=== PATIENT | female | born 1935 | race Caucasian/White ===

== ENCOUNTER 2017-08-12 16:35 | Inpatient (IN) | payer MEDICARE, SELFPAY ==
[2017-08-12] VITALS (9 sets, daily range): BP systolic 108–132; BP diastolic 68–92; PULSE 71–93; RESP 16–25; TEMP 36.4–36.9; O2SAT 97–100; BMI 33.5; BMI 33.8
--- NOTE | 2017-08-12 16:52 | RAD_ITS ---
STUDY: X-RAY CHEST REASON FOR EXAM: Female, 81 years old. Dyspnea TECHNIQUE: Single AP portable view of the chest. COMPARISON: January 20, 2017 FINDINGS: There are monitoring devices The lungs are clear and expanded. There is pleural fibrotic scarring of the left costophrenic angle. Sternal cerclage wires are present from a prior sternotomy. Moderate cardiac enlargement. Normal mediastinum and laisha. Normal visualized pulmonary arteries. Normal visualized aortic arch and descending thoracic aorta. Normal visualized thoracic spine. Normal visualized ribs, clavicles, and shoulders. There is no demonstrated abnormality of the visualized soft tissue structures of the upper abdomen. RAD/Chest 1 View (Portable) IMPRESSION: Cardiac enlargement. Left pleural thickening or effusion. Electronically Signed: Marco Quintana MD at 18:13 EDT , Service support ,
--- NOTE | 2017-08-12 16:53 | EKG12_ITS ---
Test Reason : SOB Blood Pressure : / mmHG Vent. Rate : 073 BPM Atrial Rate : 098 BPM P-R Int : 000 ms QRS Dur : 124 ms QT Int : 432 ms P-R-T Axes : 000 027 063 degrees QTc Int : 475 ms Atrial fibrillation with premature ventricular or aberrantly conducted complexes Nonspecific ST abnormality Abnormal ECG Confirmed by BLANCA SCHMIDT, ERIS ([id number]), loan expeditor SHREE FARLEY ([id number]) on 08/18/2017 9:00:13 AM Referred By: LEXY Confirmed By:ERIS RIOS MD
--- NOTE | 2017-08-12 16:53 | CT_ITS ---
STUDY: CT ABDOMEN AND PELVIS WITHOUT CONTRAST REASON FOR EXAM: Female, 81 years old. Pelvic pain and bloating. RADIATION DOSAGE (If Supplied By Facility): CTDIvol = ( 18.84 ) mGy, DLP = ( 998.02 ) mGycm TECHNIQUE: Transaxial images were obtained from the dome of the diaphragm to the symphysis pubis without oral contrast, and without intravenous contrast. Sagittal and coronal images were reconstructed. Individualized dose optimization techniques were used for this CT. COMPARISON: January 01, 2017. FINDINGS: Lower lung consolidation. Small pleural effusions. Cardiac enlargement. Sternotomy wires. There is hepatomegaly with diffuse hepatic enlargement. Normal gallbladder and extrahepatic biliary system. There are multiple benign calcified granulomata of the spleen. Normal pancreas. Normal bilateral adrenal glands. Normal right kidney. Normal left kidney. No stones or hydronephrosis. Normal visualized stomach. Normal small intestine. Normal colon. There is non-visualization of the appendix. There is diffuse atherosclerotic calcification of the abdominal aorta, without a demonstrated aneurysm. There is an IVC filter in place. 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 Normal retroperitoneum. Gentile catheter in the urinary bladder. There is absence of the uterus consistent with a prior hysterectomy. There is moderate free fluid in the abdomen There is significant edema of the abdominal wall. There are diffuse degenerative changes of the visualized lumbar spine. CT/Abdomen/Pelvis without Cont IMPRESSION: Hepatomegaly. Moderate ascites. Bilateral pleural effusions. No obstruction. No hydronephrosis. Electronically Signed: Marco Quintana MD at 18:53 EDT , Service support ,
--- NOTE | 2017-08-12 17:01 | NURSING ---
NO LW OR POA
[2017-08-12 17:50] LABS: Bacteria 0 SEEN /hpf (None Seen); Mucous, Urine 0 SEEN /hpf (<or=2+); Red Blood Cells-Urine 0 SEEN /hpf (0-5); White Blood Cells 0 SEEN /hpf (0-5)
[2017-08-12 18:06] LABS: Color, Urine Yellow (Yellow); Glucose, Dipstick Normal (Normal); Ketone-Dipstick Negative (Negative); Leukocyte Esterase-Dipstick Negative /ul (Negative); Nitrite-Dipstick Negative (Negative); Occult Blood-Urine Negative /ul (Negative); Protein-Dipstick Negative (Negative); Urine Bilirubin Dipstick Negative (Negative); Urine Clarity Clear (Clear); Urine Urobilinogen Normal (Normal)
[2017-08-12 18:08] LABS: Absolute Lymphocyte Count 0.63 X10^3/ul (0.83-4.51); Absolute Neutrophil Count 1.9 X10^3/uL (2.0-7.7); Basophil# 0.01 X10^3/uL; Basophil% 0.3 % (0-1); Eosinophil# 0.14 X10^3/uL; Eosinophils% 4.4 % (0-5); Hematocrit 29.4 % (37-47); Hemoglobin 9.4 g/dl (12.0-15.0); Lymphocyte # 0.63 X10^3/ul (4.0); Lymphocyte % 19.8 % (19-41); Mean Corpuscular Hgb 30.2 pg (27.0-32.0); Mean Corpuscular Volume 94.5 fL (81-99); Mean Platelet Vol. 9.6 fl (6.2-12.0); Monocyte# 0.47 X10^3/uL; Monocyte% 14.8 % (0-10); Neutrophil # 1.93 X10^3/uL (2.7-7.7); Neutrophil % 60.7 % (47-70); Platelet Count 96 K/mm3 (150-450); RBC Distribution Width CV 15.7 % (11.6-14.6); RBC Distribution Width SD 53.7 fl (35.1-43.9); Red Blood Count 3.11 M/mm3 (4.2-5.4); White Blood Count 3.2 K/mm3 (4.4-11.0)
[2017-08-12 18:10] LABS: POSITIVE COUNT NO; POSITIVE DIFFERENTIAL NO; POSITIVE MORPHOLOGY NO
[2017-08-12 18:27] LABS: Squamous Epithelial Cells - UA 0-5 SEEN /hpf (5-10)
[2017-08-12 18:29] LABS: Anion Gap 8 (5-15); BUN 55 mg/dL (7-18); BUN/Creat Ratio 45.5 RATIO (10-20); Calcium,Total 8.5 mg/dL (8.5-10.1); Chloride 91 mmol/L (98-107); Creatinine, Serum 1.21 mg/dL (0.55-1.02); EST Glomerular Filtration Rate 45 mL/min (>60); Est Glom Filt Rate - Afr Amer 55 mL/min (>60); Estimated Creatinine Clearance 29.65 ml/min; Glucose 110 mg/dL (74-106); Lipase 307 U/L (73-393); Potassium 3.9 mmol/L (3.5-5.1); Sodium Level 129 mmol/L (136-145)
[2017-08-12 19:30] LABS: AST(SGOT) 16 U/L (15-37); Alanine Aminotransfer ALT/SGPT 12 U/L (13-56); Albumin, Serum 3.9 g/dL (3.2-5.0); Alkaline Phosphatase 82 U/L (45-117); Bilirubin, Direct 0.45 mg/dL (0.00-0.30); Protein, Total 7.9 g/dL (6.4-8.2)
[2017-08-12 19:34] LABS: BNP,B-Type NATRIURETIC PEPTIDE 651.6 pg/mL (0-100)
--- NOTE | 2017-08-12 20:48 | ED.VISSUMM ---
- ER Visit Summary Date of Service: 08/12/17 Chief Complaint: [Short of breath and abdominal distention] History of Present Illness: The patient is a 81 F [presents the emergency department with multiple complaints. Patient states that she developed abdominal distention today. Patient feels like she is having a hard time getting urine out or she is not making enough urine. Patient has been gaining weight and she does have a history of CHF. Patient complains of dyspnea related to her abdominal distention. She denies any chest pain. She denies any fever. Patient does have a history of a chronic cough. Patient's last bowel movement was yesterday but very small she states. Her last good bowel movement was 3 or 4 days ago. Patient took a stool softener today and had no results.] Physical Examination: [HEENT-PERRLA, EOMI. Cranial nerves II through XII grossly intact. TMs clear. Mucous membranes moist. No adenopathy. Cardiovascular-irregularly irregular with a 2 out of 6 systolic ejection murmur Lungs-rales in bases, mild tachypnea, no accessory muscle use or retractions. Abdomen-normoactive bowel sounds, soft. Patient has mild diffuse tenderness to palpation. Slightly distended abdomen. Extremities-intact ?4, normal range of motion, normal pulses, atraumatic]. +2 edema both lower extremities. Test Results: [EKG obtained arrival showed A. fib with ventricular rate of 73 bpm. CBC with differential obtained showed a white blood cell count 3.2, hemoglobin 9.4, hematocrit 29, platelets 96, chemistries unremarkable, LFTs were normal. Troponin less than 0.02. BNP was 651. Lipase was 307. Chest x-ray showed bilateral pleural effusions and cardiomegaly. CT scan of the flank showed hepatomegaly with ascites and bilateral effusions.] Emergency Department Course and Treatment: Patient received a soapsuds enema and simethicone without much relief.] Treatment Plan: [Case was discussed with hospitalist will evaluate patient for admission] Disposition: [Admit] Impression: [Dyspnea/CHF Abdominal pain Ascites Bilateral pleural effusions] This note was generated with [employer] dictation software. It may contain incorrect words, spelling, and punctuation that were not noted in review of the chart prior to signing ED Disposition - Plan for ED Patient: Chief Complaint: Shortness of Breath Referrals: Sea Obando MD [Primary Care Provider] -
--- NOTE | 2017-08-12 20:50 | ED.RN ---
PATIENT HAD SMALL AMOUNTS OF STOOL AFTER THE SOAP SUDS ENEMA. NO STOOL WAS NOTED ON DIGITAL EXAM OF RECTUM. PATIENT STILL C/O FULLNESS IN HER ABDOMEN CAN BE SEEN WHEN LOOKING AT HER. DOCTOR AWARE OF ALL OF THIS.
--- NOTE | 2017-08-12 20:51 | ED.DCSUM_ITS ---
- ER Visit Summary Date of Service: 08/12/17 Chief Complaint: [Short of breath and abdominal distention] History of Present Illness: The patient is a 81 F [presents the emergency department with multiple complaints. Patient states that she developed abdominal distention today. Patient feels like she is having a hard time getting urine out or she is not making enough urine. Patient has been gaining weight and she does have a history of CHF. Patient complains of dyspnea related to her abdominal distention. She denies any chest pain. She denies any fever. Patient does have a history of a chronic cough. Patient's last bowel movement was yesterday but very small she states. Her last good bowel movement was 3 or 4 days ago. Patient took a stool softener today and had no results.] Physical Examination: [HEENT-PERRLA, EOMI. Cranial nerves II through XII grossly intact. TMs clear. Mucous membranes moist. No adenopathy. Cardiovascular-irregularly irregular with a 2 out of 6 systolic ejection murmur Lungs-rales in bases, mild tachypnea, no accessory muscle use or retractions. Abdomen-normoactive bowel sounds, soft. Patient has mild diffuse tenderness to palpation. Slightly distended abdomen. Extremities-intact ?4, normal range of motion, normal pulses, atraumatic]. +2 edema both lower extremities. Test Results: [EKG obtained arrival showed A. fib with ventricular rate of 73 bpm. CBC with differential obtained showed a white blood cell count 3.2, hemoglobin 9.4, hematocrit 29, platelets 96, chemistries unremarkable, LFTs were normal. Troponin less than 0.02. BNP was 651. Lipase was 307. Chest x- ray showed bilateral pleural effusions and cardiomegaly. CT scan of the flank showed hepatomegaly with ascites and bilateral effusions.] Emergency Department Course and Treatment: Patient received a soapsuds enema and simethicone without much relief.] Treatment Plan: [Case was discussed with hospitalist will evaluate patient for admission] Disposition: [Admit] Impression: [Dyspnea/CHF Abdominal pain Ascites Bilateral pleural effusions] This note was generated with [employer] dictation software. It may contain incorrect words, spelling, and punctuation that were not noted in review of the chart prior to signing ED Disposition - Plan for ED Patient: Chief Complaint: Shortness of Breath Referrals: Sea Obando MD [Primary Care Provider] -
--- NOTE | 2017-08-12 21:35 | PCM.HP.STD ---
Problem List (1) Chronic systolic CHF (congestive heart failure) Status: Chronic (2) Paroxysmal a-fib Status: Chronic (3) Pulmonary HTN Status: Chronic (4) Hyponatremia Status: Chronic (5) Gastroesophageal reflux disease Status: Chronic (6) Iron (Fe) deficiency anemia Status: Chronic (7) CAD (coronary artery disease) Status: Chronic Comment: Status post bypass in 2006, following with Dr. Dumont (8) Hypothyroidism Status: Chronic History of Present Illness Date of Admission: 08/12/17 Chief Complaint: Abdominal distention, tightness, increasing leg edema. The patient is a 81 year old F with past medical history as mentioned above presented to the emergency room because of multiple complaints. The patient is poor informant and she kept jumping from one complaint to another. She mentioned that her main presenting complaint is abdominal distention and tightness that led to difficulty taking a deep breath. She was not able to tell me for how long she has been having those symptoms. Her daughter was at the bedside and she was not of any benefit in terms of giving clear consistent history. Apparently, patient has been complaining of progressively increasing abdominal distention and tightness as well as increasing bilateral leg edema and she has been gaining weight. She gained about 9 pounds over the last 10 days. The patient herself denies any abdominal pain and she said the main problem is the tightness because of the distention which is causing difficult to take a deep breath. She has been belching frequently and she mentioned that she has been constipated for a few days. Also, she reported that her urine output is decreasing nowadays. She has history of chronic systolic CHF with low ejection fraction and she has been on high doses of Lasix and Aldactone and recently, Dr. Dumont recommended to decrease her fluid intake. She had a history of CAD status post CABG, has been on beta-blockers, KAREN inhibitors and diuretics And she is following up with Dr. Dumont as outpatient. She has history of paroxysmal A. fib and she was on Coumadin that she was taken off last year because of GI bleed. At this time, she is not on any anticoagulants. 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 In the emergency room, her vital signs were stable. He was very distressed with grunting because of the significant abdominal distention. Her routine blood work is remarkable for chronic pancytopenia, chronic hyponatremia with sodium of 129, BUN of 55 and creatinine 1.21. His LFT was unremarkable. Troponin was negative. BNP was elevated at 651 but it is chronically elevated. Urinalysis revealed clear urine without evidence of acute cystitis. Chest x-ray revealed cardiomegaly and obliteration of the left costophrenic angle, no acute findings. CT scan abdomen and pelvis without contrast revealed hepatomegaly, moderate ascites, bilateral small pleural effusion, no bowel obstruction, normal kidneys and revealed dilatation of the inferior vena cava. She had CT scan abdomen and pelvis in December, that revealed almost same findings including dilatation of the inferior vena cava. She is being admitted for abdominal distention/ascites which could be due to probable acute on chronic systolic CHF but that clear etiology is unclear at this point. Past Medical History Past Medical History (Chronic Problems): Chronic Problems Chronic systolic CHF (congestive heart failure) (Chronic) Paroxysmal a-fib (Chronic) Pulmonary HTN (Chronic) Hyponatremia (Chronic) Gastroesophageal reflux disease (Chronic) Iron (Fe) deficiency anemia (Chronic) Chronic congestive heart failure (Chronic) systolic. 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 Dumont Hypothyroidism (Chronic) Allergies azithromycin [From Zithromax] Allergy (Intermediate, Verified 08/12/17 16:38) Mucosal lesions Penicillins Allergy (Intermediate, Verified 08/12/17 16:38) Mucosal lesions Sulfa (Sulfonamide Antibiotics) Allergy (Intermediate, Verified 08/12/17 16:38) Mucosal lesions nausea cephalexin [From Keflex] Allergy (Verified 08/12/17 16:38) GI UPSET tobramycin Allergy (Verified 08/12/17 16:38) RED EYES metronidazole Adverse Reaction (Intermediate, Verified 08/12/17 16:38) Nausea diltiazem Adverse Reaction (Mild, Verified 08/12/17 16:38) Nausea/Vom/Diarrhea metolazone [From Zaroxolyn] Adverse Reaction (Mild, Verified 08/12/17 16:38) Nausea potassium chloride Adverse Reaction (Mild, Verified 08/12/17 16:38) Upset Stomach nystatin Adverse Reaction (Verified 08/12/17 16:38) Nausea spironolactone Adverse Reaction (Verified 08/12/17 16:38) Nausea Home Medications: Ambulatory Orders Medication Instructions Recorded Carvedilol [Coreg] 12.5 mg PO BID 08/17/16 Levothyroxine [Synthroid] 100 mcg PO DAILY 08/17/16 Lisinopril [Zestril] 5 mg PO DAILY 08/17/16 Omeprazole [Prilosec] 20 mg PO DAILY 08/17/16 Docusate Sodium [Colace] 100 mg PO BID 11/10/16 Spironolactone 25 mg PO BID 01/01/17 Furosemide 80 mg PO BID 08/12/17 Surgical History: cholecystectomy, coronary bypass surgery, hysterectomy, - Psychiatric History: No pertinent psych hx 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 Denies: Anorexia, Chills, Fever, Fatigue Eyes: Denies: Blurred vision, Double vision, Drainage, Redness HEENT: Denies: Difficulty Hearing, Ear Pain, Eye Pain, Nasal Congestion, Sore Throat Cardiovascular: Reports: Edema. Denies: Chest Pain, Chest Pressure, Chest Tightness, Heaviness, Light Headedness, Palpitations, Syncope Respiratory: Reports: Cough, Shortness of Breath. Denies: Pleuritic Pain, Sputum production, Wheezing Gastrointestinal: Reports: Abdominal Pain, Constipation, Nausea. Denies: Diarrhea, Vomiting Genitourinary: Reports: - - Decreased urine output.. Denies: Dysuria, Frequency Musculoskeletal: Denies: Arm Pain, Back Pain, Foot Pain Skin: Reports: Dryness. Denies: Rash Neurological: Denies: Balance problems, Double vision, Change in Speech, Slurred speech, Confusion, Headaches, Incoordination Psychiatric: Denies: Anxiety, Depression Endocrine: Denies: Change in Body Habitus, Polydipsia VTE Information - Inpt Only VTE Present on Admission: No VTE Mechan Device Prophylaxis: SCD's VTE Pharm Prophylaxis ordered?: No - Physical Exam General: Alert, Oriented x3, Cooperative, - - She is distress because of abdominal distention. HEENT: Atraumatic, PERRLA, EOMI Oral: No Gingival or Mucosal Lesions/ Ulcerations, Dry Mucosa Neck: Supple, No JVD, Negative Carotid Bruits, Trachea Midline, Thyroid Normal Size and Texture Lungs: No wheeze, No rales, Diminished, Rhonchi, Short of Breath, - - Decreased breath sounds at the basis, scattered rhonchi. Cardiovascular: Normal S1, Normal S2, No murmurs, PMI Normal, Irregular Rate Abdomen: Soft, Hypoactive Bowel Sounds, Distended, Tender Extremities: No clubbing, No cyanosis, Edema - ++ Edema. Skin: No rashes, No breakdown Lymphatic: No Cervical, Supraclavicular, or Inguinal Adenopathy Neurological: Cranial nerves II-XII grossly intact, Motor Exam 5/5 strength throughout Psych/Mental Status: Flat Affect, Alert and oriented to time, place, person, mood and affect Vital Signs Temp Pulse Resp BP Pulse Ox 97.5 F L 74 21 H 125/69 H 99 08/12/17 20:43 08/12/17 20:43 08/12/17 20:43 08/12/17 20:43 08/12/17 20:43 Laboratory Tests 08/12/17 08/12/17 08/12/17 Range/Units 17:10 17:10 17:10 WBC (4.4-11.0) K/mm3 RBC (4.2-5.4) M/mm3 Hgb (12.0-15.0) g/dl Hct (37-47) % MCV (81-99) fL MCH (27.0-32.0) pg MCHC (32-36) g/gl RDW (11.6-14.6) % RDW Differential (35.1-43.9) fl Plt Count (150-450) K/mm3 MPV (6.2-12.0) fl Immature Gran % (Auto) (0.0-0.9) % Neut % (Auto) (47-70) % Lymph % (Auto) (19-41) % [place] % (Auto) (0-10) % Eos % (Auto) (0-5) % Baso % (Auto) (0-1) % Absolute Neuts (auto) (2.0-7.7) X10^3/uL Absolute Lymphs (auto) (0.83-4.51) X10^3/ul Total Counted Sodium (136-145) mmol/L Potassium (3.5-5.1) mmol/L Chloride (98-107) mmol/L Carbon Dioxide (21.0-32.0) mmol/L Anion Gap (5-15) BUN (7-18) mg/dL Creatinine (0.55-1.02) mg/dL Estim Creat Clear Calc ml/min Est GFR (MDRD) Af Amer (>60) mL/min Est GFR (MDRD) Non-Af (>60) mL/min BUN/Creatinine Ratio (10-20) RATIO Glucose (74-106) mg/dL Calcium (8.5-10.1) mg/dL Total Bilirubin 1.10 H (0.20-1.00) mg/dL Direct Bilirubin 0.45 H (0.00-0.30) mg/dL AST 16 (15-37) U/L ALT 12 L (13-56) U/L Alkaline Phosphatase 82 (45-117) U/L Troponin I (<0.06) ng/mL B-Natriuretic Peptide 651.6 H (0-100) pg/mL Total Protein 7.9 (6.4-8.2) g/dL Albumin 3.9 (3.2-5.0) g/dL Globulin 4.0 (2.2-4.2) g/dL Lipase (73-393) U/L Urine Color Yellow (Yellow) Urine Clarity Clear (Clear) Urine pH 6.0 (5.0 - 8.0) Ur Specific [place] 1.010 (1.002-1.030) Urine Protein Negative (Negative) mg/dl Urine Glucose (UA) Normal (Normal) mg/dl Urine Ketones Negative (Negative) mg/dl Urine Occult Blood Negative (Negative) /ul Urine Nitrite Negative (Negative) Urine Bilirubin Negative (Negative) mg/dL Urine Urobilinogen Normal (Normal) mg/dl Ur Leukocyte Esterase Negative (Negative) /ul Urine RBC 0 SEEN (0-5) /hpf Urine WBC 0 SEEN (0-5) /hpf Ur Squamous Epith Cells 0-5 SEEN (5-10) /hpf Urine Bacteria 0 SEEN (None Seen) /hpf Urine Mucus 0 SEEN (<or=2+) /hpf 08/12/17 08/12/17 Range/Units 17:10 17:10 WBC 3.2 L (4.4-11.0) K/mm3 RBC 3.11 L (4.2-5.4) M/mm3 Hgb 9.4 L (12.0-15.0) g/dl Hct 29.4 L (37-47) % MCV 94.5 (81-99) fL MCH 30.2 (27.0-32.0) pg MCHC 32.0 (32-36) g/gl RDW 15.7 H (11.6-14.6) % RDW Differential 53.7 H (35.1-43.9) fl Plt Count 96 L (150-450) K/mm3 MPV 9.6 (6.2-12.0) fl Immature Gran % (Auto) 0.000 (0.0-0.9) % Neut % (Auto) 60.7 (47-70) % Lymph % (Auto) 19.8 (19-41) % [place] % (Auto) 14.8 H (0-10) % Eos % (Auto) 4.4 (0-5) % Baso % (Auto) 0.3 (0-1) % Absolute Neuts (auto) 1.9 L (2.0-7.7) X10^3/uL Absolute Lymphs (auto) 0.63 L (0.83-4.51) X10^3/ul Total Counted Not Reportable Sodium 129 L (136-145) mmol/L Potassium 3.9 (3.5-5.1) mmol/L Chloride 91 L (98-107) mmol/L Carbon Dioxide 30.0 (21.0-32.0) mmol/L Anion Gap 8 (5-15) BUN 55 H (7-18) mg/dL Creatinine 1.21 H (0.55-1.02) mg/dL Estim Creat Clear Calc 29.65 ml/min Est GFR (MDRD) Af Amer 55 L (>60) mL/min Est GFR (MDRD) Non-Af 45 L (>60) mL/min BUN/Creatinine Ratio 45.5 H (10-20) RATIO Glucose 110 H (74-106) mg/dL Calcium 8.5 (8.5-10.1) mg/dL Total Bilirubin (0.20-1.00) mg/dL Direct Bilirubin (0.00-0.30) mg/dL AST (15-37) U/L ALT (13-56) U/L Alkaline Phosphatase (45-117) U/L Troponin I < 0.02 (<0.06) ng/mL B-Natriuretic Peptide (0-100) pg/mL Total Protein (6.4-8.2) g/dL Albumin (3.2-5.0) g/dL Globulin (2.2-4.2) g/dL Lipase 307 (73-393) U/L Urine Color (Yellow) Urine Clarity (Clear) Urine pH (5.0 - 8.0) Ur Specific [place] (1.002-1.030) Urine Protein (Negative) mg/dl Urine Glucose (UA) (Normal) mg/dl Urine Ketones (Negative) mg/dl Urine Occult Blood (Negative) /ul Urine Nitrite (Negative) Urine Bilirubin (Negative) mg/dL Urine Urobilinogen (Normal) mg/dl Ur Leukocyte Esterase (Negative) /ul Urine RBC (0-5) /hpf Urine WBC (0-5) /hpf Ur Squamous Epith Cells (5-10) /hpf Urine Bacteria (None Seen) /hpf Urine Mucus (<or=2+) /hpf Clinical Impression(s) from Imaging Studies Chest X-Ray 08/12/17 16:52 IMPRESSION: Cardiac enlargement. Left pleural thickening or effusion. Electronically Signed: Marco Quintana MD at 18:13 EDT , Service support , Abdomen/Pelvis CT 08/12/17 16:53 IMPRESSION: Hepatomegaly. Moderate ascites. Bilateral pleural effusions. No obstruction. No hydronephrosis. Electronically Signed: Marco Quintana MD at 18:53 EDT , Service support , Assessment/Plan This is an 81 years old female patient presented to the emergency room because of abdominal distention, abdominal tightness, weight gain and increasing bilateral leg edema as well as shortness of breath and she was found to have moderate ascites on CT scan abdomen and pelvis without contrast and there was no obvious etiology for this ascites and abdominal distention but it could be due to acute on chronic systolic CHF. #1 abdominal distention/ascites/weight gain/increasing bilateral leg edema: Unclear etiology, could be due to acute on chronic systolic CHF. Other differential diagnoses include chronic liver disease, liver cirrhosis, acute or chronic portal vein thrombosis. She had a similar presentation back in December, and was treated as a case of acute on chronic CHF and his symptoms improved. Today, CT scan abdomen and pelvis without contrast revealed moderate arthritis, hepatomegaly, dilatation of the inferior vena cava with normal spleen. Those findings are similar to the CAT scan that was done back in December,. Patient had a history of lower extremity DVT status post IVC. She was on Coumadin for paroxysmal A. fib which was discontinued one year ago because of history of GI bleed. Plan: Admit to PCU, cardiac monitoring, serial cardiac enzymes, IV Lasix for diuresis, IV morphine as needed, IV antiemetics, ultrasound abdomen. We need to consider doing CT scan with contrast or MRI with contrast to rule out acute of chronic portal vein thrombosis. At this time, her BUN and creatinine are slightly above her baseline. We may need to consider liver biopsy if the above workup is unremarkable. #2 probable acute on chronic systolic CHF: This is based on symptoms of increasing bilateral leg edema, weight gain and pulse ox on CT scan abdomen and pelvis. Her BNP is currently elevated. Chest x-ray showed cardiomegaly without strong evidence of acute pulmonary vascular congestion. EKG revealed A. fib, no acute ischemic changes. Troponin is negative. Plan: IV Lasix for diuresis, start oral Zaroxolyn, input output chart, fluid restriction to less than 15 cc daily, continue Coreg and lisinopril, 2D echocardiogram. #3 chronic pancytopenia: Unclear etiology. It is not clear if the patient had a history of chronic liver disease. Her total white blood cell count, hemoglobin, platelet count are always low and they are at his baseline today. Her absolute neutrophil count is 1900 which is normal. No indication for transfusion. No evidence of active bleeding. Plan: PT, PTT and INR, GGT, infectious hepatitis B and C serology, avoid antiplatelet therapy for DVT prophylaxis, repeat CBC tomorrow morning. #4 chronic kidney disease stage III: Although her creatinine was in the normal range in the past, her GFR is has been around high 50s-60s. Today's creatinine is 1.21 and BUN of 45. She looks dehydrated. Plan: Hold Aldactone, close monitoring of kidney function because she will be on IV Lasix for diuresis, repeat BMP tomorrow morning. #4 CAD status post CABG: EKG reviewed, no acute ischemic changes. Troponin is negative. Plan as above, continue Coreg and lisinopril, 2D echocardiogram. #5 paroxysmal A. fib: Rate is stable, blood pressure stable. Continue Coreg for rate control. She is not on anticoagulation because of history of GI bleed, Coumadin was discontinued 1 year ago. #6 history of GI bleed: Hemoglobin and hematocrit are stable at her baseline. Denied evidence of active GI bleed. #7 chronic hyponatremia: Likely because of diuretics. She is on high dose of Lasix and spironolactone. Serum sodium is at his baseline which is 129 today. #8 hypothyroidism: Continue levothyroxine. #9 DVT prophylaxis: SCDs, no chemical prophylaxis because of thrombocytopenia. This note was generated with [employer] dictation software. It may contain incorrect words, spelling, and punctuation that were not noted in checking the note before signing. Code Visit Inpatient E&M: 11079 Init Hosp L3
--- NOTE | 2017-08-12 22:12 | ECHOD_ITS ---
Reason For Study: CHF Procedure This was a 2D Doppler, Color Flow transthoracic echocardiogram. Exam performed portable in patient room. Left Ventricle Severely dilated left ventricle. D shaped septum in diastole. The estimated ejection fraction is 35 %. Moderately severe segmental systolic dysfunction (see wall motion). Infero-Basal: Akinetic. Basal inferoseptal: Akinetic. Lateral-Basal: Normal. Posterior-Basal: Normal. Mid-Lateral : Normal. Basal anteroseptal: Normal. Mid-Anterior : Normal. Rest of the yanes hypokinetic. Right Ventricle Moderately dilated right ventricle. Mild to moderate global right ventricular systolic dysfunction. Atria The left atrium is moderately enlarged. The right atrium is severely enlarged. Mitral Valve Bileaflet diffuse mitral valve thickening. Mild (1+) eccentric mitral valve insufficiency. Tricuspid Valve Normal tricuspid valve. Pulmonary artery systolic pressure is 50 mmHg. Moderate pulmonary hypertension. Aortic Valve Trisinus/trileaflet aortic valve. Pulmonic Valve Normal pulmonic valve. Great Vessels Normal aortic root. The pulmonary artery is normal size. The inferior vena cava is dilated. Pericardium/Pleural No pericardial effusion. MMode/2D Measurements & Calculations LVIDd: 6.1 cm IVSd: 0.99 cm Ao root diam: 2.6 cm LVIDs: 4.8 cm LVPWd: 0.98 cm LA dimension: 4.4 cm RVDd: 4.2 cm FS: 20.9 % LAV(MOD-bp): 101.2 ml LA A4 area: 28.2 cm2 RA A4 area: 33.4 cm2 LAV(MOD-bp) Indexed: 53.5 ml/m2 LAV(MOD-sp2): 92.5 ml LAV(MOD-sp4): 90.6 ml Doppler Measurements & Calculations MV E max nima: 132.7 cm/sec Lat Peak E' Nima: 7.7 cm/sec Med Peak E' Nima: 8.2 cm/sec MV A max nima: 38.8 cm/sec E/E' lat: 17.1 E/E' med: 16.2 MV E/A: 3.4 Ao V2 max: 132.1 cm/sec LV V1 max: 79.0 cm/sec PA V2 max: 78.5 cm/sec Ao max P.0 mmHg LV V1 max P.5 mmHg TR max nima: 331.3 cm/sec TR max P.0 mmHg Interpretation Summary Severely dilated left ventricle. The estimated ejection fraction is 35 %. Moderately severe segmental systolic dysfunction (see wall motion). The right atrium is severely enlarged. D shaped septum in diastole. Moderate pulmonary hypertension. Compared to prior study, there is no significant change. Ordering Physician: Huseyin Thompson Referring Physician: Sea Obando Performed By: Thelma Gallardo RDCS, RVT
--- NOTE | 2017-08-12 22:12 | US_ITS ---
STUDY: ABDOMINAL ULTRASOUND REASON FOR EXAM: Female, 81 years old. Ascites. Evaluation of IVC and PV TECHNIQUE: Transabdominal ultrasound was performed with real-time and static vance scale imaging. TECHNICAL QUALITY: Adequate. COMPARISON: CT abdomen pelvis 08/12/2017 FINDINGS: Liver: The liver measures 16.6 cm. There is normal echogenicity of the liver. The bile ducts are within normal limits. There is hepatic color flow. The direction of portal flow is hepatopetal. Portal vein measurement: 13 mm. Hepatic granulomata. Gallbladder: The patient is status post cholecystectomy. Common Bile Duct (C.B.D.): The common bile duct measures 4 mm. Pancreas: Normal size of the head, body and obscured tail of the pancreas. There is limited parenchymal detail. Spleen: There is splenomegaly. The spleen measures 13.5 cm. There is parenchymal calcification. Right Kidney: There is atrophy of the right kidney. The right kidney measures 9 x 4.5 x 5.5 cm. There is thinning of the renal cortex. The right cortex measures 1.5 cm. There is no demonstrated renal mass or cyst. There is no right hydronephrosis. Left Kidney: There is atrophy of the left kidney. The left kidney measures 9.7 x 4.5 x 5.5 cm. There is thinning of the renal cortex. The left cortex measures 1.3 cm. There is no demonstrated renal mass or cyst. There is no left hydronephrosis. Aorta: Normal proximal and mid abdominal aortic diameter, obscured distal abdominal aorta. There is calcification. I.V.C.: The IVC is patent and dilated up to 3.8 cm. Linear echogenic intraluminal foci likely partly visualized inferior vena cava filter. There is moderate ascites. US/Abdomen Complete IMPRESSION: Moderate ascites without loculation. Hepatomegaly as seen on CT not appreciated. Markedly dilated inferior vena cava as seen on CT. Hepatopedal portal venous flow. No thrombosis or cavernous transformation. Bilateral renal involution, remote granulomatous exposure, cholecystectomy. Obscured distal abdominal aorta and pancreas tail. Electronically Signed: Daylin Landis MD at 3:11 EDT , Service support ,
[2017-08-12 22:48] LABS: International Normalized Ratio 1.4; Prothrombin Time (Protime)PT. 17.2 SECONDS (11.7-14.9)
[2017-08-12 22:49] LABS: Partial Thromboplast Time 33.6 Seconds (24.1-36.2)
[2017-08-12 23:00] LABS: Lactic Acid 0.8 mmol/L (0.4-2.0)
[2017-08-12] MEDS: Morphine 2 MG/ML Syringe IV (23:01)
[2017-08-12] MEDS: Senna/Docusate Sodium 1 Tablet 2 TABLET PO (23:03)
[2017-08-12] MEDS: Furosemide 40 MG/4 ML Vial IV (23:03)
[2017-08-12 23:06] LABS: GGTP 81 U/L (5-55); Thyroid Stim Hormone (TSH) 5.15 uIU/mL (0.358-3.74)
[2017-08-13] VITALS (13 sets, daily range): BP systolic 95–132; BP diastolic 46–75; PULSE 69–90; RESP 16–18; TEMP 36.8–37.2; O2SAT 92–98
--- NOTE | 2017-08-13 | FLU_PTH ---
PATIENT: RAND WIN V LOC: PCU U#:[id number] AGE/SX: 81/F ROOM: [facility] RE08/12/[address]: Dr. Sachi Gillis MD : 1935 BED: 1 DIS: 08/14/2017 SPEC #: [id number] RECD: 08/14/17 13:28 STATUS: JUAN REMarya #: [id number] SILVIA: 08/13/17 00:[address]: Sachi Gillis DEPT: CYTOLOGY RECD BY: Caesar Bolton ENTERED: 08/14/17 13:28 SP TYPE: Fluid OTHR DR: MD Dr. Sea Dee MD Tissues: PARACENTESIS FLUID Procedures: Pap Stain (control) Special Stain Group II Surgery Specimen Level IV Cell Block Cytospin Fluid HEADER OPERATION: Ultrasound-guided paracentesis PRE-OP DIAGNOSIS: Ascites TISSUE SUBMITTED: Paracentesis fluid for cytology DIAGNOSIS CYTOLOGY Paracentesis fluid for cytology (cytospin): Negative for malignant cells. SJ:rg 08/17/17 COMMENT Clinical correlation and appropriate follow up are necessary. CYTOLOGY STUDY Slides are reviewed. The specimen consists of macrophages, mesothelial cells and inflammatory cells. CYTOLOGY GROSS Received is 60 ml of red-orange cloudy fluid labeled with the patient's name and and designated per the requisition as paracentesis. Submitted for cytology preparation including cell block. / 08/14/17 TC:5 CPT: 26075, 58169
[2017-08-13 02:46] LABS: Absolute Lymphocyte Count 0.46 X10^3/ul (0.83-4.51); Absolute Neutrophil Count 1.9 X10^3/uL (2.0-7.7); Eosinophil# 0.08 X10^3/uL; Eosinophils% 2.7 % (0-5); Hematocrit 27.9 % (37-47); Hemoglobin 8.9 g/dl (12.0-15.0); Lymphocyte # 0.46 X10^3/ul (4.0); Lymphocyte % 15.8 % (19-41); Mean Corp Hgb Conc 31.9 g/gl (32-36); Mean Corpuscular Volume 93.9 fL (81-99); Monocyte# 0.47 X10^3/uL; Monocyte% 16.2 % (0-10); Neutrophil % 65.3 % (47-70); Platelet Count 79 K/mm3 (150-450); RBC Distribution Width CV 15.5 % (11.6-14.6); RBC Distribution Width SD 52.9 fl (35.1-43.9); Red Blood Count 2.97 M/mm3 (4.2-5.4); White Blood Count 2.9 K/mm3 (4.4-11.0)
[2017-08-13 02:47] LABS: Differential Indicated SCAN CRITERIA MET; POSITIVE COUNT NO; POSITIVE DIFFERENTIAL YES; POSITIVE MORPHOLOGY NO
[2017-08-13 03:01] LABS: Anion Gap 9 (5-15); BUN 49 mg/dL (7-18); BUN/Creat Ratio 47.1 RATIO (10-20); Calcium,Total 8.4 mg/dL (8.5-10.1); Chloride 92 mmol/L (98-107); Creatinine, Serum 1.04 mg/dL (0.55-1.02); EST Glomerular Filtration Rate 54 mL/min (>60); Est Glom Filt Rate - Afr Amer 65 mL/min (>60); Glucose 90 mg/dL (74-106); Potassium 3.8 mmol/L (3.5-5.1); Sodium Level 131 mmol/L (136-145)
[2017-08-13] MEDS: Furosemide 40 MG/4 ML Vial IV ×3 (06:58→21:15)
[2017-08-13] MEDS: 0.9% NaCl Peripheral Flush Adult/Peds IV ×3 (06:58→21:15)
[2017-08-13] MEDS: Senna/Docusate Sodium 1 Tablet 2 TABLET PO ×2 (09:16→21:15)
[2017-08-13] MEDS: metOLazone 5 MG Tablet PO (09:16)
--- NOTE | 2017-08-13 11:14 | VDLE_ITS ---
Reason For Study: swelling RIGHT LEFT CFV is compressible, spontaneous, phasic, GSV is normal. competent and demonstrates normal CFV is compressible, spontaneous, phasic, augmentation. competent, and demonstrates normal FV is compressible, spontaneous, phasic, augmentation. competent and demonstrates normal FV is compressible, spontaneous, phasic, augmentation. competent and demonstrates normal POP V is compressible, spontaneous, phasic, augmentation. competent and demonstrates normal POP V is compressible, spontaneous, phasic, augmentation. competent and demonstrates normal T/P Trunk is compressible. augmentation. PTV is compressible. T/P Trunk is compressible. RT PerV is compressible. PTV is compressible. GSV is partially harvested. LT PerV is compressible. Procedure Exam performed in department. The exam was diagnostic. A preliminary report was called and/or faxed to [facility]. Interpretation Summary No evidence for acute deep venous thrombosis bilateral lower extremities with partially removed right great saphenous vein and patent and compressible left great saphenous vein. Ordering Physician: Josh Nickerson Performed By: Keenan Chand RVT
[2017-08-13 11:16] LABS: T4 Free Direct 1.24 ng/dL (0.76-1.46)
--- NOTE | 2017-08-13 11:24 | US_ITS ---
PROCEDURE: Ultrasound guided paracentesis. DATE OF EXAMINATION: August 13, 2017. INDICATION: Female, 81 years old. Ascites. PHYSICIAN: Ted Shetty M.D. TECHNIQUE: The risks, benefits, and alternatives to the procedure were explained to the patient. The specific risks of bleeding, infection, and damage to bowel were detailed and accepted. Witnessed informed consent was obtained. The abdomen was ultrasonographically surveyed. An appropriate pocket of fluid was identified at the right lower quadrant. The skin were cleaned and prepped in the usual sterile fashion. Using ultrasound guidance, the peritoneal cavity was accessed with a 5-Japanese paracentesis needle/catheter system. The trocar was removed. A total of 1970 ml of blood-tinged fluid were removed from the peritoneal cavity. The catheter was removed and a sterile dressing was applied. The procedure was well tolerated. US/Paracentesis with US IMPRESSION: Ultrasound guided paracentesis. Electronically Signed: Ted Shetty MD at 15:05 EDT Tel [phone], Service support ,
--- NOTE | 2017-08-13 11:45 | CASEMGMT ---
Addendum entered by Leigh Ann Croft 08/13/17 14:01: This RN CM to room to complete assessment and pt is out of the dept at testing at this time. Will attempt again later. Tamara GUIDRY CM Original Note: This RN CM to bedside to complete CM assessment at this time and pt in the bathroom at this time. Will attempt again later. Tamara GUIDRY CM
[2017-08-13 14:59] LABS: Cytology, Body Fluid / CSF SEE PATHOLOGY REPORT
[2017-08-13 15:03] LABS: Albumin, Serum 3.6 g/dL (3.2-5.0)
--- NOTE | 2017-08-13 15:37 | PN_ITS ---
<Josh Nickerson - Last Filed: 08/13/17 15:37> Subjective: Pt has had some improvement of her abdominal distention, however it remains severe. She has been on high dose lasix and aldactone per dr. Ware as an outpatient. She denies any history of liver disease or drinking. Her SOB has improved. She denies cough. No fever or chills. - Physical Exam General: Alert, Oriented x3, Cooperative HEENT: Atraumatic, PERRLA, EOMI, Normocephalic Neck: Supple, No JVD, Negative Carotid Bruits Lungs: Normal air movement, Rales Cardiovascular: No murmurs, Irregular Rate Abdomen: Bowel Sounds Present, Soft, Non Tender, Distended, - - + fluid wave shift. Extremities: Capillary Refill Less than 3 Seconds, Edema - 2-3+ pitting edema BLE, - - severe varicosities. Skin: No rashes, No breakdown Musculoskeletal: No Tenderness to Palpation of Joints or Extremities Neurological: Cranial nerves II-XII grossly intact Psych/Mental Status: Normal Affect, Appropriate, Alert and oriented to time, place, person, mood and affect Vital Signs Temp Pulse Resp BP Pulse Ox 98.3 F 78 17 108/54 L 95 08/13/17 14:26 08/13/17 14:26 08/13/17 14:26 08/13/17 14:26 08/13/17 14:26 Oxygen Delivery Method Room Air Weight: 86.2 kg Body Mass Index (BMI) 33.8 Intake and Output for Last 24 Hours 08/11/17 08/12/17 08/13/17 23:59 23:59 23:59 Intake Total 810 / 810 Output Total 3075 / 3075 Balance -2265 / -2265 Laboratory Tests Past 24 Hrs 08/12/17 08/12/17 08/12/17 22:18 22:18 22:24 WBC RBC Hgb Hct MCV MCH MCHC RDW RDW Differential Plt Count MPV Immature Gran % (Auto) Neut % (Auto) Lymph % (Auto) [place] % (Auto) Eos % (Auto) Baso % (Auto) Absolute Neuts (auto) Absolute Lymphs (auto) Total Counted PT INR APTT Sodium Potassium Chloride Carbon Dioxide Anion Gap BUN Creatinine Estim Creat Clear Calc Est GFR (MDRD) Af Amer Est GFR (MDRD) Non-Af BUN/Creatinine Ratio Glucose Lactic Acid 0.8 Calcium GGT 81 H Troponin I Albumin TSH 5.15 H Free T4 Fluid Source Fluid Color Fluid Appearance Fluid pH Fluid WBC Fluid RBC Fluid Tot Cell Count Fl Pathologist Comment Fluid Glucose Fluid Total Protein Fluid LDH Fluid Amylase Fluid Comment 2 Hepatitis A IgM Ab Pending Hep Bs Antigen Pending Hep B Core Total Ab Pending Hep B Core IgM Ab Pending Hepatitis C Ab (EIA) Pending Hepatitis C Comment Pending Miscellaneous Cytology 08/12/17 08/12/17 08/13/17 22:24 22:24 02:05 WBC 2.9 L RBC 2.97 L Hgb 8.9 L Hct 27.9 L MCV 93.9 MCH 30.0 MCHC 31.9 L RDW 15.5 H RDW Differential 52.9 H Plt Count 79 L MPV 9.0 Immature Gran % (Auto) 0.000 Neut % (Auto) 65.3 Lymph % (Auto) 15.8 L [place] % (Auto) 16.2 H Eos % (Auto) 2.7 Baso % (Auto) 0.0 Absolute Neuts (auto) 1.9 L Absolute Lymphs (auto) 0.46 L Total Counted Not Reportable PT 17.2 H INR 1.4 APTT 33.6 Sodium Potassium Chloride Carbon Dioxide Anion Gap BUN Creatinine Estim Creat Clear Calc Est GFR (MDRD) Af Amer Est GFR (MDRD) Non-Af BUN/Creatinine Ratio Glucose Lactic Acid Calcium GGT Troponin I < 0.02 Albumin TSH Free T4 Fluid Source Fluid Color Fluid Appearance Fluid pH Fluid WBC Fluid RBC Fluid Tot Cell Count Fl Pathologist Comment Fluid Glucose Fluid Total Protein Fluid LDH Fluid Amylase Fluid Comment 2 Hepatitis A IgM Ab Hep Bs Antigen Hep B Core Total Ab Hep B Core IgM Ab Hepatitis C Ab (EIA) Hepatitis C Comment Miscellaneous Cytology 08/13/17 08/13/17 08/13/17 02:05 07:55 07:55 WBC RBC Hgb Hct MCV MCH MCHC RDW RDW Differential Plt Count MPV Immature Gran % (Auto) Neut % (Auto) Lymph % (Auto) [place] % (Auto) Eos % (Auto) Baso % (Auto) Absolute Neuts (auto) Absolute Lymphs (auto) Total Counted PT INR APTT Sodium 131 L Potassium 3.8 Chloride 92 L Carbon Dioxide 30.0 Anion Gap 9 BUN 49 H Creatinine 1.04 H Estim Creat Clear Calc 34.50 Est GFR (MDRD) Af Amer 65 Est GFR (MDRD) Non-Af 54 L BUN/Creatinine Ratio 47.1 H Glucose 90 Lactic Acid Calcium 8.4 L GGT Troponin I < 0.02 < 0.02 Albumin TSH Free T4 1.24 Fluid Source Fluid Color Fluid Appearance Fluid pH Fluid WBC Fluid RBC Fluid Tot Cell Count Fl Pathologist Comment Fluid Glucose Fluid Total Protein Fluid LDH Fluid Amylase Fluid Comment 2 Hepatitis A IgM Ab Hep Bs Antigen Hep B Core Total Ab Hep B Core IgM Ab Hepatitis C Ab (EIA) Hepatitis C Comment Miscellaneous Cytology 08/13/17 08/13/17 08/13/17 07:55 14:15 14:15 WBC RBC Hgb Hct MCV MCH MCHC RDW RDW Differential Plt Count MPV Immature Gran % (Auto) Neut % (Auto) Lymph % (Auto) [place] % (Auto) Eos % (Auto) Baso % (Auto) Absolute Neuts (auto) Absolute Lymphs (auto) Total Counted PT INR APTT Sodium Potassium Chloride Carbon Dioxide Anion Gap BUN Creatinine Estim Creat Clear Calc Est GFR (MDRD) Af Amer Est GFR (MDRD) Non-Af BUN/Creatinine Ratio Glucose Lactic Acid Calcium GGT Troponin I Albumin 3.6 TSH Free T4 Fluid Source Fluid Color Fluid Appearance Fluid pH Pending Fluid WBC Fluid RBC Fluid Tot Cell Count Fl Pathologist Comment Fluid Glucose Pending Fluid Total Protein Pending Fluid LDH Pending Fluid Amylase Pending Fluid Comment 2 Hepatitis A IgM Ab Hep Bs Antigen Hep B Core Total Ab Hep B Core IgM Ab Hepatitis C Ab (EIA) Hepatitis C Comment Miscellaneous Cytology 08/13/17 08/13/17 14:15 14:15 WBC RBC Hgb Hct MCV MCH MCHC RDW RDW Differential Plt Count MPV Immature Gran % (Auto) Neut % (Auto) Lymph % (Auto) [place] % (Auto) Eos % (Auto) Baso % (Auto) Absolute Neuts (auto) Absolute Lymphs (auto) Total Counted PT INR APTT Sodium Potassium Chloride Carbon Dioxide Anion Gap BUN Creatinine Estim Creat Clear Calc Est GFR (MDRD) Af Amer Est GFR (MDRD) Non-Af BUN/Creatinine Ratio Glucose Lactic Acid Calcium GGT Troponin I Albumin TSH Free T4 Fluid Source Pending Fluid Color Pending Fluid Appearance Pending Fluid pH Fluid WBC Pending Fluid RBC Pending Fluid Tot Cell Count Pending Fl Pathologist Comment Pending Fluid Glucose Fluid Total Protein Fluid LDH Fluid Amylase Fluid Comment 2 Pending Hepatitis A IgM Ab Hep Bs Antigen Hep B Core Total Ab Hep B Core IgM Ab Hepatitis C Ab (EIA) Hepatitis C Comment Miscellaneous Cytology Pending Medical Necessity - Tobacco Use Smoking Status: Never smoker Assessment/Plan 1. Ascites, acute systolic CHF exacerbation, possible underlying liver disease ( unclear etiology) - repeat echo today shows EF 35% with significant systolic changes and moderate pulmonary HTN with PASP 50mmHg. CT abdomen shows hepatomegaly, ascites, BL pleural effusions. Abdominal US shows mod ascites, markedly dilated IVC, hepatopetal flow, splenomegaly. S/p paracentesis today 1970 cc removed. Liver and spleen with granulomata. Fluid sent for studies. She will need outpatient follow up with GI. Hepatitis panel pending. T bili and direct Bili elevated, GGT elevated, ALT elevated. BNP elevated. Trop neg. Continue Lasix/Xaroxalyn, lisinopril, coreg. Aldactone held at admission. LE US for DVTs is negative. Pt is s/p cholecystectomy. Pt does not drink. 2. Pancytopenia - suspect 2/2 liver disease. Avoid heparin products. 3. Hypothyroidism - continue Synthroid as is. TSH elevated but T4 normal. 4. Hyponatremia - possibly 2/2 diuretics or alternatively hypervolemic state. Mildly improved. Fluid restrict. 5. PAF - not on OAC 2/2 hx GI bleed.. Rate stable. Continue rate control agents from home. Used to be on coumadin. 6. CAD s/p prior CABG - continue home meds. Echo is unchanged from prior. Trop neg. EKG without acute changes. 7. CKDIII - improved with diuresis. 8. Hx DVTs with hx IVC placement - US negative. DVT ppx: SCDs, chemoppx contraindicated with bleeding hx and thrombocytopenia DC planning: PTOT. This patient was seen by Josh Nickerson PA-C under the supervision of Doctor Gillis. <Sachi Gillis - Last Filed: 08/13/17 17:26> - Physical Exam Vital Signs Temp Pulse Resp BP Pulse Ox 98.3 F 78 17 108/54 L 95 08/13/17 14:26 08/13/17 15:43 08/13/17 14:26 08/13/17 14:26 08/13/17 14:26 Oxygen Delivery Method Room Air Weight: 86.2 kg Body Mass Index (BMI) 33.8 Intake and Output for Last 24 Hours 08/11/17 08/12/17 08/13/17 23:59 23:59 23:59 Intake Total 810 / 810 Output Total 3075 / 3075 Balance -2265 / -2265 Laboratory Tests Past 24 Hrs 08/12/17 08/12/17 08/12/17 22:18 22:18 22:24 WBC RBC Hgb Hct MCV MCH MCHC RDW RDW Differential Plt Count MPV Immature Gran % (Auto) Neut % (Auto) Lymph % (Auto) [place] % (Auto) Eos % (Auto) Baso % (Auto) Absolute Neuts (auto) Absolute Lymphs (auto) Total Counted PT INR APTT Sodium Potassium Chloride Carbon Dioxide Anion Gap BUN Creatinine Estim Creat Clear Calc Est GFR (MDRD) Af Amer Est GFR (MDRD) Non-Af BUN/Creatinine Ratio Glucose Lactic Acid 0.8 Calcium GGT 81 H Troponin I Albumin TSH 5.15 H Free T4 Fluid Source Fluid Color Fluid Appearance Fluid pH Fluid WBC Fluid RBC Fluid Tot Cell Count Fld Polynuclear WBCs # Fld Polynuclear WBCs % Fluid Mononuclear WBCs Fld Mononuclear WBCs % Fluid Neutrophils Fluid Lymphocytes Fluid Monocytes Fluid Macrophages Fld Mesothelial Cells Fluid Other Cells Fl Pathologist Comment Fluid Glucose Fluid Total Protein Fluid LDH Fluid Amylase Fluid Comment 2 Hepatitis A IgM Ab Pending Hep Bs Antigen Pending Hep B Core Total Ab Pending Hep B Core IgM Ab Pending Hepatitis C Ab (EIA) Pending Hepatitis C Comment Pending Miscellaneous Cytology 08/12/17 08/12/17 08/13/17 22:24 22:24 02:05 WBC 2.9 L RBC 2.97 L Hgb 8.9 L Hct 27.9 L MCV 93.9 MCH 30.0 MCHC 31.9 L RDW 15.5 H RDW Differential 52.9 H Plt Count 79 L MPV 9.0 Immature Gran % (Auto) 0.000 Neut % (Auto) 65.3 Lymph % (Auto) 15.8 L [place] % (Auto) 16.2 H Eos % (Auto) 2.7 Baso % (Auto) 0.0 Absolute Neuts (auto) 1.9 L Absolute Lymphs (auto) 0.46 L Total Counted Not Reportable PT 17.2 H INR 1.4 APTT 33.6 Sodium Potassium Chloride Carbon Dioxide Anion Gap BUN Creatinine Estim Creat Clear Calc Est GFR (MDRD) Af Amer Est GFR (MDRD) Non-Af BUN/Creatinine Ratio Glucose Lactic Acid Calcium GGT Troponin I < 0.02 Albumin TSH Free T4 Fluid Source Fluid Color Fluid Appearance Fluid pH Fluid WBC Fluid RBC Fluid Tot Cell Count Fld Polynuclear WBCs # Fld Polynuclear WBCs % Fluid Mononuclear WBCs Fld Mononuclear WBCs % Fluid Neutrophils Fluid Lymphocytes Fluid Monocytes Fluid Macrophages Fld Mesothelial Cells Fluid Other Cells Fl Pathologist Comment Fluid Glucose Fluid Total Protein Fluid LDH Fluid Amylase Fluid Comment 2 Hepatitis A IgM Ab Hep Bs Antigen Hep B Core Total Ab Hep B Core IgM Ab Hepatitis C Ab (EIA) Hepatitis C Comment Miscellaneous Cytology 08/13/17 08/13/17 08/13/17 02:05 07:55 07:55 WBC RBC Hgb Hct MCV MCH MCHC RDW RDW Differential Plt Count MPV Immature Gran % (Auto) Neut % (Auto) Lymph % (Auto) [place] % (Auto) Eos % (Auto) Baso % (Auto) Absolute Neuts (auto) Absolute Lymphs (auto) Total Counted PT INR APTT Sodium 131 L Potassium 3.8 Chloride 92 L Carbon Dioxide 30.0 Anion Gap 9 BUN 49 H Creatinine 1.04 H Estim Creat Clear Calc 34.50 Est GFR (MDRD) Af Amer 65 Est GFR (MDRD) Non-Af 54 L BUN/Creatinine Ratio 47.1 H Glucose 90 Lactic Acid Calcium 8.4 L GGT Troponin I < 0.02 < 0.02 Albumin TSH Free T4 1.24 Fluid Source Fluid Color Fluid Appearance Fluid pH Fluid WBC Fluid RBC Fluid Tot Cell Count Fld Polynuclear WBCs # Fld Polynuclear WBCs % Fluid Mononuclear WBCs Fld Mononuclear WBCs % Fluid Neutrophils Fluid Lymphocytes Fluid Monocytes Fluid Macrophages Fld Mesothelial Cells Fluid Other Cells Fl Pathologist Comment Fluid Glucose Fluid Total Protein Fluid LDH Fluid Amylase Fluid Comment 2 Hepatitis A IgM Ab Hep Bs Antigen Hep B Core Total Ab Hep B Core IgM Ab Hepatitis C Ab (EIA) Hepatitis C Comment Miscellaneous Cytology 08/13/17 08/13/17 08/13/17 07:55 14:15 14:15 WBC RBC Hgb Hct MCV MCH MCHC RDW RDW Differential Plt Count MPV Immature Gran % (Auto) Neut % (Auto) Lymph % (Auto) [place] % (Auto) Eos % (Auto) Baso % (Auto) Absolute Neuts (auto) Absolute Lymphs (auto) Total Counted PT INR APTT Sodium Potassium Chloride Carbon Dioxide Anion Gap BUN Creatinine Estim Creat Clear Calc Est GFR (MDRD) Af Amer Est GFR (MDRD) Non-Af BUN/Creatinine Ratio Glucose Lactic Acid Calcium GGT Troponin I Albumin 3.6 TSH Free T4 Fluid Source Fluid Color Fluid Appearance Fluid pH Pending Fluid WBC Fluid RBC Fluid Tot Cell Count Fld Polynuclear WBCs # Fld Polynuclear WBCs % Fluid Mononuclear WBCs Fld Mononuclear WBCs % Fluid Neutrophils Fluid Lymphocytes Fluid Monocytes Fluid Macrophages Fld Mesothelial Cells Fluid Other Cells Fl Pathologist Comment Fluid Glucose 115 H Fluid Total Protein 4.3 Fluid LDH 96 Fluid Amylase Pending Fluid Comment 2 Hepatitis A IgM Ab Hep Bs Antigen Hep B Core Total Ab Hep B Core IgM Ab Hepatitis C Ab (EIA) Hepatitis C Comment Miscellaneous Cytology 08/13/17 08/13/17 14:15 14:15 WBC RBC Hgb Hct MCV MCH MCHC RDW RDW Differential Plt Count MPV Immature Gran % (Auto) Neut % (Auto) Lymph % (Auto) [place] % (Auto) Eos % (Auto) Baso % (Auto) Absolute Neuts (auto) Absolute Lymphs (auto) Total Counted PT INR APTT Sodium Potassium Chloride Carbon Dioxide Anion Gap BUN Creatinine Estim Creat Clear Calc Est GFR (MDRD) Af Amer Est GFR (MDRD) Non-Af BUN/Creatinine Ratio Glucose Lactic Acid Calcium GGT Troponin I Albumin TSH Free T4 Fluid Source OTHER Fluid Color RED Fluid Appearance CLOUDY Fluid pH Fluid WBC 0.343 Fluid RBC 0.84415 Fluid Tot Cell Count 0.437 H Fld Polynuclear WBCs # 0.024 Fld Polynuclear WBCs % 7.0 Fluid Mononuclear WBCs 0.319 Fld Mononuclear WBCs % 93.0 Fluid Neutrophils 3 Fluid Lymphocytes 27 Fluid Monocytes 8 Fluid Macrophages 9 Fld Mesothelial Cells 51 Fluid Other Cells 2 Fl Pathologist Comment May follow Fluid Glucose Fluid Total Protein Fluid LDH Fluid Amylase Fluid Comment 2 TNP Hepatitis A IgM Ab Hep Bs Antigen Hep B Core Total Ab Hep B Core IgM Ab Hepatitis C Ab (EIA) Hepatitis C Comment Miscellaneous Cytology Pending Assessment/Plan Patient was seen and examined. History of chronic systolic CHF, paroxysmal atrial fibrillation, pulmonary hypertension, iron deficiency anemia, off anticoagulation on account of history of GI bleed. Patient states she feels improved, still has abdominal distention, physical exam is consistent with ascites with bilateral lower extremity edema and severe varicose veins. Portal vein thrombosis ruled out ultrasound of the abdomen shows hepatomegaly, most likely etiology for this ascites is likely to be acute on chronic systolic CHF with hepatic congestion and right-sided heart failure. Hepatitis profile pending. Doppler ultrasound negative for DVT, history of DVT status post IVC filter, echocardiogram showed EF of 35% with severely dilated left ventricle, we need to get records from Dr. Dumont's office. We will consider cardiology consult if work is consistent with acute on chronic CHF. Will go diagnostic and therapeutic paracentesis, continue Lasix for diuresis, labs in a.m. Code Visit Inpatient E&M: [id number] Subs Hosp L2
[2017-08-13 15:44] LABS: Body Fluid Mononuclear WBC # 0.319 10^3/uL; Body Fluid Polynuclear WBC # 0.024 10^3/uL; Body Fluid Total Cells Counted 0.437 10^3/ul (0.000-0.000); White Blood Count/Body Fluid 0.343 10^3/uL
[2017-08-13 16:02] LABS: Auto B Fluid Analyzer BKGD Ct COUNTS W/IN LIMITS (W/IN LIMITS); Color/Body Fluid RED; Source- Body Fluid OTHER
[2017-08-13 16:03] LABS: Appearance/Body Fluid CLOUDY
[2017-08-13 16:57] LABS: Glucose, Body Fluid 115 mg/dL (40-70); LDH,Body Fluid 96 Units/l (Not Establ.); Protein, Body Fluid 4.3 g/dL (Not Establ.)
[2017-08-13 17:04] LABS: Lymphocytes 27 %; Macrophages 9 %; Mesothelial Cells 51 %; Monocytes 8 %; Neutrophil (Segs) 3 %
[2017-08-13 17:07] LABS: Body Fluid QC Type(s) BF2Q; Other Cell Type/BF 2 %
[2017-08-14 04:00] VITALS: BP 110/53; PULSE 83; RESP 16; TEMP 37.2; O2SAT 92
[2017-08-14 04:15] LABS: HEPATITIS B SURFACE AG Negative (Negative); Hepatitis A IgM Antibody Negative (Negative); Hepatitis B Core Ab Total Negative (Negative)
[2017-08-14] MEDS: Furosemide 40 MG/4 ML Vial IV ×2 (05:59→13:16)
[2017-08-14] MEDS: 0.9% NaCl Peripheral Flush Adult/Peds IV ×3 (05:59→13:18)
[2017-08-14 06:49] LABS: Absolute Lymphocyte Count 0.55 X10^3/ul (0.83-4.51); Absolute Neutrophil Count 1.6 X10^3/uL (2.0-7.7); Basophil# 0.01 X10^3/uL; Basophil% 0.3 % (0-1); Eosinophil# 0.11 X10^3/uL; Eosinophils% 3.8 % (0-5); Hematocrit 28.7 % (37-47); Hemoglobin 9.2 g/dl (12.0-15.0); Lymphocyte # 0.55 X10^3/ul (4.0); Lymphocyte % 19.1 % (19-41); Mean Corp Hgb Conc 32.1 g/gl (32-36); Mean Corpuscular Hgb 30.8 pg (27.0-32.0); Mean Platelet Vol. 8.7 fl (6.2-12.0); Monocyte# 0.64 X10^3/uL; Monocyte% 22.2 % (0-10); Neutrophil # 1.57 X10^3/uL (2.7-7.7); Neutrophil % 54.6 % (47-70); Platelet Count 88 K/mm3 (150-450); RBC Distribution Width CV 15.3 % (11.6-14.6); RBC Distribution Width SD 51.8 fl (35.1-43.9); Red Blood Count 2.99 M/mm3 (4.2-5.4); White Blood Count 2.9 K/mm3 (4.4-11.0)
[2017-08-14 06:51] LABS: Differential Indicated SCAN CRITERIA MET; POSITIVE COUNT NO; POSITIVE DIFFERENTIAL YES; POSITIVE MORPHOLOGY NO
[2017-08-14 06:57] LABS: International Normalized Ratio 1.3; Prothrombin Time (Protime)PT. 16.6 SECONDS (11.7-14.9)
[2017-08-14 07:00] VITALS: PULSE 79
[2017-08-14 07:03] LABS: Differential Comment SCANNED
[2017-08-14 07:04] LABS: AST(SGOT) 19 U/L (15-37); Alanine Aminotransfer ALT/SGPT 11 U/L (13-56); Albumin, Serum 3.4 g/dL (3.2-5.0); Alkaline Phosphatase 63 U/L (45-117); Anion Gap 8 (5-15); BUN 38 mg/dL (7-18); BUN/Creat Ratio 40.3 RATIO (10-20); Calcium,Total 8.5 mg/dL (8.5-10.1); Chloride 92 mmol/L (98-107); Creatinine, Serum 0.94 mg/dL (0.55-1.02); EST Glomerular Filtration Rate 60 mL/min (>60); Est Glom Filt Rate - Afr Amer 73 mL/min (>60); Estimated Creatinine Clearance 38.17 ml/min; Globulin 3.4 g/dL (2.2-4.2); Glucose 82 mg/dL (74-106); Potassium 3.5 mmol/L (3.5-5.1); Protein, Total 6.8 g/dL (6.4-8.2); Sodium Level 133 mmol/L (136-145)
[2017-08-14 09:10] LABS: Hep C Antibodies 0.1 s/co ratio (0.0-0.9); Hepatitis B Core AB IgM Negative (Negative)
[2017-08-14] MEDS: Senna/Docusate Sodium 1 Tablet 2 TABLET PO (09:13)
[2017-08-14] MEDS: metOLazone 5 MG Tablet PO (09:14)
[2017-08-14 09:15] VITALS: BP 108/53; PULSE 83; RESP 12; TEMP 36.6; O2SAT 96
[2017-08-14 11:00] VITALS: PULSE 90
--- NOTE | 2017-08-14 12:04 | PCM.DC ---
- Discharge Diagnoses Current Active Problems: Current Active and Chronic Problems Chronic systolic CHF (congestive heart failure) (Chronic) You will use the following diet at home:: Cardiac - 2 grams sodium per day Your food should be the consistency of: Regular Your liquids should be the consistency of: Regular/Thin Discharge Activity: Return to Normal Activity Allergies/Adverse Reactions: Allergies azithromycin [From Zithromax] Allergy (Intermediate, Verified 08/12/17 16:38) Mucosal lesions Penicillins Allergy (Intermediate, Verified 08/12/17 16:38) Mucosal lesions Sulfa (Sulfonamide Antibiotics) Allergy (Intermediate, Verified 08/12/17 16:38) Mucosal lesions nausea cephalexin [From Keflex] Allergy (Verified 08/12/17 16:38) GI UPSET tobramycin Allergy (Verified 08/12/17 16:38) RED EYES metronidazole Adverse Reaction (Intermediate, Verified 08/12/17 16:38) Nausea diltiazem Adverse Reaction (Mild, Verified 08/12/17 16:38) Nausea/Vom/Diarrhea metolazone [From Zaroxolyn] Adverse Reaction (Mild, Verified 08/12/17 16:38) Nausea potassium chloride Adverse Reaction (Mild, Verified 08/12/17 16:38) Upset Stomach nystatin Adverse Reaction (Verified 08/12/17 16:38) Nausea spironolactone Adverse Reaction (Verified 08/12/17 16:38) Nausea Medications to take at Discharge Carvedilol [Coreg] 12.5 mg PO BID 08/17/16 Levothyroxine [Synthroid] 100 mcg PO DAILY 08/17/16 Lisinopril [Zestril] 5 mg PO DAILY 08/17/16 Omeprazole [Prilosec] 20 mg PO DAILY 08/17/16 Docusate Sodium [Colace] 100 mg PO BID 11/10/16 Spironolactone 25 mg PO BID 01/01/17 Furosemide 80 mg PO BID 08/12/17 Metolazone [Zaroxolyn] 2.5 mg PO DAILY #30 tab 08/14/17 The following prescriptions were given: Metolazone [Zaroxolyn] 2.5 mg PO DAILY #30 tab Primary Care Physician: Sea Obando MD [Primary Care Provider] - Please follow up with your Primary Care Physician in: 1-2 weeks Please Follow Up With: Duane Ware MD When: 1-2 weeks Proposed Discharge Date: 08/14/17
--- NOTE | 2017-08-14 13:20 | CASEMGMT ---
See RN CM Assessment Link. Pt's daughter is picking her up to return home after work today. Pt did state she has difficulty making meals. discussed meal assistance, pt would like to speak with SW re: this. JHON Sarabia updated and will see pt. Twan PEÑAN RN ACM
--- NOTE | 2017-08-14 13:39 | CASEMGMT ---
Social Work Referral received from BREA Alvarado CM that pt is interested in [facility]. Met with pt in room and introduced self and SW role. Explained Meals on Wheels program to pt and provided written information. Pt does not want SW to set up services at this time but is thankful for the information. States she will speak with her daughter about possible starting MOW. SW provided number to call if she would like to start services once she returns home. Pt denies any further d/c needs. MANGO Ordonez
--- NOTE | 2017-08-14 14:22 | PCM.DC.SUM ---
<Josh Nickerson - Last Filed: 08/14/17 14:22> Discharge Date and Diagnosis Date of Admission: 08/12/17 Date of Discharge: 08/14/17 - Primary Discharge Diagnosis Acute on chronic systolic CHF exacerbation Pancytopenia Hypothyroidism Hyponatremia Paroxysmal atrial fibrillation CAD status post prior CABG CKD stage III History of DVT status post IVC filter placement - Secondary Discharge Diagnosis Chronic Problems Chronic systolic CHF (congestive heart failure) (Chronic) Paroxysmal a-fib (Chronic) Pulmonary HTN (Chronic) Hyponatremia (Chronic) Gastroesophageal reflux disease (Chronic) Iron (Fe) deficiency anemia (Chronic) Chronic congestive heart failure (Chronic) systolic. Ejection fraction 42%, 6/ With moderate to severe MR Severe TR CAD (coronary artery disease) (Chronic) Status post bypass in 2006, following with Dr. Dumont Hypothyroidism (Chronic) Hospital Course and Treatment Imaging Results: RAD/Chest 1 View (Portable) IMPRESSION: Cardiac enlargement. Left pleural thickening or effusion. CT/Abdomen/Pelvis without Cont IMPRESSION: Hepatomegaly. Moderate ascites. Bilateral pleural effusions. No obstruction. No hydronephrosis. US/Abdomen Complete IMPRESSION: Moderate ascites without loculation. Hepatomegaly as seen on CT not appreciated. Markedly dilated inferior vena cava as seen on CT. Hepatopedal portal venous flow. No thrombosis or cavernous transformation. Bilateral renal involution, remote granulomatous exposure, cholecystectomy. Obscured distal abdominal aorta and pancreas tail. US/Paracentesis with US IMPRESSION: Ultrasound guided paracentesis. Echo: Interpretation Summary Severely dilated left ventricle. The estimated ejection fraction is 35 %. Moderately severe segmental systolic dysfunction (see wall motion). The right atrium is severely enlarged. D shaped septum in diastole. Moderate pulmonary hypertension. Compared to prior study, there is no significant change. Venous Doppler: Interpretation Summary No evidence for acute deep venous thrombosis bilateral lower extremities with partially removed right great saphenous vein and patent and compressible left great saphenous vein. Operations: None Procedures: 2-D Echocardiogram, Paracentesis Summary of Care Provided: Physical exam on day of discharge: General: Resting comfortably NAD Psych: A/Ox3 normal affect HEENT: PEARRLA AT NC Neck: Supple NT Resp: CTA Abd: [id number] Soft NT no guarding or rigidity, distention significantly reduced since day prior. Positive fluid wave shift Ext: DP2+= nonpitting edema bilateral lower extremities, significant varicosities noted throughout bilateral lower extremities. Skin: W/D normal turgor Lymph/Heme: No active bleeding or adenopathy Neuro: CN2-12 intact Hospital course: The patient is a 81 year old F with a history of chronic systolic CHF, paroxysmal atrial fibrillation, pulmonary hypertension, CAD with prior CABG, iron deficiency anemia, hypothyroidism who presented to the hospital with increased abdominal distention, tightness, and bilateral lower extremity pitting leg edema. She was hypoxic but the increased abdominal pressure was causing her to feel some difficulty taking deep breaths. She had a significantly elevated BNP and was admitted to the PCU and placed on IV Lasix. She was on high-dose Lasix 80 twice daily along with spironolactone at home as per instruction by Dr. Dumont has been following her for congestive heart failure. She is felt to be in acute systolic CHF exacerbation. She responded well to IV diuresis. She was started on rounds of Zaroxolyn while she was here. Repeat echo demonstrated an EF of 35% with significant systolic changes of moderate pulmonary hypertension with PAS P of 50 mmHg, CT of the abdomen showed hepatomegaly and ascites, bilateral pleural effusions. Abdominal ultrasound showed moderate ascites markedly dilated IVC, hepatopetal flow, and splenomegaly. She underwent paracentesis later that day and approximately 2 L of fluid was removed and sent for analysis. Initially she had some elevated liver enzymes however these became normal next day. She was transitioned back to high-dose Lasix, spironolactone, and with the addition of Zaroxolyn. She is instructed to have strict sodium restriction. She had significant relief of her distention with her IV diuresis and paracentesis. She was discharged home in stable condition will need to have close follow-up with Dr. Dumont and will need a BMP in 5 days.. This patient was seen by Josh Nickerson PA-C under the supervision of Doctor Gillis. [] Discharge Diet: Low fat/ Low Cholesterol, 2000 mg Sodium Diet Discharge Activity: Return to Normal Activity Home Medications: Medications to take at Discharge Carvedilol [Coreg] 12.5 mg PO BID 08/17/16 Levothyroxine [Synthroid] 100 mcg PO DAILY 08/17/16 Lisinopril [Zestril] 5 mg PO DAILY 08/17/16 Omeprazole [Prilosec] 20 mg PO DAILY 08/17/16 Docusate Sodium [Colace] 100 mg PO BID 11/10/16 Spironolactone 25 mg PO BID 01/01/17 Furosemide 80 mg PO BID 08/12/17 Metolazone [Zaroxolyn] 2.5 mg PO DAILY #30 tab 08/14/17 Following Prescrptions Were Given to Patient: Metolazone [Zaroxolyn] 2.5 mg PO DAILY #30 tab Primary Care Physician: Sea Obando MD [Primary Care Provider] - Please follow up with your Primary Care Physician in: 1-2 weeks Please Follow Up With: Duane Ware MD When: 1-2 weeks Please Follow Up With: Sea Obando MD When: 1-2 weeks Additional Instructions: daily weights Disposition: Home Minutes spent on discharge:: 40 Medical Necessity - Tobacco Use Smoking Status: Never smoker Meaningful Use Info Meaningful Use Diagnoses (Choose all that apply): CHF - CHF KAREN/ARB ordered at discharge?: Yes Documented LVEF (%): 35 <Sachi Gillis - Last Filed: 08/14/17 16:32> Discharge Date and Diagnosis - Secondary Discharge Diagnosis Chronic Problems Chronic systolic CHF (congestive heart failure) (Chronic) Paroxysmal a-fib (Chronic) Pulmonary HTN (Chronic) Hyponatremia (Chronic) Gastroesophageal reflux disease (Chronic) Iron (Fe) deficiency anemia (Chronic) Chronic congestive heart failure (Chronic) systolic. 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 Dumont Hypothyroidism (Chronic) Hospital Course and Treatment Summary of Care Provided: The patient is a 81 year old F [] Code Visit Inpatient E&M: 63848 Disch Hosp
[2017-08-14 14:30] VITALS: BP 104/49; PULSE 85; RESP 14; TEMP 36.7; O2SAT 95
[2017-08-17 14:28] LABS: Pathologist Comment/Body Fluid Reviewed
--- NOTE | 2017-08-17 15:25 | CASEMGMT ---
Addendum entered by Emily Ni 08/18/17 13:12: BREA BECKHAM called Dr. Ware's office with the [facility], although he is practicing with [facility]. BREA BECKHAM spoke with JUSTINO Plascencia, and she reports she will give the patient a call to discuss medications questions. BREA BECKHAM called patient back to let her know Dr. Ware's office would be calling her back. ANISH Alfaro, RNAishwaryaBC, CCM Original Note: BREA BECKHAM Discharge Follow-Up Phone Call. LACE: 10 Strata: 3 Call Date: 08/17/17 Discharge Date: 08/14/17 Time: 1520 Duration: 7.5 minutes Adm Dx: CHF BREA BECKHAM spoke with Ms. Mijares re: how she is feeling since she left the hospital. Ms. Mijares reports she has been feeling better, and has not had any problems breathing or her weight since leaving the hospital. She reports she picked up her Zaroxolyn from the pharmacy and has been taking as prescribed, but did have a question of how to take in relation to her Lasix. She is trying to get in contact with Dr. Ware for more clarification and to schedule her follow-up appnt. Ms. Mijares reports she has been weighing herself daily, and watching her diet. Ms. Gonzalez denies questions re: discharge instructions or medications. Reports no needs at this time, but BREA BECKHAM contact information was provided to patient in case questions arise or she is unable to contact Dr. Ware. ANISH Alfaro, RN-BC, CCM
[2017-08-18 15:55] LABS: Amylase Body Fluid 54 U/L (.); pH, Body Fluid 11254 7.5 (Not Estab.)
== END 2017-08-14 16:44 | disposition home or self-care (01) | DRG 292 ==
LOC: ED 19:42 → PCU 21:03
PROVIDERS: Physician Assistant; Admitting Provider Hospitalist; Emergency Provider Emergency Medicine; Family Provider Family Medicine; PCP Family Medicine; Visit Provider Internal Medicine
DX: I50.23 Acute on chronic systolic (congestive) heart failure (principal); R18.8 Other ascites; D61.818 Other pancytopenia; I27.20 Pulmonary hypertension, unspecified; E87.1 Hypo-osmolality and hyponatremia; I48.0 Paroxysmal atrial fibrillation; N18.3 Chronic kidney disease, stage 3 (moderate); R16.2 Hepatomegaly with splenomegaly, not elsewhere classified; I25.10 Atherosclerotic heart disease of native coronary artery without angina pectoris; Z86.718 Personal history of other venous thrombosis and embolism; K21.9 Gastro-esophageal reflux disease without esophagitis; D50.9 Iron deficiency anemia, unspecified; E03.9 Hypothyroidism, unspecified; Z95.1 Presence of aortocoronary bypass graft; Z79.899 Other long term (current) drug therapy; Z87.19 Personal history of other diseases of the digestive system
CPT/HCPCS: 36415; 49083; 51702; 71045; 74176; 76700; 80048; 80053; 80076; 81001; 81002; 82040; 82140; 82150; 82945; 82977; 83605; 83615; 83690; 83880; 83986; 84157; 84439; 84443; 84484; 85025; 85610; 85730; 86704; 86705; 86709; 86803; 87070; 87075; 87205; 87340; 88108; 88305; 88313; 89050; 93005; 93306; 93970; 97110; 97162; 97166; 97802; 99285; A4216; J1940

== ENCOUNTER 2017-10-15 10:51 | Inpatient (IN) | payer MEDICARE, SELFPAY ==
--- NOTE | 2017-10-15 13:20 | CT_ITS ---
STUDY: CT CERVICAL SPINE WITHOUT CONTRAST REASON FOR EXAM: Female, 82 years old. Neck pain after fall. RADIATION DOSAGE (If Supplied By Facility): CTDIvol = ( 18.23 ) mGy, DLP = ( 367.59 ) mGycm TECHNIQUE: High resolution transaxial imaging was performed without contrast material. Sagittal and coronal images were reconstructed. Individualized dose optimization techniques were used for this CT. COMPARISON: CT of the cervical spine dated January 20, 2017. FINDINGS: Normal craniovertebral junction. Normal anterior atlantoaxial articulation. Normal odontoid process. There is straightening of the normal cervical lordosis. The vertebral bodies have generally normal height and alignment. There is mild loss of height of T1. There may be mild wedge-shaped compression fracture T1. This is similar to previous study. C2-3: Normal endplates. Normal disc height and morphology. Normal central canal and intervertebral neuroforamina. C3-4: Normal endplates. Normal disc height and morphology. Normal central canal and intervertebral neuroforamina. C4-5: Normal endplates. Normal disc height and morphology. Normal central canal and intervertebral neuroforamina. C5-6: There is narrowing of the disc space with small endplate osteophytes. The neural foramina are patent. There is no significant central acquired canal stenosis. C6-7: There is mild narrowing of the disc space. There is mild neural foraminal narrowing. There is mild uncovertebral and facet joint arthropathy. There is no significant central acquired canal stenosis. C7-T1: Normal endplates. Normal disc height and morphology. Normal central canal and intervertebral neuroforamina. Appears to be old left-sided fracture of the first rib. There are atherosclerotic calcifications of the carotid bulbs. CT/Spine Cervical without Contras IMPRESSION: 1. Mild probably old compression fracture of T1. 2. Osteopenia. 3. No CT evidence of acute compression or displaced fracture. 4. Mild multilevel degenerative disc disease and degenerative arthropathy of the cervical spine. Electronically Signed: Sadia Norton MD at 8:50 EDT , Service support ,
--- NOTE | 2017-10-15 13:20 | CT_ITS ---
STUDY: CT ABDOMEN AND PELVIS WITHOUT CONTRAST REASON FOR EXAM: Female, 82 years old. Abdominal pain after fall. RADIATION DOSAGE (If Supplied By Facility): CTDIvol = ( 19.85 ) mGy, DLP = ( 1275.05 ) mGycm TECHNIQUE: Transaxial images were obtained from the dome of the diaphragm to the symphysis pubis without oral contrast, and without intravenous contrast. Sagittal and coronal images were reconstructed. Individualized dose optimization techniques were used for this CT. COMPARISON: CT of the abdomen and pelvis dated August 12, 2017. FINDINGS: Appear to be small pleural effusions versus pleural thickening. The visualized heart is enlarged. Appears to be perihepatic fluid. This is similar to the previous CT There is non-visualization of the gallbladder, which may be secondary to either contraction or a prior cholecystectomy. There are multiple benign calcified granulomata of the spleen. Normal pancreas. Normal bilateral adrenal glands. Right kidney is rotated horizontally. There is no evidence for hydronephrosis, hydroureter or radiopaque ureteral calculus. There may be small vascular calcification the right renal hilar area. Normal left kidney. Normal visualized stomach. There is no evidence for dilated bowel, ascites or pneumoperitoneum. Small bowel has a grossly normal appearance. Stool is visible throughout the colon with scattered colonic diverticula. There is non-visualization of the appendix. There is diffuse atherosclerotic calcification of the abdominal aorta, without a demonstrated aneurysm. There is venous distention of the inferior vena cava (IVC). There is an IVC filter in place. There is borderline retroperitoneal lymphadenopathy with enlarged nodes no greater than 10mm in the short axis diameter. Normal urinary bladder. There is absence of the uterus consistent with a prior hysterectomy. There is abnormal groundglass attenuation within the subcutaneous tissues of the abdominal wall suggesting mild anasarca. There are diffuse degenerative changes of the visualized lumbar spine. The bones are osteopenic. There is mildly exaggerated lumbar lordosis. There is mild central acquired canal stenosis at L4-5. There appears to be right-sided inguinal lymphadenopathy. CT/Abdomen/Pelvis without Cont IMPRESSION: 1. Very distended inferior vena cava with inferior vena caval filter. 2. Cardiomegaly and small pleural effusions. 3. Perihepatic fluid. 4. Colonic diverticulosis. Electronically Signed: Sadia Norton MD at 9:38 EDT , Service support ,
--- NOTE | 2017-10-15 13:35 | RAD_ITS ---
STUDY: X-RAY CHEST REASON FOR EXAM: Female, 82 years old. Abdominal pain and bloating. Shortness of breath. TECHNIQUE: PA and lateral views of the chest. COMPARISON: August 12, 2017. FINDINGS: Telemetry wires overlie the chest. The lungs are well-expanded. There is minimal atelectatic changes at the right lung base. There is minimal blunting of the right posterior costophrenic angle. The heart remains mild to moderately enlarged with evidence of prior CABG procedure. Normal mediastinum and laisha. Normal visualized pulmonary arteries. Normal visualized aortic arch and descending thoracic aorta. There are diffuse degenerative changes of the visualized thoracic spine. There is degenerative osteoarthritis of the bilateral shoulders. There is no demonstrated abnormality of the visualized soft tissue structures of the upper abdomen. RAD/Chest PA and Lateral IMPRESSION: 1. Stable cardiomegaly with evidence of CABG procedure. 2. Blunting of the right costophrenic angle suggesting pleural thickening or small pleural effusion. Electronically Signed: Juan Carlos Becerril DO at 14:35 EDT Tel [phone], Service support ,
--- NOTE | 2017-10-16 | FLU_PTH ---
PATIENT: RAND WIN V LOC: MS3 U#:[id number] AGE/SX: 82/F ROOM: WA310 RE10/16/[address]: Dr. Lino Perkins MD : 1935 BED: 1 DIS: 10/17/2017 SPEC #: [id number] RECD: 10/16/17 15:17 STATUS: JUAN REMarya #: [id number] SILVIA: 10/16/17 00:[address]: Lino Perkins DEPT: CYTOLOGY RECD BY: Caesar Bolton ENTERED: 10/19/17 07:42 SP TYPE: Fluid OTHR DR: Dr. Sea Obando MD Tissues: PARACENTESIS FLUID Procedures: Pap Stain (control) Special Stain Group II Surgery Specimen Level IV Cell Block Cytospin Fluid HEADER OPERATION: Ultrasound-guided left paracentesis PRE-OP DIAGNOSIS: Ascites TISSUE SUBMITTED: Paracentesis fluid for cytology DIAGNOSIS CYTOLOGY Paracentesis fluid for cytology (cytospin and cell block): Negative for malignant cells. AM:edilma 10/20/17 CYTOLOGY STUDY Slides are reviewed. CYTOLOGY GROSS Received is 120 ml of red cloudy fluid labeled with the patient's name and and designated per the requisition as paracentesis. Submitted for cytology preparation including cell block. / 10/19/17 TC:5 CPT: 17304, 65595
--- NOTE | 2017-10-16 07:25 | DT_ITS ---
This patient was seen during an EMR downtime October 12, 2017 - October 19, 2017. This patient may have a combination of paper and electronic documentation or all paper documentation. All documentation is viewable within the e-chart portion of [facility] for each patient visit.
--- NOTE | 2017-10-16 14:45 | US_ITS ---
PROCEDURE: ULTRASOUND GUIDED PARACENTESIS CLINICAL HISTORY: Female, 82 years old. ASCITES CONSENT: The risks, benefits and alternatives to the procedure were explained to the patient, and the patient agreed to the procedure and signed the consent. SEDATION: Local Anesthesia STERILE BARRIER TECHNIQUE: The following sterile barrier precautions were used during the procedure: hand hygiene; use of 2% chlorhexidine aseptic; use of a cap, mask, sterile gown, sterile gloves, sterile full body drape, and a large sterile sheet. PROCEDURE/TECHNIQUE: The risks, benefits, and alternatives to the procedure were explained to patient, and the patient agreed to the procedure and signed a consent form for the procedure. TECHNIQUE: Under the ultrasound guidance using sterile technique and after infiltration of the skin and subcutaneous soft tissues with 10 mL of lidocaine 1% a 5 Polish drainage catheter is introduced in the lower part of the abdomen. 890 mL of fluid were removed sample sent to lab for evaluation. The patient tolerated the procedure there was no immediate complication. FINDINGS: FLUID PRE-PROCEDURE There is posterior enhancement. The findings appear anechoic. There is no loculation. Volume measurement: 890 ml. FLUID POST-PROCEDURE Amount of fluid drained: 890 ml. US/Paracentesis with US IMPRESSION: Successful ultrasound-guided paracentesis. Electronically Signed: Jose G Du MD at 14:09 EDT Tel , Service support ,
[2017-10-17 12:08] LABS: AST(SGOT) 19 U/L (15-37); Alanine Aminotransfer ALT/SGPT 18 U/L (13-56); Albumin, Serum 3.5 g/dL (3.2-5.0); Alkaline Phosphatase 72 U/L (45-117); Bilirubin, Direct 0.29 mg/dL (0.00-0.30); Globulin 3.7 g/dL (2.2-4.2); Protein, Total 7.2 g/dL (6.4-8.2)
[2017-10-17 13:30] LABS: Bacteria 0 SEEN /hpf (None Seen); Color, Urine Straw (Yellow); Glucose, Dipstick NEGATIVE (Normal); Ketone-Dipstick Negative (Negative); Mucous, Urine 0 SEEN /hpf (<or=2+); Red Blood Cells-Urine 0 SEEN /hpf (0-5); Squamous Epithelial Cells - UA 0 SEEN /hpf (5-10); Urine Bilirubin Dipstick Negative (Negative); Urine Clarity Clear (Clear); White Blood Cells 0 SEEN /hpf (0-5)
[2017-10-17 13:31] LABS: Leukocyte Esterase-Dipstick Negative /ul (Negative); Nitrite-Dipstick Negative (Negative); Occult Blood-Urine Negative /ul (Negative); Protein-Dipstick Negative (Negative); Urine Urobilinogen Normal (Normal)
[2017-10-17 14:17] LABS: ALB/GLOB Ratio 0.9 RATIO (0.9-2.4); AST(SGOT) 16 U/L (15-37); Alanine Aminotransfer ALT/SGPT 16 U/L (13-56); Albumin, Serum 3.7 g/dL (3.2-5.0); Alkaline Phosphatase 81 U/L (45-117); Anion Gap 13 (5-15); BUN 112 mg/dL (7-18); BUN/Creat Ratio 65.5 RATIO (10-20); Calcium,Total 8.5 mg/dL (8.5-10.1); Chloride 85 mmol/L (98-107); Creatinine, Serum 1.71 mg/dL (0.55-1.02); EST Glomerular Filtration Rate 30 mL/min (>60); Est Glom Filt Rate - Afr Amer 36 mL/min (>60); Globulin 4.2 g/dL (2.2-4.2); Glucose 109 mg/dL (74-106); Lipase 665 U/L (73-393); Potassium 4.4 mmol/L (3.5-5.1); Protein, Total 7.9 g/dL (6.4-8.2); Sodium Level 124 mmol/L (136-145)
[2017-10-18 14:01] LABS: Hematocrit 22.3 % (37-47); Hemoglobin 7.1 g/dl (12.0-15.0); Mean Corp Hgb Conc 31.8 g/gl (32-36); Mean Corpuscular Hgb 29.5 pg (27.0-32.0); Mean Corpuscular Volume 92.5 fL (81-99); Mean Platelet Vol. 9.6 fl (6.2-12.0); Platelet Count 89 K/mm3 (150-450); RBC Distribution Width CV 15.1 % (11.6-14.6); RBC Distribution Width SD 49.2 fl (35.1-43.9); Red Blood Count 2.41 M/mm3 (4.2-5.4)
[2017-10-18 14:02] LABS: Absolute Neutrophil Count 1.8 X10^3/uL (2.0-7.7); Basophil# 0.01 X10^3/uL; Basophil% 0.3 % (0-1); Differential Comment SCANNED; Differential Indicated SCAN CRITERIA MET; Eosinophil# 0.32 X10^3/uL; Eosinophils% 10.6 % (0-5); Lymphocyte # 0.48 X10^3/ul (4.0); Lymphocyte % 15.9 % (19-41); Monocyte# 0.41 X10^3/uL; Monocyte% 13.6 % (0-10); Neutrophil % 59.6 % (47-70); POSITIVE COUNT NO; POSITIVE DIFFERENTIAL YES; POSITIVE MORPHOLOGY NO
[2017-10-18 14:03] LABS: International Normalized Ratio 1.2; Prothrombin Time (Protime)PT. 15.5 SECONDS (11.7-14.9)
[2017-10-19 09:30] LABS: Vitamin B12 520 pg/mL (211-911)
[2017-10-19 11:12] LABS: Hematocrit 29.2 % (37-47); Hemoglobin 9.6 g/dl (12.0-15.0); Mean Corp Hgb Conc 32.9 g/gl (32-36); Mean Corpuscular Hgb 29.5 pg (27.0-32.0); Mean Corpuscular Volume 89.8 fL (81-99); Mean Platelet Vol. 9.3 fl (6.2-12.0); Platelet Count 83 K/mm3 (150-450); RBC Distribution Width CV 16.8 % (11.6-14.6); RBC Distribution Width SD 54.1 fl (35.1-43.9); Red Blood Count 3.25 M/mm3 (4.2-5.4); Scan Indicated on CBC? Y/N NO
[2017-10-19 18:11] LABS: Hematocrit 23.1 % (37-47); Hemoglobin 7.4 g/dl (12.0-15.0)
[2017-10-19 18:17] LABS: International Normalized Ratio 1.4; Partial Thromboplast Time 32.5 Seconds (24.1-36.2)
[2017-10-19 21:34] LABS: Glucose, Body Fluid 112 mg/dL (40-70)
[2017-10-19 21:35] LABS: LDH 90 U/L (84-246); Protein, Total 4.4 g/dL (6.4-8.2)
[2017-10-19 21:56] LABS: ALB/GLOB Ratio 0.9 RATIO (0.9-2.4); AST(SGOT) 22 U/L (15-37); Albumin, Serum 3.2 g/dL (3.2-5.0); BUN 93 mg/dL (7-18); BUN/Creat Ratio 61.2 RATIO (10-20); Calcium,Total 7.8 mg/dL (8.5-10.1); Creatinine, Serum 1.52 mg/dL (0.55-1.02); EST Glomerular Filtration Rate 35 mL/min (>60); Est Glom Filt Rate - Afr Amer 42 mL/min (>60); Globulin 3.6 g/dL (2.2-4.2); Glucose 90 mg/dL (74-106); Protein, Total 6.8 g/dL (6.4-8.2)
[2017-10-19 21:57] LABS: Alanine Aminotransfer ALT/SGPT 17 U/L (13-56); Alkaline Phosphatase 68 U/L (45-117); Anion Gap 13 (5-15); Bilirubin, Direct 0.54 mg/dL (0.00-0.30); Chloride 92 mmol/L (98-107); Cholesterol 92 mg/dL (200); High Density Lipoprotein 40 mg/dL; LDH 174 U/L (84-246); Potassium 4.2 mmol/L (3.5-5.1); Sodium Level 130 mmol/L (136-145); Thyroid Stim Hormone (TSH) 4.75 uIU/mL (0.358-3.74); Triglycerides 84 mg/dL; Very Low Density Lipoprotein 17 mg/dL (5-40)
[2017-10-20 03:55] LABS: Iron 300 ug/dL (50-170); Iron Binding Capacity,Total 391 ug/dL (250-450)
[2017-10-20 09:48] LABS: BUN 80 mg/dL (7-18); BUN/Creat Ratio 56.3 RATIO (10-20); Calcium,Total 8.4 mg/dL (8.5-10.1); Chloride 96 mmol/L (98-107); Creatinine, Serum 1.42 mg/dL (0.55-1.02); EST Glomerular Filtration Rate 38 mL/min (>60); Est Glom Filt Rate - Afr Amer 46 mL/min (>60); Glucose 101 mg/dL (74-106); Potassium 3.5 mmol/L (3.5-5.1); Sodium Level 132 mmol/L (136-145)
[2017-10-20 09:49] LABS: Anion Gap 11 (5-15)
[2017-10-20 15:46] LABS: Auto B Fluid Analyzer BKGD Ct COUNTS W/IN LIMITS (W/IN LIMITS); Source- Body Fluid OTHER
[2017-10-20 15:47] LABS: Body Fluid Total Cells Counted 0.409 10^3/ul (0.000-0.000)
[2017-10-20 15:48] LABS: Body Fluid Mononuclear WBC # 0.346 10^3/uL; Body Fluid Mononuclear WBC % 93.5 %; Body Fluid Polynuclear WBC # 0.024 10^3/uL; Body Fluid Polynuclear WBC % 6.5 %; Lymphocytes 2 %; Monocytes 91 %; Neutrophil (Segs) 6 %
[2017-10-20 15:49] LABS: Other Cell Type/BF 1 %
[2017-10-20 15:51] LABS: Body Fluid QC Type(s) BF1Q
[2017-10-20 15:53] LABS: Appearance/Body Fluid SL CLDY; Color/Body Fluid SLIGHTLY PINK
[2017-10-20 17:32] LABS: Hematocrit 28.5 % (37-47); Hemoglobin 9.3 g/dl (12.0-15.0); Mean Corp Hgb Conc 32.6 g/gl (32-36); Mean Corpuscular Hgb 28.6 pg (27.0-32.0); Mean Corpuscular Volume 87.7 fL (81-99); Mean Platelet Vol. 9.2 fl (6.2-12.0); Platelet Count 84 K/mm3 (150-450); RBC Distribution Width CV 17.1 % (11.6-14.6); Red Blood Count 3.25 M/mm3 (4.2-5.4); Scan Indicated on CBC? Y/N NO; White Blood Count 4.6 K/mm3 (4.4-11.0)
[2017-10-21 13:50] LABS: Pathologist Comment/Body Fluid Reviewed
== END 2017-10-17 13:05 | disposition home or self-care (01) | DRG 292 ==
LOC: ED 16:31 → MS3 10-16 07:26
PROVIDERS: Internal Medicine; Admitting Provider Internal Medicine; Emergency Provider Emergency Medicine; Family Provider Family Medicine; PCP Family Medicine; Visit Provider Internal Medicine
DX: I13.0 Hypertensive heart and chronic kidney disease with heart failure and stage 1 through stage 4 chronic kidney disease, or unspecified chronic kidney disease (principal); N18.4 Chronic kidney disease, stage 4 (severe); I50.22 Chronic systolic (congestive) heart failure; N17.9 Acute kidney failure, unspecified; E87.1 Hypo-osmolality and hyponatremia; I48.2 Chronic atrial fibrillation; I25.5 Ischemic cardiomyopathy; I27.20 Pulmonary hypertension, unspecified; D64.9 Anemia, unspecified; E03.9 Hypothyroidism, unspecified; I25.10 Atherosclerotic heart disease of native coronary artery without angina pectoris; Z95.1 Presence of aortocoronary bypass graft; Z86.718 Personal history of other venous thrombosis and embolism; K21.9 Gastro-esophageal reflux disease without esophagitis
CPT/HCPCS: 36415; 49083; 51702; 71046; 72125; 74176; 80048; 80053; 80061; 80076; 81001; 82248; 82607; 82945; 83540; 83550; 83615; 83690; 83735; 84156; 84443; 84484; 85014; 85018; 85025; 85027; 85610; 85730; 86644; 86850; 86900; 86920; 86922; 87070; 87075; 87205; 88108; 88305; 88313; 89050; 96361; 96374; 96375; 97116; 97162; 97166; 97530; 99285; J7030; J7040; P9016; P9040; P9612; A4216; G8978; G8979; G8987; G8988; J2405

== ENCOUNTER 2017-11-25 09:42 | Inpatient (IN) | payer MEDICARE, SELFPAY ==
[2017-11-25] VITALS (9 sets, daily range): BP systolic 84–104; BP diastolic 47–62; PULSE 66–79; RESP 15–19; TEMP 36.5–36.9; O2SAT 94–100; BMI 32.4; BMI 32.1
--- NOTE | 2017-11-25 10:17 | CT_ITS ---
STUDY: CT BRAIN WITHOUT CONTRAST REASON FOR EXAM: Female, 82 years old. Fall on treadmill. RADIATION DOSAGE (If Supplied By Facility): CTDIvol = ( 44.99 ) mGy, DLP = ( 782.05 ) mGycm TECHNIQUE: Transaxial CT imaging of the brain was performed without administration of intravenous contrast material. Individualized dose optimization techniques were used for this CT. COMPARISON: Noncontrast CT brain February 02, 2017. FINDINGS: Normal soft tissue structures. The left periorbital/frontal scalp hematoma seen on prior study has resolved. Normal calvarium. There are stable atherosclerotic calcifications of the distal internal carotid and vertebral arteries. There is stable mild cerebral atrophy with widening of the extra-axial spaces and ventricular dilatation. There are stable subtle areas of decreased attenuation within the white matter tracts of the supratentorial brain, consistent with microvascular disease changes. Normal basal ganglia and thalami. Normal brainstem. Normal cerebellum. There is no intracranial hemorrhage. There are no findings of an acute ischemic infarction. Normal visualized paranasal sinuses. CT/Brain/Head without Contrast IMPRESSION: Chronic involutional changes of the brain. No acute intracranial injury. Electronically Signed: Benjamin Hutchins MD at 13:08 EDT , Service support ,
--- NOTE | 2017-11-25 10:17 | EKG12_ITS ---
Test Reason : LOWER EXTREMITY Blood Pressure : / mmHG Vent. Rate : 067 BPM Atrial Rate : 055 BPM P-R Int : 000 ms QRS Dur : 104 ms QT Int : 442 ms P-R-T Axes : 000 059 104 degrees QTc Int : 467 ms Atrial fibrillation Septal infarct , age undetermined Abnormal ECG Confirmed by BLANCA SCHMIDT, ERIS ([id number]), online content editor SHREE FARLEY ([id number]) on 11/27/2017 1:39:30 PM Referred By: JOAQUIN Confirmed By:ERIS RIOS MD
--- NOTE | 2017-11-25 10:18 | RAD_ITS ---
STUDY: X-RAY - LEFT TIBIA AND FIBULA REASON FOR EXAM: Female, 82 years old. Leg pain after fall from treadmill. TECHNIQUE: Frontal and lateral view(s) of the tibia and fibula were obtained on 4 films. COMPARISON: None. FINDINGS: Small rounded calcific density projecting along the margin of the lateral tibial plateau on the frontal view is seen to be in the anterolateral subcutaneous soft tissues on the lateral view. Normal visualized fibula. There is no demonstrated acute fracture. There is non-specific soft tissue swelling from the distal thigh through the ankle. Atherosclerotic vascular calcifications are incidentally noted. RAD/Tibia & Fibula 2 Views IMPRESSION: Generalized soft tissue swelling of the visualized left lower extremity. No acute fracture of the left tibia and fibula. Electronically Signed: Benjamin Hutchins MD at 12:58 EDT , Service support ,
--- NOTE | 2017-11-25 10:18 | VDLE_ITS ---
Reason For Study: LEG SWELLING Procedure LEFT Exam performed portable in ED. GSV is normal. A preliminary report was called and/or faxed CFV is compressible, spontaneous, phasic, to Dr. Escobedo. competent, and demonstrates normal augmentation. FV is compressible, spontaneous, phasic, competent and demonstrates normal augmentation. POP V is compressible, spontaneous, phasic, competent and demonstrates normal augmentation. T/P Trunk is compressible. PTV is compressible. LT PerV is compressible. Interpretation Summary Deep veins of the left lower extremity are patent and compressible segmentally. There is no evidence of left lower extremity deep vein thrombosis. Valvular competence appears intact within the proximal deep venous system on the left . The left greater saphenous vein appears patent and compressible segmentally. Ordering Physician: Herson Escobedo Referring Physician: Sea Obando Performed By: Cristiane Jaramillo RVT
--- NOTE | 2017-11-25 10:18 | RAD_ITS ---
STUDY: X-RAY - LEFT FEMUR REASON FOR STUDY: Female, 82 years old. Pain after fall from treadmill last night. TECHNIQUE: Radiological exam, femur, minimum 2 views COMPARISON: None. FINDINGS: Normal visualized femur. There is diffuse soft tissue swelling of the thigh. Apparent nodularity in the anterolateral mid to distal thigh likely reflects venous varices. There is no demonstrated fracture or destructive process. There are atherosclerotic vascular calcifications. RAD/Femur Min 2 Views IMPRESSION: Generalized subcutaneous soft tissue swelling. No acute fracture of the left femur. Electronically Signed: Benjamin Hutchins MD at 13:12 EDT , Service support ,
--- NOTE | 2017-11-25 10:24 | ED.DCSUM_ITS ---
- ER Visit Summary Date of Service: 11/25/17 Chief Complaint: Left leg injury History of Present Illness: The patient is a 82 F who states that 5 days ago she was walking on a treadmill when she thought the treadmill was stopped but was not and she ended up falling landing on her left leg. She denies any loss of consciousness. She states that since that time the leg is been painful and she has decreasing range of motion. She has been able to ambulate but today is much worse. She seen by primary care and was sent to the emergency department. She has multiple medical problems including coronary artery disease/CHF having had a CABG, pulmonary hypertension, paroxysmal A. fib, myelodysplastic syndrome, prior DVT with IVC filter placement, and GERD. Patient states she did hit her head several days ago also an unrelated incident getting into her car. Patient denies being on any blood thinners at the current time. She sees Dr. Obando for primary care and Dr. Dumont for cardiology at the [facility]. She states that she feels bloated. Primary care notes her blood pressures normally in the 90s over 50s. She notes a 10 pound weight gain over the past several days. Physical Examination: 84/47 temperature 97.1 operations are 15 with a pulse ox of 100% Gen: Well-nourished well-developed Head: Normocephalic atraumatic Eyes: Perrl EOMI ENT: TMs clear no rhinorrhea moist mucous membranes Neck: Supple no lymphadenopathy no JVD nontender CVS: Regular rate rhythm 2 out of 6 systolic murmur Respiratory: No distress clear to auscultation bilaterally chest nontender Abdomen: Soft nontender midline hernia (large) with non-tense ascites Back: Nontender Extremity: Small area of ecchymosis lateral to the left hip. There is large purple ecchymosis from the knee inferior. There is left greater than right swelling. Patient has significant varicose veins on both sides but do not appear thrombosed. Skin: Normal color no rash Neuro: alert orientated ?3 CN II-XII intact normal strength sensation Psych: Normal affect normal mood Test Results: Patient has pancytopenia. White blood cell count was 3.1. Hemoglobin 7.8. Platelets of 86. BUN of 33 creatinine 1.27. X-rays of the tib -fib and femur do not show an obvious fracture. Duplex ultrasound was negative. Brain CT was negative for hemorrhage. Emergency Department Course and Treatment: Patient has limited mobility because of the swelling in the leg. She is certainly a much higher fall risk because of this. The compartments are soft and I do not believe this is Department syndrome. I do not believe the hematoma in the leg needs to be drained. I think a large amount of the hematoma in the lower leg is actually more ecchymosis. I believe the patient would benefit from inpatient care particularly from a mobility standpoint and she may need transfusion and paracentesis. Impression: 1. Left leg hematoma 2. Pancytopenia secondary to myelodysplasia 3. Ascites secondary to CHF 4. Acute on chronic anemia This note was generated with Studio dictation software. It may contain incorrect words, spelling, and punctuation that were not noted in review of the chart prior to signing ED Disposition - Plan for ED Patient: Chief Complaint: Lower Extremity Injury Referrals: Sea Obando MD [Primary Care Provider] -
[2017-11-25 10:53] LABS: Absolute Neutrophil Count 1.9 X10^3/uL (2.0-7.7); Eosinophil# 0.19 X10^3/uL; Eosinophils% 6.1 % (0-5); Hematocrit 24.6 % (37-47); Hemoglobin 7.8 g/dl (12.0-15.0); Lymphocyte % 12.9 % (19-41); Mean Corp Hgb Conc 31.7 g/gl (32-36); Mean Corpuscular Hgb 29.7 pg (27.0-32.0); Mean Corpuscular Volume 93.5 fL (81-99); Mean Platelet Vol. 9.2 fl (6.2-12.0); Monocyte# 0.59 X10^3/uL; Monocyte% 19.1 % (0-10); Neutrophil % 61.6 % (47-70); Platelet Count 80 K/mm3 (150-450); RBC Distribution Width CV 19.9 % (11.6-14.6); RBC Distribution Width SD 67.1 fl (35.1-43.9); Red Blood Count 2.63 M/mm3 (4.2-5.4); White Blood Count 3.1 K/mm3 (4.4-11.0)
[2017-11-25 10:55] LABS: Differential Indicated SCAN CRITERIA MET; POSITIVE COUNT NO; POSITIVE DIFFERENTIAL YES; POSITIVE MORPHOLOGY YES
--- NOTE | 2017-11-25 10:56 | NURSING ---
CHEMISTRIES HEMOLIZED
[2017-11-25 11:06] LABS: International Normalized Ratio 1.3; Prothrombin Time (Protime)PT. 16.6 SECONDS (11.7-14.9)
[2017-11-25 11:12] LABS: Partial Thromboplast Time 32.4 Seconds (24.1-36.2)
[2017-11-25 11:15] LABS: BNP,B-Type NATRIURETIC PEPTIDE 522.7 pg/mL (0-100)
[2017-11-25 11:37] LABS: AST(SGOT) 18 U/L (15-37); Alanine Aminotransfer ALT/SGPT 12 U/L (13-56); Albumin, Serum 3.6 g/dL (3.2-5.0); Alkaline Phosphatase 83 U/L (45-117); Anion Gap 8 (5-15); BUN 30 mg/dL (7-18); BUN/Creat Ratio 24.6 RATIO (10-20); Bilirubin, Direct 0.61 mg/dL (0.00-0.30); Calcium,Total 7.7 mg/dL (8.5-10.1); Chloride 91 mmol/L (98-107); Creatinine, Serum 1.22 mg/dL (0.55-1.02); EST Glomerular Filtration Rate 45 mL/min (>60); Est Glom Filt Rate - Afr Amer 54 mL/min (>60); Globulin 3.9 g/dL (2.2-4.2); Glucose 90 mg/dL (74-106); Lipase 205 U/L (73-393); Potassium 4.3 mmol/L (3.5-5.1); Protein, Total 7.5 g/dL (6.4-8.2); Sodium Level 126 mmol/L (136-145)
[2017-11-25 11:37] LABS: Lactic Acid 0.8 mmol/L (0.4-2.0)
--- NOTE | 2017-11-25 11:40 | RAD_ITS ---
STUDY: X-RAY CHEST REASON FOR EXAM: Female, 82 years old. Fall off treadmill. TECHNIQUE: Single frontal upright view of the chest. COMPARISON: AP and lateral upright chest x-ray October 15, 2017. FINDINGS: Minor subsegmental atelectasis is again suggested in the medial right lung base. There is no demonstrated pleural abnormality. There is stable mild to moderate cardiac enlargement. Sternal cerclage wires and vascular clips are present from a prior sternotomy and coronary artery bypass graft procedure (CABG). There is stable right paratracheal soft tissue fullness, which appears to simply reflect ectatic brachiocephalic vessels on CT cervical spine January 20, 2017. Normal visualized pulmonary arteries. There is stable atherosclerotic calcification of the aortic arch. There are stable degenerative changes of the visualized thoracic spine. Normal visualized ribs, clavicles, and shoulders. There is no demonstrated abnormality of the visualized soft tissue structures of the upper abdomen. RAD/Chest 1 View IMPRESSION: 1. Prior median sternotomy and CABG. 2. Stable cardiac enlargement. No CHF. 3. Stable minor subsegmental atelectasis in the medial right lung base. Electronically Signed: Benjamin Hutchins MD at 13:11 EDT , Service support ,
--- NOTE | 2017-11-25 12:36 | CM.ED ---
Social Work Note Into complete initial assessment as pt is to be admitted. Introduced self and role at [facility]. The pt is accompanied by her daughter, Margie, and reports to have lost her spouse in September of this year. Margie lives next door. Lives alone in a one-story home with 4-5 steps to enter and railings on either side. DME consists of a walker, cane and bsc. Pt usually does not require DME, but fell on her treadmill on Monday 11/20 and how has significant swelling and bruising. Pt does not have a hx of SNF or HHC. Confirms that her PCP is Dr. Obando and her draw operator is Dr. Landis. Preferred pharmacy is [facility]. HCPOA is her son and daughter. Unsure of discharge needs at this time, and informed that PT/OT would evaluate her and make recommendations. Pt made aware that RN CM or SW would assist with discharge planning. Plan: RENEE Kline, OTOLOGIST, MEDICAL AND SCIENTIFIC ILLUSTRATOR
--- NOTE | 2017-11-25 12:36 | NURSING ---
Arsh notified patient may transfer to PCU.
--- NOTE | 2017-11-25 13:02 | PCM.HP.STD ---
Problem List (1) CAD (coronary artery disease) Status: Chronic Comment: Status post bypass in 2006, following with Dr. Dumont (2) Chronic congestive heart failure Status: Chronic Qualifiers: Comment: systolic. Ejection fraction 42%, 6/15 With moderate to severe MR Severe TR (3) Chronic systolic CHF (congestive heart failure) Status: Chronic (4) Gastroesophageal reflux disease Status: Chronic (5) Hyponatremia Status: Chronic (6) Hypothyroidism Status: Chronic (7) Iron (Fe) deficiency anemia Status: Chronic (8) Paroxysmal a-fib Status: Chronic (9) Pulmonary HTN Status: Chronic History of Present Illness Date of Admission: 11/25/17 Chief Complaint: Left lower extremity bruising and swelling The patient is a 82 year old F with multiple comorbidities including hypertension, congestive heart failure, previous DVT status post IVC filter placement who presents with left lower extremity swelling. Patient was apparently involved in a fall on her treadmill on 11/20/2017. She did notice some bruising however his bruising has gotten progressively extensive. She also noticed increasing swelling involving the other leg. She presented to the emergency department her workup was consistent with acute congestive heart failure. Started on Lasix admitted to a monitored bed for further management. Past Medical History Past Medical History (Chronic Problems): Chronic Problems Chronic systolic CHF (congestive heart failure) (Chronic) Paroxysmal a-fib (Chronic) Pulmonary HTN (Chronic) Hyponatremia (Chronic) Gastroesophageal reflux disease (Chronic) Iron (Fe) deficiency anemia (Chronic) Chronic congestive heart failure (Chronic) systolic. Ejection fraction 42%, 6/15 With moderate to severe MR Severe TR CAD (coronary artery disease) (Chronic) Status post bypass in 2006, following with Dr. Dumont Hypothyroidism (Chronic) Allergies azithromycin [From Zithromax] Allergy (Intermediate, Verified 11/25/17 09:46) Mucosal lesions Penicillins Allergy (Intermediate, Verified 11/25/17 09:46) Mucosal lesions Sulfa (Sulfonamide Antibiotics) Allergy (Intermediate, Verified 11/25/17 09:46) Mucosal lesions nausea cephalexin [From Keflex] Allergy (Verified 11/25/17 09:46) GI UPSET tobramycin Allergy (Verified 11/25/17 09:46) RED EYES metronidazole Adverse Reaction (Intermediate, Verified 11/25/17 09:46) Nausea diltiazem Adverse Reaction (Mild, Verified 11/25/17 09:46) Nausea/Vom/Diarrhea metolazone [From Zaroxolyn] Adverse Reaction (Mild, Verified 11/25/17 09:46) Nausea potassium chloride Adverse Reaction (Mild, Verified 11/25/17 09:46) Upset Stomach nystatin Adverse Reaction (Verified 11/25/17 09:46) Nausea spironolactone Adverse Reaction (Verified 11/25/17 09:46) Nausea Home Medications: Ambulatory Orders Medication Instructions Recorded Carvedilol [Coreg] 12.5 mg PO BID 08/17/16 Levothyroxine [Synthroid] 100 mcg PO DAILY 08/17/16 Lisinopril [Zestril] 5 mg PO DAILY 08/17/16 Omeprazole [Prilosec] 20 mg PO DAILY 08/17/16 Docusate Sodium [Colace] 100 mg PO BID 11/10/16 Spironolactone 25 mg PO BID 01/01/17 Furosemide 60 mg PO BREAKFAST 08/12/17 Metolazone [Zaroxolyn] 2.5 mg PO DAILY #30 tab 08/14/17 Furosemide [Lasix] 60 mg PO DINNER 11/25/17 Ondansetron HCl [Zofran] 4 mg PO PRN PRN 11/25/17 Surgical History: cholecystectomy, coronary bypass surgery, hysterectomy, - Psychiatric History: No pertinent psych hx BRAKE ASSEMBLER History: No pertinent BRAKE ASSEMBLER history Smoking Status: Never smoker - *Family History Sibling History Items: Dementia, Heart Disease Paternal History Items: No pertinent history Maternal History Items: No pertinent history Review of Systems Constitutional: Denies: Anorexia, Chills, Fever HEENT: Denies: Head Aches, Sinus Congestion, Sinus Drainage Cardiovascular: Reports: Edema Respiratory: Denies: Cough, Hemoptysis Gastrointestinal: Denies: Abdominal Pain, Hematemesis, Hematochezia Genitourinary: Denies: Dysuria, Frequency, Hematuria Musculoskeletal: Reports: Joint Pain Skin: Reports: Skin Changes Neurological: Denies: Focal weakness, Numbness, Tingling Psychiatric: Denies: Homicidal Ideations, Suicidal Ideations Hematologic/ Lymphatic: Denies: Easy Bruising, Easy Bleeding VTE Information - Inpt Only VTE Present on Admission: No VTE Mechan Device Prophylaxis: Knee High BEVERLY Hose VTE Pharm Prophylaxis ordered?: Yes Objective: GENERAL: cooperative HEENT: Atraumatic, NECK; supple, normal thyroid, CHEST: Diminished to auscultation bilaterally, . HEART: Regular S1-S2 ABDOMEN: soft, normoactive bowel sounds, RECTAL: deferred EXTREMITIES: Extensive ecchymosis and swelling involving the left lower extremity ORACLE BUSINESS INTELLIGENCE DEVELOPER: Awake, no lateralizing signs. SKIN: As described above - Physical Exam Vital Signs Temp Pulse Resp BP Pulse Ox 97.7 F L 78 19 H 104/62 96 11/25/17 09:42 11/25/17 12:37 11/25/17 12:37 11/25/17 12:37 11/25/17 12:37 Oxygen Delivery Method Room Air Assessment/Plan All Active Problems GI bleed (Resolved) History of DVT (deep vein thrombosis) (Resolved) History of venous thromboembolism (Resolved) Patient is an [id number] lady admitted fall at home which occurred 4 days prior to her admission. Patient presented with extensive bruising and swelling involving the left lower extremity 1. Accidental/mechanical fall on the treadmill resulting in left lower extremity swelling and significant ecchymosis. Patient has been admitted to monitored bed conservative managements consisting of elevation of lower extremities, monitoring of H&H and bed rest 2. Acute on chronic systolic heart failure with recent exacerbation echo obtained in August 2016 demonstrated EF of 37%. Patient is on diuretics did continue with her oral Aldactone and initiated IV Lasix 3. CAD status post CABG with subsequent stent placement 4. Ischemic cardiomyopathy 5. Hypertension-blood pressure controlled, home medications continued with dose adjustment as needed 6. Paroxysmal A. fib; rate controlled not on systemic anticoagulation due to significant risk for falls 7. GERD and is on PPI 8. Hypothyroidism-patient is on levothyroxine home dose continued 9. Chronic hyponatremia 10. Anemia secondary to anemia of chronic disorder well as acute blood loss anemia following her fall 11. Thrombocytopenia 12. History of previous DVT status post IVC filter placement 13. Pulmonary hypertension with RVSP of 51 mmHg 14. DVT prophylaxis; avoided chemoprophylaxis in view of patient extensive ecchymosis, bilateral SCDs could not be used due to significant bilateral edema Code Visit Inpatient E&M: 82095 [facility] Hosp L3
--- NOTE | 2017-11-25 13:08 | HP.PCM_ITS ---
Problem List (1) CAD (coronary artery disease) Status: Chronic Comment: Status post bypass in 2006, following with Dr. Dumont (2) Chronic congestive heart failure Status: Chronic Qualifiers: Comment: systolic. Ejection fraction 42%, 6/15 With moderate to severe MR Severe TR (3) Chronic systolic CHF (congestive heart failure) Status: Chronic (4) Gastroesophageal reflux disease Status: Chronic (5) Hyponatremia Status: Chronic (6) Hypothyroidism Status: Chronic (7) Iron (Fe) deficiency anemia Status: Chronic (8) Paroxysmal a-fib Status: Chronic (9) Pulmonary HTN Status: Chronic History of Present Illness Date of Admission: 11/25/17 Chief Complaint: Left lower extremity bruising and swelling The patient is a 82 year old F with multiple comorbidities including hypertension, congestive heart failure, previous DVT status post IVC filter placement who presents with left lower extremity swelling. Patient was apparently involved in a fall on her treadmill on 11/20/2017. She did notice some bruising however his bruising has gotten progressively extensive. She also noticed increasing swelling involving the other leg. She presented to the emergency department her workup was consistent with acute congestive heart failure. Started on Lasix admitted to a monitored bed for further management. Past Medical History Past Medical History (Chronic Problems): Chronic Problems Chronic systolic CHF (congestive heart failure) (Chronic) Paroxysmal a-fib (Chronic) Pulmonary HTN (Chronic) Hyponatremia (Chronic) Gastroesophageal reflux disease (Chronic) Iron (Fe) deficiency anemia (Chronic) Chronic congestive heart failure (Chronic) systolic. Ejection fraction 42%, 6/15 With moderate to severe MR Severe TR CAD (coronary artery disease) (Chronic) Status post bypass in 2006, following with Dr. Dumont Hypothyroidism (Chronic) Allergies azithromycin [From Zithromax] Allergy (Intermediate, Verified 11/25/17 09:46) Mucosal lesions Penicillins Allergy (Intermediate, Verified 11/25/17 09:46) Mucosal lesions Sulfa (Sulfonamide Antibiotics) Allergy (Intermediate, Verified 11/25/17 09:46) Mucosal lesions nausea cephalexin [From Keflex] Allergy (Verified 11/25/17 09:46) GI UPSET tobramycin Allergy (Verified 11/25/17 09:46) RED EYES metronidazole Adverse Reaction (Intermediate, Verified 11/25/17 09:46) Nausea diltiazem Adverse Reaction (Mild, Verified 11/25/17 09:46) Nausea/Vom/Diarrhea metolazone [From Zaroxolyn] Adverse Reaction (Mild, Verified 11/25/17 09:46) Nausea potassium chloride Adverse Reaction (Mild, Verified 11/25/17 09:46) Upset Stomach nystatin Adverse Reaction (Verified 11/25/17 09:46) Nausea spironolactone Adverse Reaction (Verified 11/25/17 09:46) Nausea Home Medications: Ambulatory Orders Medication Instructions Recorded Carvedilol [Coreg] 12.5 mg PO BID 08/17/16 Levothyroxine [Synthroid] 100 mcg PO DAILY 08/17/16 Lisinopril [Zestril] 5 mg PO DAILY 08/17/16 Omeprazole [Prilosec] 20 mg PO DAILY 08/17/16 Docusate Sodium [Colace] 100 mg PO BID 11/10/16 Spironolactone 25 mg PO BID 01/01/17 Furosemide 60 mg PO BREAKFAST 08/12/17 Metolazone [Zaroxolyn] 2.5 mg PO DAILY #30 tab 08/14/17 Furosemide [Lasix] 60 mg PO DINNER 11/25/17 Ondansetron HCl [Zofran] 4 mg PO PRN PRN 11/25/17 Surgical History: cholecystectomy, coronary bypass surgery, hysterectomy, - Psychiatric History: No pertinent psych hx CALIBRATION SPECIALIST History: No pertinent CALIBRATION SPECIALIST history Smoking Status: Never smoker - *Family History Sibling History Items: Dementia, Heart Disease Paternal History Items: No pertinent history Maternal History Items: No pertinent history Review of Systems Constitutional: Denies: Anorexia, Chills, Fever HEENT: Denies: Head Aches, Sinus Congestion, Sinus Drainage Cardiovascular: Reports: Edema Respiratory: Denies: Cough, Hemoptysis Gastrointestinal: Denies: Abdominal Pain, Hematemesis, Hematochezia Genitourinary: Denies: Dysuria, Frequency, Hematuria Musculoskeletal: Reports: Joint Pain Skin: Reports: Skin Changes Neurological: Denies: Focal weakness, Numbness, Tingling Psychiatric: Denies: Homicidal Ideations, Suicidal Ideations Hematologic/ Lymphatic: Denies: Easy Bruising, Easy Bleeding VTE Information - Inpt Only VTE Present on Admission: No VTE Mechan Device Prophylaxis: Knee High BEVERLY Hose VTE Pharm Prophylaxis ordered?: Yes Objective: GENERAL: cooperative HEENT: Atraumatic, NECK; supple, normal thyroid, CHEST: Diminished to auscultation bilaterally, . HEART: Regular S1-S2 ABDOMEN: soft, normoactive bowel sounds, RECTAL: deferred EXTREMITIES: Extensive ecchymosis and swelling involving the left lower extremity HOT TOP LINER: Awake, no lateralizing signs. SKIN: As described above - Physical Exam Vital Signs Temp Pulse Resp BP Pulse Ox 97.7 F L 78 19 H 104/62 96 11/25/17 09:42 11/25/17 12:37 11/25/17 12:37 11/25/17 12:37 11/25/17 12:37 Oxygen Delivery Method Room Air Assessment/Plan All Active Problems GI bleed (Resolved) History of DVT (deep vein thrombosis) (Resolved) History of venous thromboembolism (Resolved) Patient is an [id number] lady admitted fall at home which occurred 4 days prior to her admission. Patient presented with extensive bruising and swelling involving the left lower extremity 1. Accidental/mechanical fall on the treadmill resulting in left lower extremity swelling and significant ecchymosis. Patient has been admitted to monitored bed conservative managements consisting of elevation of lower extremities, monitoring of H&H and bed rest 2. Acute on chronic systolic heart failure with recent exacerbation echo obtained in August 2016 demonstrated EF of 37%. Patient is on diuretics did continue with her oral Aldactone and initiated IV Lasix 3. CAD status post CABG with subsequent stent placement 4. Ischemic cardiomyopathy 5. Hypertension-blood pressure controlled, home medications continued with dose adjustment as needed 6. Paroxysmal A. fib; rate controlled not on systemic anticoagulation due to significant risk for falls 7. GERD and is on PPI 8. Hypothyroidism-patient is on levothyroxine home dose continued 9. Chronic hyponatremia 10. Anemia secondary to anemia of chronic disorder well as acute blood loss anemia following her fall 11. Thrombocytopenia 12. History of previous DVT status post IVC filter placement 13. Pulmonary hypertension with RVSP of 51 mmHg 14. DVT prophylaxis; avoided chemoprophylaxis in view of patient extensive ecchymosis, bilateral SCDs could not be used due to significant bilateral edema Code Visit Inpatient E&M: [id number] [facility] Hosp L3
[2017-11-25 13:48] LABS: Magnesium 2.4 mg/dL (1.6-2.6)
[2017-11-25] MEDS: Acetaminophen 325 MG Tablet 650 MG PO ×2 (13:55→19:55)
[2017-11-25] MEDS: Magnesium Hydroxide 30 ML UDC PO (13:55)
[2017-11-25] MEDS: Furosemide 40 MG/4 ML Vial IV (13:55)
[2017-11-25] MEDS: 0.9% NaCl Peripheral Flush Adult/Peds IV (14:02)
[2017-11-25] MEDS: Spironolactone 25 MG Tablet PO (17:08)
[2017-11-25] MEDS: Docusate Sodium 100 MG Capsule PO (22:24)
[2017-11-26] VITALS (14 sets, daily range): BP systolic 81–99; BP diastolic 40–63; PULSE 66–89; RESP 16–18; TEMP 36.2–36.9; O2SAT 92–98
[2017-11-26 05:54] LABS: Anion Gap 8 (5-15); BUN 35 mg/dL (7-18); BUN/Creat Ratio 27.3 RATIO (10-20); Calcium,Total 7.9 mg/dL (8.5-10.1); Chloride 93 mmol/L (98-107); Creatinine, Serum 1.28 mg/dL (0.55-1.02); EST Glomerular Filtration Rate 42 mL/min (>60); Est Glom Filt Rate - Afr Amer 51 mL/min (>60); Estimated Creatinine Clearance 27.55 ml/min; Glucose 80 mg/dL (74-106); Potassium 4.5 mmol/L (3.5-5.1); Sodium Level 130 mmol/L (136-145)
[2017-11-26] MEDS: Acetaminophen 325 MG Tablet 650 MG PO ×3 (05:58→20:13)
[2017-11-26] MEDS: Levothyroxine 100 MCG Tablet PO (06:01)
[2017-11-26] MEDS: Furosemide 40 MG/4 ML Vial IV ×2 (06:01→15:45)
[2017-11-26] MEDS: 0.9% NaCl Peripheral Flush Adult/Peds IV ×3 (06:02→15:44)
[2017-11-26 06:18] LABS: Hemoglobin 7.3 g/dl (12.0-15.0); Mean Corp Hgb Conc 31.7 g/gl (32-36); Mean Corpuscular Hgb 30.5 pg (27.0-32.0); Mean Corpuscular Volume 96.2 fL (81-99); Mean Platelet Vol. 9.3 fl (6.2-12.0); Platelet Count 77 K/mm3 (150-450); RBC Distribution Width CV 19.7 % (11.6-14.6); RBC Distribution Width SD 65.6 fl (35.1-43.9); Red Blood Count 2.39 M/mm3 (4.2-5.4); White Blood Count 3.2 K/mm3 (4.4-11.0)
[2017-11-26 06:23] LABS: Scan Indicated on CBC? Y/N YES- FLAGS NOTED
[2017-11-26 07:24] LABS: Differential Comment SCAN
[2017-11-26] MEDS: Pantoprazole Sodium 20 MG Tablet PO (09:43)
[2017-11-26] MEDS: Docusate Sodium 100 MG Capsule PO ×2 (09:43→22:32)
--- NOTE | 2017-11-26 10:15 | PCM.PN.HOSP ---
Subjective: Since seen still has significant swelling involving her left lower extremity. Her antihypertensives as well as diuretics were held this morning on account of hypotension Objective: GENERAL: cooperative HEENT: Atraumatic, NECK; supple, normal thyroid, CHEST: Diminished to auscultation bilaterally, . HEART: Regular S1-S2 ABDOMEN: soft, normoactive bowel sounds, RECTAL: deferred EXTREMITIES: Extensive ecchymosis and swelling involving the left lower extremity SUPERVISOR METER REPAIR SHOP: Awake, no lateralizing signs. SKIN: As described above Vitals/I&O's: Vital Signs Temp Pulse Resp BP Pulse Ox 97.4 F L 70 16 81/47 L 97 11/26/17 09:25 11/26/17 09:25 11/26/17 09:25 11/26/17 09:25 11/26/17 09:25 Oxygen Delivery Method Room Air Weight: 82.6 kg Body Mass Index (BMI) 32.1 Intake and Output for Last 24 Hours 11/24/17 11/25/17 11/26/17 23:59 23:59 23:59 Intake Total 240 / 240 240 / 240 Output Total 550 / 550 500 / 500 Balance -310 / -310 -260 / -260 Laboratory Results 11/26/17 05:10: Sodium 130 L, Potassium 4.5, Chloride 93 L, Carbon Dioxide 29.0, Anion Gap 8, BUN 35 H, Creatinine 1.28 H, Estim Creat Clear Calc 27.55, Est GFR (MDRD) Af Amer 51 L, Est GFR (MDRD) Non-Af 42 L, BUN/Creatinine Ratio 27.3 H, Glucose 80, Calcium 7.9 L 11/26/17 05:10: WBC 3.2 L, RBC 2.39 L, Hgb 7.3 L, Hct 23.0 L, MCV 96.2, MCH 30.5, MCHC 31.7 L, RDW 19.7 H, RDW Differential 65.6 H, Plt Count 77 L, MPV 9.3, Differential Comment SCAN Current Medications Acetaminophen (Tylenol) 650 mg PO Q6H PRN PRN PRN Reason: Mild Pain (scale 0-3)/T>100.7 Last Admin: 11/26/17 05:58 Dose: 650 mg Al Hydroxide/Mg Hydroxide (Mylanta Ii) 30 ml PO Q6H PRN PRN PRN Reason: Gastric Burning Carvedilol (Coreg) 12.5 mg PO BID [facility] Last Admin: 11/26/17 09:27 Dose: Not Given Docusate Sodium (Colace) 100 mg PO BID [facility] Last Admin: 11/26/17 09:43 Dose: 100 mg Furosemide (Lasix) 40 mg IV Q8 [facility] Last Admin: 11/26/17 06:01 Dose: 40 mg Levothyroxine Sodium (Synthroid) 100 mcg PO DAILY@0600 [facility] Last Admin: 11/26/17 06:01 Dose: 100 mcg Lisinopril (Zestril) 5 mg PO DAILY [facility] Last Admin: 11/26/17 09:28 Dose: Not Given Magnesium Hydroxide (Milk Of Magnesia) 30 ml PO DAILY PRN PRN Reason: Constipation Last Admin: 11/25/17 13:55 Dose: 30 ml Metolazone (Zaroxolyn) 2.5 mg PO DAILY [facility] Last Admin: 11/26/17 09:50 Dose: Not Given Pantoprazole Sodium (Protonix) 20 mg PO DAILY [facility] Last Admin: 11/26/17 09:43 Dose: 20 mg Prochlorperazine Edisylate (Compazine Iv) 10 mg IV Q6H PRN PRN PRN Reason: Nausea/Vomiting Sodium Chloride () 5 - 30 ml IV UD PRN PRN Reason: SALINE FLUSH Last Admin: 11/26/17 06:08 Dose: 5 ml Spironolactone (Aldactone) 25 mg PO BIDLX [facility] Last Admin: 11/26/17 09:27 Dose: Not Given Medical Necessity - Tobacco Use Smoking Status: Never smoker Assessment/Plan All Active Problems GI bleed (Resolved) History of DVT (deep vein thrombosis) (Resolved) History of venous thromboembolism (Resolved) Patient is an [id number] lady admitted fall at home which occurred 4 days prior to her admission. Patient presented with extensive bruising and swelling involving the left lower extremity 1. Accidental/mechanical fall on the treadmill resulting in left lower extremity swelling and significant ecchymosis. Patient has been admitted to monitored bed conservative managements consisting of elevation of lower extremities, monitoring of H&H and bed rest. Requested for PT OT eval as well as social work assistant to assist with discharge plan 2. Acute on chronic systolic heart failure with recent exacerbation echo obtained in August 2016 demonstrated EF of 37%. Patient is on diuretics did continue with her oral Aldactone and initiated IV Lasix 3. CAD status post CABG with subsequent stent placement 4. Ischemic cardiomyopathy 5. Hypertension-blood pressure controlled, home medications continued with dose adjustment as needed 6. Paroxysmal A. fib; rate controlled not on systemic anticoagulation due to significant risk for falls 7. GERD and is on PPI 8. Hypothyroidism-patient is on levothyroxine home dose continued 9. Chronic hyponatremia: Patient's sodium level did improve with diuresis 10. Anemia secondary to anemia of chronic disorder well as acute blood loss anemia following her fall 11. Thrombocytopenia 12. History of previous DVT status post IVC filter placement 13. Pulmonary hypertension with RVSP of 51 mmHg 14. DVT prophylaxis; avoided chemoprophylaxis in view of patient extensive ecchymosis, bilateral SCDs could not be used due to significant bilateral edema Code Visit Inpatient E&M: [id number] [facility] Hosp L3
--- NOTE | 2017-11-26 10:24 | PN_ITS ---
Subjective: Since seen still has significant swelling involving her left lower extremity. Her antihypertensives as well as diuretics were held this morning on account of hypotension Objective: GENERAL: cooperative HEENT: Atraumatic, NECK; supple, normal thyroid, CHEST: Diminished to auscultation bilaterally, . HEART: Regular S1-S2 ABDOMEN: soft, normoactive bowel sounds, RECTAL: deferred EXTREMITIES: Extensive ecchymosis and swelling involving the left lower extremity DIRECTOR OF PATIENT CARE: Awake, no lateralizing signs. SKIN: As described above Vitals/I&O's: Vital Signs Temp Pulse Resp BP Pulse Ox 97.4 F L 70 16 81/47 L 97 11/26/17 09:25 11/26/17 09:25 11/26/17 09:25 11/26/17 09:25 11/26/17 09:25 Oxygen Delivery Method Room Air Weight: 82.6 kg Body Mass Index (BMI) 32.1 Intake and Output for Last 24 Hours 11/24/17 11/25/17 11/26/17 23:59 23:59 23:59 Intake Total 240 / 240 240 / 240 Output Total 550 / 550 500 / 500 Balance -310 / -310 -260 / -260 Laboratory Results 11/26/17 05:10: Sodium 130 L, Potassium 4.5, Chloride 93 L, Carbon Dioxide 29.0 , Anion Gap 8, BUN 35 H, Creatinine 1.28 H, Estim Creat Clear Calc 27.55, Est GFR (MDRD) Af Amer 51 L, Est GFR (MDRD) Non-Af 42 L, BUN/Creatinine Ratio 27.3 H , Glucose 80, Calcium 7.9 L 11/26/17 05:10: WBC 3.2 L, RBC 2.39 L, Hgb 7.3 L, Hct 23.0 L, MCV 96.2, MCH 30.5 , MCHC 31.7 L, RDW 19.7 H, RDW Differential 65.6 H, Plt Count 77 L, MPV 9.3, Differential Comment SCAN Current Medications Acetaminophen (Tylenol) 650 mg PO Q6H PRN PRN PRN Reason: Mild Pain (scale 0-3)/T>100.7 Last Admin: 11/26/17 05:58 Dose: 650 mg Al Hydroxide/Mg Hydroxide (Mylanta Ii) 30 ml PO Q6H PRN PRN PRN Reason: Gastric Burning Carvedilol (Coreg) 12.5 mg PO BID [facility] Last Admin: 11/26/17 09:27 Dose: Not Given Docusate Sodium (Colace) 100 mg PO BID [facility] Last Admin: 11/26/17 09:43 Dose: 100 mg Furosemide (Lasix) 40 mg IV Q8 [facility] Last Admin: 11/26/17 06:01 Dose: 40 mg Levothyroxine Sodium (Synthroid) 100 mcg PO DAILY@0600 [facility] Last Admin: 11/26/17 06:01 Dose: 100 mcg Lisinopril (Zestril) 5 mg PO DAILY [facility] Last Admin: 11/26/17 09:28 Dose: Not Given Magnesium Hydroxide (Milk Of Magnesia) 30 ml PO DAILY PRN PRN Reason: Constipation Last Admin: 11/25/17 13:55 Dose: 30 ml Metolazone (Zaroxolyn) 2.5 mg PO DAILY [facility] Last Admin: 11/26/17 09:50 Dose: Not Given Pantoprazole Sodium (Protonix) 20 mg PO DAILY [facility] Last Admin: 11/26/17 09:43 Dose: 20 mg Prochlorperazine Edisylate (Compazine Iv) 10 mg IV Q6H PRN PRN PRN Reason: Nausea/Vomiting Sodium Chloride () 5 - 30 ml IV UD PRN PRN Reason: SALINE FLUSH Last Admin: 11/26/17 06:08 Dose: 5 ml Spironolactone (Aldactone) 25 mg PO BIDLX [facility] Last Admin: 11/26/17 09:27 Dose: Not Given Medical Necessity - Tobacco Use Smoking Status: Never smoker Assessment/Plan All Active Problems GI bleed (Resolved) History of DVT (deep vein thrombosis) (Resolved) History of venous thromboembolism (Resolved) Patient is an [id number] lady admitted fall at home which occurred 4 days prior to her admission. Patient presented with extensive bruising and swelling involving the left lower extremity 1. Accidental/mechanical fall on the treadmill resulting in left lower extremity swelling and significant ecchymosis. Patient has been admitted to monitored bed conservative managements consisting of elevation of lower extremities, monitoring of H&H and bed rest. Requested for PT OT eval as well as neonatal social worker to assist with discharge plan 2. Acute on chronic systolic heart failure with recent exacerbation echo obtained in August 2016 demonstrated EF of 37%. Patient is on diuretics did continue with her oral Aldactone and initiated IV Lasix 3. CAD status post CABG with subsequent stent placement 4. Ischemic cardiomyopathy 5. Hypertension-blood pressure controlled, home medications continued with dose adjustment as needed 6. Paroxysmal A. fib; rate controlled not on systemic anticoagulation due to significant risk for falls 7. GERD and is on PPI 8. Hypothyroidism-patient is on levothyroxine home dose continued 9. Chronic hyponatremia: Patient's sodium level did improve with diuresis 10. Anemia secondary to anemia of chronic disorder well as acute blood loss anemia following her fall 11. Thrombocytopenia 12. History of previous DVT status post IVC filter placement 13. Pulmonary hypertension with RVSP of 51 mmHg 14. DVT prophylaxis; avoided chemoprophylaxis in view of patient extensive ecchymosis, bilateral SCDs could not be used due to significant bilateral edema Code Visit Inpatient E&M: 47820 [facility] Hosp L3
--- NOTE | 2017-11-26 13:35 | CASEMGMT ---
Addendum entered by Linnette Bobo 11/26/17 13:42: SW called Ghada with [facility] and made a referral for patient for home PT/OT. SW noted patient has had [facility] in the past. [facility] can take patient at d/c. Plan: [facility] PT/OT Linnette DELGADO Original Note: SW spoke with patient about d/c plan. She feels she did okay with therapy and that she could go home at d/c. SW asked her if she felt home health nursing and therapy would be helpful. She asked about cost and SW told her as long as she is homebound Medicare will cover it at 100%. She said she would like that and has no preference for agency. [facility] will work on setting up home health. Plan: At this time patient would like to go home with home health. Linnette DELGADO
[2017-11-27] VITALS (16 sets, daily range): BP systolic 90–107; BP diastolic 42–61; PULSE 65–90; RESP 14–20; TEMP 36.6–37.2; O2SAT 94–99
[2017-11-27] MEDS: Acetaminophen 325 MG Tablet 650 MG PO ×3 (02:16→21:12)
[2017-11-27] MEDS: 0.9% NaCl Peripheral Flush Adult/Peds IV ×2 (05:40→17:04)
[2017-11-27] MEDS: Furosemide 40 MG/4 ML Vial IV (05:40)
[2017-11-27] MEDS: Levothyroxine 100 MCG Tablet PO (05:40)
[2017-11-27 06:22] LABS: Hematocrit 24.2 % (37-47); Hemoglobin 7.7 g/dl (12.0-15.0); Mean Corp Hgb Conc 31.8 g/gl (32-36); Mean Corpuscular Hgb 30.2 pg (27.0-32.0); Mean Corpuscular Volume 94.9 fL (81-99); Mean Platelet Vol. 8.8 fl (6.2-12.0); Platelet Count 84 K/mm3 (150-450); RBC Distribution Width CV 20.4 % (11.6-14.6); RBC Distribution Width SD 69.7 fl (35.1-43.9); Red Blood Count 2.55 M/mm3 (4.2-5.4)
[2017-11-27 06:24] LABS: Scan Indicated on CBC? Y/N YES- FLAGS NOTED
[2017-11-27 06:35] LABS: Anion Gap 7 (5-15); BUN 36 mg/dL (7-18); BUN/Creat Ratio 29.5 RATIO (10-20); Calcium,Total 7.9 mg/dL (8.5-10.1); Chloride 92 mmol/L (98-107); Creatinine, Serum 1.22 mg/dL (0.55-1.02); EST Glomerular Filtration Rate 45 mL/min (>60); Est Glom Filt Rate - Afr Amer 54 mL/min (>60); Glucose 86 mg/dL (74-106); Potassium 3.7 mmol/L (3.5-5.1); Sodium Level 127 mmol/L (136-145)
[2017-11-27 07:32] LABS: Differential Comment SCAN
[2017-11-27] MEDS: Pantoprazole Sodium 20 MG Tablet PO (08:46)
[2017-11-27] MEDS: Carvedilol 12.5 MG Tablet PO ×2 (08:46→21:12)
[2017-11-27] MEDS: Docusate Sodium 100 MG Capsule PO ×2 (08:46→21:12)
--- NOTE | 2017-11-27 09:42 | CASEMGMT ---
[facility]ON spoke with Ghada from [facility] and let her know patient may be d/c tomorrow. Plan: d/c home with [facility] PT/OT Linnette NANCE MSW
--- NOTE | 2017-11-27 11:20 | PCM.PN.HOSP ---
Subjective: Patient seen did experience precipitous drop in her hemoglobin level and she is also relatively hypotensive. Decision was therefore made to transfuse patient with 1 unit PRBC Objective: GENERAL: cooperative HEENT: Atraumatic, NECK; supple, normal thyroid, CHEST: Diminished to auscultation bilaterally, . HEART: Regular S1-S2 ABDOMEN: soft, normoactive bowel sounds, RECTAL: deferred EXTREMITIES: Extensive ecchymosis and swelling involving the left lower extremity SHEET FED PRINTER: Awake, no lateralizing signs. SKIN: As described above Vitals/I&O's: Vital Signs Temp Pulse Resp BP Pulse Ox 98.1 F 84 18 95/45 L 99 11/27/17 08:23 11/27/17 08:23 11/27/17 08:23 11/27/17 08:23 11/27/17 08:23 Oxygen Delivery Method Room Air Weight: 81.8 kg Body Mass Index (BMI) 32.1 Intake and Output for Last 24 Hours 11/25/17 11/26/17 11/27/17 23:59 23:59 23:59 Intake Total 240 / 240 1200 / 1200 240 / 240 Output Total 550 / 550 1550 / 1550 600 / 600 Balance -310 / -310 -350 / -350 -360 / -360 Laboratory Results 11/27/17 05:30: WBC 4.0 L, RBC 2.55 L, Hgb 7.7 L, Hct 24.2 L, MCV 94.9, MCH 30.2, MCHC 31.8 L, RDW 20.4 H, RDW Differential 69.7 H, Plt Count 84 L, MPV 8.8, Differential Comment SCAN 11/27/17 05:30: Sodium 127 L, Potassium 3.7, Chloride 92 L, Carbon Dioxide 28.0, Anion Gap 7, BUN 36 H, Creatinine 1.22 H, Estim Creat Clear Calc 28.90, Est GFR (MDRD) Af Amer 54 L, Est GFR (MDRD) Non-Af 45 L, BUN/Creatinine Ratio 29.5 H, Glucose 86, Calcium 7.9 L 11/27/17 09:05: Blood Type B POSITIVE, Antibody Screen NEGATIVE, Crossmatch See Detail Current Medications Acetaminophen (Tylenol) 650 mg PO Q6H PRN PRN PRN Reason: Mild Pain (scale 0-3)/T>100.7 Last Admin: 11/27/17 08:46 Dose: 650 mg Al Hydroxide/Mg Hydroxide (Mylanta Ii) 30 ml PO Q6H PRN PRN PRN Reason: Gastric Burning Carvedilol (Coreg) 12.5 mg PO BID [facility] Last Admin: 11/27/17 08:46 Dose: 12.5 mg Docusate Sodium (Colace) 100 mg PO BID [facility] Last Admin: 11/27/17 08:46 Dose: 100 mg Furosemide (Lasix) 60 mg PO BREAKFAST [facility] Furosemide (Lasix) 60 mg PO DINNER [facility] Levothyroxine Sodium (Synthroid) 100 mcg PO DAILY@0600 [facility] Last Admin: 11/27/17 05:40 Dose: 100 mcg Lisinopril (Zestril) 5 mg PO DAILY [facility] Last Admin: 11/26/17 09:28 Dose: Not Given Magnesium Hydroxide (Milk Of Magnesia) 30 ml PO DAILY PRN PRN Reason: Constipation Last Admin: 11/25/17 13:55 Dose: 30 ml Metolazone (Zaroxolyn) 2.5 mg PO DAILY [facility] Last Admin: 11/26/17 09:50 Dose: Not Given Pantoprazole Sodium (Protonix) 20 mg PO DAILY [facility] Last Admin: 11/27/17 08:46 Dose: 20 mg Prochlorperazine Edisylate (Compazine Iv) 10 mg IV Q6H PRN PRN PRN Reason: Nausea/Vomiting Sodium Chloride () 5 - 30 ml IV UD PRN PRN Reason: SALINE FLUSH Last Admin: 11/27/17 05:40 Dose: 10 ml Spironolactone (Aldactone) 25 mg PO BIDLX [facility] Last Admin: 11/26/17 17:09 Dose: Not Given Medical Necessity - Tobacco Use Smoking Status: Never smoker Assessment/Plan All Active Problems GI bleed (Resolved) History of DVT (deep vein thrombosis) (Resolved) History of venous thromboembolism (Resolved) Patient is an [id number] lady admitted fall at home which occurred 4 days prior to her admission. Patient presented with extensive bruising and swelling involving the left lower extremity 1. Accidental/mechanical fall on the treadmill resulting in left lower extremity swelling and significant ecchymosis. Patient has been admitted to monitored bed conservative managements consisting of elevation of lower extremities, monitoring of H&H and bed rest. Requested for PT OT eval as well as sr. social media & mobile manager to assist with discharge plan 2. Acute on chronic systolic heart failure with recent exacerbation echo obtained in August 2016 demonstrated EF of 37%. Patient is on diuretics did continue with her oral Aldactone and initiated IV Lasix Lasix was switched from IV to p.o. on 11/27/2017 3. CAD status post CABG with subsequent stent placement 4. Ischemic cardiomyopathy 5. Hypertension-blood pressure controlled, home medications continued with dose adjustment as needed 6. Paroxysmal A. fib; rate controlled not on systemic anticoagulation due to significant risk for falls 7. GERD and is on PPI 8. Hypothyroidism-patient is on levothyroxine home dose continued 9. Chronic hyponatremia: Patient's sodium level did improve with diuresis 10. Anemia secondary to anemia of chronic disorder well as acute blood loss anemia following her fall with with subsequent bruising in the left lower extremity. With patient being symptomatic an order was given for patient to be transfused 1 unit PRBC on 11/27/2017 11. Thrombocytopenia 12. History of previous DVT status post IVC filter placement 13. Pulmonary hypertension with RVSP of 51 mmHg 14. DVT prophylaxis; avoided chemoprophylaxis in view of patient extensive ecchymosis, bilateral SCDs could not be used due to significant bilateral edema Code Visit Inpatient E&M: 15236 [facility]s Hosp L3
--- NOTE | 2017-11-27 11:23 | PN_ITS ---
Subjective: Patient seen did experience precipitous drop in her hemoglobin level and she is also relatively hypotensive. Decision was therefore made to transfuse patient with 1 unit PRBC Objective: GENERAL: cooperative HEENT: Atraumatic, NECK; supple, normal thyroid, CHEST: Diminished to auscultation bilaterally, . HEART: Regular S1-S2 ABDOMEN: soft, normoactive bowel sounds, RECTAL: deferred EXTREMITIES: Extensive ecchymosis and swelling involving the left lower extremity NONPROFIT FINANCIAL CONTROLLER: Awake, no lateralizing signs. SKIN: As described above Vitals/I&O's: Vital Signs Temp Pulse Resp BP Pulse Ox 98.1 F 84 18 95/45 L 99 11/27/17 08:23 11/27/17 08:23 11/27/17 08:23 11/27/17 08:23 11/27/17 08:23 Oxygen Delivery Method Room Air Weight: 81.8 kg Body Mass Index (BMI) 32.1 Intake and Output for Last 24 Hours 11/25/17 11/26/17 11/27/17 23:59 23:59 23:59 Intake Total 240 / 240 1200 / 1200 240 / 240 Output Total 550 / 550 1550 / 1550 600 / 600 Balance -310 / -310 -350 / -350 -360 / -360 Laboratory Results 11/27/17 05:30: WBC 4.0 L, RBC 2.55 L, Hgb 7.7 L, Hct 24.2 L, MCV 94.9, MCH 30.2 , MCHC 31.8 L, RDW 20.4 H, RDW Differential 69.7 H, Plt Count 84 L, MPV 8.8, Differential Comment SCAN 11/27/17 05:30: Sodium 127 L, Potassium 3.7, Chloride 92 L, Carbon Dioxide 28.0 , Anion Gap 7, BUN 36 H, Creatinine 1.22 H, Estim Creat Clear Calc 28.90, Est GFR (MDRD) Af Amer 54 L, Est GFR (MDRD) Non-Af 45 L, BUN/Creatinine Ratio 29.5 H , Glucose 86, Calcium 7.9 L 11/27/17 09:05: Blood Type B POSITIVE, Antibody Screen NEGATIVE, Crossmatch See Detail Current Medications Acetaminophen (Tylenol) 650 mg PO Q6H PRN PRN PRN Reason: Mild Pain (scale 0-3)/T>100.7 Last Admin: 11/27/17 08:46 Dose: 650 mg Al Hydroxide/Mg Hydroxide (Mylanta Ii) 30 ml PO Q6H PRN PRN PRN Reason: Gastric Burning Carvedilol (Coreg) 12.5 mg PO BID [facility] Last Admin: 11/27/17 08:46 Dose: 12.5 mg Docusate Sodium (Colace) 100 mg PO BID [facility] Last Admin: 11/27/17 08:46 Dose: 100 mg Furosemide (Lasix) 60 mg PO BREAKFAST [facility] Furosemide (Lasix) 60 mg PO DINNER [facility] Levothyroxine Sodium (Synthroid) 100 mcg PO DAILY@0600 [facility] Last Admin: 11/27/17 05:40 Dose: 100 mcg Lisinopril (Zestril) 5 mg PO DAILY [facility] Last Admin: 11/26/17 09:28 Dose: Not Given Magnesium Hydroxide (Milk Of Magnesia) 30 ml PO DAILY PRN PRN Reason: Constipation Last Admin: 11/25/17 13:55 Dose: 30 ml Metolazone (Zaroxolyn) 2.5 mg PO DAILY [facility] Last Admin: 11/26/17 09:50 Dose: Not Given Pantoprazole Sodium (Protonix) 20 mg PO DAILY [facility] Last Admin: 11/27/17 08:46 Dose: 20 mg Prochlorperazine Edisylate (Compazine Iv) 10 mg IV Q6H PRN PRN PRN Reason: Nausea/Vomiting Sodium Chloride () 5 - 30 ml IV UD PRN PRN Reason: SALINE FLUSH Last Admin: 11/27/17 05:40 Dose: 10 ml Spironolactone (Aldactone) 25 mg PO BIDLX [facility] Last Admin: 11/26/17 17:09 Dose: Not Given Medical Necessity - Tobacco Use Smoking Status: Never smoker Assessment/Plan All Active Problems GI bleed (Resolved) History of DVT (deep vein thrombosis) (Resolved) History of venous thromboembolism (Resolved) Patient is an [id number] lady admitted fall at home which occurred 4 days prior to her admission. Patient presented with extensive bruising and swelling involving the left lower extremity 1. Accidental/mechanical fall on the treadmill resulting in left lower extremity swelling and significant ecchymosis. Patient has been admitted to monitored bed conservative managements consisting of elevation of lower extremities, monitoring of H&H and bed rest. Requested for PT OT eval as well as social insurance adviser to assist with discharge plan 2. Acute on chronic systolic heart failure with recent exacerbation echo obtained in August 2016 demonstrated EF of 37%. Patient is on diuretics did continue with her oral Aldactone and initiated IV Lasix Lasix was switched from IV to p.o. on 11/27/2017 3. CAD status post CABG with subsequent stent placement 4. Ischemic cardiomyopathy 5. Hypertension-blood pressure controlled, home medications continued with dose adjustment as needed 6. Paroxysmal A. fib; rate controlled not on systemic anticoagulation due to significant risk for falls 7. GERD and is on PPI 8. Hypothyroidism-patient is on levothyroxine home dose continued 9. Chronic hyponatremia: Patient's sodium level did improve with diuresis 10. Anemia secondary to anemia of chronic disorder well as acute blood loss anemia following her fall with with subsequent bruising in the left lower extremity. With patient being symptomatic an order was given for patient to be transfused 1 unit PRBC on 11/27/2017 11. Thrombocytopenia 12. History of previous DVT status post IVC filter placement 13. Pulmonary hypertension with RVSP of 51 mmHg 14. DVT prophylaxis; avoided chemoprophylaxis in view of patient extensive ecchymosis, bilateral SCDs could not be used due to significant bilateral edema Code Visit Inpatient E&M: 67619 Subs Hosp L3
--- NOTE | 2017-11-27 14:48 | CASEMGMT ---
SW let patient know that [facility] will be contacting her at d/c. Plan: d/c home with [facility] care home, PT, and OT. Linnette NANCE MSW
[2017-11-27] MEDS: Furosemide 20 MG Tablet 60 MG PO (17:03)
[2017-11-28 03:10] VITALS: BP 94/50; PULSE 78; RESP 18; TEMP 37.1; O2SAT 96
[2017-11-28 03:13] VITALS: PULSE 76
[2017-11-28] MEDS: Levothyroxine 100 MCG Tablet PO (05:14)
[2017-11-28] MEDS: Acetaminophen 325 MG Tablet 650 MG PO (05:32)
[2017-11-28 07:14] LABS: Anion Gap 7 (5-15); BUN 36 mg/dL (7-18); BUN/Creat Ratio 31.3 RATIO (10-20); Chloride 91 mmol/L (98-107); Creatinine, Serum 1.15 mg/dL (0.55-1.02); EST Glomerular Filtration Rate 48 mL/min (>60); Est Glom Filt Rate - Afr Amer 58 mL/min (>60); Estimated Creatinine Clearance 30.66 ml/min; Glucose 83 mg/dL (74-106); Potassium 3.4 mmol/L (3.5-5.1); Sodium Level 130 mmol/L (136-145)
[2017-11-28 07:22] LABS: Hemoglobin 8.5 g/dl (12.0-15.0); Mean Corp Hgb Conc 31.5 g/gl (32-36); Mean Corpuscular Hgb 30.6 pg (27.0-32.0); Mean Corpuscular Volume 97.1 fL (81-99); Mean Platelet Vol. 9.5 fl (6.2-12.0); Platelet Count 89 K/mm3 (150-450); RBC Distribution Width CV 19.6 % (11.6-14.6); RBC Distribution Width SD 66.4 fl (35.1-43.9); Red Blood Count 2.78 M/mm3 (4.2-5.4); White Blood Count 3.9 K/mm3 (4.4-11.0)
[2017-11-28 07:23] LABS: Scan Indicated on CBC? Y/N YES- FLAGS NOTED
[2017-11-28 07:26] LABS: Differential Comment SCAN
[2017-11-28 07:32] VITALS: PULSE 82
--- NOTE | 2017-11-28 08:01 | DCINST_ITS ---
You will use the following diet at home:: Cardiac, Fluid restricted (specify 2000 mls, 1500 mls) - Less than 1500 cc daily Your food should be the consistency of: Regular Discharge Activity: Return to Normal Activity Weight Bearing Status: Weight bearing as tolerated Call your doctor if you observe: Fever of 101 or Higher, Shortness of breath, Dizziness, Fainting spells, Chest pain, Increased palpitations (irregular heartbeat), Uncontrolled pain Allergies/Adverse Reactions: Allergies azithromycin [From Zithromax] Allergy (Intermediate, Verified 11/25/17 09:46) Mucosal lesions Penicillins Allergy (Intermediate, Verified 11/25/17 09:46) Mucosal lesions Sulfa (Sulfonamide Antibiotics) Allergy (Intermediate, Verified 11/25/17 09:46) Mucosal lesions nausea cephalexin [From Keflex] Allergy (Verified 11/25/17 09:46) GI UPSET tobramycin Allergy (Verified 11/25/17 09:46) RED EYES metronidazole Adverse Reaction (Intermediate, Verified 11/25/17 09:46) Nausea diltiazem Adverse Reaction (Mild, Verified 11/25/17 09:46) Nausea/Vom/Diarrhea metolazone [From Zaroxolyn] Adverse Reaction (Mild, Verified 11/25/17 09:46) Nausea potassium chloride Adverse Reaction (Mild, Verified 11/25/17 09:46) Upset Stomach nystatin Adverse Reaction (Verified 11/25/17 09:46) Nausea spironolactone Adverse Reaction (Verified 11/25/17 09:46) Nausea Medications to take at Discharge Carvedilol [Coreg] 12.5 mg PO BID 08/17/16 Levothyroxine [Synthroid] 100 mcg PO DAILY 08/17/16 Lisinopril [Zestril] 5 mg PO DAILY 08/17/16 Omeprazole [Prilosec] 20 mg PO DAILY 08/17/16 Docusate Sodium [Colace] 100 mg PO BID 11/10/16 Spironolactone 25 mg PO BID 01/01/17 Furosemide 60 mg PO BREAKFAST 08/12/17 Metolazone [Zaroxolyn] 2.5 mg PO DAILY #30 tab 08/14/17 Furosemide [Lasix] 60 mg PO DINNER 11/25/17 Ondansetron HCl [Zofran] 4 mg PO PRN PRN 11/25/17 Primary Care Physician: Sea Obando MD [Primary Care Provider] - Please follow up with your Primary Care Physician in: 1 week. Test Results: Test results from this visit will be discussed in further detail at your follow- up appointment, if applicable.
[2017-11-28 08:13] VITALS: BP 97/50; PULSE 75; RESP 18; TEMP 36.3; O2SAT 95
[2017-11-28 10:21] VITALS: BP 109/54
[2017-11-28] MEDS: Furosemide 20 MG Tablet 60 MG PO (10:24)
[2017-11-28] MEDS: Docusate Sodium 100 MG Capsule PO (10:25)
[2017-11-28] MEDS: Spironolactone 25 MG Tablet PO (10:25)
[2017-11-28] MEDS: Pantoprazole Sodium 20 MG Tablet PO (10:26)
[2017-11-28] MEDS: Metolazone 2.5 MG Tablet PO (10:26)
[2017-11-28] MEDS: Carvedilol 12.5 MG Tablet PO (10:26)
[2017-11-28] MEDS: Lisinopril 5 MG Tablet PO (10:27)
--- NOTE | 2017-11-28 11:43 | PCM.DC.SUM ---
Discharge Date and Diagnosis Date of Admission: 11/25/17 Date of Discharge: 11/28/17 - Primary Discharge Diagnosis #1 mechanical fall/left upper extremity swelling/ecchymosis/bruises. #2 acute on chronic systolic CHF. #3 acute on chronic anemia required blood transfusion. - Secondary Discharge Diagnosis Chronic Problems Chronic systolic CHF (congestive heart failure) (Chronic) Paroxysmal a-fib (Chronic) Pulmonary HTN (Chronic) Hyponatremia (Chronic) Gastroesophageal reflux disease (Chronic) Iron (Fe) deficiency anemia (Chronic) Chronic congestive heart failure (Chronic) systolic. Ejection fraction 42%, 6 With moderate to severe MR Severe TR CAD (coronary artery disease) (Chronic) Status post bypass in 2006, following with Dr. Dumont Hypothyroidism (Chronic) Hospital Course and Treatment Imaging Results: Clinical Impression(s) from Imaging Studies Brain CT 11/25/17 10:17 IMPRESSION: Chronic involutional changes of the brain. No acute intracranial injury. Electronically Signed: Benjamin Hutchins MD at 13:08 EDT , Service support , Femur X-Ray 11/25/17 10:18 IMPRESSION: Generalized subcutaneous soft tissue swelling. No acute fracture of the left femur. Electronically Signed: Benjamin Hutchins MD at 13:12 EDT , Service support , Tibia/Fibula X-Ray 11/25/17 10:18 IMPRESSION: Generalized soft tissue swelling of the visualized left lower extremity. No acute fracture of the left tibia and fibula. Electronically Signed: Benjamin Hutchins MD at 12:58 EDT , Service support , Chest X-Ray 11/25/17 11:40 IMPRESSION: 1. Prior median sternotomy and CABG. 2. Stable cardiac enlargement. No CHF. 3. Stable minor subsegmental atelectasis in the medial right lung base. Electronically Signed: Benjamin Hutchins MD at 13:11 EDT , Service support , Operations: None Procedures: EKG Summary of Care Provided: Patient seen and examined on the day of discharge and appeared to be stable to be discharged home. She denies any significant complaints. She has been ambulating without any difficulties. She denies dizziness or lightheadedness upon ambulation or at rest. Her vital signs are stable. - Physical Exam General: Alert, Oriented x3, Cooperative, No apparent distress. HEENT: Atraumatic, PERRLA, EOMI. Neck: Supple, No JVD, Negative Carotid Bruits, Trachea Midline, Thyroid Normal. Lungs: Decreased breath sounds bilateral, otherwise clear, No rhonchi, No wheeze, No rales. Cardiovascular: Regular rate, Regular Rhythm, Normal S1, Normal S2, PMI Normal. Abdomen: Bowel Sounds Present, Soft, Non Tender, Non-Distended, No Hepato-splenomegaly. Extremities: No clubbing, No cyanosis, No edema Skin: No rashes, No breakdown. Left lower extremity swelling, ecchymosis and bruises Neurological: Cranial nerves are intact, neuro grossly intact Vital Signs are stable. Hospital course: The patient is a 82 year old F presented to the emergency room because of left leg injury after she had a fall while walking on the treadmill. She denies any loss of consciousness or any other significant trauma. On admission, CT scan brain done and showed no acute findings. Left femur x-ray also done because of extensive bruises and ecchymosis and showed generalized subcutaneous soft tissue swelling without evidence of acute fractures. X-ray of the left tibia and fibula also revealed soft tissue swelling without evidence of acute fractures of the left tibia or fibula. Because of the significant swelling of the left leg, venous Doppler performed and showed no evidence of acute DVT. There was no evidence of acute arterial occlusion of the left lower extremity. Patient was found to have acute on chronic systolic CHF based on her symptoms of mild increasing shortness of breath, leg edema and elevated BNP. She had an echocardiogram done on August, that revealed ejection fraction of 35% with moderately severe segmental systolic dysfunction and moderate pulmonary hypertension. She was treated with IV Lasix for diuresis and continued on Aldactone, Zaroxolyn and Coreg for congestive heart failure. Her symptoms improved and her vital signs stabilized. She was found to have acute on chronic anemia which is attributed to blood loss underneath her skin in the left lower extremity and her hemoglobin went down to 7.3 g/dL. Her baseline hemoglobin has been around 8-10 g/dL. She received 1 unit of packed RBCs and her hemoglobin on the day of discharge was 8.5 g/dL. There was no evidence of open active bleeding site but she has significant ecchymosis and bruises on the left upper extremity. Patient ambulated without difficulties, denied dizziness or lightheadedness upon ambulation. She was discharged home with home health in a stable medical condition, continued on her home medication without any changes including Lasix and Aldactone as well as lisinopril and Coreg, order given to repeat CBC in 1 week, recommended follow-up with PCP in 1 week. This note was generated with [employer] dictation software. It may contain incorrect words, spelling, and punctuation that were not noted in checking the note before signing. Discharge Activity: Return to Normal Activity Weight Bearing Status: Weight bearing as tolerated Call your doctor if you observe: Fever of 101 or Higher, Shortness of breath, Dizziness, Fainting spells, Chest pain, Increased palpitations (irregular heartbeat), Uncontrolled pain Home Medications: Medications to take at Discharge Carvedilol [Coreg] 12.5 mg PO BID 08/17/16 Levothyroxine [Synthroid] 100 mcg PO DAILY 08/17/16 Lisinopril [Zestril] 5 mg PO DAILY 08/17/16 Omeprazole [Prilosec] 20 mg PO DAILY 08/17/16 Docusate Sodium [Colace] 100 mg PO BID 11/10/16 Spironolactone 25 mg PO BID 01/01/17 Furosemide 60 mg PO BREAKFAST 08/12/17 Metolazone [Zaroxolyn] 2.5 mg PO DAILY #30 tab 08/14/17 Furosemide [Lasix] 60 mg PO DINNER 11/25/17 Ondansetron HCl [Zofran] 4 mg PO PRN PRN 11/25/17 Primary Care Physician: Sea Obando MD [Primary Care Provider] - Please follow up with your Primary Care Physician in: 1 week. Please Follow Up With: Sea Obando MD Disposition: Home with Home Health Minutes spent on discharge:: 33 Patient Condition:: Stable Medical Necessity - Tobacco Use Smoking Status: Never smoker Meaningful Use Info Meaningful Use Diagnoses (Choose all that apply): CHF - CHF KAREN/ARB ordered at discharge?: Yes Documented LVEF (%): 35 Code Visit Inpatient E&M: 21090 Disch Hosp
--- NOTE | 2017-11-28 11:53 | DS.PCM_ITS ---
Discharge Date and Diagnosis Date of Admission: 11/25/17 Date of Discharge: 11/28/17 - Primary Discharge Diagnosis #1 mechanical fall/left upper extremity swelling/ecchymosis/bruises. #2 acute on chronic systolic CHF. #3 acute on chronic anemia required blood transfusion. - Secondary Discharge Diagnosis Chronic Problems Chronic systolic CHF (congestive heart failure) (Chronic) Paroxysmal a-fib (Chronic) Pulmonary HTN (Chronic) Hyponatremia (Chronic) Gastroesophageal reflux disease (Chronic) Iron (Fe) deficiency anemia (Chronic) Chronic congestive heart failure (Chronic) systolic. Ejection fraction 42%, 6 With moderate to severe MR Severe TR CAD (coronary artery disease) (Chronic) Status post bypass in 2006, following with Dr. Dumont Hypothyroidism (Chronic) Hospital Course and Treatment Imaging Results: Clinical Impression(s) from Imaging Studies Brain CT 11/25/17 10:17 IMPRESSION: Chronic involutional changes of the brain. No acute intracranial injury. Electronically Signed: Benjamin Hutchins MD at 13:08 EDT , Service support , Femur X-Ray 11/25/17 10:18 IMPRESSION: Generalized subcutaneous soft tissue swelling. No acute fracture of the left femur. Electronically Signed: Benjamin Hutchins MD at 13:12 EDT , Service support , Tibia/Fibula X-Ray 11/25/17 10:18 IMPRESSION: Generalized soft tissue swelling of the visualized left lower extremity. No acute fracture of the left tibia and fibula. Electronically Signed: Benjamin Hutchins MD at 12:58 EDT , Service support , Chest X-Ray 11/25/17 11:40 IMPRESSION: 1. Prior median sternotomy and CABG. 2. Stable cardiac enlargement. No CHF. 3. Stable minor subsegmental atelectasis in the medial right lung base. Electronically Signed: Benjamin Hutchins MD at 13:11 EDT , Service support , Operations: None Procedures: EKG Summary of Care Provided: Patient seen and examined on the day of discharge and appeared to be stable to be discharged home. She denies any significant complaints. She has been ambulating without any difficulties. She denies dizziness or lightheadedness upon ambulation or at rest. Her vital signs are stable. - Physical Exam General: Alert, Oriented x3, Cooperative, No apparent distress. HEENT: Atraumatic, PERRLA, EOMI. Neck: Supple, No JVD, Negative Carotid Bruits, Trachea Midline, Thyroid Normal. Lungs: Decreased breath sounds bilateral, otherwise clear, No rhonchi, No wheeze , No rales. Cardiovascular: Regular rate, Regular Rhythm, Normal S1, Normal S2, PMI Normal. Abdomen: Bowel Sounds Present, Soft, Non Tender, Non-Distended, No Hepato- splenomegaly. Extremities: No clubbing, No cyanosis, No edema Skin: No rashes, No breakdown. Left lower extremity swelling, ecchymosis and bruises Neurological: Cranial nerves are intact, neuro grossly intact Vital Signs are stable. Hospital course: The patient is a 82 year old F presented to the emergency room because of left leg injury after she had a fall while walking on the treadmill. She denies any loss of consciousness or any other significant trauma. On admission, CT scan brain done and showed no acute findings. Left femur x-ray also done because of extensive bruises and ecchymosis and showed generalized subcutaneous soft tissue swelling without evidence of acute fractures. X-ray of the left tibia and fibula also revealed soft tissue swelling without evidence of acute fractures of the left tibia or fibula. Because of the significant swelling of the left leg, venous Doppler performed and showed no evidence of acute DVT. There was no evidence of acute arterial occlusion of the left lower extremity. Patient was found to have acute on chronic systolic CHF based on her symptoms of mild increasing shortness of breath, leg edema and elevated BNP. She had an echocardiogram done on August, that revealed ejection fraction of 35% with moderately severe segmental systolic dysfunction and moderate pulmonary hypertension. She was treated with IV Lasix for diuresis and continued on Aldactone, Zaroxolyn and Coreg for congestive heart failure. Her symptoms improved and her vital signs stabilized. She was found to have acute on chronic anemia which is attributed to blood loss underneath her skin in the left lower extremity and her hemoglobin went down to 7.3 g/dL. Her baseline hemoglobin has been around 8-10 g/dL. She received 1 unit of packed RBCs and her hemoglobin on the day of discharge was 8.5 g/dL. There was no evidence of open active bleeding site but she has significant ecchymosis and bruises on the left upper extremity. Patient ambulated without difficulties, denied dizziness or lightheadedness upon ambulation. She was discharged home with home health in a stable medical condition, continued on her home medication without any changes including Lasix and Aldactone as well as lisinopril and Coreg, order given to repeat CBC in 1 week, recommended follow-up with PCP in 1 week. This note was generated with [employer] dictation software. It may contain incorrect words, spelling, and punctuation that were not noted in checking the note before signing. Discharge Activity: Return to Normal Activity Weight Bearing Status: Weight bearing as tolerated Call your doctor if you observe: Fever of 101 or Higher, Shortness of breath, Dizziness, Fainting spells, Chest pain, Increased palpitations (irregular heartbeat), Uncontrolled pain Home Medications: Medications to take at Discharge Carvedilol [Coreg] 12.5 mg PO BID 08/17/16 Levothyroxine [Synthroid] 100 mcg PO DAILY 08/17/16 Lisinopril [Zestril] 5 mg PO DAILY 08/17/16 Omeprazole [Prilosec] 20 mg PO DAILY 08/17/16 Docusate Sodium [Colace] 100 mg PO BID 11/10/16 Spironolactone 25 mg PO BID 01/01/17 Furosemide 60 mg PO BREAKFAST 08/12/17 Metolazone [Zaroxolyn] 2.5 mg PO DAILY #30 tab 08/14/17 Furosemide [Lasix] 60 mg PO DINNER 11/25/17 Ondansetron HCl [Zofran] 4 mg PO PRN PRN 11/25/17 Primary Care Physician: Sea Obando MD [Primary Care Provider] - Please follow up with your Primary Care Physician in: 1 week. Please Follow Up With: Sea Obando MD Disposition: Home with Home Health Minutes spent on discharge:: 33 Patient Condition:: Stable Medical Necessity - Tobacco Use Smoking Status: Never smoker Meaningful Use Info Meaningful Use Diagnoses (Choose all that apply): CHF - CHF KAREN/ARB ordered at discharge?: Yes Documented LVEF (%): 35 Code Visit Inpatient E&M: 91315 Disch Hosp
--- NOTE | 2017-11-30 16:22 | CASEMGMT ---
BREA BECKHAM Discharge F/U Phone Call LACE: 13 Strata: 4 Discharge date: 11/28/17 Call date: 11/30/17 Call time: 1621 Duration: 2 minutes Admission dx: CHF Pt state has been 'doing ok' since discharge. Pt states that [facility] was out today to start care and states no concerns. Pt states no questions regarding discharge instructions or medications at this time. Pt states she picked up all her prescriptions already. Pt states has f/u appointments made and plans to keep them. Pt states no suggestions for [facility] at this time. Pt states no further questions/concerns/needs at this time. SStaten BREA BECKHAM
--- NOTE | 2017-12-03 13:30 | CCN.REFER ---
PT declines CCN services at this time; states ind with medications with help of daughter who lives next door; states daughter stops to check on pt 4x/day. Pt states has strong support system and is active in the community. RT JUSTINO
== END 2017-11-28 10:55 | disposition home health service (06) | DRG 604 ==
LOC: ED 10:27 → PCU 12:31
PROVIDERS: Admitting Provider Internal Medicine; Emergency Provider Emergency Medicine; Family Provider Family Medicine; PCP Family Medicine; Visit Provider Hospitalist
DX: S80.12XA Contusion of left lower leg, initial encounter (principal); I50.23 Acute on chronic systolic (congestive) heart failure; D62 Acute posthemorrhagic anemia; D61.818 Other pancytopenia; E87.1 Hypo-osmolality and hyponatremia; W17.89XA Other fall from one level to another, initial encounter; Y93.A1 Activity, exercise machines primarily for cardiorespiratory conditioning; Y92.89 Other specified places as the place of occurrence of the external cause; Y99.8 Other external cause status; I11.0 Hypertensive heart disease with heart failure; D50.9 Iron deficiency anemia, unspecified; D63.8 Anemia in other chronic diseases classified elsewhere; D46.9 Myelodysplastic syndrome, unspecified; I25.10 Atherosclerotic heart disease of native coronary artery without angina pectoris; Z95.1 Presence of aortocoronary bypass graft; K21.9 Gastro-esophageal reflux disease without esophagitis; I27.20 Pulmonary hypertension, unspecified; I48.0 Paroxysmal atrial fibrillation; I25.5 Ischemic cardiomyopathy; E03.9 Hypothyroidism, unspecified; Z86.718 Personal history of other venous thrombosis and embolism; E66.9 Obesity, unspecified; Z68.32 Body mass index [BMI] 32.0-32.9, adult; Z79.899 Other long term (current) drug therapy
CPT/HCPCS: 36415; 70450; 71045; 73552; 73590; 80048; 80076; 83605; 83690; 83735; 83880; 84484; 85025; 85027; 85610; 85730; 86850; 86900; 86920; 86922; 93005; 93971; 97110; 97162; 97166; 97530; 99285; J7040; P9016; A4216; J1940

== ENCOUNTER 2017-12-04 16:00 | Inpatient (IN) | payer MEDICARE, SELFPAY ==
[2017-12-04] VITALS (7 sets, daily range): BP systolic 107–118; BP diastolic 47–57; PULSE 67–79; RESP 16–25; TEMP 35.8–36.7; O2SAT 93–100; BMI 33.3; BMI 33.0
--- NOTE | 2017-12-04 17:18 | EKG12_ITS ---
Test Reason : ABNL PAIN Blood Pressure : / mmHG Vent. Rate : 074 BPM Atrial Rate : 054 BPM P-R Int : 000 ms QRS Dur : 116 ms QT Int : 428 ms P-R-T Axes : 000 001 063 degrees QTc Int : 475 ms Atrial fibrillation with premature ventricular or aberrantly conducted complexes Low voltage QRS (limb leads) Nonspecific ST abnormality Abnormal ECG Confirmed by TIP SCHMIDT, ANDREW ([id number]), assignment editor SHREE FARLEY ([id number]) on 12/08/2017 2:28:15 PM Referred By: SHEREE Confirmed By:ANDREW WHELAN MD
--- NOTE | 2017-12-04 17:25 | ED.DCSUM_ITS ---
- ER Visit Summary Date of Service: 12/04/17 Chief Complaint: Abdominal pain, ascites, leg wound History of Present Illness: The patient is a 82 F sent over from PCPs office. Patient has had recurrent ascites secondary to right-sided heart failure. She was recently admitted for the same. PCP thinks that she may need to have the fluid drained. This was last performed in October. She is also complaining of a left lower extremity wound for the past 2 weeks after a fall. Family states the redness is improving. Physical Examination: Vital signs unremarkable. Patient is cachectic appearing. Head neck examination grossly unremarkable. Heart is regular rate and rhythm. Lung sounds are clear. Abdomen is soft but distended. Active bowel sounds are noted. Lower extremity examination reveals 3+ left lower extremity edema with erythema. Leg is only slightly warmer than the right. She has 2+ edema in the right leg. There are no open wounds. There is no weeping. Test Results: EKG is A. fib at [address]. CBC was a white count of 3.1, hemoglobin 9.1, platelet count of 120,000. These are all consistent or slightly improved when compared to her prior recent admission. Chemistry studies reveal a sodium of 127, BUN 58, creatinine 1.25. LFTs are significant only for total bili 1.2 and direct bili 0.67. Troponin is negative. BNP is 816 which is actually elevated higher than her recent admission. Chest x-ray shows moderate enlargement of the cardiac silhouette with vascular congestion and small pleural effusions. Venous ultrasound of the left leg is negative for DVT. Emergency Department Course and Treatment: I did review the discharge summary from her recent stay. I do not see comment about consideration to drain her abdomen. It sounds like patient had improved with IV anti-diuretics. She is given 40 mg of IV Lasix currently and I will discuss with hospitalist for admission. Treatment Plan: [] Disposition: Admit Impression: CHF Addendum: Patient was discussed with hospitalist, however due to not having radiology available for ultrasound-guided paracentesis he requested a transfer the patient. Before transfer I did order a CT of the abdomen and pelvis to ensure that she did have significant ascites. Report returned with evidence of ascites and small bilateral pleural effusions. I spoke with Dr. Hinton, on- call for surgery. He personally reviewed the CT images. There are a few small pockets of fluid, but nothing that requires emergent paracentesis at this time. I spoke with hospitalist again and she will be admitted here for further treatment. This note was generated with [employer] dictation software. It may contain incorrect words, spelling, and punctuation that were not noted in review of the chart prior to signing ED Disposition - Plan for ED Patient: Disposition: Acute Care Hospital [facility] Chief Complaint: Abd Pain
--- NOTE | 2017-12-04 17:30 | RAD_ITS ---
STUDY: X-RAY CHEST REASON FOR EXAM: Female, 82 years old. Shortness of breath TECHNIQUE: A single frontal view of the chest was obtained. COMPARISON: November 25, 2017 FINDINGS: The lungs are underaerated. There are minimal increased markings in both lung bases. There is minimal blunting of both costophrenic angles. There is moderate enlargement of the cardiac silhouette. Sternotomy wires are present. There are surgical clips in the mediastinum. Normal visualized pulmonary arteries. Normal visualized aortic arch and descending thoracic aorta. There are diffuse degenerative changes of the visualized spine. The visualized ribs, clavicles, and shoulders are unremarkable. There is no demonstrated abnormality of the visualized upper abdomen. RAD/Chest 1 View (Portable) IMPRESSION: There is moderate enlargement of the cardiac silhouette with vascular congestion and small pleural effusions. There is minimal bibasilar atelectasis. Electronically Signed: Pema Linares MD at 18:08 EDT Tel Direct: [phone], Service support ,
[2017-12-04 17:59] LABS: Absolute Lymphocyte Count 0.36 X10^3/ul (0.83-4.51); Basophil# 0.01 X10^3/uL; Basophil% 0.3 % (0-1); Eosinophil# 0.19 X10^3/uL; Eosinophils% 6.2 % (0-5); Hematocrit 28.7 % (37-47); Hemoglobin 9.1 g/dl (12.0-15.0); Lymphocyte # 0.36 X10^3/ul (4.0); Lymphocyte % 11.8 % (19-41); Mean Corp Hgb Conc 31.7 g/gl (32-36); Mean Corpuscular Hgb 30.4 pg (27.0-32.0); Mean Platelet Vol. 8.7 fl (6.2-12.0); Monocyte# 0.51 X10^3/uL; Monocyte% 16.7 % (0-10); Neutrophil # 1.97 X10^3/uL (2.7-7.7); Neutrophil % 64.7 % (47-70); Platelet Count 120 K/mm3 (150-450); RBC Distribution Width CV 18.8 % (11.6-14.6); RBC Distribution Width SD 63.2 fl (35.1-43.9); Red Blood Count 2.99 M/mm3 (4.2-5.4); White Blood Count 3.1 K/mm3 (4.4-11.0)
--- NOTE | 2017-12-04 17:59 | US_ITS ---
STUDY: VENOUS DOPPLER ULTRASOUND - LEFT LOWER EXTREMITY REASON FOR EXAM: Female, 82 years old. Left leg pain and swelling. TECHNIQUE: Ultrasound evaluation of the deep vein system to include moody-scale imaging and compression was performed. Moody-scale imaging and Doppler sonographic evaluation, including duplex spectral analysis and qualitative color flow sonography, was performed. COMPARISON: None. FINDINGS: Common Femoral Vein: Normal compression, spontaneity and augmentation. Normal color Doppler. Common Femoral Vein/Greater Saphenous Junction: Normal compression, spontaneity and augmentation. Normal color Doppler. Deep Femoral Vein: Normal compression. Femoral Proximal: Normal compression. Femoral Middle: Normal compression, spontaneity and augmentation. Normal color Doppler. Femoral Distal: Normal compression. Popliteal Vein: Normal compression, spontaneity and augmentation. Normal color Doppler. Posterior Tibial Vein: Normal compression. Peroneal Vein: Normal compression. Reflux is noted in the proximal greater saphenous vein. US/Venous Duplex Imag/Limited/Uni IMPRESSION: Left lower extremity venous Doppler exam negative for deep venous thrombosis. Reflux is noted in the proximal left greater saphenous vein. Electronically Signed: Alla Sepulveda MD at 19:21 EDT , Service support ,
[2017-12-04 18:04] LABS: Differential Indicated SCAN CRITERIA MET; POSITIVE COUNT NO; POSITIVE DIFFERENTIAL YES; POSITIVE MORPHOLOGY NO
[2017-12-04 18:05] LABS: AST(SGOT) 21 U/L (15-37); Alanine Aminotransfer ALT/SGPT 17 U/L (13-56); Albumin, Serum 3.3 g/dL (3.2-5.0); Alkaline Phosphatase 105 U/L (45-117); Anion Gap 9 (5-15); BUN 58 mg/dL (7-18); BUN/Creat Ratio 46.4 RATIO (10-20); Bilirubin, Direct 0.67 mg/dL (0.00-0.30); Calcium,Total 8.4 mg/dL (8.5-10.1); Chloride 87 mmol/L (98-107); Creatinine, Serum 1.25 mg/dL (0.55-1.02); EST Glomerular Filtration Rate 44 mL/min (>60); Est Glom Filt Rate - Afr Amer 53 mL/min (>60); Estimated Creatinine Clearance 28.21 ml/min; Globulin 3.9 g/dL (2.2-4.2); Glucose 87 mg/dL (74-106); Protein, Total 7.2 g/dL (6.4-8.2); Sodium Level 127 mmol/L (136-145)
[2017-12-04 18:13] LABS: International Normalized Ratio 1.3; Partial Thromboplast Time 35.7 Seconds (24.1-36.2); Prothrombin Time (Protime)PT. 15.9 SECONDS (11.7-14.9)
[2017-12-04 18:47] LABS: Platelet Estimate SLT DEC (ADEQ)
[2017-12-04 18:48] LABS: Anisocytosis 2+; Differential Comment SCANNED; Macrocytosis 1+
[2017-12-04] MEDS: Furosemide 40 MG/4 ML Vial IV (19:35)
--- NOTE | 2017-12-04 20:17 | PCM.HP.STD ---
History of Present Illness The patient is a 82 year old F [] Past Medical History Past Medical History (Chronic Problems): Chronic Problems Chronic systolic CHF (congestive heart failure) (Chronic) Paroxysmal a-fib (Chronic) Pulmonary HTN (Chronic) Hyponatremia (Chronic) Gastroesophageal reflux disease (Chronic) Iron (Fe) deficiency anemia (Chronic) Chronic congestive heart failure (Chronic) systolic. 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 Dumont Hypothyroidism (Chronic) Allergies azithromycin [From Zithromax] Allergy (Intermediate, Verified 12/04/17 16:10) Mucosal lesions Penicillins Allergy (Intermediate, Verified 12/04/17 16:10) Mucosal lesions Sulfa (Sulfonamide Antibiotics) Allergy (Intermediate, Verified 12/04/17 16:10) Mucosal lesions nausea cephalexin [From Keflex] Allergy (Verified 12/04/17 16:10) GI UPSET tobramycin Allergy (Verified 12/04/17 16:10) RED EYES metronidazole Adverse Reaction (Intermediate, Verified 12/04/17 16:10) Nausea diltiazem Adverse Reaction (Mild, Verified 12/04/17 16:10) Nausea/Vom/Diarrhea metolazone [From Zaroxolyn] Adverse Reaction (Mild, Verified 12/04/17 16:10) Nausea potassium chloride Adverse Reaction (Mild, Verified 12/04/17 16:10) Upset Stomach nystatin Adverse Reaction (Verified 12/04/17 16:10) Nausea spironolactone Adverse Reaction (Verified 12/04/17 16:10) Nausea Home Medications: Ambulatory Orders Medication Instructions Recorded Carvedilol [Coreg] 12.5 mg PO BID 08/17/16 Levothyroxine [Synthroid] 112 mcg PO DAILY 08/17/16 Lisinopril [Zestril] 5 mg PO DAILY 08/17/16 Omeprazole [Prilosec] 20 mg PO DAILY 08/17/16 Docusate Sodium [Colace] 100 mg PO BID 11/10/16 Spironolactone 25 mg PO BID 01/01/17 Furosemide 60 mg PO BREAKFAST 08/12/17 Metolazone [Zaroxolyn] 2.5 mg PO DAILY #30 tab 08/14/17 Furosemide [Lasix] 60 mg PO DINNER 11/25/17 Ondansetron HCl [Zofran] 4 mg PO PRN PRN 11/25/17 Acetaminophen [Tylenol Extra 1,000 mg PO Q4H PRN PRN 12/04/17 Strength] Nitroglycerin [Nitrostat] 0.4 mg SL PRN PRN 12/04/17 Surgical History: cholecystectomy, coronary bypass surgery, hysterectomy, - Psychiatric History: 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 Smoking Status: Never smoker - *Family History Sibling History Items: Dementia, Heart Disease Paternal History Items: No pertinent history Maternal History Items: No pertinent history - Physical Exam Vital Signs Temp Pulse Resp BP Pulse Ox 96.5 F L 73 21 H 111/57 L 95 12/04/17 16:06 12/04/17 19:32 12/04/17 19:32 12/04/17 19:32 12/04/17 19:32 Oxygen Delivery Method Room Air Weight: 85.5 kg Body Mass Index (BMI) 33.3 Laboratory Tests Past 24 Hrs 12/04/17 12/04/17 12/04/17 17:30 17:30 17:30 WBC 3.1 L RBC 2.99 L Hgb 9.1 L Hct 28.7 L MCV 96.0 MCH 30.4 MCHC 31.7 L RDW 18.8 H RDW Differential 63.2 H Plt Count 120 L MPV 8.7 Immature Gran % (Auto) 0.300 Neut % (Auto) 64.7 Lymph % (Auto) 11.8 L Caroline % (Auto) 16.7 H Eos % (Auto) 6.2 H Baso % (Auto) 0.3 Absolute Neuts (auto) 2.0 Absolute Lymphs (auto) 0.36 L Total Counted Not Reportable Differential Comment SCANNED Platelet Estimate SLT DEC Anisocytosis 2+ Macrocytosis 1+ PT 15.9 H INR 1.3 APTT 35.7 Sodium 127 L Potassium 5.0 Chloride 87 L Carbon Dioxide 31.0 Anion Gap 9 BUN 58 H Creatinine 1.25 H Estim Creat Clear Calc 28.21 Est GFR (MDRD) Af Amer 53 L Est GFR (MDRD) Non-Af 44 L BUN/Creatinine Ratio 46.4 H Glucose 87 Calcium 8.4 L Total Bilirubin 1.20 H Direct Bilirubin 0.67 H AST 21 ALT 17 Alkaline Phosphatase 105 Troponin I < 0.015 B-Natriuretic Peptide Total Protein 7.2 Albumin 3.3 Globulin 3.9 12/04/17 17:30 WBC RBC Hgb Hct MCV MCH MCHC RDW RDW Differential Plt Count MPV Immature Gran % (Auto) Neut % (Auto) Lymph % (Auto) Caroline % (Auto) Eos % (Auto) Baso % (Auto) Absolute Neuts (auto) Absolute Lymphs (auto) Total Counted Differential Comment Platelet Estimate Anisocytosis Macrocytosis PT INR APTT Sodium Potassium Chloride Carbon Dioxide Anion Gap BUN Creatinine Estim Creat Clear Calc Est GFR (MDRD) Af Amer Est GFR (MDRD) Non-Af BUN/Creatinine Ratio Glucose Calcium Total Bilirubin Direct Bilirubin AST ALT Alkaline Phosphatase Troponin I B-Natriuretic Peptide 816.0 H Total Protein Albumin Globulin Assessment/Plan All Active Problems GI bleed (Resolved) History of DVT (deep vein thrombosis) (Resolved) History of venous thromboembolism (Resolved)
--- NOTE | 2017-12-04 20:37 | CT_ITS ---
STUDY: CT ABDOMEN AND PELVIS WITHOUT CONTRAST REASON FOR EXAM: Female, 82 years old. Unspecified abdominal pain. RADIATION DOSAGE (If Supplied By Facility): CTDIvol = ( 17.38 ) mGy, DLP = ( 846.48 ) mGycm TECHNIQUE: Transaxial images were obtained from the dome of the diaphragm to the symphysis pubis without oral contrast, and without intravenous contrast. Sagittal and coronal images were reconstructed. Individualized dose optimization techniques were used for this CT. COMPARISON: Prior abdomen and pelvic CT exam of October 15, 2017 FINDINGS: Moderate dependent pleural effusion at the right lung base increased from prior exam. Small dependent left pleural effusion not substantially changed from the prior exam. Cardiomegaly. Generalized ascites substantially increased from the prior exam. Anasarca generally increased from the prior exam. Hepatomegaly. The gallbladder is not identified. Borderline splenomegaly and multiple calcified granulomata of the spleen. Normal pancreas. Normal bilateral adrenal glands. Normal size of the right kidney. Nonobstructing calcification in the lower pole of the kidney which is probably vascular. Negative for hydronephrosis or ureteral stones. Normal left kidney without hydronephrosis or stones. Nondistended stomach. Nondistended small bowel. Nondistended colon. There is non-visualization of the appendix. There is diffuse atherosclerotic calcification of the abdominal aorta, without a demonstrated aneurysm. Markedly distended inferior vena cava. Inferior vena cava umbrella present below the level of the renal veins. Large varicosities associated with the bilateral greater saphenous veins. Distended pelvic veins. Shotty retroperitoneal lymph nodes versus venous structures. Incidental retroaortic left renal vein. Distended urinary bladder. There is absence of the uterus consistent with a prior hysterectomy. Negative for pelvic mass. Negative for hernia. There are diffuse degenerative changes of the visualized lumbar spine. CT/Abdomen/Pelvis without Cont IMPRESSION: Increased bilateral dependent pleural effusions, right greater than left. Cardiomegaly. Markedly distended inferior vena cava, iliac veins and the large varicosities associated with the bilateral greater saphenous veins. Dilated pelvic veins. Shotty appearing retroperitoneal lymph nodes may actually be mostly venous structures. Inferior vena cava umbrella present in the inferior vena cava below the level of the renal vein. Incidental retroaortic left renal vein. Substantial increase in generalized ascites and congestion of the mesenteric fat. Increased generalized anasarca. Negative for evidence of bowel obstruction or perforation. Distended urinary bladder without hydronephrosis. Single nonobstructing right renal calcification is probably arterial. Hepatomegaly. Borderline splenomegaly with calcified granuloma. Status post hysterectomy without pelvic mass. Electronically Signed: Alla Sepulveda MD at 21:47 EDT , Service support ,
[2017-12-04] MEDS: Ondansetron 4 MG/2 ML Vial IV (22:09)
--- NOTE | 2017-12-04 23:19 | HP.PCM_ITS ---
Problem List (1) Acute exacerbation of CHF (congestive heart failure) Status: Acute (2) Ascites Status: Acute (3) JULISSA (acute kidney injury) Status: Acute History of Present Illness Date of Admission: 12/04/17 Chief Complaint: Abdominal pain ?1 day. The patient is a 82 year old F with a significant history of pancytopenia; CAD status post CABG and stent; DVT status post IVC filter; Systolic heart failure ( EF in August 2017 was 35%; moderate pulmonary hypertension), paroxysmal A. 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 Her family reported that the night before the day of admission she was supposed maintaining in bed because of abdominal pain. She reports that her abdomen felt tight. Associated with the symptoms is dyspnea and frequent belching. The patient went to her PCP today and she was directed to the emergency department for further evaluation and possible paracentesis. Patient follow up with Dr. Dumont, legislative correspondent Past Medical History Past Medical History (Chronic Problems): Chronic Problems Chronic systolic CHF (congestive heart failure) (Chronic) Paroxysmal a-fib (Chronic) Pulmonary HTN (Chronic) Hyponatremia (Chronic) Gastroesophageal reflux disease (Chronic) Iron (Fe) deficiency anemia (Chronic) Chronic congestive heart failure (Chronic) systolic. Ejection fraction 42%, 615 With moderate to severe MR Severe TR CAD (coronary artery disease) (Chronic) Status post bypass in 2006, following with Dr. Dumont Hypothyroidism (Chronic) Allergies azithromycin [From Zithromax] Allergy (Intermediate, Verified 12/04/17 16:10) Mucosal lesions Penicillins Allergy (Intermediate, Verified 12/04/17 16:10) Mucosal lesions Sulfa (Sulfonamide Antibiotics) Allergy (Intermediate, Verified 12/04/17 16:10) Mucosal lesions nausea cephalexin [From Keflex] Allergy (Verified 12/04/17 16:10) GI UPSET tobramycin Allergy (Verified 12/04/17 16:10) RED EYES metronidazole Adverse Reaction (Intermediate, Verified 12/04/17 16:10) Nausea diltiazem Adverse Reaction (Mild, Verified 12/04/17 16:10) Nausea/Vom/Diarrhea metolazone [From Zaroxolyn] Adverse Reaction (Mild, Verified 12/04/17 16:10) Nausea potassium chloride Adverse Reaction (Mild, Verified 12/04/17 16:10) Upset Stomach nystatin Adverse Reaction (Verified 12/04/17 16:10) Nausea spironolactone Adverse Reaction (Verified 12/04/17 16:10) Nausea Home Medications: Ambulatory Orders Medication Instructions Recorded Carvedilol [Coreg] 12.5 mg PO BID 08/17/16 Levothyroxine [Synthroid] 112 mcg PO DAILY 08/17/16 Lisinopril [Zestril] 5 mg PO DAILY 08/17/16 Omeprazole [Prilosec] 20 mg PO DAILY 08/17/16 Docusate Sodium [Colace] 100 mg PO BID 11/10/16 Spironolactone 25 mg PO BID 01/01/17 Furosemide 60 mg PO BREAKFAST 08/12/17 Furosemide [Lasix] 60 mg PO DINNER 11/25/17 Ondansetron HCl [Zofran] 4 mg PO PRN PRN 11/25/17 Acetaminophen [Tylenol Extra 1,000 mg PO Q4H PRN PRN 12/04/17 Strength] Metolazone [Zaroxolyn] 2.5 mg PO DAILY PRN 12/04/17 Nitroglycerin [Nitrostat] 0.4 mg SL PRN PRN 12/04/17 Surgical History: cholecystectomy, coronary bypass surgery, hysterectomy, - Psychiatric History: No pertinent psych hx 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 Lives: Alone Smoking Status: Never smoker Alcohol: None Drugs: None - *Family History Sibling History Items: Dementia, Heart Disease Paternal History Items: No pertinent history Maternal History Items: No pertinent history Review of Systems Constitutional: Denies: Anorexia, Fever Eyes: Denies: Blurred vision, Pain HEENT: Denies: Head Aches, Sinus Congestion, Sinus Drainage Cardiovascular: Denies: Chest Pain, Light Headedness Respiratory: Reports: Shortness of breath at rest Gastrointestinal: Reports: Abdominal Pain Genitourinary: Denies: Dysuria Musculoskeletal: Reports: Leg Pain - Left leg Skin: Reports: - - Erythema of left leg Neurological: Denies: Numbness, Tingling, Focal weakness Psychiatric: Denies: Anxiety, Depression, Homicidal Ideations, Suicidal Ideations Hematologic/ Lymphatic: Denies: Easy Bruising, Easy Bleeding VTE Information - Inpt Only VTE Present on Admission: No VTE Mechan Device Prophylaxis: None VTE Pharm Prophylaxis ordered?: Yes Patient Problems: Active and Suspected Problems Acute exacerbation of CHF (congestive heart failure) (Acute) Ascites (Acute) JULISSA (acute kidney injury) (Acute) - Physical Exam General: Alert, Oriented x3, Cooperative HEENT: Atraumatic, PERRLA, EOMI, Normocephalic Neck: Supple, No JVD, Negative Carotid Bruits Lungs: Clear to auscultation, Normal air movement Cardiovascular: - Abdomen: Non Tender, Distended - Positive fluid wave. Extremities: No edema, Capillary Refill Less than 3 Seconds, Tenderness - Left leg Skin: - - Erythema of the left leg Musculoskeletal: No Muscle Wasting Lymphatic: No Cervical, Supraclavicular, or Inguinal Adenopathy Neurological: Cranial nerves II-XII grossly intact Vital Signs Temp Pulse Resp BP Pulse Ox 96.5 F L 67 22 H 118/51 L 93 12/04/17 16:06 12/04/17 22:36 12/04/17 22:36 12/04/17 22:36 12/04/17 22:36 Oxygen Delivery Method Room Air Weight: 85.5 kg Body Mass Index (BMI) 33.3 Intake and Output for Last 24 Hours 12/02/17 12/03/17 12/04/17 23:59 23:59 23:59 Output Total 800 / 800 Balance -800 / -800 Laboratory Tests Past 24 Hrs 12/04/17 12/04/17 12/04/17 17:30 17:30 17:30 WBC 3.1 L RBC 2.99 L Hgb 9.1 L Hct 28.7 L MCV 96.0 MCH 30.4 MCHC 31.7 L RDW 18.8 H RDW Differential 63.2 H Plt Count 120 L MPV 8.7 Immature Gran % (Auto) 0.300 Neut % (Auto) 64.7 Lymph % (Auto) 11.8 L Evans % (Auto) 16.7 H Eos % (Auto) 6.2 H Baso % (Auto) 0.3 Absolute Neuts (auto) 2.0 Absolute Lymphs (auto) 0.36 L Total Counted Not Reportable Differential Comment SCANNED Platelet Estimate SLT DEC Anisocytosis 2+ Macrocytosis 1+ PT 15.9 H INR 1.3 APTT 35.7 Sodium 127 L Potassium 5.0 Chloride 87 L Carbon Dioxide 31.0 Anion Gap 9 BUN 58 H Creatinine 1.25 H Estim Creat Clear Calc 28.21 Est GFR (MDRD) Af Amer 53 L Est GFR (MDRD) Non-Af 44 L BUN/Creatinine Ratio 46.4 H Glucose 87 Calcium 8.4 L Total Bilirubin 1.20 H Direct Bilirubin 0.67 H AST 21 ALT 17 Alkaline Phosphatase 105 Troponin I < 0.015 B-Natriuretic Peptide Total Protein 7.2 Albumin 3.3 Globulin 3.9 12/04/17 17:30 WBC RBC Hgb Hct MCV MCH MCHC RDW RDW Differential Plt Count MPV Immature Gran % (Auto) Neut % (Auto) Lymph % (Auto) Evans % (Auto) Eos % (Auto) Baso % (Auto) Absolute Neuts (auto) Absolute Lymphs (auto) Total Counted Differential Comment Platelet Estimate Anisocytosis Macrocytosis PT INR APTT Sodium Potassium Chloride Carbon Dioxide Anion Gap BUN Creatinine Estim Creat Clear Calc Est GFR (MDRD) Af Amer Est GFR (MDRD) Non-Af BUN/Creatinine Ratio Glucose Calcium Total Bilirubin Direct Bilirubin AST ALT Alkaline Phosphatase Troponin I B-Natriuretic Peptide 816.0 H Total Protein Albumin Globulin Assessment/Plan All Active Problems Acute exacerbation of CHF (congestive heart failure) (Acute) Ascites (Acute) JULISSA (acute kidney injury) (Acute) GI bleed (Resolved) History of DVT (deep vein thrombosis) (Resolved) History of venous thromboembolism (Resolved) he patient is a 82 year old F with a significant history of pancytopenia; CAD status post CABG and stent; DVT status post IVC filter; Systolic heart failure ( EF in August 2017 was 35%; moderate pulmonary hypertension), paroxysmal A. 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 Acute exacerbation of systolic heart failure CT abdomen showed bilateral pleural effusion and generalized anasarca Received Lasix 40 mg IV at emergency department Patient is on home Lasix. We will escalate her home Lasix to Lasix 40 mg IV every 8 hours. Aldactone and metolazone continued Lisinopril and Coreg continued Fluid restriction Daily weights Strict I&O. Ascites Likely secondary to heart failure Discussed extensively with emergency room doctor and surgeon Dr. Senthil Ly. Patient to be diuresed as above. If patient continues to have abdominal pain consider diagnostic or therapeutic paracentesis. Morphine and oxycodone as needed for pain Left leg bruise Improving per family Doppler negative K pad ordered Morphine as above . History of A. fib Currently in controlled A. fib Telemetry monitoring. Hypothyroidism Continue Synthroid Pancytopenia Trend CBC DVT prophylaxis Subcutaneous heparin. Code Visit Inpatient E&M: [id number] Init Hosp L2
--- NOTE | 2017-12-04 23:37 | NURSING ---
Called [facility] charge nurse ED, ok to send patient to the floor.
[2017-12-05] VITALS (18 sets, daily range): BP systolic 93–127; BP diastolic 39–52; PULSE 58–105; RESP 16–20; TEMP 36.3–37; O2SAT 90–99; BMI 33.1
[2017-12-05] MEDS: Acetaminophen 500 MG Tablet 1000 MG PO (01:38)
[2017-12-05] MEDS: proMETHazine 25 MG/ML Syringe 12.5 MG IV ×2 (01:38→09:27)
[2017-12-05] MEDS: 0.9% NaCl Peripheral Flush Adult/Peds IV ×2 (01:38→09:27)
[2017-12-05] MEDS: oxyCODONE 5 MG Tablet PO ×2 (03:16→20:49)
[2017-12-05] MEDS: DiphenhydrAMINE 25 MG Capsule PO (04:04)
[2017-12-05 06:07] LABS: Absolute Lymphocyte Count 0.34 X10^3/ul (0.83-4.51); Absolute Neutrophil Count 1.9 X10^3/uL (2.0-7.7); Basophil# 0.02 X10^3/uL; Basophil% 0.7 % (0-1); Eosinophil# 0.17 X10^3/uL; Eosinophils% 5.7 % (0-5); Hematocrit 26.6 % (37-47); Hemoglobin 8.5 g/dl (12.0-15.0); Lymphocyte # 0.34 X10^3/ul (4.0); Lymphocyte % 11.4 % (19-41); Mean Corpuscular Hgb 30.7 pg (27.0-32.0); Mean Platelet Vol. 8.8 fl (6.2-12.0); Monocyte# 0.56 X10^3/uL; Monocyte% 18.9 % (0-10); Neutrophil # 1.87 X10^3/uL (2.7-7.7); Platelet Count 126 K/mm3 (150-450); RBC Distribution Width CV 18.8 % (11.6-14.6); RBC Distribution Width SD 63.1 fl (35.1-43.9); Red Blood Count 2.77 M/mm3 (4.2-5.4)
[2017-12-05 06:10] LABS: Anion Gap 10 (5-15); BUN 57 mg/dL (7-18); BUN/Creat Ratio 45.6 RATIO (10-20); Calcium,Total 8.1 mg/dL (8.5-10.1); Chloride 90 mmol/L (98-107); Creatinine, Serum 1.25 mg/dL (0.55-1.02); EST Glomerular Filtration Rate 44 mL/min (>60); Est Glom Filt Rate - Afr Amer 53 mL/min (>60); Estimated Creatinine Clearance 26.97 ml/min; Glucose 80 mg/dL (74-106); Potassium 4.3 mmol/L (3.5-5.1); Sodium Level 129 mmol/L (136-145)
[2017-12-05] MEDS: Levothyroxine 112 MCG Tablet PO (06:19)
[2017-12-05 06:22] LABS: Differential Indicated SCAN CRITERIA MET; POSITIVE COUNT NO; POSITIVE DIFFERENTIAL YES; POSITIVE MORPHOLOGY NO
--- NOTE | 2017-12-05 07:52 | PCM.CONS.GEN ---
Problem List (1) Ascites Status: Acute Qualifiers: Ascites type: other type Qualified Code(s): R18.8 - Other ascites Reason for Consult Date of Consultation: 12/05/17 Reason for Consultation: Ascites, possible paracentesis History of Present Illness: The patient is a 82 year old F who was recently admitted and had paracentesis at the beginning of October. The patient was sent here by her PCP for concern that she needed a paracentesis. Apparently the patient was having abdominal pain yesterday. When I see her this morning she says she is not having any abdominal pain or nausea or vomiting. She says she had a bowel movement yesterday. She is not having any shortness of breath or difficulty breathing. Past Medical History Past Medical History (Chronic Problems): Chronic Problems Chronic systolic CHF (congestive heart failure) (Chronic) Paroxysmal a-fib (Chronic) Pulmonary HTN (Chronic) Hyponatremia (Chronic) Gastroesophageal reflux disease (Chronic) Iron (Fe) deficiency anemia (Chronic) Chronic congestive heart failure (Chronic) systolic. 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 Dumont Hypothyroidism (Chronic) Allergies azithromycin [From Zithromax] Allergy (Intermediate, Verified 12/04/17 16:10) Mucosal lesions Penicillins Allergy (Intermediate, Verified 12/04/17 16:10) Mucosal lesions Sulfa (Sulfonamide Antibiotics) Allergy (Intermediate, Verified 12/04/17 16:10) Mucosal lesions nausea cephalexin [From Keflex] Allergy (Verified 12/04/17 16:10) GI UPSET tobramycin Allergy (Verified 12/04/17 16:10) RED EYES metronidazole Adverse Reaction (Intermediate, Verified 12/04/17 16:10) Nausea diltiazem Adverse Reaction (Mild, Verified 12/04/17 16:10) Nausea/Vom/Diarrhea metolazone [From Zaroxolyn] Adverse Reaction (Mild, Verified 12/04/17 16:10) Nausea potassium chloride Adverse Reaction (Mild, Verified 12/04/17 16:10) Upset Stomach nystatin Adverse Reaction (Verified 12/04/17 16:10) Nausea spironolactone Adverse Reaction (Verified 12/04/17 16:10) Nausea Home Medications: Ambulatory Orders Medication Instructions Recorded Carvedilol [Coreg] 12.5 mg PO BID 08/17/16 Levothyroxine [Synthroid] 112 mcg PO DAILY 08/17/16 Lisinopril [Zestril] 5 mg PO DAILY 08/17/16 Omeprazole [Prilosec] 20 mg PO DAILY 08/17/16 Docusate Sodium [Colace] 100 mg PO BID 11/10/16 Spironolactone 25 mg PO BID 01/01/17 Furosemide 60 mg PO BREAKFAST 08/12/17 Furosemide [Lasix] 60 mg PO DINNER 11/25/17 Ondansetron HCl [Zofran] 4 mg PO PRN PRN 11/25/17 Acetaminophen [Tylenol Extra 1,000 mg PO Q4H PRN PRN 12/04/17 Strength] Metolazone [Zaroxolyn] 2.5 mg PO DAILY PRN 12/04/17 Nitroglycerin [Nitrostat] 0.4 mg SL PRN PRN 12/04/17 Surgical History: cholecystectomy, coronary bypass surgery, hysterectomy, - Psychiatric History: No pertinent psych hx 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 Lives: Alone Smoking Status: Never smoker Alcohol: None Drugs: None - *Family History Sibling History Items: Dementia, Heart Disease Paternal History Items: No pertinent history Maternal History Items: No pertinent history Review of Systems Constitutional: Denies: Chills, Fever HEENT: Denies: Difficulty Swallowing Cardiovascular: Denies: Chest Pain Respiratory: Denies: Shortness of Breath Gastrointestinal: Denies: Abdominal Pain, Nausea, Vomiting Patient Problems: Active and Suspected Problems Acute exacerbation of CHF (congestive heart failure) (Acute) Ascites (Acute) - Physical Exam General: Alert, Cooperative HEENT: Atraumatic Neck: No JVD Lungs: Normal air movement Cardiovascular: Regular rate, Regular Rhythm Abdomen: Soft, Non Tender, Distended - Mildly distended Lymphatic: No Cervical, Supraclavicular, or Inguinal Adenopathy Neurological: Cranial nerves II-XII grossly intact Psych/Mental Status: Normal Affect Vital Signs Temp Pulse Resp BP Pulse Ox 98.0 F 75 16 94/48 L 94 12/05/17 06:15 12/05/17 06:15 12/05/17 06:15 12/05/17 06:15 12/05/17 06:15 Oxygen Delivery Method Room Air Weight: 180 lb 12.465 oz Body Mass Index (BMI) 33.0 Intake and Output for Last 24 Hours 12/03/17 12/04/17 12/05/17 23:59 23:59 23:59 Intake Total 240 / 240 Balance 240 / 240 Laboratory Tests Past 24 Hrs 12/05/17 12/05/17 05:09 05:09 WBC 3.0 L RBC 2.77 L Hgb 8.5 L Hct 26.6 L MCV 96.0 MCH 30.7 MCHC 32.0 RDW 18.8 H RDW Differential 63.1 H Plt Count 126 L MPV 8.8 Immature Gran % (Auto) 0.300 Neut % (Auto) 63.0 Lymph % (Auto) 11.4 L [place] % (Auto) 18.9 H Eos % (Auto) 5.7 H Baso % (Auto) 0.7 Absolute Neuts (auto) 1.9 L Absolute Lymphs (auto) 0.34 L Total Counted Not Reportable Sodium 129 L Potassium 4.3 Chloride 90 L Carbon Dioxide 29.0 Anion Gap 10 BUN 57 H Creatinine 1.25 H Estim Creat Clear Calc 26.97 Est GFR (MDRD) Af Amer 53 L Est GFR (MDRD) Non-Af 44 L BUN/Creatinine Ratio 45.6 H Glucose 80 Calcium 8.1 L Clinical Impression(s) from Imaging Studies Chest X-Ray 12/04/17 17:30 IMPRESSION: There is moderate enlargement of the cardiac silhouette with vascular congestion and small pleural effusions. There is minimal bibasilar atelectasis. Electronically Signed: Pema Linares MD at 18:08 EDT Tel Direct: [phone], Service support , Venous Duplex 12/04/17 17:59 IMPRESSION: Left lower extremity venous Doppler exam negative for deep venous thrombosis. Reflux is noted in the proximal left greater saphenous vein. Electronically Signed: Alla Sepulveda MD at 19:21 EDT , Service support , Abdomen/Pelvis CT 12/04/17 20:37 IMPRESSION: Increased bilateral dependent pleural effusions, right greater than left. Cardiomegaly. Markedly distended inferior vena cava, iliac veins and the large varicosities associated with the bilateral greater saphenous veins. Dilated pelvic veins. Shotty appearing retroperitoneal lymph nodes may actually be mostly venous structures. Inferior vena cava umbrella present in the inferior vena cava below the level of the renal vein. Incidental retroaortic left renal vein. Substantial increase in generalized ascites and congestion of the mesenteric fat. Increased generalized anasarca. Negative for evidence of bowel obstruction or perforation. Distended urinary bladder without hydronephrosis. Single nonobstructing right renal calcification is probably arterial. Hepatomegaly. Borderline splenomegaly with calcified granuloma. Status post hysterectomy without pelvic mass. Electronically Signed: Alla Sepulveda MD at 21:47 EDT , Service support , Assessment/Plan All Active Problems Acute exacerbation of CHF (congestive heart failure) (Acute) Ascites (Acute) JULISSA (acute kidney injury) (Acute) GI bleed (Resolved) History of DVT (deep vein thrombosis) (Resolved) History of venous thromboembolism (Resolved) 82-year-old female with ascites 1. The patient does have ascites on her CAT scan and the right pleural effusion. The right pleural effusion appears small and her abdomen is very soft and completely nontender. She is not having any difficulty breathing or tense abdomen. I think any paracentesis can be scheduled for Thursday with interventional radiologist is back. Indications for an emergent paracentesis would be a tense abdomen or difficulty breathing. The other indication would be a tap for culture if the primary team thinks she has spontaneous bacterial peritonitis. At this time she has no pains I think that is unlikely. 2. The patient is also slightly hypotensive the low white count. This may indicate sepsis. I would recommend checking UA. Her T bili was slightly elevated. I will recheck bilirubin in the morning. 3. If her abdomen becomes tense or if she has shortness of breath due to the ascites I will perform a paracentesis over the weekend. Otherwise I would recommend having interventional radiology do this as needed. Senthil Ly MD Pager: [facility] [address] [place] [address], [address] [place] [address] Office:
--- NOTE | 2017-12-05 07:56 | CON.PCM_ITS ---
Problem List (1) Ascites Status: Acute Qualifiers: Ascites type: other type Qualified Code(s): R18.8 - Other ascites Reason for Consult Date of Consultation: 12/05/17 Reason for Consultation: Ascites, possible paracentesis History of Present Illness: The patient is a 82 year old F who was recently admitted and had paracentesis at the beginning of October. The patient was sent here by her PCP for concern that she needed a paracentesis. Apparently the patient was having abdominal pain yesterday. When I see her this morning she says she is not having any abdominal pain or nausea or vomiting. She says she had a bowel movement yesterday. She is not having any shortness of breath or difficulty breathing. Past Medical History Past Medical History (Chronic Problems): Chronic Problems Chronic systolic CHF (congestive heart failure) (Chronic) Paroxysmal a-fib (Chronic) Pulmonary HTN (Chronic) Hyponatremia (Chronic) Gastroesophageal reflux disease (Chronic) Iron (Fe) deficiency anemia (Chronic) Chronic congestive heart failure (Chronic) systolic. 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 Dumont Hypothyroidism (Chronic) Allergies azithromycin [From Zithromax] Allergy (Intermediate, Verified 12/04/17 16:10) Mucosal lesions Penicillins Allergy (Intermediate, Verified 12/04/17 16:10) Mucosal lesions Sulfa (Sulfonamide Antibiotics) Allergy (Intermediate, Verified 12/04/17 16:10) Mucosal lesions nausea cephalexin [From Keflex] Allergy (Verified 12/04/17 16:10) GI UPSET tobramycin Allergy (Verified 12/04/17 16:10) RED EYES metronidazole Adverse Reaction (Intermediate, Verified 12/04/17 16:10) Nausea diltiazem Adverse Reaction (Mild, Verified 12/04/17 16:10) Nausea/Vom/Diarrhea metolazone [From Zaroxolyn] Adverse Reaction (Mild, Verified 12/04/17 16:10) Nausea potassium chloride Adverse Reaction (Mild, Verified 12/04/17 16:10) Upset Stomach nystatin Adverse Reaction (Verified 12/04/17 16:10) Nausea spironolactone Adverse Reaction (Verified 12/04/17 16:10) Nausea Home Medications: Ambulatory Orders Medication Instructions Recorded Carvedilol [Coreg] 12.5 mg PO BID 08/17/16 Levothyroxine [Synthroid] 112 mcg PO DAILY 08/17/16 Lisinopril [Zestril] 5 mg PO DAILY 08/17/16 Omeprazole [Prilosec] 20 mg PO DAILY 08/17/16 Docusate Sodium [Colace] 100 mg PO BID 11/10/16 Spironolactone 25 mg PO BID 01/01/17 Furosemide 60 mg PO BREAKFAST 08/12/17 Furosemide [Lasix] 60 mg PO DINNER 11/25/17 Ondansetron HCl [Zofran] 4 mg PO PRN PRN 11/25/17 Acetaminophen [Tylenol Extra 1,000 mg PO Q4H PRN PRN 12/04/17 Strength] Metolazone [Zaroxolyn] 2.5 mg PO DAILY PRN 12/04/17 Nitroglycerin [Nitrostat] 0.4 mg SL PRN PRN 12/04/17 Surgical History: cholecystectomy, coronary bypass surgery, hysterectomy, - Psychiatric History: No pertinent psych hx 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 Lives: Alone Smoking Status: Never smoker Alcohol: None Drugs: None - *Family History Sibling History Items: Dementia, Heart Disease Paternal History Items: No pertinent history Maternal History Items: No pertinent history Review of Systems Constitutional: Denies: Chills, Fever HEENT: Denies: Difficulty Swallowing Cardiovascular: Denies: Chest Pain Respiratory: Denies: Shortness of Breath Gastrointestinal: Denies: Abdominal Pain, Nausea, Vomiting Patient Problems: Active and Suspected Problems Acute exacerbation of CHF (congestive heart failure) (Acute) Ascites (Acute) - Physical Exam General: Alert, Cooperative HEENT: Atraumatic Neck: No JVD Lungs: Normal air movement Cardiovascular: Regular rate, Regular Rhythm Abdomen: Soft, Non Tender, Distended - Mildly distended Lymphatic: No Cervical, Supraclavicular, or Inguinal Adenopathy Neurological: Cranial nerves II-XII grossly intact Psych/Mental Status: Normal Affect Vital Signs Temp Pulse Resp BP Pulse Ox 98.0 F 75 16 94/48 L 94 12/05/17 06:15 12/05/17 06:15 12/05/17 06:15 12/05/17 06:15 12/05/17 06:15 Oxygen Delivery Method Room Air Weight: 180 lb 12.465 oz Body Mass Index (BMI) 33.0 Intake and Output for Last 24 Hours 12/03/17 12/04/17 12/05/17 23:59 23:59 23:59 Intake Total 240 / 240 Balance 240 / 240 Laboratory Tests Past 24 Hrs 12/05/17 12/05/17 05:09 05:09 WBC 3.0 L RBC 2.77 L Hgb 8.5 L Hct 26.6 L MCV 96.0 MCH 30.7 MCHC 32.0 RDW 18.8 H RDW Differential 63.1 H Plt Count 126 L MPV 8.8 Immature Gran % (Auto) 0.300 Neut % (Auto) 63.0 Lymph % (Auto) 11.4 L [place] % (Auto) 18.9 H Eos % (Auto) 5.7 H Baso % (Auto) 0.7 Absolute Neuts (auto) 1.9 L Absolute Lymphs (auto) 0.34 L Total Counted Not Reportable Sodium 129 L Potassium 4.3 Chloride 90 L Carbon Dioxide 29.0 Anion Gap 10 BUN 57 H Creatinine 1.25 H Estim Creat Clear Calc 26.97 Est GFR (MDRD) Af Amer 53 L Est GFR (MDRD) Non-Af 44 L BUN/Creatinine Ratio 45.6 H Glucose 80 Calcium 8.1 L Clinical Impression(s) from Imaging Studies Chest X-Ray 12/04/17 17:30 IMPRESSION: There is moderate enlargement of the cardiac silhouette with vascular congestion and small pleural effusions. There is minimal bibasilar atelectasis. Electronically Signed: Pema Linares MD at 18:08 EDT Tel Direct: [phone], Service support , Venous Duplex 12/04/17 17:59 IMPRESSION: Left lower extremity venous Doppler exam negative for deep venous thrombosis. Reflux is noted in the proximal left greater saphenous vein. Electronically Signed: Alla Sepulveda MD at 19:21 EDT , Service support , Abdomen/Pelvis CT 12/04/17 20:37 IMPRESSION: Increased bilateral dependent pleural effusions, right greater than left. Cardiomegaly. Markedly distended inferior vena cava, iliac veins and the large varicosities associated with the bilateral greater saphenous veins. Dilated pelvic veins. Shotty appearing retroperitoneal lymph nodes may actually be mostly venous structures. Inferior vena cava umbrella present in the inferior vena cava below the level of the renal vein. Incidental retroaortic left renal vein. Substantial increase in generalized ascites and congestion of the mesenteric fat. Increased generalized anasarca. Negative for evidence of bowel obstruction or perforation. Distended urinary bladder without hydronephrosis. Single nonobstructing right renal calcification is probably arterial. Hepatomegaly. Borderline splenomegaly with calcified granuloma. Status post hysterectomy without pelvic mass. Electronically Signed: Alla Sepulveda MD at 21:47 EDT , Service support , Assessment/Plan All Active Problems Acute exacerbation of CHF (congestive heart failure) (Acute) Ascites (Acute) JULISSA (acute kidney injury) (Acute) GI bleed (Resolved) History of DVT (deep vein thrombosis) (Resolved) History of venous thromboembolism (Resolved) 82-year-old female with ascites 1. The patient does have ascites on her CAT scan and the right pleural effusion. The right pleural effusion appears small and her abdomen is very soft and completely nontender. She is not having any difficulty breathing or tense abdomen. I think any paracentesis can be scheduled for Thursday with interventional radiologist is back. Indications for an emergent paracentesis would be a tense abdomen or difficulty breathing. The other indication would be a tap for culture if the primary team thinks she has spontaneous bacterial peritonitis. At this time she has no pains I think that is unlikely. 2. The patient is also slightly hypotensive the low white count. This may indicate sepsis. I would recommend checking UA. Her T bili was slightly elevated. I will recheck bilirubin in the morning. 3. If her abdomen becomes tense or if she has shortness of breath due to the ascites I will perform a paracentesis over the weekend. Otherwise I would recommend having interventional radiology do this as needed. Senthil Ly MD Pager: [facility] [address] [place] [address], [address] [place] [address] Office:
[2017-12-05] MEDS: Docusate Sodium 100 MG Capsule PO ×2 (10:03→21:01)
[2017-12-05] MEDS: Pantoprazole Sodium 20 MG Tablet PO (10:03)
[2017-12-05] MEDS: Lisinopril 5 MG Tablet PO (11:40)
[2017-12-05] MEDS: Carvedilol 6.25 MG Tablet PO ×2 (11:42→21:02)
[2017-12-05] MEDS: Lactulose 20 GM/30 ML UDC PO (14:28)
[2017-12-05] MEDS: Bisacodyl 10 MG Suppository RECTAL (14:28)
--- NOTE | 2017-12-05 15:00 | CASEMGMT ---
Social Work Note PCU Collaborated RN CM about possible home going needs. Patient was just discharged from the hospital a week ago with skilled HHC services. Questioning whether patient may need alternative level of care at time of discharge. Chart reviewed. Met with patient and two daughters Daniela and Margie. Patient slept for most of social work visit, though awoke a few times and gave input. After conversation with patient and family, the family desires for patient to return home with family support as prior to admission. Margie has been checking on patient multiples times a day and lives next door to patient. Margie is also prepared to spend the night at patient's home at discharge, to ensure transition goes smoothly. The daughters share that patient has been since September of 2017 and that patient's while in a rehab or SNF stay somewhere. Daughters report to be leary of hospitals and having patient go to any facility. Patient and daughters open to continued skilled HHC services. Family reports patient has a walker, raised toilet seat, and BSC at home. Home is one floor, a trailer. Margie has been helping patient with meals daily and transportation when needed. This sports book writer informed family that social work through HHC may be available as well, and that in light of patient's loss this year and several hospitalizations now for patient, addition of social work may be helpful. This sports book writer also broached medical alert system. The daughters report patient always has a cell phone. Updated RN CM that family not interested in any other disposition at this time other than home with skilled HHC. Suggested addition of SW to the HHC order. RN CM to follow up with resumption of care order. No other services requested or indicated. -ADRIÁN Fernandes, AUTOMOTIVE PAINTER HELPER
--- NOTE | 2017-12-05 16:03 | PN_ITS ---
Patient Problems: Active and Suspected Problems Acute exacerbation of CHF (congestive heart failure) (Acute) Ascites (Acute) Subjective: Patient was seen and examined today, she does not appear in any respiratory distress, blood pressure systolic is in the 90s. I talked with general surgery about her care, it is their opinion that the patient does not require paracentesis at this time, on examination today, patient's lungs were clear bilaterally, examination of her abdomen reveals it to be tympanic with bowel sounds present. Abdomen appears nontender. Hemoglobin is 8.5 this morning. Patient's daughter was in the room today with the patient I talked with her extensively. - Physical Exam General: Alert, Oriented x3, Cooperative, No apparent distress, Well developed, Well nourished HEENT: Atraumatic, PERRLA, EOMI, Normocephalic Oral: Moist Mucosa Neck: Supple, No JVD, No Nuchal Rigidity, Trachea Midline, Thyroid Normal Size and Texture Lungs: Clear to auscultation, Normal air movement, No rhonchi, No wheeze, No rales Cardiovascular: PMI Normal, Irregular Rate, No rub noted Abdomen: Bowel Sounds Present, Soft, Non Tender, Distended Extremities: No clubbing, No cyanosis, Capillary Refill Less than 3 Seconds, Edema - Generalized edema is noted over the left lower leg, there is ecchymosis and swelling over the leg also. Neurological: Cranial nerves II-XII grossly intact, Neuro grossly intact, Sensory exam intact to light touch and pain, Coordination normal Psych/Mental Status: Normal Affect, Appropriate, Alert and oriented to time, place, person, mood and affect Vital Signs Temp Pulse Resp BP Pulse Ox 97.9 F 73 16 96/40 L 96 12/05/17 14:25 12/05/17 14:59 12/05/17 14:25 12/05/17 14:25 12/05/17 14:25 Oxygen Delivery Method Room Air Weight: 82 kg Body Mass Index (BMI) 33.0 Intake and Output for Last 24 Hours 12/03/17 12/04/17 12/05/17 23:59 23:59 23:59 Intake Total 420 / 420 Balance 420 / 420 Laboratory Tests Past 24 Hrs 12/05/17 12/05/17 05:09 05:09 WBC 3.0 L RBC 2.77 L Hgb 8.5 L Hct 26.6 L MCV 96.0 MCH 30.7 MCHC 32.0 RDW 18.8 H RDW Differential 63.1 H Plt Count 126 L MPV 8.8 Immature Gran % (Auto) 0.300 Neut % (Auto) 63.0 Lymph % (Auto) 11.4 L [place] % (Auto) 18.9 H Eos % (Auto) 5.7 H Baso % (Auto) 0.7 Absolute Neuts (auto) 1.9 L Absolute Lymphs (auto) 0.34 L Total Counted Not Reportable Sodium 129 L Potassium 4.3 Chloride 90 L Carbon Dioxide 29.0 Anion Gap 10 BUN 57 H Creatinine 1.25 H Estim Creat Clear Calc 26.97 Est GFR (MDRD) Af Amer 53 L Est GFR (MDRD) Non-Af 44 L BUN/Creatinine Ratio 45.6 H Glucose 80 Calcium 8.1 L Medical Necessity - Tobacco Use Smoking Status: Never smoker Assessment/Plan All Active Problems Acute exacerbation of CHF (congestive heart failure) (Acute) Ascites (Acute) JULISSA (acute kidney injury) (Acute) GI bleed (Resolved) History of DVT (deep vein thrombosis) (Resolved) History of venous thromboembolism (Resolved) #1 acute on chronic systolic congestive heart failure, patient's last echocardiogram showed an EF of 35%-I will hold the patient's Lasix for the time being, her lungs are clear and her pulse ox on room air is well above 90%. Patient is also hypotensive at this time. Patient's Zestril will be held at the present time and she will receive her Coreg #2 abdominal distention-questionable ileus, patient will be given a Dulcolax suppository and a dose of lactulose. Abdomen is nontender, I do not believe patient needs a paracentesis at this time #3 pulmonary hypertension #4 chronic anemia-patient CBC will be checked tomorrow again, patient's daughter states she sees Dr. Cid and receives IV iron at times #5 chronic atrial fibrillation #6 chronic kidney disease stage III #7 chronic ascites Code Visit Inpatient E&M: 26030 Subs Hosp L2
--- NOTE | 2017-12-05 16:37 | CASEMGMT ---
Green sheet left on chart for resumption of HHC. SStdelia GUIDRY CM
[2017-12-05] MEDS: Heparin Injection (Vial) 5,000 UNIT/ML VIAL 5000 UNIT SC (21:01)
[2017-12-06] VITALS (7 sets, daily range): BP systolic 93–98; BP diastolic 40–46; PULSE 68–79; RESP 16–20; TEMP 36.6–37.1; O2SAT 90–96
[2017-12-06 06:16] LABS: Absolute Lymphocyte Count 0.48 X10^3/ul (0.83-4.51); Absolute Neutrophil Count 1.6 X10^3/uL (2.0-7.7); Basophil# 0.01 X10^3/uL; Basophil% 0.4 % (0-1); Eosinophil# 0.16 X10^3/uL; Eosinophils% 5.7 % (0-5); Hematocrit 26.9 % (37-47); Hemoglobin 8.7 g/dl (12.0-15.0); Lymphocyte # 0.48 X10^3/ul (4.0); Lymphocyte % 17.1 % (19-41); Mean Corp Hgb Conc 32.3 g/gl (32-36); Mean Corpuscular Hgb 31.3 pg (27.0-32.0); Mean Corpuscular Volume 96.8 fL (81-99); Mean Platelet Vol. 8.9 fl (6.2-12.0); Monocyte# 0.53 X10^3/uL; Monocyte% 18.9 % (0-10); Neutrophil # 1.62 X10^3/uL (2.7-7.7); Neutrophil % 57.9 % (47-70); Platelet Count 139 K/mm3 (150-450); RBC Distribution Width CV 18.9 % (11.6-14.6); RBC Distribution Width SD 65.2 fl (35.1-43.9); Red Blood Count 2.78 M/mm3 (4.2-5.4); White Blood Count 2.8 K/mm3 (4.4-11.0)
[2017-12-06 06:17] LABS: Differential Indicated SCAN CRITERIA MET; POSITIVE COUNT NO; POSITIVE DIFFERENTIAL YES; POSITIVE MORPHOLOGY YES
[2017-12-06 06:35] LABS: AST(SGOT) 20 U/L (15-37); Alanine Aminotransfer ALT/SGPT 14 U/L (13-56); Alkaline Phosphatase 86 U/L (45-117); Bilirubin, Direct 0.59 mg/dL (0.00-0.30); Globulin 3.6 g/dL (2.2-4.2); Protein, Total 6.6 g/dL (6.4-8.2)
[2017-12-06 06:52] LABS: Anisocytosis 1+; Differential Comment SCAN; Hypochromasia 1+; Microcytosis 1+; Polychromasia 1+
[2017-12-06] MEDS: Levothyroxine 112 MCG Tablet PO (06:54)
--- NOTE | 2017-12-06 07:21 | PN.SURG_ITS ---
Patient Problems: Active and Suspected Problems Acute exacerbation of CHF (congestive heart failure) (Acute) Ascites (Acute) Subjective: Patient notes she is passing gas with no nausea or vomiting. She is tolerating a diet. She did have a bowel movement yesterday. She has no abdominal pain today. - Physical Exam General: Alert, Oriented x3, Cooperative Lungs: Normal air movement Cardiovascular: Regular rate, Regular Rhythm Abdomen: Soft, Non Tender, Distended Vital Signs Temp Pulse Resp BP Pulse Ox 98.4 F 74 16 98/40 L 92 12/06/17 06:50 12/06/17 06:50 12/06/17 06:50 12/06/17 06:50 12/06/17 06:50 Oxygen Delivery Method Room Air Weight: 180 lb 12.465 oz Body Mass Index (BMI) 33.0 Intake and Output for Last 24 Hours 12/04/17 12/05/17 12/06/17 23:59 23:59 23:59 Intake Total 420 / 420 360 / 360 Output Total 300 / 300 375 / 375 Balance 120 / 120 -15 / -15 Laboratory Tests Past 24 Hrs 12/06/17 12/06/17 05:54 05:54 WBC 2.8 L RBC 2.78 L Hgb 8.7 L Hct 26.9 L MCV 96.8 MCH 31.3 MCHC 32.3 RDW 18.9 H RDW Differential 65.2 H Plt Count 139 L MPV 8.9 Immature Gran % (Auto) 0.000 Neut % (Auto) 57.9 Lymph % (Auto) 17.1 L [place] % (Auto) 18.9 H Eos % (Auto) 5.7 H Baso % (Auto) 0.4 Absolute Neuts (auto) 1.6 L Absolute Lymphs (auto) 0.48 L Total Counted Not Reportable Differential Comment SCAN Polychromasia 1+ Hypochromasia 1+ Anisocytosis 1+ Microcytosis 1+ Total Bilirubin 1.00 Direct Bilirubin 0.59 H AST 20 ALT 14 Alkaline Phosphatase 86 Total Protein 6.6 Albumin 3.0 L Globulin 3.6 Medical Necessity - Tobacco Use Smoking Status: Never smoker Assessment/Plan All Active Problems Acute exacerbation of CHF (congestive heart failure) (Acute) Ascites (Acute) JULISSA (acute kidney injury) (Acute) GI bleed (Resolved) History of DVT (deep vein thrombosis) (Resolved) History of venous thromboembolism (Resolved) 82-year-old female with ascites 1. Patient appears to be doing well today. Her abdomen is distended but is very soft nontender. She is passing gas and had a bowel movement with no nausea or vomiting and she is tolerating a diet. 2. Paracentesis in interventional radiology tomorrow per primary team if needed. No need for emergent paracentesis today. Senthil Ly MD Pager: [facility] [address] [place] [address] [address] [place] [address] Office:
[2017-12-06] MEDS: oxyCODONE 5 MG Tablet PO (08:34)
--- NOTE | 2017-12-06 08:45 | RAD_ITS ---
STUDY: X-RAY CHEST REASON FOR EXAM: Female, 82 years old. CHF TECHNIQUE: PA and lateral views of the chest. COMPARISON: December 04, 2017 chest x-ray FINDINGS: There is persistent strandy-appearing left lower lobe opacity. There are increased linear markings in the right lung base trace blunting of the right costophrenic angle. Sternal cerclage wires and vascular clips are present from a prior sternotomy and coronary artery bypass graft procedure (CABG). There is moderate cardiomegaly. Normal mediastinum and laisha. Normal visualized pulmonary arteries. Normal visualized aortic arch and descending thoracic aorta. There are diffuse degenerative changes of the visualized thoracic spine. Normal visualized ribs, clavicles, and shoulders. There is no demonstrated abnormality of the visualized soft tissue structures of the upper abdomen. RAD/Chest PA and Lateral IMPRESSION: Small bilateral effusions lower lobe atelectasis. Status post CABG cardiomegaly. Electronically Signed: Destiny Damon MD at 9:59 EDT Tel , Service support ,
[2017-12-06] MEDS: Heparin Injection (Vial) 5,000 UNIT/ML VIAL 5000 UNIT SC (10:26)
[2017-12-06] MEDS: Carvedilol 6.25 MG Tablet PO (10:26)
[2017-12-06] MEDS: Docusate Sodium 100 MG Capsule PO (10:26)
[2017-12-06] MEDS: Pantoprazole Sodium 20 MG Tablet PO (10:27)
[2017-12-06] MEDS: Lisinopril 5 MG Tablet PO (10:28)
--- NOTE | 2017-12-06 13:04 | DCINST_ITS ---
- Discharge Diagnoses Current Active Problems: Current Active and Chronic Problems Acute exacerbation of CHF (congestive heart failure) (Acute) Ascites (Acute) You will use the following diet at home:: No restrictions, Other - 1500 ml fluid restriction Your food should be the consistency of: Regular Your liquids should be the consistency of: Regular/Thin Discharge Activity: Return to Normal Activity Additional Instructions: Take Miralax 17 grams daily Allergies/Adverse Reactions: Allergies azithromycin [From Zithromax] Allergy (Intermediate, Verified 12/04/17 16:10) Mucosal lesions Penicillins Allergy (Intermediate, Verified 12/04/17 16:10) Mucosal lesions Sulfa (Sulfonamide Antibiotics) Allergy (Intermediate, Verified 12/04/17 16:10) Mucosal lesions nausea cephalexin [From Keflex] Allergy (Verified 12/04/17 16:10) GI UPSET tobramycin Allergy (Verified 12/04/17 16:10) RED EYES metronidazole Adverse Reaction (Intermediate, Verified 12/04/17 16:10) Nausea diltiazem Adverse Reaction (Mild, Verified 12/04/17 16:10) Nausea/Vom/Diarrhea metolazone [From Zaroxolyn] Adverse Reaction (Mild, Verified 12/04/17 16:10) Nausea potassium chloride Adverse Reaction (Mild, Verified 12/04/17 16:10) Upset Stomach nystatin Adverse Reaction (Verified 12/04/17 16:10) Nausea spironolactone Adverse Reaction (Verified 12/04/17 16:10) Nausea Medications to take at Discharge Levothyroxine [Synthroid] 112 mcg PO DAILY 08/17/16 Lisinopril [Zestril] 5 mg PO DAILY 08/17/16 Omeprazole [Prilosec] 20 mg PO DAILY 08/17/16 Docusate Sodium [Colace] 100 mg PO BID 11/10/16 Ondansetron HCl [Zofran] 4 mg PO PRN PRN 11/25/17 Acetaminophen [Tylenol] 1,000 mg PO Q4H PRN PRN 12/04/17 Nitroglycerin [Nitrostat] 0.4 mg SL PRN PRN 12/04/17 Carvedilol [Coreg (Beta Cherelle)] 6.25 mg PO BID tablet 12/06/17 Carvedilol [Coreg] 6.25 mg PO BID #1 tablet 12/06/17 Furosemide 40 mg PO BREAKFAST #1 tablet 12/06/17 Spironolactone 25 mg PO DAILY #1 tablet 12/06/17 The following prescriptions were given: Furosemide 40 mg PO BREAKFAST #1 tablet Spironolactone 25 mg PO DAILY #1 tablet Carvedilol [Coreg] 6.25 mg PO BID #1 tablet Primary Care Physician: Sea Obando MD [Primary Care Provider] - Please follow up with your Primary Care Physician in: in 7-10 days Test Results: Test results from this visit will be discussed in further detail at your follow- up appointment, if applicable. Please Follow Up With: Duane Ware MD When: in Dec at regular appointmeent time
[2017-12-06] MEDS: Acetaminophen 500 MG Tablet 1000 MG PO (14:25)
--- NOTE | 2017-12-07 08:00 | PCM.DC.SUM ---
Discharge Date and Diagnosis Date of Admission: 12/04/17 - Primary Discharge Diagnosis #1 acute on chronic systolic congestive heart failure #2 abdominal distention-questionable ileus #3 pulmonary hypertension #4 chronic anemia-patient CBC will be checked tomorrow again, patient's daughter states she sees Dr. Cid and receives IV iron at times #5 chronic atrial fibrillation #6 chronic kidney disease stage III #7 chronic ascites secondary to chronic systolic congestive heart failure #8 ischemic cardiomyopathy #9 left lower leg ecchymosis and hematoma secondary to recent fall - Secondary Discharge Diagnosis Chronic Problems Chronic systolic CHF (congestive heart failure) (Chronic) Paroxysmal a-fib (Chronic) Pulmonary HTN (Chronic) Hyponatremia (Chronic) Gastroesophageal reflux disease (Chronic) Iron (Fe) deficiency anemia (Chronic) Chronic congestive heart failure (Chronic) systolic. 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 Dumont Hypothyroidism (Chronic) Hospital Course and Treatment Operations: None Procedures: None Summary of Care Provided: The patient is a 82 year old F who was seen in the emergency room at [facility] after being sent in from her PCPs office with suspected recurrent ascites. She had undergone paracentesis in the past for the same problem. It was felt that the problem was secondary to systolic congestive heart failure. Examination in the ER revealed her to be in atrial fib which was a chronic rhythm at 74, white blood cell count was 3.1, hemoglobin was 9.1, platelet count was 120,000. Chemistry studies revealed a sodium 127, BUN of 58, creatinine 1.25. Total bilirubin was slightly elevated at 1.2 troponin was negative. Nature peptide was elevated at 816 chest x-ray shows moderate enlargement of the heart with vascular congestion and small pleural effusions. CT of the abdomen was performed which showed evidence of ascites but this was not severe, general surgery was contacted and the case was discussed with general surgery. General surgery did not feel the patient warranted a paracentesis. Patient was admitted to PCU for acute on chronic systolic congestive heart failure, initially she was given IV Lasix but then her blood pressure declined and the Lasix was held. Follow-up chest x-ray done the next day showed resolution of the congestive heart failure. Patient's abdomen was distended but it was tympanic signifying that the patient was retaining air in her small intestine, this was felt to be a mild ileus by this examiner and she was given laxatives with some decrease in abdominal distention. During my examination, patient did not have any abdominal pain. On 12/06/17, patient was seen and examined she was felt stable to be discharged home, I discussed her care iPhone with her burn center nurse who recommended continuation of her diuretics for 48 hours and resume the diuretics at a lower dose. I relayed this to the patient and her daughter. Discharge Activity: Return to Normal Activity Home Medications: Medications to take at Discharge Levothyroxine [Synthroid] 112 mcg PO DAILY 08/17/16 Lisinopril [Zestril] 5 mg PO DAILY 08/17/16 Omeprazole [Prilosec] 20 mg PO DAILY 08/17/16 Docusate Sodium [Colace] 100 mg PO BID 11/10/16 Ondansetron HCl [Zofran] 4 mg PO PRN PRN 11/25/17 Acetaminophen [Tylenol] 1,000 mg PO Q4H PRN PRN 12/04/17 Nitroglycerin [Nitrostat] 0.4 mg SL PRN PRN 12/04/17 Carvedilol [Coreg (Beta Cherelle)] 6.25 mg PO BID tablet 12/06/17 Carvedilol [Coreg] 6.25 mg PO BID #1 tablet 12/06/17 Furosemide 40 mg PO BREAKFAST #1 tablet 12/06/17 Spironolactone 25 mg PO DAILY #1 tablet 12/06/17 Following Prescrptions Were Given to Patient: Furosemide 40 mg PO BREAKFAST #1 tablet Spironolactone 25 mg PO DAILY #1 tablet Carvedilol [Coreg] 6.25 mg PO BID #1 tablet Primary Care Physician: Sea Obando MD [Primary Care Provider] - Please follow up with your Primary Care Physician in: in 7-10 days Please Follow Up With: Duane Ware MD When: in Dec at regular appointmeent time Disposition: Home Minutes spent on discharge:: 34 Patient Condition:: Stable Medical Necessity - Tobacco Use Smoking Status: Never smoker Meaningful Use Info Meaningful Use Diagnoses (Choose all that apply): CHF - CHF KAREN/ARB ordered at discharge?: Yes Documented LVEF (%): 35 Code Visit Inpatient E&M: 62684 Disch Hosp
--- NOTE | 2017-12-07 08:07 | DS.PCM_ITS ---
Discharge Date and Diagnosis Date of Admission: 12/04/17 - Primary Discharge Diagnosis #1 acute on chronic systolic congestive heart failure #2 abdominal distention-questionable ileus #3 pulmonary hypertension #4 chronic anemia-patient CBC will be checked tomorrow again, patient's daughter states she sees Dr. Cid and receives IV iron at times #5 chronic atrial fibrillation #6 chronic kidney disease stage III #7 chronic ascites secondary to chronic systolic congestive heart failure #8 ischemic cardiomyopathy #9 left lower leg ecchymosis and hematoma secondary to recent fall - Secondary Discharge Diagnosis Chronic Problems Chronic systolic CHF (congestive heart failure) (Chronic) Paroxysmal a-fib (Chronic) Pulmonary HTN (Chronic) Hyponatremia (Chronic) Gastroesophageal reflux disease (Chronic) Iron (Fe) deficiency anemia (Chronic) Chronic congestive heart failure (Chronic) systolic. 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 Dumont Hypothyroidism (Chronic) Hospital Course and Treatment Operations: None Procedures: None Summary of Care Provided: The patient is a 82 year old F who was seen in the emergency room at [facility] after being sent in from her PCPs office with suspected recurrent ascites. She had undergone paracentesis in the past for the same problem. It was felt that the problem was secondary to systolic congestive heart failure. Examination in the ER revealed her to be in atrial fib which was a chronic rhythm at 74, white blood cell count was 3.1, hemoglobin was 9.1, platelet count was 120,000. Chemistry studies revealed a sodium 127, BUN of 58 , creatinine 1.25. Total bilirubin was slightly elevated at 1.2 troponin was negative. Nature peptide was elevated at 816 chest x-ray shows moderate enlargement of the heart with vascular congestion and small pleural effusions. CT of the abdomen was performed which showed evidence of ascites but this was not severe, general surgery was contacted and the case was discussed with general surgery. General surgery did not feel the patient warranted a paracentesis. Patient was admitted to PCU for acute on chronic systolic congestive heart failure, initially she was given IV Lasix but then her blood pressure declined and the Lasix was held. Follow-up chest x-ray done the next day showed resolution of the congestive heart failure. Patient's abdomen was distended but it was tympanic signifying that the patient was retaining air in her small intestine, this was felt to be a mild ileus by this examiner and she was given laxatives with some decrease in abdominal distention. During my examination, patient did not have any abdominal pain. On 12/06/17, patient was seen and examined she was felt stable to be discharged home, I discussed her care iPhone with her organ tuner who recommended continuation of her diuretics for 48 hours and resume the diuretics at a lower dose. I relayed this to the patient and her daughter. Discharge Activity: Return to Normal Activity Home Medications: Medications to take at Discharge Levothyroxine [Synthroid] 112 mcg PO DAILY 08/17/16 Lisinopril [Zestril] 5 mg PO DAILY 08/17/16 Omeprazole [Prilosec] 20 mg PO DAILY 08/17/16 Docusate Sodium [Colace] 100 mg PO BID 11/10/16 Ondansetron HCl [Zofran] 4 mg PO PRN PRN 11/25/17 Acetaminophen [Tylenol] 1,000 mg PO Q4H PRN PRN 12/04/17 Nitroglycerin [Nitrostat] 0.4 mg SL PRN PRN 12/04/17 Carvedilol [Coreg (Beta Cherelle)] 6.25 mg PO BID tablet 12/06/17 Carvedilol [Coreg] 6.25 mg PO BID #1 tablet 12/06/17 Furosemide 40 mg PO BREAKFAST #1 tablet 12/06/17 Spironolactone 25 mg PO DAILY #1 tablet 12/06/17 Following Prescrptions Were Given to Patient: Furosemide 40 mg PO BREAKFAST #1 tablet Spironolactone 25 mg PO DAILY #1 tablet Carvedilol [Coreg] 6.25 mg PO BID #1 tablet Primary Care Physician: Sea Obando MD [Primary Care Provider] - Please follow up with your Primary Care Physician in: in 7-10 days Please Follow Up With: Duane Ware MD When: in Dec at regular appointmeent time Disposition: Home Minutes spent on discharge:: 34 Patient Condition:: Stable Medical Necessity - Tobacco Use Smoking Status: Never smoker Meaningful Use Info Meaningful Use Diagnoses (Choose all that apply): CHF - CHF KAREN/ARB ordered at discharge?: Yes Documented LVEF (%): 35 Code Visit Inpatient E&M: [id number] Disch Hosp
--- NOTE | 2017-12-07 09:10 | CASEMGMT ---
/Ghada from [facility] notified of pt discharge on 12/06/17 and that resumption of care order was placed and SW added, voices understanding. Tamara GUIDRY CM
--- NOTE | 2017-12-07 16:53 | CASEMGMT ---
BREA BECKHAM Discharge F/U Phone Call LACE: 13 Strata: 4 Discharge date: 12/06/17 Call date: 12/07/17 Call time: [id number] Duration: 2 minutes Admission dx: Acute exacerbation of Heart failure Pt states has been doing 'ok' since discharge. Pt states that [facility] was out to see her today and she states no questions regarding medications or discharge instructions at this time. Pt states no suggestions for [facility] at this time. Pt states has f/u appt's scheduled and plans to keep them. Pt states no further questions/concerns/needs at this time. SStaten BREA BECKHAM
== END 2017-12-06 14:33 | disposition home or self-care (01) | DRG 292 ==
LOC: ED 17:08 → PCU 23:41
PROVIDERS: Surgery; Admitting Provider Hospitalist; Emergency Provider Emergency Medicine; Family Provider Family Medicine; PCP Family Medicine; Visit Provider Internal Medicine
DX: I50.813 Acute on chronic right heart failure (principal); D61.818 Other pancytopenia; I50.23 Acute on chronic systolic (congestive) heart failure; R14.0 Abdominal distension (gaseous); I27.20 Pulmonary hypertension, unspecified; D64.9 Anemia, unspecified; N18.3 Chronic kidney disease, stage 3 (moderate); I25.5 Ischemic cardiomyopathy; S80.12XD Contusion of left lower leg, subsequent encounter; W18.30XD Fall on same level, unspecified, subsequent encounter; I95.2 Hypotension due to drugs; T50.1X5A Adverse effect of loop [high-ceiling] diuretics, initial encounter; Y92.230 Patient room in hospital as the place of occurrence of the external cause; I48.2 Chronic atrial fibrillation; E03.9 Hypothyroidism, unspecified; I25.10 Atherosclerotic heart disease of native coronary artery without angina pectoris; K21.9 Gastro-esophageal reflux disease without esophagitis; Z86.718 Personal history of other venous thrombosis and embolism; Z95.5 Presence of coronary angioplasty implant and graft; Z95.1 Presence of aortocoronary bypass graft; Z79.899 Other long term (current) drug therapy
CPT/HCPCS: 36415; 71045; 71046; 74176; 80048; 80076; 83880; 84484; 85025; 85610; 85730; 93005; 93971; 97110; 97116; 97161; 97166; 97530; 97802; 99285; A4216; J1940; J2405

== ENCOUNTER 2017-12-09 15:56 | Emergency (ER) | payer MEDICARE, SELFPAY ==
[2017-12-09] VITALS (8 sets, daily range): BP systolic 92–114; BP diastolic 50–69; PULSE 67–96; RESP 15–22; TEMP 36.1; O2SAT 98–100; BMI 33.5
--- NOTE | 2017-12-09 16:42 | EKG12_ITS ---
Test Reason : ABNL PAIN Blood Pressure : / mmHG Vent. Rate : 088 BPM Atrial Rate : 107 BPM P-R Int : 000 ms QRS Dur : 118 ms QT Int : 394 ms P-R-T Axes : 000 024 056 degrees QTc Int : 476 ms Atrial fibrillation Low voltage QRS (limb leads) Incomplete left bundle branch block Abnormal ECG Confirmed by TIP SCHMIDT, ANDREW ([id number]), makeup editor SHREE FARLEY ([id number]) on 12/14/2017 1:51:45 PM Referred By: ADAN Confirmed By:ANDREW WHELAN MD
--- NOTE | 2017-12-09 16:47 | ED.DCSUM_ITS ---
History of Present Illness Chief Complaint: Abd Pain Informant: Patient, Family Limited by: - - discomfort/illness Onset: - - worse x several days Context: Gradual Onset Timing: Continuous Quality: pain, can't pass gas or have BM Location: abd, worse in upper Current Severity: Severe Maximum Severity: Severe Worsened by: nothing Relieved by: nothing despite taking laxatives/miralax Associated Symptoms: nausea. last BM 3d ago per home health RN. Narrative: Recently admitted for congestive heart failure. She was discharged a few days ago. Family states she has been having this abdominal pain for a long time and they have a hard time telling me any ballpark timeframe, they state that she had a fall and received a wound to her left lower extremity as a result about 3 weeks ago, and they do remember that she was having this abdominal discomfort then. She has had 2 paracenteses for ascites in the past 5 months, they do not know why she has ascites. When asked if they can confirm that she was in the hospital for congestive heart failure, they respond they told us she does not have that anymore. There is very little history available from the 2 family members or the patient. The patient states she is having a little more trouble breathing today now that her pain is severe, she denies having any chest discomfort. Her legs are chronically edematous and that sounds unchanged , they state that the redness of her left lower extremity is better than it has been for the last couple weeks, and now it looks good compared to how it looked after the wound. - Past Medical History (1) Ascites Status: Chronic (2) CAD (coronary artery disease) Status: Chronic Comment: Status post bypass in 2006, following with Dr. Dumont (3) Chronic systolic CHF (congestive heart failure) Status: Chronic (4) Gastroesophageal reflux disease Status: Chronic (5) Hyponatremia Status: Chronic (6) Hypothyroidism Status: Chronic (7) Iron (Fe) deficiency anemia Status: Chronic (8) Paroxysmal a-fib Status: Chronic (9) Pulmonary HTN Status: Chronic Past Medical History - Allergies and Home Meds Allergies/Adverse Reactions: Allergies azithromycin [From Zithromax] Allergy (Intermediate, Verified 12/09/17 15:57) Mucosal lesions Penicillins Allergy (Intermediate, Verified 12/09/17 15:57) Mucosal lesions Sulfa (Sulfonamide Antibiotics) Allergy (Intermediate, Verified 12/09/17 15:57) Mucosal lesions nausea cephalexin [From Keflex] Allergy (Verified 12/09/17 15:57) GI UPSET tobramycin Allergy (Verified 12/09/17 15:57) RED EYES metronidazole Adverse Reaction (Intermediate, Verified 12/09/17 15:57) Nausea diltiazem Adverse Reaction (Mild, Verified 12/09/17 15:57) Nausea/Vom/Diarrhea metolazone [From Zaroxolyn] Adverse Reaction (Mild, Verified 12/09/17 15:57) Nausea potassium chloride Adverse Reaction (Mild, Verified 12/09/17 15:57) Upset Stomach nystatin Adverse Reaction (Verified 12/09/17 15:57) Nausea spironolactone Adverse Reaction (Verified 12/09/17 15:57) Nausea Primary Care Physician: Sea Obando MD [Primary Care Provider] - Surgical History: cholecystectomy, coronary bypass surgery, hysterectomy Smoking Status: Never smoker - Family History Sibling Family History: Reports: Dementia, Heart Disease Paternal Family History: Reports: No pertinent history Maternal Family History: Reports: No pertinent history Review of Systems ROS: Unable to Obtain - able, but limited All systems negative except as indicated General: Reports: Malaise Cardiovascular: Denies: Chest pain Respiratory: Reports: Dyspnea, Orthopnea. Denies: Cough Gastrointestinal: Reports: Abdominal pain - and distension, Nausea, Constipation. Denies: Hematochezia Genitourinary: Denies: Dysuria, Hematuria Musculoskeletal: Reports: Extremity Pain - LLE. Denies: Neck pain, Back pain Skin: Reports: Wounds - improving LLE Neurological: Denies: Headache, Weakness, Parasthesia Physical Exam Vital Signs/Narrative: Vital Signs Temp Pulse Resp BP Pulse Ox 12/09/17 16:16 87 19 H 92/56 L 98 12/09/17 15:58 96.9 F L 67 18 105/62 98 Inital Vital Signs reviewed: Yes General: Well nourished, Well developed, - - moaning in pain Head: Normocephalic, Atraumatic Eyes: Perrl, EOMI ENT: Moist mucous membranes, No rhinorrhea Neck: Supple, Nontender Cardiovascular: Irregular, Murmur - soft CASSIA. Negative for: Tachycardia Respiratory: No distress, CTA bilaterally, Chest nontender Abdomen: Soft, Tender - diffuse, worst across upper abd, Hernia reducible - supraumbilical. nontender. no overlying erythema., - - distended. Negative for : Guarding, Rebound tenderness Back: Nontender, Normal Inspection. Negative for: CVA tenderness Extremities: Nontender, Edema - 2+ BLE symmetric Skin: No rash, Trauma - healing wound distal anterior left leg w/ granulation tissue present. erythema nontender throughout lower left leg to knee. Neurological: Alert, Cranial nerves II-XII grossly intact, Normal Strength, Normal Sensation Psychological: - - anxious Diagnostic/Tx/Re-eval Chest X-Ray - ED: 1 View, Read by Radiologist, CHF Impressions Chest X-Ray 12/09/17 16:50 Abdomen/Pelvis CT 12/09/17 17:15 IMPRESSION: The heart is enlarged. There are coronary arterial calcifications. Moderate right pleural effusion. Small left pleural effusion. These are stable. There is venous distention of the inferior vena cava (IVC). IVC thrombosis should be considered. There is diffuse subcutaneous edema. This can suggest anasarca when combined with pleural effusions and ascites. Other findings as above. Electronically Signed: Franc Topete MD at 18:07 EDT , Service support , ADDENDUM: 12/09/17 1836 12/09/17 16:50 Chest 1 View (Portable) [RAD] Stat 12/09/17 17:15 Abdomen/Pelvis without Cont [CT] Stat Laboratory Results 12/09/17 12/09/17 12/09/17 Range/Units 17:00 17:00 17:35 WBC 2.8 L (4.4-11.0) K/mm3 RBC 2.96 L (4.2-5.4) M/mm3 Hgb 8.9 L (12.0-15.0) g/dl Hct 27.9 L (37-47) % MCV 94.3 (81-99) fL MCH 30.1 (27.0-32.0) pg MCHC 31.9 L (32-36) g/gl RDW 19.1 H (11.6-14.6) % RDW Differential 65.8 H (35.1-43.9) fl Plt Count 154 (150-450) K/mm3 MPV 8.5 (6.2-12.0) fl Immature Gran % (Auto) 0.000 (0.0-0.9) % Neut % (Auto) 65.1 (47-70) % Lymph % (Auto) 14.0 L (19-41) % [place] % (Auto) 14.4 H (0-10) % Eos % (Auto) 6.1 H (0-5) % Baso % (Auto) 0.4 (0-1) % Absolute Neuts (auto) 1.8 L (2.0-7.7) X10^3/uL Absolute Lymphs (auto) 0.39 L (0.83-4.51) X10^3/ul Total Counted Not Reportable Differential Comment SCANNED Diff Path Review May foll RBC Morphology 1+ Anisocytosis 1+ Ovalocytes RARE Schistocytes RARE Sodium 123 L (136-145) mmol/L Potassium 5.2 H (3.5-5.1) mmol/L Chloride 88 L (98-107) mmol/L Carbon Dioxide 30.0 (21.0-32.0) mmol/L Anion Gap 5 (5-15) BUN 53 H (7-18) mg/dL Creatinine 1.31 H (0.55-1.02) mg/dL Estim Creat Clear Calc 26.92 ml/min Est GFR (MDRD) Af Amer 50 L (>60) mL/min Est GFR (MDRD) Non-Af 41 L (>60) mL/min BUN/Creatinine Ratio 40.5 H (10-20) RATIO Glucose 90 (74-106) mg/dL Calcium 8.2 L (8.5-10.1) mg/dL Total Bilirubin 1.10 H (0.20-1.00) mg/dL AST 21 (15-37) U/L ALT 13 (13-56) U/L Alkaline Phosphatase 101 (45-117) U/L Troponin I < 0.015 (<0.045) ng/mL Total Protein 7.6 (6.4-8.2) g/dL Albumin 3.4 (3.2-5.0) g/dL Globulin 4.2 (2.2-4.2) g/dL Albumin/Globulin Ratio 0.8 L (0.9-2.4) RATIO Lipase 199 (73-393) U/L Urine Color Yellow (Yellow) Urine Clarity Clear (Clear) Urine pH 5.0 (5.0 - 8.0) Ur Specific Honor 1.010 (1.002-1.030) Urine Protein Negative (Negative) mg/dl Urine Glucose (UA) Normal (Normal) mg/dl Urine Ketones Negative (Negative) mg/dl Urine Occult Blood Negative (Negative) /ul Urine Nitrite Negative (Negative) Urine Bilirubin Negative (Negative) mg/dL Urine Urobilinogen Normal (Normal) mg/dl Ur Leukocyte Esterase Negative (Negative) /ul Urine RBC 0 SEEN (0-5) /hpf Urine WBC 0 SEEN (0-5) /hpf Ur Squamous Epith Cells 0-5 SEEN (5-10) /hpf Urine Bacteria 1+ (None Seen) /hpf Urine Mucus 0 SEEN (<or=2+) /hpf - Rhythm Strip Rhythm Strip: A-fib Rate: 70 Ectopy: None - EKG Initial EKG Interpretation: No Acute Injury Pattern, Atrial Fibrillation, LBBB - incomplete Prior: Unchanged - Medical Decision Making Patient was discharged from the hospital 2 days ago, she was in for an exacerbation of congestive heart failure. She had abdominal distention in the hospital, CAT scan showed ascites, general surgery was consulted but felt like there was not enough ascites to perform a meaningful paracentesis, the hospitalist felt that she had an ileus as well and treat her with laxatives, and documented on her abdominal distention improved. Family states it is worse now. She states she is unable to have a bowel movement. CT shows ascites and SQ edema / anasarca, but no acute small bowel obstruction. The other issue, however, is that according to the radiologist, she has a very dilated IVC, along with an IVC filter present, with the appearance that it is thrombosed. I called the radiologist and discussed with him, he compared to other CTs and it seems to be that the IVC was dilated maybe for about the past year. Compared with a scan 4 days ago, the ascites and pleural effusions are similar and no worse today. We will treat her with an enema and reevaluate. She is still uncomfortable after Zofran and morphine, and belching. Family would like her to have an enema /laxative to see if it helps her have a bowel movement. They state that she is DNR but the paperwork is at home. From their description, it sounds like she is a DNR-CCA. Her dyspnea is probably more likely due to her abdominal distention, rather than her congestive heart failure, her x-ray does show some venous congestion but no overt pulmonary edema. She does have a chronic right pleural effusion as well, probably contributing to her decreased respiratory reserve. She has been diuresed aggressively recently, and this may be why she also is more hyponatremic than she recently was with a sodium of 123. Her renal insufficiency is slightly worse than usual at 1.31 and she has mild hyperkalemia at 5.2, although she has no EKG changes of this. Given her acute kidney injury and the chronic nature of possible IVC thrombosis , scanning her emergently to image the IVC with contrast is not necessary. Plan is to admit her, optimize her renal function, watch her potassium which does not need to be treated emergently at this time, hopefully it will improve with gentle hydration, as well her sodium, and perform further testing to confirm or disconfirm possible IVC thrombosis. I did discuss that if this were to be treated surgically or via catheter, there would be risks, such as IVC perforation/rupture, in addition to pulmonary emboli and bleeding from blood thinner. This is not totally inclusive nor exclusive of that list of possible complications. The family is not sure if they would want her to have treatment for this or not, but they are interested in learning more about what is going on. Her total bilirubin is slightly elevated and her other liver enzymes are normal, and certainly that could be consistent with this diagnosis. Discussed with hospitalist, Dr. Beckwith. She evaluated the patient and talked with family as well, and there are more family members there at that time. Conclusion of that discussion and mind is that they want more testing and evaluation for this problem. This is not something that we have the specialists to treat here, that may involve interventional radiology, vascular surgery, or both. Family prefers [facility] but they do not have any beds. They then prefer [facility], accepted there by Dr. Perry. Of note, patient had her CABG in 2006 at [facility] in [place], and she has never been to a different hospital in the area other than this one here in [place]. ED Disposition - Plan for ED Patient: Disposition: [facility] Chief Complaint: Abd Pain Diagnosis: JULISSA (acute kidney injury), Hyponatremia, Hyperkalemia, Chronic congestive heart failure, Anasarca, Chronic thrombosis of inferior vena cava Referrals: Sea Obando MD [Primary Care Provider] -
--- NOTE | 2017-12-09 16:50 | RAD_ITS ---
STUDY: X-RAY CHEST REASON FOR EXAM: Female, 82 years old. Abdominal PAIN TECHNIQUE: Single frontal view of the chest. COMPARISON: 7.29.18 FINDINGS: There are multiple median sternotomy wires. Slight prominence of the pulmonary vasculature. Fluffy bilateral infiltrates. There is no pneumothorax. There are bilateral pleural effusions. The osseous structures are intact. The heart appears enlarged. Normal mediastinum and laisha. There is prominence of the pulmonary hilar arteries and peripheral pulmonary arteries, consistent with congestive heart failure (CHF). There is atherosclerotic calcification of the aortic arch with tortuosity. There are diffuse degenerative changes of the visualized thoracic spine. There is degenerative osteoarthritis of the bilateral shoulders. There is no demonstrated abnormality of the visualized soft tissue structures of the upper abdomen. IMPRESSION: Central pulmonary vascular congestion vs pulmonary edema. Overlying pneumonia cannot be excluded. Electronically Signed: Franc Topete MD at 17:13 EDT , Service support , RAD/Chest 1 View (Portable)
--- NOTE | 2017-12-09 16:58 | CM.ED ---
Social Work Note Call from Eligio with [facility] stating that she was going out for a visit today when the pt was encouraged by shoe caser at [facility] to come to the ED. States that pt was heading in, and she will f/u with the pt once [facility] is reestablished. RN CM on assigned unit to follow for discharge planning. Cheryl Kline, METAL MIXER, SECURITY ASSURANCE SPECIALIST
[2017-12-09] MEDS: Ondansetron 4 MG/2 ML Vial IV (17:07)
[2017-12-09] MEDS: Morphine 4 MG/ML Syringe IV (17:08)
--- NOTE | 2017-12-09 17:15 | CT_ITS ---
STUDY: CT ABDOMEN AND PELVIS WITHOUT CONTRAST REASON FOR EXAM: Female, 82 years old. Abdominal pain DISTENTION, PAIN BLOATING, NAUSEA, INCREASED ASCITES RADIATION DOSAGE (If Supplied By Facility): CTDIvol = ( 17.64 ) mGy, DLP = ( 1157.56 ) mGycm TECHNIQUE: Transaxial images were obtained from the dome of the diaphragm to the symphysis pubis without oral contrast, and without intravenous contrast. Sagittal and coronal images were reconstructed. COMPARISON: CT December 04, 2017. FINDINGS: There are atherosclerotic calcifications of visualized coronary arteries. The heart is enlarged. Moderate right pleural effusion. Small left pleural effusion. These are stable. Normal liver. There is non-visualization of the gallbladder, which may be secondary to either contraction or a prior cholecystectomy. Perihepatic free fluid. Normal spleen. Normal pancreas. Multiple median sternotomy wires are noted consistent for cardiac surgery. Normal bilateral adrenal glands. Normal right kidney. Normal left kidney. Normal visualized stomach. Normal small intestine. Normal colon. There is non-visualization of the appendix. There are calcifications of the abdominal aorta and vascular structures. This is consistent for atherosclerotic disease. There is no abdominal aortic aneurysm. There is venous distention of the inferior vena cava (IVC). An IVC filter is in place. Subcentimeter mesenteric lymph nodes. Normal urinary bladder. There is absence of the uterus consistent with a prior hysterectomy. Trace free fluid in the pelvis. There is subcutaneous edema. There are multiple superficial venous collaterals noted in the inguinal region. Normal abdominal wall. There are degenerative changes of the osseous structures. Degenerative findings of the hips. CT/Abdomen/Pelvis without Cont IMPRESSION: The heart is enlarged. There are coronary arterial calcifications. Moderate right pleural effusion. Small left pleural effusion. These are stable. There is venous distention of the inferior vena cava (IVC). IVC thrombosis should be considered. There is diffuse subcutaneous edema. This can suggest anasarca when combined with pleural effusions and ascites. Other findings as above. Electronically Signed: Franc Topete MD at 18:07 EDT , Service support ,
[2017-12-09 17:26] LABS: Absolute Lymphocyte Count 0.39 X10^3/ul (0.83-4.51); Absolute Neutrophil Count 1.8 X10^3/uL (2.0-7.7); Basophil# 0.01 X10^3/uL; Basophil% 0.4 % (0-1); Differential Indicated SCAN CRITERIA MET; Eosinophil# 0.17 X10^3/uL; Eosinophils% 6.1 % (0-5); Hematocrit 27.9 % (37-47); Hemoglobin 8.9 g/dl (12.0-15.0); Lymphocyte # 0.39 X10^3/ul (4.0); Mean Corp Hgb Conc 31.9 g/gl (32-36); Mean Corpuscular Hgb 30.1 pg (27.0-32.0); Mean Corpuscular Volume 94.3 fL (81-99); Mean Platelet Vol. 8.5 fl (6.2-12.0); Monocyte% 14.4 % (0-10); Neutrophil # 1.81 X10^3/uL (2.7-7.7); Neutrophil % 65.1 % (47-70); POSITIVE COUNT NO; POSITIVE DIFFERENTIAL YES; POSITIVE MORPHOLOGY YES; Platelet Count 154 K/mm3 (150-450); RBC Distribution Width CV 19.1 % (11.6-14.6); RBC Distribution Width SD 65.8 fl (35.1-43.9); Red Blood Count 2.96 M/mm3 (4.2-5.4); White Blood Count 2.8 K/mm3 (4.4-11.0)
[2017-12-09 17:29] LABS: ALB/GLOB Ratio 0.8 RATIO (0.9-2.4); AST(SGOT) 21 U/L (15-37); Alanine Aminotransfer ALT/SGPT 13 U/L (13-56); Albumin, Serum 3.4 g/dL (3.2-5.0); Alkaline Phosphatase 101 U/L (45-117); Anion Gap 5 (5-15); BUN 53 mg/dL (7-18); BUN/Creat Ratio 40.5 RATIO (10-20); Calcium,Total 8.2 mg/dL (8.5-10.1); Chloride 88 mmol/L (98-107); Creatinine, Serum 1.31 mg/dL (0.55-1.02); EST Glomerular Filtration Rate 41 mL/min (>60); Est Glom Filt Rate - Afr Amer 50 mL/min (>60); Estimated Creatinine Clearance 26.92 ml/min; Globulin 4.2 g/dL (2.2-4.2); Glucose 90 mg/dL (74-106); Lipase 199 U/L (73-393); Potassium 5.2 mmol/L (3.5-5.1); Protein, Total 7.6 g/dL (6.4-8.2); Sodium Level 123 mmol/L (136-145)
[2017-12-09 17:41] LABS: Mucous, Urine 0 SEEN /hpf (<or=2+); Red Blood Cells-Urine 0 SEEN /hpf (0-5); White Blood Cells 0 SEEN /hpf (0-5)
[2017-12-09 17:45] LABS: Anisocytosis 1+; Crenated RBC 1+; Differential Comment SCANNED; Ovalocyte RARE; Schistocytes RARE
[2017-12-09 17:52] LABS: Color, Urine Yellow (Yellow); Glucose, Dipstick Normal (Normal); Ketone-Dipstick Negative (Negative); Leukocyte Esterase-Dipstick Negative /ul (Negative); Nitrite-Dipstick Negative (Negative); Occult Blood-Urine Negative /ul (Negative); Protein-Dipstick Negative (Negative); Urine Bilirubin Dipstick Negative (Negative); Urine Clarity Clear (Clear); Urine Urobilinogen Normal (Normal)
[2017-12-09 18:19] LABS: Bacteria 1+ /hpf (None Seen); Squamous Epithelial Cells - UA 0-5 SEEN /hpf (5-10)
[2017-12-09] MEDS: 0.9% Normal Saline 1,000 ML 100 ML IV (19:15)
[2017-12-09] MEDS: Fleet Enema 1 ML RECTAL (19:15)
[2017-12-10 13:55] LABS: Pathologist Review Reviewed
== END 2017-12-09 22:32 | disposition short-term general hospital (02) ==
PROVIDERS: Emergency Provider Emergency Medicine; Family Provider Family Medicine; PCP Family Medicine
DX: N17.9 Acute kidney failure, unspecified (principal); R60.1 Generalized edema; E87.1 Hypo-osmolality and hyponatremia; E87.5 Hyperkalemia; I50.22 Chronic systolic (congestive) heart failure; I82.221 Chronic embolism and thrombosis of inferior vena cava; I25.10 Atherosclerotic heart disease of native coronary artery without angina pectoris; K21.9 Gastro-esophageal reflux disease without esophagitis; E03.9 Hypothyroidism, unspecified; I27.20 Pulmonary hypertension, unspecified; Z95.1 Presence of aortocoronary bypass graft; Z66 Do not resuscitate; Z79.899 Other long term (current) drug therapy
CPT/HCPCS: 51702; 71045; 74176; 80053; 81001; 83690; 84484; 85025; 93005; 96361; 96374; 96375; 99285; J7030; A4216; J2405

== ENCOUNTER 2018-02-01 15:46 | Outpatient (RCR) | payer MEDICARE, SELFPAY ==
[2018-02-01 16:33] LABS: Hematocrit 29.5 % (37-47); Mean Corp Hgb Conc 30.5 g/gl (32-36); Mean Corpuscular Hgb 31.5 pg (27.0-32.0); Mean Corpuscular Volume 103.1 fL (81-99); Mean Platelet Vol. 8.7 fl (6.2-12.0); Platelet Count 168 K/mm3 (150-450); RBC Distribution Width CV 18.8 % (11.6-14.6); Red Blood Count 2.86 M/mm3 (4.2-5.4); Scan Indicated on CBC? Y/N YES- FLAGS NOTED
[2018-02-01 16:36] LABS: BUN 27 mg/dL (7-18); EST Glomerular Filtration Rate 56 mL/min (>60); Est Glom Filt Rate - Afr Amer 68 mL/min (>60); Glucose 78 mg/dL (74-106)
[2018-02-01 16:37] LABS: Anion Gap 6 (5-15); Chloride 92 mmol/L (98-107); Potassium 3.8 mmol/L (3.5-5.1); Sodium Level 130 mmol/L (136-145)
== END 2018-02-07 23:59 ==
LOC: HHLAB 15:46
PROVIDERS: Family Provider Family Medicine; PCP Family Medicine; Visit Provider Internal Medicine Cardiovascular Disease
DX: D50.0 Iron deficiency anemia secondary to blood loss (chronic) (principal); R60.1 Generalized edema
CPT/HCPCS: 80048; 85027

== ENCOUNTER → 2018-02-04 12:59 | Outpatient (CLI) | payer MEDICARE, SELFPAY ==
--- NOTE | 2018-02-04 13:13 | US_ITS ---
PROCEDURE: Ultrasound guided paracentesis. DATE OF EXAMINATION: February 04, 2018. INDICATION: Female, 82 years old. Ascites. PHYSICIAN: Ted Shetty M.D. TECHNIQUE: The risks, benefits, and alternatives to the procedure were explained to the patient. The specific risks of bleeding, infection, and damage to bowel were detailed and accepted. Witnessed informed consent was obtained. The abdomen was ultrasonographically surveyed. An appropriate pocket of fluid was identified at the right lower quadrant. The skin were cleaned and prepped in the usual sterile fashion. Using ultrasound guidance, the peritoneal cavity was accessed with a 5-Peruvian paracentesis needle/catheter system. The trocar was removed. A total of 3620 ml of dark gris-colored fluid were removed from the peritoneal cavity. The catheter was removed and a sterile dressing was applied. A 120 mL sample was sent to the laboratory for analysis. The procedure was well tolerated. US/Paracentesis with US IMPRESSION: Ultrasound guided paracentesis. Electronically Signed: Ted Shetty MD at 15:25 EDT Tel [phone], Service support ,
[2018-02-04 13:42] LABS: International Normalized Ratio 1.3; Prothrombin Time (Protime)PT. 16.6 SECONDS (11.7-14.9)
[2018-02-04 13:43] LABS: Partial Thromboplast Time 34.3 Seconds (24.1-36.2)
[2018-02-04 14:35] VITALS: BP 100/62; PULSE 82; RESP 30; O2SAT 94; BMI 29.9
[2018-02-04 15:07] VITALS: BP 100/58; PULSE 76; RESP 30; O2SAT 98
== END ==
PROVIDERS: Family Provider Family Medicine; PCP Family Medicine; Referring Provider Family Medicine; Visit Provider Family Medicine
DX: I50.42 Chronic combined systolic (congestive) and diastolic (congestive) heart failure (principal); R18.8 Other ascites
CPT/HCPCS: 36415; 49083; 85610; 85730

== ENCOUNTER 2018-02-15 12:00 | Outpatient (RCR) | payer MEDICARE, SELFPAY ==
[2018-02-08 18:17] LABS: Hematocrit 29.6 % (37-47); Hemoglobin 8.9 g/dl (12.0-15.0); Mean Corp Hgb Conc 30.1 g/gl (32-36); Mean Corpuscular Volume 99.7 fL (81-99); Mean Platelet Vol. 9.2 fl (6.2-12.0); Platelet Count 59 K/mm3 (150-450); RBC Distribution Width CV 18.7 % (11.6-14.6); RBC Distribution Width SD 68.1 fl (35.1-43.9); Red Blood Count 2.97 M/mm3 (4.2-5.4); Scan Indicated on CBC? Y/N YES- FLAGS NOTED
[2018-02-15 14:46] LABS: Hematocrit 30.5 % (37-47); Hemoglobin 9.2 g/dl (12.0-15.0); Mean Corp Hgb Conc 30.2 g/gl (32-36); Mean Corpuscular Hgb 29.4 pg (27.0-32.0); Mean Corpuscular Volume 97.4 fL (81-99); Mean Platelet Vol. 9.2 fl (6.2-12.0); Platelet Count 138 K/mm3 (150-450); RBC Distribution Width CV 18.4 % (11.6-14.6); RBC Distribution Width SD 65.5 fl (35.1-43.9); Red Blood Count 3.13 M/mm3 (4.2-5.4)
[2018-02-15 14:48] LABS: Scan Indicated on CBC? Y/N YES- FLAGS NOTED
[2018-02-15 15:05] LABS: Differential Comment SCANNED
== END 2018-03-10 23:59 ==
LOC: HHLAB 12:00
PROVIDERS: Family Provider Family Medicine; PCP Family Medicine; Referring Provider Internal Medicine Cardiovascular Disease; Visit Provider Internal Medicine Cardiovascular Disease
DX: I13.0 Hypertensive heart and chronic kidney disease with heart failure and stage 1 through stage 4 chronic kidney disease, or unspecified chronic kidney disease (principal); N18.3 Chronic kidney disease, stage 3 (moderate); I50.22 Chronic systolic (congestive) heart failure; D50.0 Iron deficiency anemia secondary to blood loss (chronic); I25.10 Atherosclerotic heart disease of native coronary artery without angina pectoris; I48.0 Paroxysmal atrial fibrillation; I86.8 Varicose veins of other specified sites; Z86.718 Personal history of other venous thrombosis and embolism; Z95.1 Presence of aortocoronary bypass graft; Z87.440 Personal history of urinary (tract) infections
CPT/HCPCS: 85027

== ENCOUNTER → 2018-02-16 13:11 | Outpatient (CLI) | payer MEDICARE, SELFPAY ==
--- NOTE | 2018-02-16 13:25 | US_ITS ---
PROCEDURE: ULTRASOUND GUIDED PARACENTESIS CLINICAL HISTORY: Female, 82 years old. Ascites. CONSENT: Informed written witnessed consent obtained. Time-Out Called: Yes. Consent form signed: Yes. PT-PTT Levels Checked: Yes. SEDATION: Local with 2% lidocaine, 5 cc. TECHNIQUE: The risks, benefits, and alternatives to the procedure were explained to the patient. The specific risks of bleeding, infection, nerve damage and damage to bowel were detailed and accepted. Witnessed written informed consent was obtained. The abdomen was ultrasonographically surveyed. An appropriate pocket of fluid was identified at the left lower quadrant. The skin was cleaned and prepped in the usual sterile fashion. Using ultrasound guidance, the peritoneal cavity was accessed with a 5-Occitan paracentesis needle/catheter system. The trocar was removed. A total of 2800 ml of gris-colored fluid were removed from the peritoneal cavity. The catheter was removed and a sterile dressing was applied. The procedure was well tolerated without any immediate complication identified. US/Paracentesis with US IMPRESSION: Successful ultrasound guided left paracentesis. Electronically Signed: Papito Cody, at 15:09 EDT Tel , Service support ,
[2018-02-16 13:45] VITALS: BP 111/61; PULSE 91; RESP 18; O2SAT 95; BMI 25.7
[2018-02-16 14:10] VITALS: BP 106/64; PULSE 78; RESP 18; O2SAT 95
== END ==
PROVIDERS: Family Provider Family Medicine; PCP Family Medicine; Referring Provider Family Medicine; Visit Provider Family Medicine
DX: R18.8 Other ascites (principal); I50.42 Chronic combined systolic (congestive) and diastolic (congestive) heart failure
CPT/HCPCS: 49083

== ENCOUNTER → 2018-02-22 18:47 | Outpatient (CLI) | payer MEDICARE, SELFPAY ==
[2018-02-22 19:21] LABS: Hematocrit 31.1 % (37-47); Hemoglobin 9.3 g/dl (12.0-15.0); Mean Corp Hgb Conc 29.9 g/gl (32-36); Mean Corpuscular Hgb 29.9 pg (27.0-32.0); Mean Platelet Vol. 9.5 fl (6.2-12.0); Platelet Count 136 K/mm3 (150-450); RBC Distribution Width CV 18.6 % (11.6-14.6); RBC Distribution Width SD 64.7 fl (35.1-43.9); Red Blood Count 3.11 M/mm3 (4.2-5.4); White Blood Count 3.1 K/mm3 (4.4-11.0)
[2018-02-22 19:22] LABS: Scan Indicated on CBC? Y/N NO
== END ==
PROVIDERS: Family Provider Family Medicine; PCP Family Medicine; Referring Provider Internal Medicine Cardiovascular Disease; Visit Provider Internal Medicine Cardiovascular Disease
DX: D69.6 Thrombocytopenia, unspecified (principal)
CPT/HCPCS: 85027

== ENCOUNTER → 2018-02-23 12:07 | Outpatient (CLI) | payer MEDICARE, SELFPAY ==
--- NOTE | 2018-02-23 12:11 | US_ITS ---
PROCEDURE: Ultrasound guided paracentesis. DATE OF EXAMINATION: February 23, 2018.. INDICATION: Female, 82 years old. Ascites. PHYSICIAN: Ted Shetty M.D. TECHNIQUE: The risks, benefits, and alternatives to the procedure were explained to the patient. The specific risks of bleeding, infection, and damage to bowel were detailed and accepted. Witnessed informed consent was obtained. The abdomen was ultrasonographically surveyed. An appropriate pocket of fluid was identified at the right lower quadrant. The skin were cleaned and prepped in the usual sterile fashion. Using ultrasound guidance, the peritoneal cavity was accessed with a 5-British paracentesis needle/catheter system. The trocar was removed. A total of 2400 ml of gris color fluid were removed from the peritoneal cavity. The catheter was removed and a sterile dressing was applied. The procedure was well tolerated. US/Paracentesis with US IMPRESSION: Ultrasound guided paracentesis. Electronically Signed: Ted Shetty MD at 14:44 EDT Tel [phone], Service support ,
== END ==
PROVIDERS: Family Provider Family Medicine; PCP Family Medicine; Referring Provider Family Medicine; Visit Provider Family Medicine
DX: R18.8 Other ascites (principal); I50.42 Chronic combined systolic (congestive) and diastolic (congestive) heart failure
CPT/HCPCS: 49083

== ENCOUNTER → 2018-03-02 11:43 | Outpatient (CLI) | payer MEDICARE, SELFPAY ==
--- NOTE | 2018-03-02 11:47 | US_ITS ---
PROCEDURE: Ultrasound guided paracentesis. DATE OF EXAMINATION: March 02, 2018. INDICATION: Female, 82 years old. Ascites. PHYSICIAN: Ted Shetty M.D. TECHNIQUE: The risks, benefits, and alternatives to the procedure were explained to the patient. The specific risks of bleeding, infection, and damage to bowel were detailed and accepted. Witnessed informed consent was obtained. The abdomen was ultrasonographically surveyed. An appropriate pocket of fluid was identified at the left lower quadrant. The skin were cleaned and prepped in the usual sterile fashion. Using ultrasound guidance, the peritoneal cavity was accessed with a 5-Cook Islander paracentesis needle/catheter system. The trocar was removed. A total of 1950 ml of gris-colored fluid were removed from the peritoneal cavity. The catheter was removed and a sterile dressing was applied. The procedure was well tolerated. US/Paracentesis with US IMPRESSION: Ultrasound guided paracentesis. Electronically Signed: Ted Shetty MD at 13:22 EDT Tel [phone], Service support ,
== END ==
PROVIDERS: Family Provider Family Medicine; PCP Family Medicine; Referring Provider Family Medicine; Visit Provider Family Medicine
DX: R18.8 Other ascites (principal); I50.42 Chronic combined systolic (congestive) and diastolic (congestive) heart failure
CPT/HCPCS: 49083

== ENCOUNTER → 2018-03-09 13:18 | Outpatient (CLI) | payer MEDICARE, SELFPAY ==
--- NOTE | 2018-03-09 13:37 | US_ITS ---
PROCEDURE: Ultrasound guided paracentesis. DATE OF EXAMINATION: March 09, 2018. INDICATION: Female, 82 years old. Ascites. PHYSICIAN: Ted Shetty M.D. TECHNIQUE: The risks, benefits, and alternatives to the procedure were explained to the patient. The specific risks of bleeding, infection, and damage to bowel were detailed and accepted. Witnessed informed consent was obtained. The abdomen was ultrasonographically surveyed. An appropriate pocket of fluid was identified at the left lower quadrant. The skin were cleaned and prepped in the usual sterile fashion. Using ultrasound guidance, the peritoneal cavity was accessed with a 5-Vincentian paracentesis needle/catheter system. The trocar was removed. A total of 2250 ml of gris-colored fluid were removed from the peritoneal cavity. The catheter was removed and a sterile dressing was applied. The procedure was well tolerated. US/Paracentesis with US IMPRESSION: Ultrasound guided paracentesis. Electronically Signed: Ted Shetty MD at 8:03 EDT Tel [phone], Service support ,
[2018-03-09 13:50] LABS: International Normalized Ratio 1.3; Prothrombin Time (Protime)PT. 16.2 SECONDS (11.7-14.9)
[2018-03-09 13:51] LABS: Partial Thromboplast Time 31.8 Seconds (24.1-36.2)
== END ==
PROVIDERS: Family Provider Family Medicine; PCP Family Medicine; Referring Provider Family Medicine; Visit Provider Family Medicine
DX: R18.8 Other ascites (principal); I50.42 Chronic combined systolic (congestive) and diastolic (congestive) heart failure; K76.6 Portal hypertension
CPT/HCPCS: 36415; 49083; 85610; 85730

== ENCOUNTER → 2018-03-16 13:49 | Outpatient (CLI) | payer MEDICARE, SELFPAY ==
--- NOTE | 2018-03-16 14:15 | US_ITS ---
PROCEDURE: Ultrasound guided paracentesis. DATE OF EXAMINATION: March 16, 2018.. INDICATION: Female, 82 years old. Ascites. PHYSICIAN: Ted Shetty M.D. TECHNIQUE: The risks, benefits, and alternatives to the procedure were explained to the patient. The specific risks of bleeding, infection, and damage to bowel were detailed and accepted. Witnessed informed consent was obtained. The abdomen was ultrasonographically surveyed. An appropriate pocket of fluid was identified at the left lower quadrant. The skin were cleaned and prepped in the usual sterile fashion. Using ultrasound guidance, the peritoneal cavity was accessed with a 5-Turkish paracentesis needle/catheter system. The trocar was removed. A total of 1650 ml of gris-colored fluid were removed from the peritoneal cavity. The catheter was removed and a sterile dressing was applied. The procedure was well tolerated. US/Paracentesis with US IMPRESSION: Ultrasound guided paracentesis. Electronically Signed: Ted Shetty MD at 15:42 EST Tel [phone], Service support ,
[2018-03-16 14:48] LABS: Anion Gap 7 (5-15); BUN 23 mg/dL (7-18); Calcium,Total 7.8 mg/dL (8.5-10.1); Chloride 97 mmol/L (98-107); Creatinine, Serum 0.96 mg/dL (0.55-1.02); EST Glomerular Filtration Rate 59 mL/min (>60); Est Glom Filt Rate - Afr Amer 71 mL/min (>60); Glucose 116 mg/dL (74-106); Potassium 3.6 mmol/L (3.5-5.1); Sodium Level 133 mmol/L (136-145)
== END ==
PROVIDERS: Family Provider Family Medicine; PCP Family Medicine; Referring Provider Family Medicine; Visit Provider Family Medicine
DX: R18.8 Other ascites (principal); I50.42 Chronic combined systolic (congestive) and diastolic (congestive) heart failure; K76.6 Portal hypertension
CPT/HCPCS: 36415; 49083; 80048

== ENCOUNTER → 2018-03-23 14:07 | Outpatient (CLI) | payer MEDICARE, SELFPAY ==
--- NOTE | 2018-03-23 14:10 | US_ITS ---
PROCEDURE: Ultrasound guided paracentesis. DATE OF EXAMINATION: March 23, 2018.. INDICATION: Female, 82 years old. Ascites. PHYSICIAN: Ted Shetty M.D. TECHNIQUE: The risks, benefits, and alternatives to the procedure were explained to the patient. The specific risks of bleeding, infection, and damage to bowel were detailed and accepted. Witnessed informed consent was obtained. The abdomen was ultrasonographically surveyed. An appropriate pocket of fluid was identified at the left lower quadrant. The skin were cleaned and prepped in the usual sterile fashion. Using ultrasound guidance, the peritoneal cavity was accessed with a 5-Yemeni paracentesis needle/catheter system. The trocar was removed. A total of 1050 ml of gris-colored fluid were removed from the peritoneal cavity. The catheter was removed and a sterile dressing was applied. The procedure was well tolerated. US/Paracentesis with US IMPRESSION: Ultrasound guided paracentesis. Electronically Signed: Ted Shetty MD at 15:49 EST Tel [phone], Service support ,
== END ==
PROVIDERS: Family Provider Family Medicine; PCP Family Medicine; Referring Provider Family Medicine; Visit Provider Family Medicine
DX: R18.8 Other ascites (principal); K76.6 Portal hypertension; I50.42 Chronic combined systolic (congestive) and diastolic (congestive) heart failure
CPT/HCPCS: 49083

== ENCOUNTER → 2018-03-30 14:06 | Outpatient (CLI) | payer MEDICARE, SELFPAY ==
--- NOTE | 2018-03-30 14:10 | US_ITS ---
PROCEDURE: Ultrasound guided paracentesis. DATE OF EXAMINATION: March 30, 2018.. INDICATION: Female, 82 years old. Ascites. PHYSICIAN: Ted Shetty M.D. TECHNIQUE: The risks, benefits, and alternatives to the procedure were explained to the patient. The specific risks of bleeding, infection, and damage to bowel were detailed and accepted. Witnessed informed consent was obtained. The abdomen was ultrasonographically surveyed. An appropriate pocket of fluid was identified at the right lower quadrant. The skin were cleaned and prepped in the usual sterile fashion. Using ultrasound guidance, the peritoneal cavity was accessed with a 5-South Sudanese paracentesis needle/catheter system. The trocar was removed. A total of 2000 ml of gris-colored fluid were removed from the peritoneal cavity. The catheter was removed and a sterile dressing was applied. The procedure was well tolerated. US/Paracentesis with US IMPRESSION: Ultrasound guided paracentesis. Electronically Signed: Ted Shetty MD at 15:30 EST Tel [phone], Service support ,
[2018-03-30 14:45] VITALS: BP 101/54; BP 101/65; PULSE 70; PULSE 94; RESP 22; RESP 27; O2SAT 95; O2SAT 96
== END ==
PROVIDERS: Family Provider Family Medicine; PCP Family Medicine; Referring Provider Family Medicine; Visit Provider Family Medicine
DX: R18.8 Other ascites (principal); K76.6 Portal hypertension; I50.42 Chronic combined systolic (congestive) and diastolic (congestive) heart failure
CPT/HCPCS: 49083

== ENCOUNTER → 2018-04-06 14:06 | Outpatient (CLI) | payer MEDICARE, SELFPAY ==
--- NOTE | 2018-04-06 14:10 | US_ITS ---
PROCEDURE: Ultrasound guided paracentesis. DATE OF EXAMINATION: April 06, 2018. INDICATION: Female, 82 years old. Ascites. PHYSICIAN: Ted Shetty M.D. TECHNIQUE: The risks, benefits, and alternatives to the procedure were explained to the patient. The specific risks of bleeding, infection, and damage to bowel were detailed and accepted. Witnessed informed consent was obtained. The abdomen was ultrasonographically surveyed. An appropriate pocket of fluid was identified at the left lower quadrant. The skin were cleaned and prepped in the usual sterile fashion. Using ultrasound guidance, the peritoneal cavity was accessed with a 5-Monegasque paracentesis needle/catheter system. The trocar was removed. A total of 450 ml of gris-colored fluid were removed from the peritoneal cavity. The catheter was removed and a sterile dressing was applied. The procedure was well tolerated. US/Paracentesis with US IMPRESSION: Ultrasound guided paracentesis. Electronically Signed: Ted Shetty MD at 15:35 EST Tel [phone], Service support ,
[2018-04-06 14:40] VITALS: BP 105/63; BP 107/60; BP 111/68; PULSE 79; PULSE 80; PULSE 82; RESP 14; RESP 16; O2SAT 96; O2SAT 97
== END ==
PROVIDERS: Family Provider Family Medicine; PCP Family Medicine; Referring Provider Family Medicine; Visit Provider Family Medicine
DX: R18.8 Other ascites (principal); I50.42 Chronic combined systolic (congestive) and diastolic (congestive) heart failure; K76.6 Portal hypertension
CPT/HCPCS: 49083

== ENCOUNTER → 2018-04-20 13:15 | Outpatient (CLI) | payer MEDICARE, SELFPAY ==
[2018-04-20 14:04] LABS: International Normalized Ratio 1.3; Prothrombin Time (Protime)PT. 16.2 SECONDS (11.7-14.9)
[2018-04-20 14:05] LABS: Partial Thromboplast Time 31.5 Seconds (24.1-36.2)
--- NOTE | 2018-04-20 14:10 | US_ITS ---
PROCEDURE: Ultrasound guided paracentesis. DATE OF EXAMINATION: April 20, 2018.. INDICATION: Female, 82 years old. Ascites. PHYSICIAN: Ted Shetty M.D. TECHNIQUE: The risks, benefits, and alternatives to the procedure were explained to the patient. The specific risks of bleeding, infection, and damage to bowel were detailed and accepted. Witnessed informed consent was obtained. The abdomen was ultrasonographically surveyed. An appropriate pocket of fluid was identified at the right lower quadrant. The skin were cleaned and prepped in the usual sterile fashion. Using ultrasound guidance, the peritoneal cavity was accessed with a 5-Tunisian paracentesis needle/catheter system. The trocar was removed. A total of 2200 ml of gris-colored fluid were removed from the peritoneal cavity. The catheter was removed and a sterile dressing was applied. The procedure was well tolerated. US/Paracentesis with US IMPRESSION: Ultrasound guided paracentesis. Electronically Signed: Ted Shetty MD at 15:26 EST Tel [phone], Service support ,
[2018-04-20 14:35] VITALS: BP 103/51; BP 106/51; BP 94/55; BP 95/60; PULSE 73; PULSE 75; PULSE 79; RESP 16; O2SAT 95; O2SAT 96
== END ==
PROVIDERS: Family Provider Family Medicine; PCP Family Medicine; Referring Provider Family Medicine; Visit Provider Family Medicine
DX: R18.8 Other ascites (principal); I50.42 Chronic combined systolic (congestive) and diastolic (congestive) heart failure; K76.6 Portal hypertension
CPT/HCPCS: 36415; 49083; 85610; 85730

== ENCOUNTER → 2018-05-05 14:15 | Outpatient (CLI) | payer MEDICARE, SELFPAY ==
--- NOTE | 2018-05-05 14:17 | US_ITS ---
PROCEDURE: ULTRASOUND GUIDED PARACENTESIS CLINICAL HISTORY: Female, 82 years old. CONSENT: Time-Out Called: Yes. Consent form signed: Yes. PT-PTT Levels Checked: Yes. SEDATION: TECHNIQUE: FINDINGS: FLUID PRE-PROCEDURE Under ultrasound guidance and following proper aseptic preparation and local anesthesia, 5 Tristanian catheter was introduced the right side of the abdomen. Approximately 2000 ml of clear yellow fluid aspirated. The procedure was tolerated well by the patient. Electronically Signed: Jalyn Vallecillo, at 16:50 EST Tel , Service support , US/Paracentesis with US
[2018-05-05 14:50] VITALS: BP 103/51; BP 95/55; BP 99/45; PULSE 68; PULSE 72; PULSE 83; RESP 16; O2SAT 95; O2SAT 96
== END ==
PROVIDERS: Family Provider Family Medicine; PCP Family Medicine; Referring Provider Family Medicine; Visit Provider Family Medicine
DX: R18.8 Other ascites (principal); K76.6 Portal hypertension; I50.42 Chronic combined systolic (congestive) and diastolic (congestive) heart failure
CPT/HCPCS: 49083

== ENCOUNTER → 2018-05-21 11:57 | Outpatient (CLI) | payer MEDICARE, SELFPAY ==
--- NOTE | 2018-05-21 12:33 | US_ITS ---
PROCEDURE: Ultrasound guided paracentesis. DATE OF EXAMINATION: May 21, 2018. INDICATION: Female, 82 years old. Ascites. PHYSICIAN: Ted Shetty M.D. TECHNIQUE: The risks, benefits, and alternatives to the procedure were explained to the patient. The specific risks of bleeding, infection, and damage to bowel were detailed and accepted. Witnessed informed consent was obtained. The abdomen was ultrasonographically surveyed. An appropriate pocket of fluid was identified at the right lower quadrant. The skin were cleaned and prepped in the usual sterile fashion. Using ultrasound guidance, the peritoneal cavity was accessed with a 5-Pakistani paracentesis needle/catheter system. The trocar was removed. A total of 2750 ml of gris color fluid were removed from the peritoneal cavity. The catheter was removed and a sterile dressing was applied. The procedure was well tolerated. US/Paracentesis with US IMPRESSION: Ultrasound guided paracentesis. Electronically Signed: Ted Shetty MD at 14:45 EST Tel [phone], Service support ,
[2018-05-21 12:55] LABS: International Normalized Ratio 1.4; Prothrombin Time (Protime)PT. 16.7 SECONDS (11.7-14.9)
== END ==
PROVIDERS: Family Provider Family Medicine; PCP Family Medicine; Referring Provider Family Medicine; Visit Provider Family Medicine
DX: R18.8 Other ascites (principal); K76.6 Portal hypertension; I50.42 Chronic combined systolic (congestive) and diastolic (congestive) heart failure
CPT/HCPCS: 36415; 49083; 85610

== ENCOUNTER → 2018-06-01 13:57 | Outpatient (CLI) | payer MEDICARE, SELFPAY ==
--- NOTE | 2018-06-01 13:59 | US_ITS ---
PROCEDURE: Ultrasound guided paracentesis. DATE OF EXAMINATION: June 01, 2018. INDICATION: Female, 82 years old. Ascites. PHYSICIAN: Ted Shetty M.D. TECHNIQUE: The risks, benefits, and alternatives to the procedure were explained to the patient. The specific risks of bleeding, infection, and damage to bowel were detailed and accepted. Witnessed informed consent was obtained. The abdomen was ultrasonographically surveyed. An appropriate pocket of fluid was identified at the left lower quadrant. The skin were cleaned and prepped in the usual sterile fashion. Using ultrasound guidance, the peritoneal cavity was accessed with a 5-Turkmen paracentesis needle/catheter system. The trocar was removed. A total of 3200 ml of gris-colored fluid were removed from the peritoneal cavity. The catheter was removed and a sterile dressing was applied. The procedure was well tolerated. US/Paracentesis with US IMPRESSION: Ultrasound guided paracentesis. Electronically Signed: Ted Shetty MD at 15:14 EST Tel [phone], Service support ,
[2018-06-01 15:00] VITALS: BP 115/66; BP 115/69; PULSE 76; RESP 16; RESP 18; O2SAT 96; O2SAT 97
== END ==
PROVIDERS: Family Provider Family Medicine; PCP Family Medicine; Referring Provider Family Medicine; Visit Provider Family Medicine
DX: R18.8 Other ascites (principal); K76.6 Portal hypertension; I50.42 Chronic combined systolic (congestive) and diastolic (congestive) heart failure
CPT/HCPCS: 49083

== ENCOUNTER → 2018-06-08 13:53 | Outpatient (CLI) | payer MEDICARE, SELFPAY ==
--- NOTE | 2018-06-08 13:56 | US_ITS ---
STUDY: ABDOMINAL ULTRASOUND -ascites assessment. REASON FOR VISIT: Female, 82 years old. Possible paracentesis. TECHNIQUE: Ultrasound evaluation of the 4 quadrants was performed with real-time and static vance-scale imaging. TECHNICAL QUALITY: Adequate. COMPARISON: None. FINDINGS: A small amount of fluid is seen in the right upper and right lower quadrants. This is too small for a safe paracentesis. US/Abdomen Limited IMPRESSION: Not enough fluid for paracentesis. Electronically Signed: Ted Shetty MD at 12:51 EST , Service support ,
== END ==
PROVIDERS: Family Provider Family Medicine; PCP Family Medicine; Referring Provider Family Medicine; Visit Provider Family Medicine
DX: R18.8 Other ascites (principal); I50.42 Chronic combined systolic (congestive) and diastolic (congestive) heart failure; K76.6 Portal hypertension
CPT/HCPCS: 76705

== ENCOUNTER → 2018-06-15 14:06 | Outpatient (CLI) | payer MEDICARE, SELFPAY ==
--- NOTE | 2018-06-15 14:10 | US_ITS ---
PROCEDURE: Ultrasound guided paracentesis. DATE OF EXAMINATION: June 15, 2018.. INDICATION: Female, 82 years old. Ascites. PHYSICIAN: Ted Shetty M.D. TECHNIQUE: The risks, benefits, and alternatives to the procedure were explained to the patient. The specific risks of bleeding, infection, and damage to bowel were detailed and accepted. Witnessed informed consent was obtained. The abdomen was ultrasonographically surveyed. An appropriate pocket of fluid was identified at the right lower quadrant. The skin were cleaned and prepped in the usual sterile fashion. Using ultrasound guidance, the peritoneal cavity was accessed with a 5-Burkinan paracentesis needle/catheter system. The trocar was removed. A total of 2800 ml of gris-colored fluid were removed from the peritoneal cavity. The catheter was removed and a sterile dressing was applied. The procedure was well tolerated. Incidental note is made of a slightly hyperechoic nodule in the inferior right lobe of liver. US/Paracentesis with US IMPRESSION: Ultrasound guided paracentesis. Electronically Signed: Ted Shetty MD at 15:34 EST , Service support ,
[2018-06-15 14:45] VITALS: BP 102/59; BP 106/58; BP 97/57; PULSE 68; PULSE 69; PULSE 77; RESP 16; RESP 18; O2SAT 97; O2SAT 98
== END ==
PROVIDERS: Family Provider Family Medicine; PCP Family Medicine; Referring Provider Family Medicine; Visit Provider Family Medicine
DX: R18.8 Other ascites (principal); K76.0 Fatty (change of) liver, not elsewhere classified; I50.42 Chronic combined systolic (congestive) and diastolic (congestive) heart failure
CPT/HCPCS: 49083

== ENCOUNTER → 2018-06-25 11:39 | Outpatient (CLI) | payer MEDICARE, SELFPAY ==
--- NOTE | 2018-06-25 11:49 | US_ITS ---
PROCEDURE: Ultrasound guided paracentesis. DATE OF EXAMINATION: June 25, 2018. INDICATION: Female, 82 years old. Ascites. PHYSICIAN: Ted Shetty M.D. TECHNIQUE: The risks, benefits, and alternatives to the procedure were explained to the patient. The specific risks of bleeding, infection, and damage to bowel were detailed and accepted. Witnessed informed consent was obtained. The abdomen was ultrasonographically surveyed. An appropriate pocket of fluid was identified at the right lower quadrant. The skin were cleaned and prepped in the usual sterile fashion. Using ultrasound guidance, the peritoneal cavity was accessed with a 5-Peruvian paracentesis needle/catheter system. The trocar was removed. A total of 2100 ml of gris-colored fluid were removed from the peritoneal cavity. The catheter was removed and a sterile dressing was applied. The procedure was well tolerated. US/Paracentesis with US IMPRESSION: Ultrasound guided paracentesis. Electronically Signed: Ted Shetty MD at 14:48 EST , Service support ,
[2018-06-25 12:04] LABS: International Normalized Ratio 1.3; Partial Thromboplast Time 30.9 Seconds (24.1-36.2); Prothrombin Time (Protime)PT. 15.8 SECONDS (11.7-14.9)
== END ==
PROVIDERS: Family Provider Family Medicine; PCP Family Medicine; Referring Provider Family Medicine; Visit Provider Family Medicine
DX: R18.8 Other ascites (principal); I50.42 Chronic combined systolic (congestive) and diastolic (congestive) heart failure; K76.6 Portal hypertension
CPT/HCPCS: 36415; 49083; 85610; 85730

== ENCOUNTER → 2018-07-05 12:11 | Outpatient (CLI) | payer MEDICARE, SELFPAY ==
--- NOTE | 2018-07-05 12:14 | US_ITS ---
PROCEDURE: Ultrasound guided paracentesis. DATE OF EXAMINATION: July 05, 2018. INDICATION: Female, 82 years old. Ascites. PHYSICIAN: Ted Shetty M.D. TECHNIQUE: The risks, benefits, and alternatives to the procedure were explained to the patient. The specific risks of bleeding, infection, and damage to bowel were detailed and accepted. Witnessed informed consent was obtained. The abdomen was ultrasonographically surveyed. An appropriate pocket of fluid was identified at the right lower quadrant. The skin were cleaned and prepped in the usual sterile fashion. Using ultrasound guidance, the peritoneal cavity was accessed with a 5-Cook Islander paracentesis needle/catheter system. The trocar was removed. A total of 1900 ml of gris-colored fluid were removed from the peritoneal cavity. The catheter was removed and a sterile dressing was applied. The procedure was well tolerated. US/Paracentesis with US IMPRESSION: Ultrasound guided paracentesis. Electronically Signed: Ted Shetty MD at 13:20 EST , Service support ,
[2018-07-05 12:50] VITALS: BP 102/52; BP 109/67; PULSE 71; PULSE 77; RESP 16; O2SAT 94
== END ==
PROVIDERS: Family Provider Family Medicine; PCP Family Medicine; Referring Provider Family Medicine; Visit Provider Family Medicine
DX: R18.8 Other ascites (principal); K76.6 Portal hypertension; I50.42 Chronic combined systolic (congestive) and diastolic (congestive) heart failure
CPT/HCPCS: 49083

== ENCOUNTER → 2018-07-16 14:14 | Outpatient (CLI) | payer MEDICARE, SELFPAY ==
--- NOTE | 2018-07-16 14:18 | US_ITS ---
PROCEDURE: Ultrasound guided paracentesis. DATE OF EXAMINATION: July 16, 2018. INDICATION: Female, 82 years old. Ascites. PHYSICIAN: Ted Shetty M.D. TECHNIQUE: The risks, benefits, and alternatives to the procedure were explained to the patient. The specific risks of bleeding, infection, and damage to bowel were detailed and accepted. Witnessed informed consent was obtained. The abdomen was ultrasonographically surveyed. An appropriate pocket of fluid was identified at the left lower quadrant. The skin were cleaned and prepped in the usual sterile fashion. Using ultrasound guidance, the peritoneal cavity was accessed with a 5-Peruvian paracentesis needle/catheter system. The trocar was removed. A total of 850 ml of gris-colored fluid were removed from the peritoneal cavity. The catheter was removed and a sterile dressing was applied. The procedure was well tolerated. US/Paracentesis with US IMPRESSION: Ultrasound guided paracentesis. Electronically Signed: Ted Shetty, at 15:49 EST , Service support ,
[2018-07-16 15:19] VITALS: BP 111/63; BP 98/28; PULSE 67; PULSE 93; RESP 18; O2SAT 95; O2SAT 96
== END ==
PROVIDERS: Family Provider Family Medicine; PCP Family Medicine; Referring Provider Family Medicine; Visit Provider Family Medicine
DX: R18.8 Other ascites (principal); K76.6 Portal hypertension; I50.42 Chronic combined systolic (congestive) and diastolic (congestive) heart failure
CPT/HCPCS: 49083

== ENCOUNTER → 2018-07-26 13:19 | Outpatient (CLI) | payer MEDICARE, SELFPAY ==
--- NOTE | 2018-07-26 13:36 | US_ITS ---
PROCEDURE: ULTRASOUND GUIDED PARACENTESIS CLINICAL HISTORY: Female, 82 years old. ASCITES CONSENT: The risks, benefits and alternatives to the procedure were explained to the patient, and the patient agreed to the procedure and signed the consent. SEDATION: Local Anesthesia STERILE BARRIER TECHNIQUE: The following sterile barrier precautions were used during the procedure: hand hygiene; use of 2% chlorhexidine aseptic; use of a cap, mask, sterile gown, sterile gloves, sterile full body drape, and a large sterile sheet. PROCEDURE/TECHNIQUE: The risks, benefits, and alternatives to the procedure were explained to patient, and the patient agreed to the procedure and signed a consent form for the procedure. TECHNIQUE: Under the ultrasound guidance using sterile technique and after infiltration of the skin and subcutaneous soft tissues with 10 mL of lidocaine 1% a 5 Indonesian drainage catheter is introduced in the lower part of the abdomen. 2550 mL of fluid were removed sample sent to lab for evaluation. The patient tolerated the procedure there was no immediate complication. FINDINGS: FLUID PRE-PROCEDURE There is posterior enhancement. The findings appear anechoic. There is no loculation. FLUID POST-PROCEDURE Amount of fluid drained: 2550 ml. US/Paracentesis with US IMPRESSION: Successful ultrasound-guided paracentesis. Electronically Signed: Jose G Du, at 16:20 EDT Tel , Service support ,
[2018-07-26 13:47] LABS: International Normalized Ratio 1.4; Prothrombin Time (Protime)PT. 16.6 SECONDS (11.7-14.9)
[2018-07-26 13:48] LABS: Partial Thromboplast Time 31.5 Seconds (24.1-36.2)
== END ==
PROVIDERS: Family Provider Family Medicine; PCP Family Medicine; Referring Provider Family Medicine; Visit Provider Family Medicine
DX: R18.8 Other ascites (principal); I50.42 Chronic combined systolic (congestive) and diastolic (congestive) heart failure; K76.6 Portal hypertension
CPT/HCPCS: 36415; 49083; 85610; 85730

== ENCOUNTER → 2018-08-05 13:55 | Outpatient (CLI) | payer MEDICARE, SELFPAY ==
--- NOTE | 2018-08-05 13:58 | US_ITS ---
PROCEDURE: Ultrasound guided paracentesis. DATE OF EXAMINATION: August 05, 2018.. INDICATION: Female, 82 years old. Ascites. PHYSICIAN: Ted Shetty M.D. TECHNIQUE: The risks, benefits, and alternatives to the procedure were explained to the patient. The specific risks of bleeding, infection, and damage to bowel were detailed and accepted. Witnessed informed consent was obtained. The abdomen was ultrasonographically surveyed. An appropriate pocket of fluid was identified at the right lower quadrant. The skin were cleaned and prepped in the usual sterile fashion. Using ultrasound guidance, the peritoneal cavity was accessed with a 5-Uzbek paracentesis needle/catheter system. The trocar was removed. A total of 2260 ml of gris-colored fluid were removed from the peritoneal cavity. The catheter was removed and a sterile dressing was applied. The procedure was well tolerated. US/Paracentesis with US IMPRESSION: Ultrasound guided paracentesis. Electronically Signed: Ted Shetty, at 15:56 EDT , Service support ,
== END ==
PROVIDERS: Family Provider Family Medicine; PCP Family Medicine; Referring Provider Family Medicine; Visit Provider Family Medicine
DX: R18.8 Other ascites (principal); K76.6 Portal hypertension; I50.42 Chronic combined systolic (congestive) and diastolic (congestive) heart failure
CPT/HCPCS: 49083

== ENCOUNTER → 2018-08-16 | Outpatient (CLI) | payer MEDICARE, SELFPAY ==
--- NOTE | 2018-08-16 14:07 | US_ITS ---
PROCEDURE: Ultrasound guided paracentesis. DATE OF EXAMINATION: August 16, 2018. INDICATION: Female, 82 years old. Ascites. PHYSICIAN: Ted Shetty M.D. TECHNIQUE: The risks, benefits, and alternatives to the procedure were explained to the patient. The specific risks of bleeding, infection, and damage to bowel were detailed and accepted. Witnessed informed consent was obtained. The abdomen was ultrasonographically surveyed. An appropriate pocket of fluid was identified at the right lower quadrant. The skin were cleaned and prepped in the usual sterile fashion. Using ultrasound guidance, the peritoneal cavity was accessed with a 5-Gambian paracentesis needle/catheter system. The trocar was removed. A total of 2950 ml of gris-colored fluid were removed from the peritoneal cavity. The catheter was removed and a sterile dressing was applied. The procedure was well tolerated. US/Paracentesis with US IMPRESSION: Ultrasound guided paracentesis. Electronically Signed: Ted Shetty, at 16:04 EDT , Service support ,
== END | disposition home or self-care (01) ==
LOC: US 14:06
PROVIDERS: Family Provider Family Medicine; PCP Family Medicine; Referring Provider Family Medicine; Visit Provider Family Medicine
DX: R18.8 Other ascites (principal); I50.42 Chronic combined systolic (congestive) and diastolic (congestive) heart failure; K76.6 Portal hypertension
CPT/HCPCS: 49083

== ENCOUNTER → 2018-08-26 | Outpatient (CLI) | payer MEDICARE, SELFPAY ==
--- NOTE | 2018-08-26 13:55 | US_ITS ---
PROCEDURE: Ultrasound guided paracentesis. DATE OF EXAMINATION: August 26, 2018.. INDICATION: Female, 82 years old. Ascites. PHYSICIAN: Ted Shetty M.D. TECHNIQUE: The risks, benefits, and alternatives to the procedure were explained to the patient. The specific risks of bleeding, infection, and damage to bowel were detailed and accepted. Witnessed informed consent was obtained. The abdomen was ultrasonographically surveyed. An appropriate pocket of fluid was identified at the right lower quadrant. The skin were cleaned and prepped in the usual sterile fashion. Using ultrasound guidance, the peritoneal cavity was accessed with a 5-Bengali paracentesis needle/catheter system. The trocar was removed. A total of 3850 ml of gris-colored fluid were removed from the peritoneal cavity. The catheter was removed and a sterile dressing was applied. The procedure was well tolerated. US/Paracentesis with US IMPRESSION: Ultrasound guided paracentesis. Electronically Signed: Ted Shetty, at 15:07 EDT , Service support ,
[2018-08-26 14:05] LABS: International Normalized Ratio 1.3; Prothrombin Time (Protime)PT. 15.6 SECONDS (11.7-14.9)
[2018-08-26 14:06] LABS: Partial Thromboplast Time 32.9 Seconds (24.1-36.2)
[2018-08-26 14:30] VITALS: BP 101/60; BP 97/61; PULSE 73; PULSE 80; RESP 16; O2SAT 96
== END | disposition home or self-care (01) ==
PROVIDERS: Family Provider Family Medicine; PCP Family Medicine; Referring Provider Family Medicine; Visit Provider Family Medicine
DX: R18.8 Other ascites (principal); K76.6 Portal hypertension; I50.42 Chronic combined systolic (congestive) and diastolic (congestive) heart failure
CPT/HCPCS: 36415; 49083; 85610; 85730

== ENCOUNTER → 2018-09-06 | Outpatient (CLI) | payer MEDICARE, SELFPAY ==
--- NOTE | 2018-09-06 14:09 | US_ITS ---
PROCEDURE: Ultrasound guided paracentesis. DATE OF EXAMINATION: September 06, 2018. INDICATION: Female, 83 years old. Ascites. PHYSICIAN: Ted Shetty M.D. TECHNIQUE: The risks, benefits, and alternatives to the procedure were explained to the patient. The specific risks of bleeding, infection, and damage to bowel were detailed and accepted. Witnessed informed consent was obtained. The abdomen was ultrasonographically surveyed. An appropriate pocket of fluid was identified at the left lower quadrant. The skin were cleaned and prepped in the usual sterile fashion. Using ultrasound guidance, the peritoneal cavity was accessed with a 5-Burmese paracentesis needle/catheter system. The trocar was removed. A total of 3000 ml of gris-colored fluid were removed from the peritoneal cavity. The catheter was removed and a sterile dressing was applied. The procedure was well tolerated. US/Paracentesis with US IMPRESSION: Ultrasound guided paracentesis. Electronically Signed: Ted Shetty, at 15:15 EDT , Service support ,
[2018-09-06 15:32] VITALS: BP 101/57; BP 103/57; BP 111/59; PULSE 70; PULSE 74; PULSE 76; RESP 18; O2SAT 94; O2SAT 96
== END | disposition home or self-care (01) ==
LOC: US 14:06
PROVIDERS: Family Provider Family Medicine; PCP Family Medicine; Referring Provider Family Medicine; Visit Provider Family Medicine
DX: R18.8 Other ascites (principal); K76.6 Portal hypertension; I50.42 Chronic combined systolic (congestive) and diastolic (congestive) heart failure
CPT/HCPCS: 49083

== ENCOUNTER → 2018-09-16 14:07 | Outpatient (CLI) | payer MEDICARE, SELFPAY ==
--- NOTE | 2018-09-16 14:10 | US_ITS ---
PROCEDURE: Ultrasound guided paracentesis. DATE OF EXAMINATION: September 16, 2018. INDICATION: Female, 83 years old. Ascites. PHYSICIAN: Ted Shetty M.D. TECHNIQUE: The risks, benefits, and alternatives to the procedure were explained to the patient. The specific risks of bleeding, infection, and damage to bowel were detailed and accepted. Witnessed informed consent was obtained. The abdomen was ultrasonographically surveyed. An appropriate pocket of fluid was identified at the right lower quadrant. The skin were cleaned and prepped in the usual sterile fashion. Using ultrasound guidance, the peritoneal cavity was accessed with a 5-Upper Sorbian paracentesis needle/catheter system. The trocar was removed. A total of 1600 ml of gris-colored fluid were removed from the peritoneal cavity. The catheter was removed and a sterile dressing was applied. The procedure was well tolerated. US/Paracentesis with US IMPRESSION: Ultrasound guided paracentesis. Electronically Signed: Ted Shetty, at 15:16 EDT , Service support ,
[2018-09-16 14:34] VITALS: BP 104/50; BP 104/61; BP 99/54; BP 99/59; PULSE 74; PULSE 76; PULSE 78; PULSE 79; RESP 16; RESP 18; O2SAT 95; O2SAT 96
== END ==
PROVIDERS: Family Provider Family Medicine; PCP Family Medicine; Referring Provider Family Medicine; Visit Provider Family Medicine
DX: R18.8 Other ascites (principal); K76.6 Portal hypertension; I50.42 Chronic combined systolic (congestive) and diastolic (congestive) heart failure
CPT/HCPCS: 49083

== ENCOUNTER → 2018-09-27 | Outpatient (CLI) | payer MEDICARE, SELFPAY ==
--- NOTE | 2018-09-27 13:10 | US_ITS ---
PROCEDURE: Ultrasound guided paracentesis. DATE OF EXAMINATION: September 27, 2018.. INDICATION: Female, 83 years old. Ascites. PHYSICIAN: Ted Shetty M.D. TECHNIQUE: The risks, benefits, and alternatives to the procedure were explained to the patient. The specific risks of bleeding, infection, and damage to bowel were detailed and accepted. Witnessed informed consent was obtained. The abdomen was ultrasonographically surveyed. An appropriate pocket of fluid was identified at the left lower quadrant. The skin were cleaned and prepped in the usual sterile fashion. Using ultrasound guidance, the peritoneal cavity was accessed with a 5-Belgian paracentesis needle/catheter system. The trocar was removed. A total of 1750 ml of gris-colored fluid were removed from the peritoneal cavity. The catheter was removed and a sterile dressing was applied. The procedure was well tolerated. US/Paracentesis with US IMPRESSION: Ultrasound guided paracentesis. Electronically Signed: Ted Shetty, at 14:52 EDT , Service support ,
[2018-09-27 13:21] LABS: International Normalized Ratio 1.3; Prothrombin Time (Protime)PT. 15.6 SECONDS (11.7-14.9)
[2018-09-27 13:22] LABS: Partial Thromboplast Time 33.1 Seconds (24.1-36.2)
[2018-09-27 14:20] VITALS: BP 94/45; BP 95/55; PULSE 72; PULSE 76; RESP 16; O2SAT 96; O2SAT 97
== END | disposition home or self-care (01) ==
LOC: US 13:08
PROVIDERS: Family Provider Family Medicine; PCP Family Medicine; Referring Provider Family Medicine; Visit Provider Family Medicine
DX: R18.8 Other ascites (principal); K76.6 Portal hypertension; I50.42 Chronic combined systolic (congestive) and diastolic (congestive) heart failure
CPT/HCPCS: 36415; 49083; 85610; 85730

== ENCOUNTER → 2018-10-07 | Outpatient (CLI) | payer MEDICARE, SELFPAY ==
--- NOTE | 2018-10-07 13:58 | US_ITS ---
PROCEDURE: Ultrasound guided paracentesis. DATE OF EXAMINATION: October 07, 2018. INDICATION: Female, 83 years old. Ascites. PHYSICIAN: Ted Shetty M.D. TECHNIQUE: The risks, benefits, and alternatives to the procedure were explained to the patient. The specific risks of bleeding, infection, and damage to bowel were detailed and accepted. Witnessed informed consent was obtained. The abdomen was ultrasonographically surveyed. An appropriate pocket of fluid was identified at the right lower quadrant. The skin were cleaned and prepped in the usual sterile fashion. Using ultrasound guidance, the peritoneal cavity was accessed with a 5-Spanish paracentesis needle/catheter system. The trocar was removed. A total of 2350 ml of gris-colored fluid were removed from the peritoneal cavity. The catheter was removed and a sterile dressing was applied. The procedure was well tolerated. US/Paracentesis with US IMPRESSION: Ultrasound guided paracentesis. Electronically Signed: Ted Shetty, at 15:52 EDT , Service support ,
[2018-10-07 15:44] VITALS: BP 103/62; BP 98/60; BP 99/57; PULSE 75; PULSE 80; PULSE 89; RESP 16; RESP 18; O2SAT 16; O2SAT 94; O2SAT 95
== END | disposition home or self-care (01) ==
LOC: US 13:57
PROVIDERS: Family Provider Family Medicine; PCP Family Medicine; Referring Provider Family Medicine; Visit Provider Family Medicine
DX: R18.8 Other ascites (principal); K76.6 Portal hypertension; I50.42 Chronic combined systolic (congestive) and diastolic (congestive) heart failure
CPT/HCPCS: 49083

== ENCOUNTER → 2018-10-18 | Outpatient (CLI) | payer MEDICARE, SELFPAY ==
--- NOTE | 2018-10-18 14:02 | US_ITS ---
PROCEDURE: Ultrasound guided paracentesis. DATE OF EXAMINATION: October 18, 2018. INDICATION: Female, 83 years old. Ascites. PHYSICIAN: Ted Shetty M.D. TECHNIQUE: The risks, benefits, and alternatives to the procedure were explained to the patient. The specific risks of bleeding, infection, and damage to bowel were detailed and accepted. Witnessed informed consent was obtained. The abdomen was ultrasonographically surveyed. An appropriate pocket of fluid was identified at the right lower quadrant. The skin were cleaned and prepped in the usual sterile fashion. Using ultrasound guidance, the peritoneal cavity was accessed with a 5-Citizen Of [place] paracentesis needle/catheter system. The trocar was removed. A total of 1850 ml of gris-colored fluid were removed from the peritoneal cavity. The catheter was removed and a sterile dressing was applied. The procedure was well tolerated. US/Paracentesis with US IMPRESSION: Ultrasound guided paracentesis. Electronically Signed: Ted Shetty, at 15:43 EDT , Service support ,
[2018-10-18 14:30] VITALS: BP 91/56; BP 93/51; BP 94/52; BP 96/50; BP 97/78; BP 98/57; PULSE 70; PULSE 71; PULSE 75; PULSE 79; PULSE 80; RESP 20; O2SAT 94; O2SAT 95; O2SAT 96; O2SAT 97
== END | disposition home or self-care (01) ==
LOC: US 13:59
PROVIDERS: Family Provider Family Medicine; PCP Family Medicine; Referring Provider Family Medicine; Visit Provider Family Medicine
DX: R18.8 Other ascites (principal); K76.6 Portal hypertension; I50.42 Chronic combined systolic (congestive) and diastolic (congestive) heart failure
CPT/HCPCS: 49083

== ENCOUNTER 2018-10-28 11:30 | Outpatient (RCR) | payer MEDICARE, SELFPAY ==
[2018-10-28 13:38] LABS: Absolute Lymphocyte Count 0.49 X10^3/ul (0.83-4.51); Absolute Neutrophil Count 2.7 X10^3/uL (2.0-7.7); Basophil# 0.01 X10^3/uL; Basophil% 0.3 % (0-1); Eosinophil# 0.12 X10^3/uL; Eosinophils% 3.1 % (0-5); Hematocrit 34.7 % (37-47); Hemoglobin 11.2 g/dl (12.0-15.0); Lymphocyte # 0.49 X10^3/ul (4.0); Lymphocyte % 12.6 % (19-41); Mean Corp Hgb Conc 32.3 g/gl (32-36); Mean Corpuscular Hgb 31.6 pg (27.0-32.0); Mean Platelet Vol. 9.6 fl (6.2-12.0); Monocyte# 0.57 X10^3/uL; Monocyte% 14.6 % (0-10); Neutrophil % 69.1 % (47-70); Platelet Count 120 K/mm3 (150-450); RBC Distribution Width CV 17.1 % (11.6-14.6); RBC Distribution Width SD 61.5 fl (35.1-43.9); Red Blood Count 3.54 M/mm3 (4.2-5.4); White Blood Count 3.9 K/mm3 (4.4-11.0)
[2018-10-28 13:41] LABS: Differential Indicated SCAN CRITERIA MET; POSITIVE COUNT NO; POSITIVE DIFFERENTIAL YES; POSITIVE MORPHOLOGY NO
== END 2018-11-07 23:59 ==
LOC: HHLAB 11:30
PROVIDERS: Family Provider Family Medicine; PCP Family Medicine; Referring Provider Internal Medicine Cardiovascular Disease; Visit Provider Internal Medicine Cardiovascular Disease
DX: I13.0 Hypertensive heart and chronic kidney disease with heart failure and stage 1 through stage 4 chronic kidney disease, or unspecified chronic kidney disease (principal); N18.3 Chronic kidney disease, stage 3 (moderate); I50.22 Chronic systolic (congestive) heart failure; D50.0 Iron deficiency anemia secondary to blood loss (chronic); I25.10 Atherosclerotic heart disease of native coronary artery without angina pectoris; I48.0 Paroxysmal atrial fibrillation; I86.8 Varicose veins of other specified sites; Z86.718 Personal history of other venous thrombosis and embolism; Z95.1 Presence of aortocoronary bypass graft; Z87.440 Personal history of urinary (tract) infections
CPT/HCPCS: 36415; 85025

== ENCOUNTER → 2018-10-28 | Outpatient (CLI) | payer MEDICARE, SELFPAY ==
--- NOTE | 2018-10-28 11:46 | US_ITS ---
PROCEDURE: Ultrasound guided paracentesis. DATE OF EXAMINATION: October 28, 2018. INDICATION: Female, 83 years old. Ascites. PHYSICIAN: Ted Shetty M.D. TECHNIQUE: The risks, benefits, and alternatives to the procedure were explained to the patient. The specific risks of bleeding, infection, and damage to bowel were detailed and accepted. Witnessed informed consent was obtained. The abdomen was ultrasonographically surveyed. An appropriate pocket of fluid was identified at the right lower quadrant. The skin were cleaned and prepped in the usual sterile fashion. Using ultrasound guidance, the peritoneal cavity was accessed with a 5-Kittitian paracentesis needle/catheter system. The trocar was removed. A total of 2500 ml of gris-colored fluid were removed from the peritoneal cavity. The catheter was removed and a sterile dressing was applied. The procedure was well tolerated. US/Paracentesis with US IMPRESSION: Ultrasound guided paracentesis. Electronically Signed: Ted Shetty, at 14:49 EDT , Service support ,
[2018-10-28 13:21] VITALS: BP 84/50; BP 87/51; BP 88/51; BP 89/48; BP 92/55; PULSE 64; PULSE 69; PULSE 72; PULSE 75; PULSE 76; RESP 22; RESP 26; O2SAT 94; O2SAT 95; O2SAT 96
[2018-10-28 13:22] LABS: International Normalized Ratio 1.3; Prothrombin Time (Protime)PT. 16.4 SECONDS (11.7-14.9)
== END | disposition home or self-care (01) ==
LOC: US 11:44
PROVIDERS: Family Provider Family Medicine; PCP Family Medicine; Referring Provider Family Medicine; Visit Provider Family Medicine
DX: R18.8 Other ascites (principal); K76.6 Portal hypertension; I50.42 Chronic combined systolic (congestive) and diastolic (congestive) heart failure
CPT/HCPCS: 49083; 85610

== ENCOUNTER → 2018-11-09 | Outpatient (CLI) | payer MEDICARE, SELFPAY ==
--- NOTE | 2018-11-09 13:59 | US_ITS ---
STUDY: ABDOMINAL ULTRASOUND -LIMITED REASON FOR VISIT: Female, 83 years old. Ascites TECHNIQUE: Ultrasound evaluation of the abdomen was performed with real-time and static vance-scale imaging. TECHNICAL QUALITY: Adequate. COMPARISON: None. FINDINGS: images of the 4 abdominal quadrants demonstrate mild ascites. US/Abdomen Limited IMPRESSION: Mild ascites. Electronically Signed: Hector Leon DO at 18:20 EDT Tel [phone], Service support ,
== END | disposition home or self-care (01) ==
LOC: US 13:57
PROVIDERS: Family Provider Family Medicine; PCP Family Medicine; Referring Provider Family Medicine; Visit Provider Family Medicine
DX: R18.8 Other ascites (principal); K76.6 Portal hypertension; I50.42 Chronic combined systolic (congestive) and diastolic (congestive) heart failure
CPT/HCPCS: 76705

== ENCOUNTER 2018-11-13 18:05 | Inpatient (IN) | payer MEDICARE, SELFPAY ==
[2018-11-13] VITALS (12 sets, daily range): BP systolic 59–85; BP diastolic 24–68; PULSE 60–92; RESP 20–41; TEMP 35.8–36.4; O2SAT 88–96; BMI 33.8
--- NOTE | 2018-11-13 18:22 | ED.DCSUM_ITS ---
- ER Visit Summary Date of Service: 11/13/18 Chief Complaint: Weakness History of Present Illness: The patient is a 83 F who presents with weakness that has been getting worse over the past few days. Patient did not get her normal paracentesis this week because there was not enough fluid in her abdomen at that time. Family states that the patient's ascites is gotten worse over the last few days. Family states the patient has not been as active as normal. Family denies any fevers or chills. Family states patient has had some diarrhea recently. Family thinks that the patient's sodium may be low because she has had similar symptoms with hyponatremia in the past. Physical Examination: Vital signs showed a blood pressure of 64/40 and a respiratory rate of 41. Patient is afebrile. Patient is in no acute distress. Oral mucosa is pink and moist. Pupils are equal, round, and reactive to light bilaterally. Extraocular muscles are intact. Neck is supple. Trachea is midline. There is no JVD noted. Heart was regular rate and rhythm. Lungs are diminished bilaterally. There is limited respiratory effort. Abdomen is soft. There is some distention. There is a fluid wave noted. There is no tenderness. Extremities are intact. There is 3+ edema of the lower extremities bilaterally. Cranial nerves II through XII are grossly intact. There are no apparent focal motor or sensory deficits noted. Test Results: CBC was normal except for a slightly low thrombocytopenia of 144. Conference of metabolic profile showed a sodium of 118 and the potassium was 7.1. CO2 is 18. BUN was 85 and creatinine was 2.99. Ammonia level was 37. Lactate was elevated at 3.0. EKG showed atrial fibrillation with a rate of 64. There are no acute ST or T wave changes. There is mild widening of the QRS with a QRS duration of 126. T waves do not appear peaked. Portable chest x-ray shows a right pleural effusion but no acute cardiopulmonary process. Emergency Department Course and Treatment: Patient was given IV fluids of normal saline 2500 cc. Patient was given calcium gluconate 1 g IV, D50 25 g IV and Humalog 5 units IV. Patient was also ordered Kayexalate but the patient was unable to drink. Patient was unable to lay flat for possible enema. Patient was also unable to lay flat for CT scan of the abdomen. Urinalysis is ordered but the patient is unable to urinate at this time. Currently, the patient's blood pressure has improved to 80/68. Patient is DNR Comfort Care arrest. Case was discussed with Dr. Denis. He recommended starting the patient on Zosyn. He also recommended starting a central IV and pressors. Informed consent was obtained for central line. The right inguinal area was prepped and draped in a sterile manner. Sterile conditions were maintained throughout the room. 1% lidocaine was used to anesthetize the right inguinal area. A right femoral triple-lumen catheter was placed under sterile conditions using ultrasound guidance and Seldinger technique. The line was sutured in place. Dressing was applied. Patient tolerated procedure well. Dobutamine infusion was started. Disposition: Admit to ICU Impression: 1. Hyponatremia 2. Hyperkalemia 3. Acute kidney injury 4. Lactic acidosis Critical CARE time: 30 to 74 minutes. This was time spent obtaining history, physical exam, interpreting lab results, EKG results, and x-ray results, discussion with family on DNR comfort care and comfort care arrest, discussion with consultants. This note was generated with [employer] dictation software. It may contain incorrect words, spelling, and punctuation that were not noted in review of the chart prior to signing ED Disposition - Plan for ED Patient: Disposition: Home or Assisted Living Diagnosis: JULISSA (acute kidney injury), Hypotension, Hyponatremia, Hyperkalemia, Lactic acidosis
[2018-11-13] MEDS: 0.9% Normal Saline 1,000 ML 1000 ML IV (18:39)
[2018-11-13 18:59] LABS: Absolute Lymphocyte Count 0.45 X10^3/ul (0.83-4.51); Absolute Neutrophil Count 5.6 X10^3/uL (2.0-7.7); Basophil# 0.01 X10^3/uL; Basophil% 0.2 % (0-1); Differential Indicated SCAN CRITERIA MET; Eosinophil# 0.02 X10^3/uL; Eosinophils% 0.3 % (0-5); Hematocrit 38.7 % (37-47); Hemoglobin 12.9 g/dl (12.0-15.0); Lymphocyte # 0.45 X10^3/ul (4.0); Lymphocyte % 6.8 % (19-41); Mean Corp Hgb Conc 33.3 g/gl (32-36); Mean Corpuscular Hgb 31.9 pg (27.0-32.0); Mean Corpuscular Volume 95.6 fL (81-99); Mean Platelet Vol. 9.7 fl (6.2-12.0); Monocyte# 0.52 X10^3/uL; Monocyte% 7.9 % (0-10); Neutrophil # 5.55 X10^3/uL (2.7-7.7); Neutrophil % 83.7 % (47-70); POSITIVE COUNT NO; POSITIVE DIFFERENTIAL YES; POSITIVE MORPHOLOGY NO; Platelet Count 144 K/mm3 (150-450); RBC Distribution Width CV 17.8 % (11.6-14.6); RBC Distribution Width SD 61.6 fl (35.1-43.9); Red Blood Count 4.05 M/mm3 (4.2-5.4); White Blood Count 6.6 K/mm3 (4.4-11.0)
[2018-11-13 19:00] LABS: Absolute Nucleated RBC Count 0.48 10^3/uL (0-5); NRBC Flagged by Analyzer 7.2 % (0-5)
[2018-11-13 19:10] LABS: ALB/GLOB Ratio 0.6 RATIO (0.9-2.4); AST(SGOT) 24 U/L (15-37); Alanine Aminotransfer ALT/SGPT 15 U/L (13-56); Albumin, Serum 2.9 g/dL (3.2-5.0); Alkaline Phosphatase 145 U/L (45-117); Anion Gap 10 (5-15); BUN 85 mg/dL (7-18); BUN/Creat Ratio 28.4 RATIO (10-20); Calcium,Total 8.7 mg/dL (8.5-10.1); Chloride 90 mmol/L (98-107); Creatinine, Serum 2.99 mg/dL (0.55-1.02); EST Glomerular Filtration Rate 16 mL/min (>60); Est Glom Filt Rate - Afr Amer 19 mL/min (>60); Estimated Creatinine Clearance 10.57 ml/min; Globulin 5.1 g/dL (2.2-4.2); Glucose 117 mg/dL (74-106); Lipase 272 U/L (73-393); Potassium 7.1 mmol/L (3.5-5.1); Sodium Level 118 mmol/L (136-145)
--- NOTE | 2018-11-13 19:11 | EKG12_ITS ---
Test Reason : ABD PAIN Blood Pressure : / mmHG Vent. Rate : 064 BPM Atrial Rate : 064 BPM P-R Int : 000 ms QRS Dur : 126 ms QT Int : 478 ms P-R-T Axes : 000 172 082 degrees QTc Int : 493 ms Atrial fibrillation with a competing junctional pacemaker Right axis deviation Non-specific intra-ventricular conduction block Cannot rule out Septal infarct , age undetermined Abnormal ECG Confirmed by BLANCA SCHMIDT, ERIS ([id number]), digital editor THEO SEN ([id number]) on 11/16/2018 2:00:34 PM Referred By: ANGELIQUE Confirmed By:ERIS RIOS MD
[2018-11-13 19:13] LABS: Differential Comment SCANNED
--- NOTE | 2018-11-13 19:18 | ED.RN ---
ray from lab called a lactic acid of 3.0, made aware.
--- NOTE | 2018-11-13 19:31 | RAD_ITS ---
STUDY: X-RAY CHEST REASON FOR EXAM: Female, 83 years old. Abdominal distention TECHNIQUE: Portable chest COMPARISON: 12/09/2017 FINDINGS: There is stable cardiomegaly. There is an enlarging [id number] right pleural effusion. There are sternal wires. Normal mediastinum and laisha. Normal visualized pulmonary arteries. Normal visualized aortic arch and descending thoracic aorta. Normal visualized thoracic spine. Normal visualized ribs, clavicles, and shoulders. There is no demonstrated abnormality of the visualized soft tissue structures of the upper abdomen. RAD/Chest 1 View (Portable) IMPRESSION: Stable cardiomegaly Enlarging small to moderate right pleural effusion Sternal wires Electronically Signed: Papito Mendoza, at 20:32 EDT Tel , Service support ,
--- NOTE | 2018-11-13 19:37 | ED.RN ---
dr garcia notified of k+ and na results
[2018-11-13] MEDS: Calcium Gluconate 1 GM/10 ML Vial IV (19:41)
[2018-11-13] MEDS: Dextrose 50%-Water 25 GM/50 ML DISP.SYRIN IV (19:41)
[2018-11-13] MEDS: Ondansetron 4 MG/2 ML Vial IV (19:52)
--- NOTE | 2018-11-13 20:23 | ED.RN ---
pt bp consistently low, dr. Masterson made aware, no further orders at this time. will continue to monitor the pt.
--- NOTE | 2018-11-13 21:15 | HP.PCM_ITS ---
Problem List (1) Chronic systolic CHF (congestive heart failure) Status: Acute (2) Hypotension Status: Acute History of Present Illness Date of Admission: 11/13/18 Chief Complaint: weakness The patient is a 83 year old F with a significant history of CAD status post CABG and coronary stent; congestive heart failure (EF of 35% on 08/13/2017); pulmonary hypertension; hypothyroidism; chronic A. fib who presented to the emergency department with weakness that started about 4 days ago. Associated with her symptoms is lethargy. Reportedly she had diarrhea about 2 days ago. But her diarrhea has resolved. Patient gets paracentesis every week on Tuesdays but last Thursday it was determined that she did not have much fluid in her abdomen so thoracentesis was not done. Her family reports increased abdominal girth on presentation. Also, family reports increase swelling in her left leg, erythema; blisters and red spots of her left leg. Past Medical History Past Medical History (Chronic Problems): Chronic Problems Ascites (Chronic) Paroxysmal a-fib (Chronic) Pulmonary HTN (Chronic) Hyponatremia (Chronic) Gastroesophageal reflux disease (Chronic) Iron (Fe) deficiency anemia (Chronic) Chronic congestive heart failure (Chronic) systolic. 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 Dumont Hypothyroidism (Chronic) Allergies azithromycin [From Zithromax] Allergy (Intermediate, Verified 11/13/18 18:06) Mucosal lesions Penicillins Allergy (Intermediate, Verified 11/13/18 18:06) Mucosal lesions Sulfa (Sulfonamide Antibiotics) Allergy (Intermediate, Verified 11/13/18 18:06) Mucosal lesions nausea cephalexin [From Keflex] Allergy (Verified 11/13/18 18:06) GI UPSET tobramycin Allergy (Verified 11/13/18 18:06) RED EYES metronidazole Adverse Reaction (Intermediate, Verified 11/13/18 18:06) Nausea diltiazem Adverse Reaction (Mild, Verified 11/13/18 18:06) Nausea/Vom/Diarrhea metolazone [From Zaroxolyn] Adverse Reaction (Mild, Verified 11/13/18 18:06) Nausea potassium chloride Adverse Reaction (Mild, Verified 11/13/18 18:06) Upset Stomach nystatin Adverse Reaction (Verified 11/13/18 18:06) Nausea spironolactone Adverse Reaction (Verified 11/13/18 18:06) Nausea Home Medications: Ambulatory Orders Medication Instructions Recorded Omeprazole [Prilosec] 20 mg PO DAILY 08/17/16 Docusate Sodium [Colace] 100 mg PO BID 11/10/16 Ondansetron HCl [Zofran] 4 mg PO PRN PRN 11/25/17 Acetaminophen [Tylenol] 1,000 mg PO Q4H PRN PRN 12/04/17 Nitroglycerin [Nitrostat] 0.4 mg SL PRN PRN 12/04/17 Carvedilol [Coreg (Beta Cherelle)] 6.25 mg PO BID tablet 12/06/17 Furosemide 40 mg PO BREAKFAST #1 tablet 12/06/17 Levothyroxine [Synthroid] 125 mcg PO DAILY 12/09/17 Metolazone [Zaroxolyn] 2.5 mg PO DAILY 12/09/17 Allopurinol 100 mg PO DAILY 11/13/18 Midodrine HCl 5 mg PO TID 11/13/18 Spironolactone 75 mg PO BID 11/13/18 Surgical History: cholecystectomy, coronary bypass surgery, hysterectomy Psychiatric History: No pertinent psych hx [employer] History: No pertinent [employer] history Lives: Alone Smoking Status: Never smoker - *Family History Sibling History Items: Dementia, Heart Disease Paternal History Items: No pertinent history Maternal History Items: No pertinent history Review of Systems Constitutional: Reports: Weakness, Fatigue. Denies: Chills, Fever HEENT: Denies: Head Aches, Sinus Congestion, Sinus Drainage Cardiovascular: Reports: Edema, Orthopnea. Denies: Chest Pain, Palpitations Respiratory: Denies: Cough, Sputum production Gastrointestinal: Denies: Abdominal Pain, Nausea, Vomiting Genitourinary: Denies: Dysuria Musculoskeletal: Denies: Joint Pain, Joint Tenderness Skin: Denies: Rash, Wounds Neurological: Denies: Numbness, Tingling, Focal weakness Psychiatric: Denies: Anxiety, Depression, Homicidal Ideations, Suicidal Ideations Hematologic/ Lymphatic: Denies: Easy Bruising, Easy Bleeding VTE Information - Inpt Only VTE Present on Admission: No VTE Mechan Device Prophylaxis: None VTE Pharm Prophylaxis ordered?: Yes Patient Problems: Active and Suspected Problems Hypotension (Acute) Hyperkalemia (Acute) Lactic acidosis (Acute) JULISSA (acute kidney injury) (Acute) - Physical Exam General: Lethargic HEENT: Atraumatic, Normocephalic Neck: Supple, Trachea Midline Lungs: Clear to auscultation, Normal air movement Cardiovascular: Irregular Rate Abdomen: Distended, - - Fluid wave Extremities: Edema - Bilateral lower extremities; left worse than right. Blisters around left ankle. Skin: - - Marked erythema of left leg; mild erythema of right leg Musculoskeletal: No Tenderness to Palpation of Joints or Extremities Neurological: - - Lethargic. History was obtained from family since patient was not answering questions. Psych/Mental Status: Flat Affect Vital Signs Temp Pulse Resp BP Pulse Ox 96.6 F L 90 29 H 80/68 L 94 11/13/18 20:43 11/13/18 20:43 11/13/18 20:43 11/13/18 20:43 11/13/18 20:43 Oxygen Flow Rate (L/min) 4 Oxygen Delivery Method Nasal Cannula Weight: 81.2 kg Body Mass Index (BMI) 33.8 Laboratory Tests Past 24 Hrs 11/13/18 11/13/18 11/13/18 18:32 18:32 18:32 WBC 6.6 RBC 4.05 L Hgb 12.9 Hct 38.7 MCV 95.6 MCH 31.9 MCHC 33.3 RDW 17.8 H RDW Differential 61.6 H Plt Count 144 L MPV 9.7 Immature Gran % (Auto) 1.100 H Neut % (Auto) 83.7 H Lymph % (Auto) 6.8 L Alcorn % (Auto) 7.9 Eos % (Auto) 0.3 Baso % (Auto) 0.2 Absolute Neuts (auto) 5.6 Absolute Lymphs (auto) 0.45 L Total Counted Not Reportable Nucleated RBC % 7.2 H Differential Comment SCANNED Diff Path Review May foll Absolute Retic 0.48 Sodium 118 L* Potassium 7.1 H* Chloride 90 L Carbon Dioxide 18.0 L Anion Gap 10 BUN 85 H Creatinine 2.99 H Estim Creat Clear Calc 10.57 Est GFR (MDRD) Af Amer 19 L Est GFR (MDRD) Non-Af 16 L BUN/Creatinine Ratio 28.4 H Glucose 117 H Lactic Acid 3.0 H Calcium 8.7 Total Bilirubin 1.30 H AST 24 ALT 15 Alkaline Phosphatase 145 H Ammonia Total Protein 8.0 Albumin 2.9 L Globulin 5.1 H Albumin/Globulin Ratio 0.6 L Lipase 272 11/13/18 18:32 WBC RBC Hgb Hct MCV MCH MCHC RDW RDW Differential Plt Count MPV Immature Gran % (Auto) Neut % (Auto) Lymph % (Auto) Alcorn % (Auto) Eos % (Auto) Baso % (Auto) Absolute Neuts (auto) Absolute Lymphs (auto) Total Counted Nucleated RBC % Differential Comment Diff Path Review Absolute Retic Sodium Potassium Chloride Carbon Dioxide Anion Gap BUN Creatinine Estim Creat Clear Calc Est GFR (MDRD) Af Amer Est GFR (MDRD) Non-Af BUN/Creatinine Ratio Glucose Lactic Acid Calcium Total Bilirubin AST ALT Alkaline Phosphatase Ammonia 37.0 H Total Protein Albumin Globulin Albumin/Globulin Ratio Lipase Assessment/Plan All Active Problems Hypotension (Acute) Hyperkalemia (Acute) Lactic acidosis (Acute) Acute exacerbation of CHF (congestive heart failure) (Acute) JULISSA (acute kidney injury) (Acute) Chronic systolic CHF (congestive heart failure) (Acute) GI bleed (Resolved) History of DVT (deep vein thrombosis) (Resolved) History of venous thromboembolism (Resolved) The patient is a 83 year old F with a significant history of CAD status post CABG and coronary stent; congestive heart failure (EF of 35% on 08/13/2017); pulmonary hypertension; hypothyroidism; chronic A. fib who presented to the emergency department with weakness; lethargy and increased abdominal girth and found to have severe hyponatremia; severe hyperkalemia; and severe hypotension consistent with probable acute on chronic exacerbation of CHF. Probable Acute exacerbation of systolic heart failure Review of old records show that her EF on 08/13/2017 was estimated at 35% on surface echocardiogram. Also she had moderately dilated right ventricle. Mild to moderate global right ventricular systolic dysfunction. Also she had pulmonary artery systolic pressure of 50 representing moderate pulmonary hypertension. Lowest documented systolic pressure on presentation was 59. Lowest documented diastolic pressure was 24. Patient received 2.5 L of normal saline at the emergency department. The case was discussed with assistant gm of content & delivery and patient was accepted to the ICU. Discussed case with group billing coordinator, Dr. Chery was okay with a trial of dobutamine. Discussed the case with assistant gm of content & delivery. For now no further IV fluids. Trend BMP We will hold off home diuretics and Coreg at this time. Continue home Midodrine. Daily weights Strict intake and output Elevate bilateral lower extremities and apply Jose wrap. Not started on fluid restriction or low-sodium diet because of hypotension on presentation. Ascites Likely secondary to right-sided heart failure. Her family denies history of liver disease. Patient gets paracentesis routinely. When patient is more stable consider paracentesis. Will check PT/INR. Her albumin level is low. Emergency department doctor discussed the case with assistant gm of content & delivery who recommended IV antibiotics. We will continue IV antibiotics at this time to prevent SBP.. Hyperkalemia On presentation her potassium was 7.1. Patient received IV insulin and dextrose at the emergency department. Reportedly patient was offered Kayexalate but it but she could not tolerate it orally so she did not drink the Kayexalate suspension. Also kayexalate was not given rectally because of fear of positioning patient in a more horizontal position. Reportedly at one point when patient was admitted at outside hospital she coded when she was laid flat; and she required resuscitation at that time. Receive IV fluids that should also help with her hyperkalemia. We will give an amp of bicarbonate and 10 mg of albuterol inhalation by examination. Of note she has metabolic acidosis. Trend BMP Admitted to the ICU on telemetry. On presentation she was in chronic A. fib with mildly widened QRS Consult health professional Hyponatremia On presentation his sodium was 118 This may be due to her congestive heart failure causing hypervolemia but still with intravascular depletion Received fluid resuscitation at the emergency department. Trend BMP. JULISSA On presentation her creatinine was 2.99. Review of old records shows that on 03/16/2018 her creatinine was 0.96 and on 02/01/2018 her creatinine was 1. So her creatinine is about 3 times at baseline at this point. Of note her BUN on presentation was 85. On 03/16/2018 her BUN was 23 and on 02/01/2018 her BUN was 27. This could be due to cardiorenal syndrome or hepatorenal syndrome. Treat acute congestive heart failure as above. When patient is more stable consider paracentesis Trend BMP Avoid nephrotoxic's. Lactic acidosis Lactic acid was 3.0 Likely secondary to congestive heart failure Treat congestive heart failure Trend lactic acid Hyperbilirubinemia Presentation her bilirubin was 1.30. Review of records shows previous elevation in her bilirubin. This could be due to liver disease secondary to right heart failure. But of note her transaminases are normal. Treat acute on chronic CHF as above.. Non-anion gap metabolic acidosis On presentation her bicarbonate was 18. A anion gap is 10. This could be due to lactic acidosis or JULISSA Bilateral lower extremity edema Likely from venous stasis. Her left leg is very erythematous. Per family patient had a left leg injury and ever since developed a pigmentation on her left leg. However, family thinks that her left leg swelling has increased plus now she has blisters and petechiae on her left which was not there previously. All these may be from a venous stasis and congestive heart failure. Elevate bilateral lower extremities Apply Jose wrap. Of note patient is receiving Zosyn to prevent SBP. It may be of benefit if patient has cellulitis but patient does not have any other symptoms to make cellulitis likely. Also family reports chronic edema so venous duplex was not ordered. Hyperammonemia On presentation potassium was 37 which is mildly elevated. We will do a trial of lactulose especially as patient have hyperkalemia. May be with induced diarrhea from her potassium could be reduced as well. Probably Acute Encephalopathy Family think the patient is weak and lethargic High ammonia; acute exacerbation of CHF; ? SBP Treatment as above DVT prophylaxis Subcutaneous Lovenox Code Visit Inpatient E&M: 00048 Init Hosp L3
[2018-11-13] MEDS: Sodium Bicarbonate 8.4% 50 ML Syringe 50 MEQ IV (22:28)
--- NOTE | 2018-11-13 22:37 | ECHOD_ITS ---
Reason For Study: CHF Procedure This was a 2D Doppler, Color Flow transthoracic echocardiogram. Exam performed portable in ICU/CCU. Left Ventricle Normal LV size. D shaped septum in systole and diastole. The estimated ejection fraction is 35 %. Infero-Basal: Akinetic. Right Ventricle Severely dilated right ventricle. Moderate global right ventricular systolic dysfunction. Atria The left atrium is moderately enlarged. The right atrium is severely enlarged. Mitral Valve Posterior leaflet diffuse mitral valve thickening. Moderate (2+) eccentric mitral valve insufficiency. Tricuspid Valve Normal tricuspid valve. Mild to moderate (1-2+) tricuspid valve insufficiency. Pulmonary artery systolic pressure is 42 mmHg. Moderate pulmonary hypertension. Aortic Valve Normal aortic valve. Pulmonic Valve Normal pulmonic valve. Great Vessels Normal aortic root. The pulmonary artery is normal size. The inferior vena cava is dilated. Pericardium/Pleural No pericardial effusion. MMode/2D Measurements & Calculations LVIDd: 5.7 cm IVSd: 0.96 cm Ao root diam: 2.9 cm LVIDs: 5.1 cm LVPWd: 0.99 cm RVDd: 4.7 cm FS: 9.5 % LAV(MOD-bp): 91.5 ml LA A4 area: 28.0 cm2 LA dimension(2D): 4.8 cm LAV(MOD-bp) Indexed: 50.8 ml/m2 LAV(MOD-sp2): 78.4 ml LAV(MOD-sp4): 90.4 ml RA A4 area: 33.7 cm2 Doppler Measurements & Calculations MV E max oscar: 111.7 cm/sec Ao V2 max: 95.7 cm/sec LV V1 max: 66.4 cm/sec Ao max P.7 mmHg LV V1 max P.8 mmHg PA V2 max: 71.3 cm/sec TR max oscar: 283.9 cm/sec TR max P.6 mmHg Interpretation Summary Normal LV size. D shaped septum in systole and diastole. The estimated ejection fraction is 35 %. Severely dilated right ventricle. Moderate (2+) eccentric mitral valve insufficiency. Pulmonary artery systolic pressure is 42 mmHg. Moderate pulmonary hypertension. Compared to prior study, there is no significant change. Ordering Physician: Thomas Nettles Referring Physician: Sea Obando Performed By: Thelma Gallardo, SWATI, RVT
[2018-11-13 22:41] LABS: Reflex Lactate? Y
[2018-11-14] VITALS (57 sets, daily range): BP systolic 67–107; BP diastolic 35–77; PULSE 90–110; RESP 16–29; TEMP 36–36.6; O2SAT 92–100; BMI 31.6
[2018-11-14] MEDS: DOBUTamine 500mg PM 500 MG/250 ML IV.SOLN. 6.09 MG CONT INF (00:10)
[2018-11-14 01:10] LABS: Hematocrit 36.4 % (37-47); Hemoglobin 12.2 g/dl (12.0-15.0); Mean Corp Hgb Conc 33.5 g/gl (32-36); Mean Corpuscular Volume 95.5 fL (81-99); Platelet Count 142 K/mm3 (150-450); RBC Distribution Width CV 17.9 % (11.6-14.6); RBC Distribution Width SD 59.4 fl (35.1-43.9); Red Blood Count 3.81 M/mm3 (4.2-5.4)
[2018-11-14 01:22] LABS: Lactic Acid 1.7 mmol/L (0.4-2.0)
[2018-11-14 01:25] LABS: Scan Indicated on CBC? Y/N NO
[2018-11-14 01:30] LABS: Anion Gap 9 (5-15); BUN 83 mg/dL (7-18); Calcium,Total 8.3 mg/dL (8.5-10.1); Chloride 95 mmol/L (98-107); Creatinine, Serum 2.68 mg/dL (0.55-1.02); EST Glomerular Filtration Rate 18 mL/min (>60); Est Glom Filt Rate - Afr Amer 22 mL/min (>60); Estimated Creatinine Clearance 12.93 ml/min; Glucose 68 mg/dL (74-106); Potassium 6.3 mmol/L (3.5-5.1); Sodium Level 123 mmol/L (136-145)
[2018-11-14] MEDS: 0.9% NaCl IVPB Med Flush (250 mL) 15 ML IV (01:30)
[2018-11-14] MEDS: 0.9% NaCl Peripheral Flush Adult/Peds IV ×5 (02:33→17:45)
[2018-11-14 03:27] LABS: International Normalized Ratio 1.5; Prothrombin Time (Protime)PT. 17.7 SECONDS (11.7-14.9)
[2018-11-14] MEDS: Sodium Polystyrene Sulfonate 15 GM/60 ML UDC 30 GM PO (06:11)
[2018-11-14] MEDS: Sodium Bicarbonate 8.4% 50 ML Syringe 50 MEQ IV (06:11)
[2018-11-14] MEDS: Midodrine HCl 5 MG Tablet PO ×3 (06:12→21:00)
[2018-11-14] MEDS: Levothyroxine 125 MCG Tablet PO (06:13)
[2018-11-14 06:26] LABS: Bedside Glucose 102 mg/dL (70-110)
--- NOTE | 2018-11-14 06:54 | CON.PCM_ITS ---
Reason for Consult Date of Consultation: 11/14/18 Reason for Consultation: Hypotension/congestive heart failure History of Present Illness: The patient is an 83-year-old female, with a history as outlined below, who presented to the emergency department with generalized malaise over 2 to 3 days. The patient is a bit confused, noting that she cannot remember exactly what was wrong that brought her into the emergency department in the first place. She is currently alert and oriented to person and place. The patient has a history of biventricular heart failure, pulmonary hypertension, anemia, chronic atrial fibrillation, chronic kidney disease and recurrent ascites secondary to underlying heart failure. Surface echocardiogram from August 2017 revealed evidence of a severely dilated LV with moderately severe segmental systolic dysfunction and an ejection fraction of 35%. The RV was moderately dilated with mild to moderate global RV systolic dysfunction, biatrial enlargement and pulmonary artery systolic pressure estimated to be 50 mmHg. The patient was previously being followed by Dr. Alonso Ware of cardiology. The patient did undergo a CABG in 2006. She is not currently anticoagulated due to a history of GI bleeding. The patient last underwent an ultrasound-guided paracentesis on October 28, 2018, during which time, 2.5 L of fluid was removed. She was just evaluated for repeat paracentesis on November 09, but there was reportedly not enough fluid present to proceed with the paracentesis. Therefore, the procedure was canceled. On presentation to the emergency department, the patient was noted to be afebrile and hypotensive with a blood pressure of 64/40. The patient was tachypneic but documented to be saturating 92% on room air. Laboratory evaluation revealed no evidence of a leukocytosis. Chemistry profile was notable for a sodium of 118, potassium of 7.1, chloride of 90, bicarbonate of 18 along with evidence of acute on chronic kidney disease with a creatinine of 2.9. Lactate was elevated at 3.0. Ammonia was increased to 37. Plain film chest x- ray revealed cardiomegaly along with a right-sided pleural effusion. The patient received supplemental IV fluids in the emergency department. Given her history of recurrent paracenteses and the fact that she was hypotensive on presentation, I did recommend that she be started on antibiotics to cover for potential SBP. A triple-lumen catheter was placed and vasopressors were initiated. The patient was then transferred to the medical intensive care unit for further management. Past Medical History Past Medical History (Chronic Problems): Chronic Problems S/P PTCA (percutaneous transluminal coronary angioplasty) (Chronic) S/P CABG (coronary artery bypass graft) (Chronic) Atrial fibrillation (Chronic) Ascites (Chronic) Chronic systolic CHF (congestive heart failure) (Chronic) Paroxysmal a-fib (Chronic) Pulmonary HTN (Chronic) Hyponatremia (Chronic) Gastroesophageal reflux disease (Chronic) Iron (Fe) deficiency anemia (Chronic) Chronic congestive heart failure (Chronic) systolic. Ejection fraction 42%, 6/15 With moderate to severe MR Severe TR CAD (coronary artery disease) (Chronic) Status post bypass in 2006, following with Dr. Dumotn Hypothyroidism (Chronic) Allergies azithromycin [From Zithromax] Allergy (Intermediate, Verified 11/13/18 18:06) Mucosal lesions Penicillins Allergy (Intermediate, Verified 11/13/18 18:06) Mucosal lesions Sulfa (Sulfonamide Antibiotics) Allergy (Intermediate, Verified 11/13/18 18:06) Mucosal lesions nausea cephalexin [From Keflex] Allergy (Verified 11/13/18 18:06) GI UPSET tobramycin Allergy (Verified 11/13/18 18:06) RED EYES metronidazole Adverse Reaction (Intermediate, Verified 11/13/18 18:06) Nausea diltiazem Adverse Reaction (Mild, Verified 11/13/18 18:06) Nausea/Vom/Diarrhea metolazone [From Zaroxolyn] Adverse Reaction (Mild, Verified 11/13/18 18:06) Nausea potassium chloride Adverse Reaction (Mild, Verified 11/13/18 18:06) Upset Stomach nystatin Adverse Reaction (Verified 11/13/18 18:06) Nausea spironolactone Adverse Reaction (Verified 11/13/18 18:06) Nausea Home Medications: Ambulatory Orders Medication Instructions Recorded Omeprazole [Prilosec] 20 mg PO DAILY 08/17/16 Docusate Sodium [Colace] 100 mg PO BID 11/10/16 Ondansetron HCl [Zofran] 4 mg PO PRN PRN 11/25/17 Acetaminophen [Tylenol] 1,000 mg PO Q4H PRN PRN 12/04/17 Nitroglycerin [Nitrostat] 0.4 mg SL PRN PRN 12/04/17 Carvedilol [Coreg (Beta Cherelle)] 6.25 mg PO BID tablet 12/06/17 Furosemide 40 mg PO BREAKFAST #1 tablet 12/06/17 Levothyroxine [Synthroid] 125 mcg PO DAILY 12/09/17 Metolazone [Zaroxolyn] 2.5 mg PO Q48H 12/09/17 Allopurinol 100 mg PO DAILY 11/13/18 Midodrine HCl 5 mg PO TID 11/13/18 Spironolactone 75 mg PO BID 11/13/18 Surgical History: cholecystectomy, coronary bypass surgery, hysterectomy Psychiatric History: No pertinent psych hx SHOP DIRECTOR History: No pertinent SHOP DIRECTOR history Lives: Alone Smoking Status: Never smoker - *Family History Sibling History Items: Dementia, Heart Disease Paternal History Items: No pertinent history Maternal History Items: No pertinent history Review of Systems Constitutional: Reports: Malaise, Weakness, Weight Change, Fatigue Eyes: Denies: Blurred vision, Double vision HEENT: Denies: Head Aches, Sinus Congestion, Sinus Drainage Cardiovascular: Denies: Chest Pain, Palpitations Respiratory: Reports: Shortness of Breath Gastrointestinal: Denies: Abdominal Pain, Nausea, Vomiting Genitourinary: Denies: Dysuria Musculoskeletal: Denies: Joint Pain, Joint Tenderness Skin: Reports: Skin Changes Neurological: Denies: Numbness, Tingling, Focal weakness Psychiatric: Denies: Anxiety, Depression, Homicidal Ideations, Suicidal Ideations Hematologic/ Lymphatic: Denies: Easy Bruising, Easy Bleeding Patient Problems: Active and Suspected Problems Hypotension (Acute) Hyperkalemia (Acute) Lactic acidosis (Acute) Renal insufficiency (Acute) Hyperkalemia (Acute) JULISSA (acute kidney injury) (Acute) Objective: The patient's most recent lab work, culture data and imaging studies have all been personally reviewed. Blood and urine cultures are pending. - Physical Exam General: Alert, Cooperative, Confused HEENT: Atraumatic, PERRLA, Normocephalic Oral: No Gingival or Mucosal Lesions/ Ulcerations Neck: Supple, No Nodes, Trachea Midline Lungs: No rhonchi, No wheeze, No rales, Diminished Cardiovascular: Normal S1, Normal S2, Murmur, Tachycardic Abdomen: Bowel Sounds Present, Soft, Non Tender, Distended, Hernia Extremities: No clubbing, No cyanosis, Diminished Peripheral Pulses, Edema Skin: - - Stasis dermatitis of lower extremities with significant pretibial erythema bilaterally. Musculoskeletal: No Tenderness to Palpation of Joints or Extremities Lymphatic: No Cervical, Supraclavicular, or Inguinal Adenopathy Neurological: - - No focal neurological deficits. Psych/Mental Status: Flat Affect Vital Signs Temp Pulse Resp BP Pulse Ox 96.8 F L 103 H 21 H 90/57 L 99 11/14/18 04:00 11/14/18 04:00 11/14/18 04:00 11/14/18 04:00 11/14/18 04:00 Oxygen Flow Rate (L/min) 2 Oxygen Delivery Method Nasal Cannula Weight: 178 lb 9.191 oz Body Mass Index (BMI) 31.6 Intake and Output for Last 24 Hours 11/12/18 11/13/18 11/14/18 23:59 23:59 23:59 Intake Total 557 / 557 Output Total 275 / 275 Balance 282 / 282 Laboratory Tests Past 24 Hrs 11/13/18 11/13/18 11/13/18 18:32 18:32 18:32 WBC 6.6 RBC 4.05 L Hgb 12.9 Hct 38.7 MCV 95.6 MCH 31.9 MCHC 33.3 RDW 17.8 H RDW Differential 61.6 H Plt Count 144 L MPV 9.7 Immature Gran % (Auto) 1.100 H Neut % (Auto) 83.7 H Lymph % (Auto) 6.8 L [place] % (Auto) 7.9 Eos % (Auto) 0.3 Baso % (Auto) 0.2 Absolute Neuts (auto) 5.6 Absolute Lymphs (auto) 0.45 L Total Counted Not Reportable Nucleated RBC % 7.2 H Differential Comment SCANNED Diff Path Review May foll Absolute Retic 0.48 PT INR Sodium 118 L* Potassium 7.1 H* Chloride 90 L Carbon Dioxide 18.0 L Anion Gap 10 BUN 85 H Creatinine 2.99 H Estim Creat Clear Calc 10.57 Est GFR (MDRD) Af Amer 19 L Est GFR (MDRD) Non-Af 16 L BUN/Creatinine Ratio 28.4 H Glucose 117 H Lactic Acid 3.0 H Calcium 8.7 Total Bilirubin 1.30 H AST 24 ALT 15 Alkaline Phosphatase 145 H Ammonia Troponin I Total Protein 8.0 Albumin 2.9 L Globulin 5.1 H Albumin/Globulin Ratio 0.6 L Lipase 272 11/13/18 11/14/18 11/14/18 18:32 00:35 00:35 WBC RBC Hgb Hct MCV MCH MCHC RDW RDW Differential Plt Count MPV Immature Gran % (Auto) Neut % (Auto) Lymph % (Auto) [place] % (Auto) Eos % (Auto) Baso % (Auto) Absolute Neuts (auto) Absolute Lymphs (auto) Total Counted Nucleated RBC % Differential Comment Diff Path Review Absolute Retic PT INR Sodium 123 L Potassium 6.3 H* Chloride 95 L Carbon Dioxide 19.0 L Anion Gap 9 BUN 83 H Creatinine 2.68 H Estim Creat Clear Calc 12.93 Est GFR (MDRD) Af Amer 22 L Est GFR (MDRD) Non-Af 18 L BUN/Creatinine Ratio 31.0 H Glucose 68 L Lactic Acid 1.7 Calcium 8.3 L Total Bilirubin AST ALT Alkaline Phosphatase Ammonia 37.0 H Troponin I Total Protein Albumin Globulin Albumin/Globulin Ratio Lipase 11/14/18 11/14/18 11/14/18 00:35 00:35 00:35 WBC 7.0 RBC 3.81 L Hgb 12.2 Hct 36.4 L MCV 95.5 MCH 32.0 MCHC 33.5 RDW 17.9 H RDW Differential 59.4 H Plt Count 142 L MPV 10.0 Immature Gran % (Auto) Neut % (Auto) Lymph % (Auto) [place] % (Auto) Eos % (Auto) Baso % (Auto) Absolute Neuts (auto) Absolute Lymphs (auto) Total Counted Nucleated RBC % Differential Comment Diff Path Review Absolute Retic PT INR Sodium Pending Potassium Pending Chloride Pending Carbon Dioxide Pending Anion Gap Pending BUN Pending Creatinine Pending Estim Creat Clear Calc Est GFR (MDRD) Af Amer Pending Est GFR (MDRD) Non-Af Pending BUN/Creatinine Ratio Pending Glucose Pending Lactic Acid Calcium Pending Total Bilirubin AST ALT Alkaline Phosphatase Ammonia Troponin I 0.015 Total Protein Albumin Globulin Albumin/Globulin Ratio Lipase 11/14/18 11/14/18 11/14/18 03:07 03:07 06:02 WBC RBC Hgb Hct MCV MCH MCHC RDW RDW Differential Plt Count MPV Immature Gran % (Auto) Neut % (Auto) Lymph % (Auto) [place] % (Auto) Eos % (Auto) Baso % (Auto) Absolute Neuts (auto) Absolute Lymphs (auto) Total Counted Nucleated RBC % Differential Comment Diff Path Review Absolute Retic PT 17.7 H INR 1.5 Sodium Potassium Chloride Carbon Dioxide Anion Gap BUN Creatinine Estim Creat Clear Calc Est GFR (MDRD) Af Amer Est GFR (MDRD) Non-Af BUN/Creatinine Ratio Glucose Lactic Acid Calcium Total Bilirubin AST ALT Alkaline Phosphatase Ammonia Troponin I < 0.015 0.020 Total Protein Albumin Globulin Albumin/Globulin Ratio Lipase POC Glucose 11/14/18 06:23 POC Glucose 102 Clinical Impression(s) from Imaging Studies Chest X-Ray 11/13/18 19:31 IMPRESSION: Stable cardiomegaly Enlarging small to moderate right pleural effusion Sternal wires Electronically Signed: Papito Mendoza, at 20:32 EDT Tel , Service support , Assessment/Plan Active and Suspected Problems Hypotension (Acute) Hyperkalemia (Acute) Lactic acidosis (Acute) Renal insufficiency (Acute) Hyperkalemia (Acute) JULISSA (acute kidney injury) (Acute) RECOMMENDATIONS: 1. Continue broad-spectrum antimicrobials, pending infectious work-up. 2. Consider ultrasound-guided paracentesis tomorrow. 3. Transition from dobutamine to Levophed to maintain mean arterial pressure at or above 65 mmHg. 4. Await nephrology and cardiology consultations. 5. Obtain echocardiogram. 6. Swallow evaluation followed by advancement of diet. IMPRESSIONS: 1. Septic shock Unclear with the patient's baseline blood pressure is, as she is chronically on midodrine. I do suspect that she has a low resting blood pressure at baseline. Nevertheless, the patient was significantly hypotensive on presentation to the ED. She was adequately volume resuscitated. At this time, the patient will be continued on broad antimicrobial coverage, pending infectious work-up. Potential infectious sources include possible lower extremity cellulitis and SBP. Recommend transitioning from dobutamine to Levophed to maintain a mean arterial pressure at or above 65 mmHg. 2. Biventricular heart failure/pulmonary hypertension/coronary artery disease status post CABG/paroxysmal atrial fibrillation Continue current supportive measures. Cardiology has been consulted to assist in the management of this patient. Repeat echocardiogram is currently pending. 3. Recurrent ascites There is some documentation that the patient's recurrent ascites is related to her heart failure. I do not see that a significant work-up has ever been undertaken previously. Fluid studies can be resent once repeat paracentesis is completed. 4. Hyponatremia/hyperkalemia/metabolic acidosis/acute kidney injury The patient's acute kidney injury is likely secondary to low flow state in the setting of #1. In addition, I do suspect that she has some baseline cardiorenal implications as well. Nephrology has been consulted accordingly. Continue medical management of her hyperkalemia. Sodium is improving. 5. Advanced age and deconditioning/GERD/hypothyroidism Complicates care, management, recovery and prognosis. Continue home medications as indicated. Patient will require physical therapy evaluation. TIME: 40 minutes of critical care time, independent of procedures, was spent addressing the patient's septic shock, biventricular heart failure, pulmonary hypertension, atrial fibrillation, recurrent ascites, hyponatremia, hyperkalemia, acute kidney injury, review of all data and collaboration with the care team. ([id number]) Code Visit 9xxxx: [id number] Critical care first hour
--- NOTE | 2018-11-14 07:08 | PN_ITS ---
Patient Problems: Active and Suspected Problems Hypotension (Acute) Hyperkalemia (Acute) Lactic acidosis (Acute) JULISSA (acute kidney injury) (Acute) Subjective: Patient is an 83-year-old lady with multiple comorbidities admitted with progressive generalized weakness. Patient was found to have significant electrolyte abnormalities including hyponatremia, hyperkalemia as well as acute kidney injury. Patient was admitted to the intensive care unit and was started on dobutamine drip as a result of persistent hypotension. Objective: GENERAL: Frail and ill-looking HEENT: Atraumatic; EYES; Anicteric, Normal Conjunctiva NECK; supple, normal thyroid, distended neck veins RESPIRATORY: Diminished to auscultation CARDIOVASCULAR: Regular S1 S2, GI: Diminished distended, dull to percussion : No Renal angle tenderness; EXTREMITIES: Bilateral stasis dermatitis MUSCULOSKELETAL: No Joint Tenderness; NEURO: Awake; no lateralizing signs. SKIN: Stasis dermatitis as described above PSYCH; flat affect Vitals/I&O's: Vital Signs Temp Pulse Resp BP Pulse Ox 96.8 F L 103 H 21 H 90/57 L 99 11/14/18 04:00 11/14/18 04:00 11/14/18 04:00 11/14/18 04:00 11/14/18 04:00 Oxygen Flow Rate (L/min) 2 Oxygen Delivery Method Nasal Cannula Weight: 81 kg Body Mass Index (BMI) 31.6 Intake and Output for Last 24 Hours 11/12/18 11/13/18 11/14/18 23:59 23:59 23:59 Intake Total 557 / 557 Output Total 275 / 275 Balance 282 / 282 Laboratory Results 11/13/18 18:32: WBC 6.6, RBC 4.05 L, Hgb 12.9, Hct 38.7, MCV 95.6, MCH 31.9, MCHC 33.3, RDW 17.8 H, RDW Differential 61.6 H, Plt Count 144 L, MPV 9.7, Immature Gran % (Auto) 1.100 H, Neut % (Auto) 83.7 H, Lymph % (Auto) 6.8 L, [place] % (Auto) 7.9, Eos % (Auto) 0.3, Baso % (Auto) 0.2, Absolute Neuts (auto) 5.6, Absolute Lymphs (auto) 0.45 L, Total Counted Not Reportable, Nucleated RBC % 7.2 H, Differential Comment SCANNED, Diff Path Review September foll, Absolute Retic 0.48 11/13/18 18:32: Sodium 118 L*, Potassium 7.1 H*, Chloride 90 L, Carbon Dioxide 18.0 L, Anion Gap 10, BUN 85 H, Creatinine 2.99 H, Estim Creat Clear Calc 10.57, Est GFR (MDRD) Af Amer 19 L, Est GFR (MDRD) Non-Af 16 L, BUN/Creatinine Ratio 28.4 H, Glucose 117 H, Calcium 8.7, Total Bilirubin 1.30 H, AST 24, ALT 15, Alkaline Phosphatase 145 H, Total Protein 8.0, Albumin 2.9 L, Globulin 5.1 H, Albumin/Globulin Ratio 0.6 L, Lipase 272 11/13/18 18:32: Lactic Acid 3.0 H 11/13/18 18:32: Ammonia 37.0 H 11/14/18 00:35: Lactic Acid 1.7 11/14/18 00:35: Sodium 123 L, Potassium 6.3 H*, Chloride 95 L, Carbon Dioxide 19.0 L, Anion Gap 9, BUN 83 H, Creatinine 2.68 H, Estim Creat Clear Calc 12.93, Est GFR (MDRD) Af Amer 22 L, Est GFR (MDRD) Non-Af 18 L, BUN/Creatinine Ratio 31.0 H, Glucose 68 L, Calcium 8.3 L 11/14/18 00:35: WBC 7.0, RBC 3.81 L, Hgb 12.2, Hct 36.4 L, MCV 95.5, MCH 32.0, MCHC 33.5, RDW 17.9 H, RDW Differential 59.4 H, Plt Count 142 L, MPV 10.0 11/14/18 00:35: Sodium Pending, Potassium Pending, Chloride Pending, Carbon Dioxide Pending, Anion Gap Pending, BUN Pending, Creatinine Pending, Est GFR (MDRD) Af Amer Pending, Est GFR (MDRD) Non-Af Pending, BUN/Creatinine Ratio Pending, Glucose Pending, Calcium Pending 11/14/18 00:35: Troponin I 0.015 11/14/18 03:07: PT 17.7 H, INR 1.5 11/14/18 03:07: Troponin I < 0.015 11/14/18 06:02: Troponin I 0.020 11/14/18 06:23: POC Glucose 102 Current Medications Acetaminophen (Tylenol) 650 mg PO Q6H PRN PRN PRN Reason: Mild Pain (1-3)/Temp > 100.7 F Allopurinol (Zyloprim) 100 mg PO DAILY [facility] Dextrose (D50w Syringe) 0 gm IV X1 PRN; Protocol PRN Reason: Hypoglycemia Enoxaparin Sodium (Lovenox) 30 mg SC DAILY@1000 C[facility]Y Glucagon () 1 mg IM .X1 PRN PRN Reason: Hypoglycemia Dobutamine HCl/Dextrose () 500 mg in 250 mls @ 6.09 mls/hr CONT INF .[id number] [facility] Last Admin: 11/14/18 00:10 Dose: 6.09 mls/hr Documented by: Sodium Chloride () 250 mls @ 15 mls/hr IV .[id number] PRN PRN Reason: SALINE FLUSH Last Admin: 11/14/18 01:30 Dose: 15 mls/hr Documented by: Piperacillin Sod/Tazobactam (Sod 2.25 mg/ Sodium Chloride) 50.0113 mls @ 100 mls/hr IV X1 [facility] Last Admin: 11/14/18 01:30 Dose: 100 mls/hr Documented by: Calcium Gluconate 1 gm/ N/A 10 mls @ 0 mls/hr IV X1 [facility] Last Admin: 11/14/18 06:12 Dose: 10 mls/hr Documented by: Levothyroxine Sodium (Synthroid) 125 mcg PO DAILY@0600 [facility] Last Admin: 11/14/18 06:13 Dose: 125 mcg Documented by: Midodrine (Proamatine) 5 mg PO TID [facility] Last Admin: 11/14/18 06:12 Dose: 5 mg Documented by: Ondansetron HCl (Zofran) 4 mg IV Q8H PRN PRN PRN Reason: NAUSEA/VOMITING Pantoprazole Sodium (Protonix) 20 mg PO DAILY [facility] Polyethylene Glycol (Miralax) 34 gm PO X1 PRN PRN Reason: Bowel Movement Sodium Chloride () 10 - 40 ml IV UD PRN PRN Reason: SALINE FLUSH Last Admin: 11/14/18 02:33 Dose: 20 ml Documented by: Medical Necessity - Tobacco Use Smoking Status: Never smoker Assessment/Plan All Active Problems Hypotension (Acute) Hyperkalemia (Acute) Lactic acidosis (Acute) Acute exacerbation of CHF (congestive heart failure) (Acute) JULISSA (acute kidney injury) (Acute) Chronic systolic CHF (congestive heart failure) (Acute) GI bleed (Resolved) History of DVT (deep vein thrombosis) (Resolved) History of venous thromboembolism (Resolved) Patient is an 83-year-old lady with multiple comorbidities admitted with progressive generalized weakness. Patient was found to have significant electrolyte abnormalities including hyponatremia, hyperkalemia as well as acute kidney injury. Patient was admitted to the intensive care unit and was started on dobutamine drip as a result of persistent hypotension. 1. Septic shock suspected to be secondary to questionable SBP in view of patient underlying ascites. Patient was empirically started on Zosyn and other has been given for patient to undergo ultrasound guided paracentesis on 11/15/2018 with orders given for subsequent fluid analysis. Patient was started on dobutamine (has a low EF) 2. Recurrent ascites of undetermined etiology at this point. CT of the abdomen obtained on obtained on 12/09/2017 demonstrated a normal liver echotexture. Patient is on every 10 daily paracentesis as outpatient 3. Acute kidney injury do suspect component of hepatorenal versus cardiorenal patient is on fluids with monitoring of electrolytes 4. Hyponatremia secondary to patient fluid overload status do expect improvement with treatment of underlying condition 5. Hyperkalemia secondary to patient acute kidney injury treatment was initiated subsequent serial monitoring ordered 6. Chronic systolic heart failure with recent exacerbation echo obtained in 08/12/2017 demonstrated EF of 35%. Patient is on diuretics at home held in view of her hypotension 7. CAD status post CABG with subsequent stent placement with subsequent Ischemic cardiomyopathy and EF of 35% 8. Paroxysmal A. fib; rate controlled not on systemic anticoagulation due to significant risk for falls 9. Hypothyroidism-patient is on levothyroxine home dose continued 10. Chronic hyponatremia with baseline sodium levels ranging between 1 25-1 30 11. Anemia secondary to anemia of chronic disorder 12. History of previous DVT status post IVC filter placement 13. Pulmonary hypertension with RVSP of 51 mmHg 14. GERD and is on PPI 15. DVT prophylaxis; Lovenox dose adjusted for kidney function Advance planning; did discuss with the patient and family regarding advanced directives as well as CODE STATUS. Patient had apparently stated she wanted to be full code however she was not sure and wanted family engaged in the discussion. Explained the various scenarios involved ( FULL CODE, DNR CCA, DNR CCA with no intubation, and DNR CC and what each meant) patient elected to be DNR CCA no intubation. Order was placed. Time spent on discussion 22 minutes. Code Visit Inpatient E&M: 55273 Subs Hosp L3 Procedures: 08500 Advncd Care Plan 30 Min
[2018-11-14] MEDS: Polyethylene Glycol 3350 17 GM PACKET 34 GM PO (08:25)
[2018-11-14 09:30] LABS: Mucous, Urine 0 SEEN /hpf (<or=2+)
[2018-11-14 09:31] LABS: Color, Urine Yellow (Yellow); Glucose, Dipstick Normal (Normal); Ketone-Dipstick Negative (Negative); Leukocyte Esterase-Dipstick 100 /ul (Negative); Nitrite-Dipstick Negative (Negative); Occult Blood-Urine 250 /ul (Negative); Protein-Dipstick 30 mg/dl (Negative); Specific Gravity, Urine 1.015 (1.002-1.030); Urine Bilirubin Dipstick Negative (Negative); Urine Clarity Clear (Clear); Urine Urobilinogen Normal (Normal)
[2018-11-14 09:39] LABS: Bacteria 1+ /hpf (None Seen); Red Blood Cells-Urine 50-100 SEEN /hpf (0-5); Squamous Epithelial Cells - UA 0-5 SEEN /hpf (5-10); White Blood Cells 5-10 SEEN /hpf (0-5)
[2018-11-14 09:58] LABS: Anion Gap 12 (5-15); BUN 90 mg/dL (7-18); BUN/Creat Ratio 31.6 RATIO (10-20); Calcium,Total 8.1 mg/dL (8.5-10.1); Chloride 95 mmol/L (98-107); Creatinine, Serum 2.85 mg/dL (0.55-1.02); EST Glomerular Filtration Rate 17 mL/min (>60); Est Glom Filt Rate - Afr Amer 20 mL/min (>60); Estimated Creatinine Clearance 12.16 ml/min; Glucose 111 mg/dL (74-106); Magnesium 2.4 mg/dL (1.6-2.6); Potassium 6.2 mmol/L (3.5-5.1); Sodium Level 127 mmol/L (136-145)
[2018-11-14 10:08] LABS: BNP,B-Type NATRIURETIC PEPTIDE 1408.8 pg/mL (0-100)
[2018-11-14] MEDS: Enoxaparin 30 MG/0.3 ML Syringe SC (10:28)
[2018-11-14] MEDS: Allopurinol 100 MG Tablet PO (10:28)
[2018-11-14] MEDS: Pantoprazole Sodium 20 MG Tablet PO (10:29)
--- NOTE | 2018-11-14 11:37 | CON.PCM_ITS ---
Problem List (1) Hypotension Status: Acute (2) Chronic systolic CHF (congestive heart failure) Status: Chronic (3) CAD (coronary artery disease) Status: Chronic Comment: Status post bypass in 2006, following with Dr. Ernst [place] (4) S/P PTCA (percutaneous transluminal coronary angioplasty) Status: Chronic (5) S/P CABG (coronary artery bypass graft) Status: Chronic (6) Atrial fibrillation Status: Chronic Qualifiers: Atrial fibrillation type: permanent Qualified Code(s): I48.2 - Chronic atrial fibrillation (7) Pulmonary HTN Status: Chronic (8) Ascites Status: Chronic Qualifiers: Ascites type: other type Qualified Code(s): R18.8 - Other ascites (9) Lactic acidosis Status: Acute (10) Hyperkalemia Status: Acute (11) Renal insufficiency Status: Acute Reason for Consult Date of Consultation: 11/14/18 History of Present Illness: The patient is a 83 year old white female who is previously been followed by [facility] cardiology for concerns of underlying CAD, PCI, CABG, chronic systolic CHF, atrial fibrillation, pulmonary hypertension, who is been undergoing outpatient evaluation care for recurrent ascites with recurrent paracentesis procedures, who now presents for concerns of weakness, was found to be hypotensive, and noted to have evidence of lactic acidosis and hyperkalemia and worsening renal function. She denies ongoing chest discomfort at this time. She states she has had no acute shortness of breath or dyspnea. There is been no report of near syncope or syncope. She has been tired and fatigued and weakened. She was brought to the [facility] for the aforementioned concerns. She was found to be markedly hypotensive. She was placed in the ICU for further evaluation and care. She was noted to require additional medical therapy with IV fluids and IV vaso-active agents such as IV dobutamine. Her troponin I levels have remained negative. Her BNP level was elevated. Her potassium level was elevated and treated and is subsequently declining. Her creatinine level was elevated and is noted to have some improvement. Her ECG demonstrated atrial fibrillation with a nonspecific IVCD and a septal AR pattern of indeterminate age cannot be excluded. She has undergone previous transthoracic echocardiogram on 08-13-17. Per the report at that time her left ventricle was severely dilated with left ventricular regional wall motion abnormalities with reported LVEF of 35%; the right ventricle was reported as moderately dilated and mild to moderately globally dysfunctional, there was moderate left atrial enlargement and severe right atrial enlargement, she had mild mitral valve thickening with mild MR, there was a report of an estimated RV systolic pressure 50 mmHg compatible with pulmonary hypertension. She also had a pharmacologic stress nuclear imaging study performed on 02-08-15. At that point in time there were no myocardial perfusion changes considered diagnostic for stress-induced myocardial ischemia. There were changes concerning for left ventricular dilatation. Her LVEF was reported at 32%. The details of her previous coronary revascularization therapy are unavailable at this time for review. [] Past Medical History Allergies/Adverse Reactions: Allergies azithromycin [From Zithromax] Allergy (Intermediate, Verified 11/13/18 18:06) Mucosal lesions Penicillins Allergy (Intermediate, Verified 11/13/18 18:06) Mucosal lesions Sulfa (Sulfonamide Antibiotics) Allergy (Intermediate, Verified 11/13/18 18:06) Mucosal lesions nausea cephalexin [From Keflex] Allergy (Verified 11/13/18 18:06) GI UPSET tobramycin Allergy (Verified 11/13/18 18:06) RED EYES metronidazole Adverse Reaction (Intermediate, Verified 11/13/18 18:06) Nausea diltiazem Adverse Reaction (Mild, Verified 11/13/18 18:06) Nausea/Vom/Diarrhea metolazone [From Zaroxolyn] Adverse Reaction (Mild, Verified 11/13/18 18:06) Nausea potassium chloride Adverse Reaction (Mild, Verified 11/13/18 18:06) Upset Stomach nystatin Adverse Reaction (Verified 11/13/18 18:06) Nausea spironolactone Adverse Reaction (Verified 11/13/18 18:06) Nausea Home Medications: Ambulatory Orders Medication Instructions Recorded Omeprazole [Prilosec] 20 mg PO DAILY 08/17/16 Docusate Sodium [Colace] 100 mg PO BID 11/10/16 Ondansetron HCl [Zofran] 4 mg PO PRN PRN 11/25/17 Acetaminophen [Tylenol] 1,000 mg PO Q4H PRN PRN 12/04/17 Nitroglycerin [Nitrostat] 0.4 mg SL PRN PRN 12/04/17 Carvedilol [Coreg (Beta Cherelle)] 6.25 mg PO BID tablet 12/06/17 Furosemide 40 mg PO BREAKFAST #1 tablet 12/06/17 Levothyroxine [Synthroid] 125 mcg PO DAILY 12/09/17 Metolazone [Zaroxolyn] 2.5 mg PO Q48H 12/09/17 Allopurinol 100 mg PO DAILY 11/13/18 Midodrine HCl 5 mg PO TID 11/13/18 Spironolactone 75 mg PO BID 11/13/18 Past Medical History (Chronic Problems): Chronic Problems S/P PTCA (percutaneous transluminal coronary angioplasty) (Chronic) S/P CABG (coronary artery bypass graft) (Chronic) Atrial fibrillation (Chronic) Ascites (Chronic) Chronic systolic CHF (congestive heart failure) (Chronic) Paroxysmal a-fib (Chronic) Pulmonary HTN (Chronic) Hyponatremia (Chronic) Gastroesophageal reflux disease (Chronic) Iron (Fe) deficiency anemia (Chronic) Chronic congestive heart failure (Chronic) systolic. 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 Denies: Fever, Night Sweats Cardiovascular: Denies: Chest Discomfort, Shortness of Breath, Orthopnea, PND, Peripheral Edema, Palpitations, Lightheadedness, Dizziness, Near Syncope, Syncope Respiratory: Denies: Cough, Sputum Production, Hemoptysis Gastrointestinal: Denies: Hematemesis, Hematochezia, Melena Genitourinary: Denies: Dysuria, Hematuria Skin: Denies: Rash Objective: Vital Signs Temp Pulse Resp BP Pulse Ox 96.8 F L 110 H 26 H 85/61 L 100 11/14/18 04:00 11/14/18 11:03 11/14/18 07:00 11/14/18 11:30 11/14/18 09:30 Oxygen Flow Rate (L/min) 2 Oxygen Delivery Method Room Air Weight: 178 lb 9.191 oz Body Mass Index (BMI) 31.6 Intake and Output for Last 24 Hours 11/12/18 11/13/18 11/14/18 23:59 23:59 23:59 Intake Total 557 / 557 Output Total 275 / 275 Balance 282 / 282 11/13/18 09:15: Urine Color Yellow, Urine Clarity Clear, Urine pH 5.0, Ur Specific [place] 1.015, Urine Protein 30 H, Urine Glucose (UA) Normal, Urine Ketones Negative, Urine Occult Blood 250 H, Urine Nitrite Negative, Urine Bilirubin Negative, Urine Urobilinogen Normal, Ur Leukocyte Esterase 100 H, Urine RBC 50-100 SEEN, Urine WBC 5-10 SEEN 11/13/18 18:32: WBC 6.6, RBC 4.05 L, Hgb 12.9, Hct 38.7, MCV 95.6, MCH 31.9, MCHC 33.3, RDW 17.8 H, RDW Differential 61.6 H, Plt Count 144 L, MPV 9.7, Immature Gran % (Auto) 1.100 H, Neut % (Auto) 83.7 H, Lymph % (Auto) 6.8 L, [place] % (Auto) 7.9, Eos % (Auto) 0.3, Baso % (Auto) 0.2, Absolute Neuts (auto) 5.6, Total Counted Not Reportable, Nucleated RBC % 7.2 H 11/13/18 18:32: Sodium 118 L*, Potassium 7.1 H*, Chloride 90 L, Carbon Dioxide 18.0 L, Anion Gap 10, BUN 85 H, Creatinine 2.99 H, Est GFR (MDRD) Af Amer 19 L, Est GFR (MDRD) Non-Af 16 L, BUN/Creatinine Ratio 28.4 H, Glucose 117 H, Calcium 8.7, Total Bilirubin 1.30 H 11/13/18 18:32: Lactic Acid 3.0 H 11/14/18 00:35: Lactic Acid 1.7 11/14/18 00:35: Sodium 123 L, Potassium 6.3 H*, Chloride 95 L, Carbon Dioxide 19.0 L, Anion Gap 9, BUN 83 H, Creatinine 2.68 H, Est GFR (MDRD) Af Amer 22 L, Est GFR (MDRD) Non-Af 18 L, BUN/Creatinine Ratio 31.0 H, Glucose 68 L, Calcium 8.3 L 11/14/18 00:35: WBC 7.0, RBC 3.81 L, Hgb 12.2, Hct 36.4 L, MCV 95.5, MCH 32.0, MCHC 33.5, RDW 17.9 H, RDW Differential 59.4 H, Plt Count 142 L, MPV 10.0 11/14/18 00:35: Sodium Cancelled, Potassium Cancelled, Chloride Cancelled, Carbon Dioxide Cancelled, Anion Gap Cancelled, BUN Cancelled, Creatinine Cancelled, Est GFR (MDRD) Af Amer Cancelled, Est GFR (MDRD) Non-Af Cancelled, BUN/Creatinine Ratio Cancelled, Glucose Cancelled, Calcium Cancelled 11/14/18 00:35: Troponin I 0.015 11/14/18 03:07: PT 17.7 H, INR 1.5 11/14/18 03:07: Troponin I < 0.015 11/14/18 06:02: Troponin I 0.020 11/14/18 09:15: B-Natriuretic Peptide 1408.8 H 11/14/18 09:15: Sodium 127 L, Potassium 6.2 H*, Chloride 95 L, Carbon Dioxide 20.0 L, Anion Gap 12, BUN 90 H, Creatinine 2.85 H, Est GFR (MDRD) Af Amer 20 L, Est GFR (MDRD) Non-Af 17 L, BUN/Creatinine Ratio 31.6 H, Glucose 111 H, Calcium 8.1 L, Magnesium 2.4 Rhythm: Atrial fibrillation EKG: As noted above ECHO: As noted above Stress Test: As noted above Cardiac Cath: None available for review PCI: None available for review CT Surgery: None available for review CXR: Preliminary evaluation: Post open heart surgery changes: Right-sided pleural effusion: Please see official report Assessment/Plan 1. Hypotension The patient reports feeling fatigued and weakened. She has been noted to be hypotensive. The etiology of her hypotension may be multifactorial. There are concerns of her underlying cardiovascular condition with her diminished LV systolic function. At the same time there were concerns of any underlying infectious disease related etiologies. From a cardiac standpoint she is received IV fluid support. She is receiving IV vasopressor agents. Any blood pressure lowering agents are on hold at this time. Her troponin I levels have been negative at this time thus no indication of acute coronary syndrome. She will be considered for reevaluation of her cardiovascular status with a transthoracic echocardiogram. 2. Chronic systolic CHF She appears to have biventricular systolic dysfunction based upon her previous echocardiographic images. This can be reassessed with a follow-up transthoracic echocardiogram. This can contribute to concerns of hepatic congestion and renal insufficiency, etc. From a cardiac standpoint she will have fluid adjustment as deemed appropriate. She is receiving additional IV vasopressor agents in the way of IV dobutamine at this time. Her other medication will need to be adjusted as deemed appropriate. 3. CAD status post PCI status post CABG The details of her previous revascularization history are unknown at this time. Her troponin I levels have remained negative thus far. Thus there is no indication of acute coronary syndrome. She has had no acute ECG changes. She would continue medical management for her underlying coronary artery disease process. However her medications may need to be adjusted this time based on concerns of her hypotension, etc. 4. Atrial fibrillation She does have atrial fibrillation. She has been without anticoagulant therapy. Secondary to her previous [facility] medical consultation available for review at stated that she was without anticoagulation secondary to history of GI bleeding. 5. Pulmonary hypertension Her most recent estimated RV systolic pressures are as described above. Certainly this can be a contributing factor to her hepatic congestion, etc. This can be reassessed with an echocardiogram. In the meantime she will continue his medical support as deemed appropriate. 6. Ascites She has had ascites. She has been receiving frequent paracentesis procedures. Based upon this she should also be considered for further evaluation of her acute process for any obvious infectious disease related issues. 7. Lactic acidosis She does have lactic acidosis. This may be secondary to poor perfusion. At the same time she has to be evaluated for any obvious infectious etiology such as a sepsis syndrome that would contribute to this. 8. Hyperkalemia Her potassium level was markedly elevated. She received therapy. Her potassium level is decreasing. This will need to be followed. 9. Renal insufficiency Her creatinine level was elevated as well. It is unclear whether this is related to decreased intravascular volume versus poor perfusion, etc. Her creatinine level is being followed. It has improved somewhat. Overall at the present time she has complex cardiovascular/medical history. She has been delegated to conservative medical management and frequent paracentesis procedures. She has requested being a DNR patient. She will continue to receive medical support as deemed appropriate and noninvasive evaluation. However, depending upon her clinical course and findings, consideration may have to be given as to whether it is time for the patient to consider being a palliative care or hospice care patient. Comment: The above was discussed and reviewed with Dr. Sosa and Dr. Denis. This note was generated using a voice recognition system and there may be incorrect words, spelling or punctuation that were not noted when reviewing the office note prior to saving.
[2018-11-14 13:32] LABS: Anion Gap 9 (5-15); BUN 85 mg/dL (7-18); BUN/Creat Ratio 29.9 RATIO (10-20); Calcium,Total 8.4 mg/dL (8.5-10.1); Chloride 95 mmol/L (98-107); Creatinine, Serum 2.84 mg/dL (0.55-1.02); EST Glomerular Filtration Rate 17 mL/min (>60); Est Glom Filt Rate - Afr Amer 20 mL/min (>60); Glucose 134 mg/dL (74-106); Potassium 6.3 mmol/L (3.5-5.1); Sodium Level 123 mmol/L (136-145)
[2018-11-14 14:16] LABS: Bedside Glucose 165 mg/dL (70-110)
[2018-11-14 15:26] LABS: Bedside Glucose 137 mg/dL (70-110)
--- NOTE | 2018-11-14 15:58 | CON.PCM_ITS ---
Problem List (1) Hyperkalemia Status: Acute (2) Hyperkalemia Status: Acute (3) JULISSA (acute kidney injury) Status: Acute (4) Hyponatremia Status: Chronic Consultation - Renal PCP/ Referring MD: Requesting physician: [] Primary care physician: Sea Obando MD - History of Present Illness History of Present Illness: The patient is a 83 year old F past medical history of coronary disease status post CABG, CHF with ejection fraction 35%, pulmonary hypertension, right-sided heart failure, liver congestion with recurrent ascites, hypothyroidism, chronic A. fib,. Patient presented with a history of 4 days of weakness and lethargy. Patient had diarrhea for couple days before presenting to the hospital but stopped now. In the emergency room patient was found to have worsening kidney function along with hyperkalemia and hyponatremia. Initial presenting level of sodium was 118 and potassium was 7.1. Patient was admitted to the ICU with hemodynamic shock, possible CHF, hyperkalemia and hyponatremia., Insulin and D50. Potassium level this morning 6.3. Patient received Kayexalate 15 g this morning. Patient had bowel movement as per the patient's nurse. Patient received 2 L of normal saline. Currently in ICU on Levophed 15 MCG per minute patient is making urine output of 10 cc/h. Patient received calcium gluconate [] Denies any complain in the ICU. She looks ill to me. Review of system: 12 system review is negative as per the patient answers - Allergies Allergies: Allergies azithromycin [From Zithromax] Allergy (Intermediate, Verified 11/13/18 18:06) Mucosal lesions Penicillins Allergy (Intermediate, Verified 11/13/18 18:06) Mucosal lesions Sulfa (Sulfonamide Antibiotics) Allergy (Intermediate, Verified 11/13/18 18:06) Mucosal lesions nausea cephalexin [From Keflex] Allergy (Verified 11/13/18 18:06) GI UPSET tobramycin Allergy (Verified 11/13/18 18:06) RED EYES metronidazole Adverse Reaction (Intermediate, Verified 11/13/18 18:06) Nausea diltiazem Adverse Reaction (Mild, Verified 11/13/18 18:06) Nausea/Vom/Diarrhea metolazone [From Zaroxolyn] Adverse Reaction (Mild, Verified 11/13/18 18:06) Nausea potassium chloride Adverse Reaction (Mild, Verified 11/13/18 18:06) Upset Stomach nystatin Adverse Reaction (Verified 11/13/18 18:06) Nausea spironolactone Adverse Reaction (Verified 11/13/18 18:06) Nausea - Current Medications Current Medications: Current Medications Acetaminophen (Tylenol) 650 mg PO Q6H PRN PRN PRN Reason: Mild Pain (1-3)/Temp > 100.7 F Allopurinol (Zyloprim) 100 mg PO DAILY [facility] Last Admin: 11/14/18 10:28 Dose: 100 mg Documented by: Calamine/Phenol (Calmoseptine Ointment) 1 applic TOPICAL 4X/DAY CASSY; Protocol Dextrose (D50w Syringe) 0 gm IV X1 PRN; Protocol PRN Reason: Hypoglycemia Enoxaparin Sodium (Lovenox) 30 mg SC DAILY@1000 [facility] Last Admin: 11/14/18 10:28 Dose: 30 mg Documented by: Glucagon () 1 mg IM .X1 PRN PRN Reason: Hypoglycemia Dobutamine HCl/Dextrose () 500 mg in 250 mls @ 6.09 mls/hr CONT INF .[id number] [facility] Last Admin: 11/14/18 00:10 Dose: 6.09 mls/hr Documented by: Sodium Chloride () 250 mls @ 15 mls/hr IV .[id number] PRN PRN Reason: SALINE FLUSH Last Admin: 11/14/18 01:30 Dose: 15 mls/hr Documented by: Norepinephrine Bitartrate 8 mg (/ Sodium Chloride) 250 mls @ 9.375 mls/hr CONT INF .[id number] [facility] Last Admin: 11/14/18 10:12 Dose: 9.375 mls/hr Documented by: Sodium Bicarbonate 100 meq/Dextrose 25 gm/ Insulin Human Lispro 10 unit/ Dextrose 1,150.1 mls @ 60 mls/hr IV .[id number] [facility] Last Admin: 11/14/18 13:10 Dose: 60 mls/hr Documented by: Cefepime HCl 1 gm/ Sodium (Chloride) 50 mls @ 100 mls/hr IV Q24@1500 [facility] Levothyroxine Sodium (Synthroid) 125 mcg PO DAILY@0600 [facility] Last Admin: 11/14/18 06:13 Dose: 125 mcg Documented by: Midodrine (Proamatine) 5 mg PO TID [facility] Last Admin: 11/14/18 14:01 Dose: 5 mg Documented by: Ondansetron HCl (Zofran) 4 mg IV Q8H PRN PRN PRN Reason: NAUSEA/VOMITING Pantoprazole Sodium (Protonix) 20 mg PO DAILY [facility] Last Admin: 11/14/18 10:29 Dose: 20 mg Documented by: Polyethylene Glycol (Miralax) 34 gm PO X1 PRN PRN Reason: Bowel Movement Sodium Chloride () 10 - 40 ml IV UD PRN PRN Reason: SALINE FLUSH Last Admin: 11/14/18 14:01 Dose: 10 ml Documented by: - Past Medical History Past Medical History (Chronic Problems): Chronic Problems S/P PTCA (percutaneous transluminal coronary angioplasty) (Chronic) S/P CABG (coronary artery bypass graft) (Chronic) Atrial fibrillation (Chronic) Ascites (Chronic) Chronic systolic CHF (congestive heart failure) (Chronic) Paroxysmal a-fib (Chronic) Pulmonary HTN (Chronic) Hyponatremia (Chronic) Gastroesophageal reflux disease (Chronic) Iron (Fe) deficiency anemia (Chronic) Chronic congestive heart failure (Chronic) systolic. 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 Dumont Hypothyroidism (Chronic) - Past Surgical History Surgical History: cholecystectomy, coronary bypass surgery, hysterectomy - Social History Smoking Status: Never smoker Alcohol: None Drugs: None - Family History Sibling History Items: Dementia, Heart Disease Paternal History Items: No pertinent history Maternal History Items: No pertinent history Patient Problems: Active and Suspected Problems Hypotension (Acute) Hyperkalemia (Acute) Lactic acidosis (Acute) Renal insufficiency (Acute) Hyperkalemia (Acute) JULISSA (acute kidney injury) (Acute) - Physical Exam General: Disoriented, - - Patient is awake able. Answer my questions appropriately. Falls asleep easily during my encounter HEENT: Atraumatic Oral: Moist Mucosa Neck: Supple, No JVD Lungs: - - Decreased breath sounds over both lung spaces. I do not appreciate crackles or rales Cardiovascular: Tachycardic, - - Irregular rhythm Abdomen: Bowel Sounds Present, Non Tender, Distended Extremities: Edema - +2 edema of lower extremities Musculoskeletal: Muscle Wasting Lymphatic: No Cervical, Supraclavicular, or Inguinal Adenopathy Neurological: - - Not oriented. Denies any focal weakness Psych/Mental Status: Flat Affect Vital Signs Temp Pulse Resp BP Pulse Ox 97.7 F L 104 H 23 H 94/62 93 11/14/18 12:00 11/14/18 15:30 11/14/18 15:00 11/14/18 15:00 11/14/18 15:00 Oxygen Flow Rate (L/min) 2 Oxygen Delivery Method Room Air Weight: 81 kg Body Mass Index (BMI) 31.6 Intake and Output for Last 24 Hours 11/12/18 11/13/18 11/14/18 23:59 23:59 23:59 Intake Total 969.1 / 969.1 Output Total 335 / 335 Balance 634.1 / 634.1 Laboratory Tests Past 24 Hrs 11/13/18 11/13/18 11/13/18 09:15 18:32 18:32 WBC 6.6 RBC 4.05 L Hgb 12.9 Hct 38.7 MCV 95.6 MCH 31.9 MCHC 33.3 RDW 17.8 H RDW Differential 61.6 H Plt Count 144 L MPV 9.7 Immature Gran % (Auto) 1.100 H Neut % (Auto) 83.7 H Lymph % (Auto) 6.8 L [place] % (Auto) 7.9 Eos % (Auto) 0.3 Baso % (Auto) 0.2 Absolute Neuts (auto) 5.6 Absolute Lymphs (auto) 0.45 L Total Counted Not Reportable Nucleated RBC % 7.2 H Differential Comment SCANNED Diff Path Review May foll Absolute Retic 0.48 PT INR Sodium 118 L* Potassium 7.1 H* Chloride 90 L Carbon Dioxide 18.0 L Anion Gap 10 BUN 85 H Creatinine 2.99 H Estim Creat Clear Calc 10.57 Est GFR (MDRD) Af Amer 19 L Est GFR (MDRD) Non-Af 16 L BUN/Creatinine Ratio 28.4 H Glucose 117 H Lactic Acid Calcium 8.7 Magnesium Total Bilirubin 1.30 H AST 24 ALT 15 Alkaline Phosphatase 145 H Ammonia Troponin I B-Natriuretic Peptide Total Protein 8.0 Albumin 2.9 L Globulin 5.1 H Albumin/Globulin Ratio 0.6 L Lipase 272 Urine Color Yellow Urine Clarity Clear Urine pH 5.0 Ur Specific [place] 1.015 Urine Protein 30 H Urine Glucose (UA) Normal Urine Ketones Negative Urine Occult Blood 250 H Urine Nitrite Negative Urine Bilirubin Negative Urine Urobilinogen Normal Ur Leukocyte Esterase 100 H Urine RBC 50-100 SEEN Urine WBC 5-10 SEEN Ur Squamous Epith Cells 0-5 SEEN Urine Bacteria 1+ Urine Mucus 0 SEEN 11/13/18 11/13/18 11/14/18 18:32 18:32 00:35 WBC RBC Hgb Hct MCV MCH MCHC RDW RDW Differential Plt Count MPV Immature Gran % (Auto) Neut % (Auto) Lymph % (Auto) [place] % (Auto) Eos % (Auto) Baso % (Auto) Absolute Neuts (auto) Absolute Lymphs (auto) Total Counted Nucleated RBC % Differential Comment Diff Path Review Absolute Retic PT INR Sodium Potassium Chloride Carbon Dioxide Anion Gap BUN Creatinine Estim Creat Clear Calc Est GFR (MDRD) Af Amer Est GFR (MDRD) Non-Af BUN/Creatinine Ratio Glucose Lactic Acid 3.0 H 1.7 Calcium Magnesium Total Bilirubin AST ALT Alkaline Phosphatase Ammonia 37.0 H Troponin I B-Natriuretic Peptide Total Protein Albumin Globulin Albumin/Globulin Ratio Lipase Urine Color Urine Clarity Urine pH Ur Specific [place] Urine Protein Urine Glucose (UA) Urine Ketones Urine Occult Blood Urine Nitrite Urine Bilirubin Urine Urobilinogen Ur Leukocyte Esterase Urine RBC Urine WBC Ur Squamous Epith Cells Urine Bacteria Urine Mucus 11/14/18 11/14/18 11/14/18 00:35 00:35 00:35 WBC 7.0 RBC 3.81 L Hgb 12.2 Hct 36.4 L MCV 95.5 MCH 32.0 MCHC 33.5 RDW 17.9 H RDW Differential 59.4 H Plt Count 142 L MPV 10.0 Immature Gran % (Auto) Neut % (Auto) Lymph % (Auto) [place] % (Auto) Eos % (Auto) Baso % (Auto) Absolute Neuts (auto) Absolute Lymphs (auto) Total Counted Nucleated RBC % Differential Comment Diff Path Review Absolute Retic PT INR Sodium 123 L Cancelled Potassium 6.3 H* Cancelled Chloride 95 L Cancelled Carbon Dioxide 19.0 L Cancelled Anion Gap 9 Cancelled BUN 83 H Cancelled Creatinine 2.68 H Cancelled Estim Creat Clear Calc 12.93 Cancelled Est GFR (MDRD) Af Amer 22 L Cancelled Est GFR (MDRD) Non-Af 18 L Cancelled BUN/Creatinine Ratio 31.0 H Cancelled Glucose 68 L Cancelled Lactic Acid Calcium 8.3 L Cancelled Magnesium Total Bilirubin AST ALT Alkaline Phosphatase Ammonia Troponin I B-Natriuretic Peptide Total Protein Albumin Globulin Albumin/Globulin Ratio Lipase Urine Color Urine Clarity Urine pH Ur Specific [place] Urine Protein Urine Glucose (UA) Urine Ketones Urine Occult Blood Urine Nitrite Urine Bilirubin Urine Urobilinogen Ur Leukocyte Esterase Urine RBC Urine WBC Ur Squamous Epith Cells Urine Bacteria Urine Mucus 11/14/18 11/14/18 11/14/18 00:35 03:07 03:07 WBC RBC Hgb Hct MCV MCH MCHC RDW RDW Differential Plt Count MPV Immature Gran % (Auto) Neut % (Auto) Lymph % (Auto) [place] % (Auto) Eos % (Auto) Baso % (Auto) Absolute Neuts (auto) Absolute Lymphs (auto) Total Counted Nucleated RBC % Differential Comment Diff Path Review Absolute Retic PT 17.7 H INR 1.5 Sodium Potassium Chloride Carbon Dioxide Anion Gap BUN Creatinine Estim Creat Clear Calc Est GFR (MDRD) Af Amer Est GFR (MDRD) Non-Af BUN/Creatinine Ratio Glucose Lactic Acid Calcium Magnesium Total Bilirubin AST ALT Alkaline Phosphatase Ammonia Troponin I 0.015 < 0.015 B-Natriuretic Peptide Total Protein Albumin Globulin Albumin/Globulin Ratio Lipase Urine Color Urine Clarity Urine pH Ur Specific [place] Urine Protein Urine Glucose (UA) Urine Ketones Urine Occult Blood Urine Nitrite Urine Bilirubin Urine Urobilinogen Ur Leukocyte Esterase Urine RBC Urine WBC Ur Squamous Epith Cells Urine Bacteria Urine Mucus 11/14/18 11/14/18 11/14/18 06:02 09:15 09:15 WBC RBC Hgb Hct MCV MCH MCHC RDW RDW Differential Plt Count MPV Immature Gran % (Auto) Neut % (Auto) Lymph % (Auto) [place] % (Auto) Eos % (Auto) Baso % (Auto) Absolute Neuts (auto) Absolute Lymphs (auto) Total Counted Nucleated RBC % Differential Comment Diff Path Review Absolute Retic PT INR Sodium 127 L Potassium 6.2 H* Chloride 95 L Carbon Dioxide 20.0 L Anion Gap 12 BUN 90 H Creatinine 2.85 H Estim Creat Clear Calc 12.16 Est GFR (MDRD) Af Amer 20 L Est GFR (MDRD) Non-Af 17 L BUN/Creatinine Ratio 31.6 H Glucose 111 H Lactic Acid Calcium 8.1 L Magnesium 2.4 Total Bilirubin AST ALT Alkaline Phosphatase Ammonia Troponin I 0.020 B-Natriuretic Peptide 1408.8 H Total Protein Albumin Globulin Albumin/Globulin Ratio Lipase Urine Color Urine Clarity Urine pH Ur Specific [place] Urine Protein Urine Glucose (UA) Urine Ketones Urine Occult Blood Urine Nitrite Urine Bilirubin Urine Urobilinogen Ur Leukocyte Esterase Urine RBC Urine WBC Ur Squamous Epith Cells Urine Bacteria Urine Mucus 11/14/18 13:05 WBC RBC Hgb Hct MCV MCH MCHC RDW RDW Differential Plt Count MPV Immature Gran % (Auto) Neut % (Auto) Lymph % (Auto) [place] % (Auto) Eos % (Auto) Baso % (Auto) Absolute Neuts (auto) Absolute Lymphs (auto) Total Counted Nucleated RBC % Differential Comment Diff Path Review Absolute Retic PT INR Sodium 123 L Potassium 6.3 H* Chloride 95 L Carbon Dioxide 19.0 L Anion Gap 9 BUN 85 H Creatinine 2.84 H Estim Creat Clear Calc 12.20 Est GFR (MDRD) Af Amer 20 L Est GFR (MDRD) Non-Af 17 L BUN/Creatinine Ratio 29.9 H Glucose 134 H Lactic Acid Calcium 8.4 L Magnesium Total Bilirubin AST ALT Alkaline Phosphatase Ammonia Troponin I B-Natriuretic Peptide Total Protein Albumin Globulin Albumin/Globulin Ratio Lipase Urine Color Urine Clarity Urine pH Ur Specific [place] Urine Protein Urine Glucose (UA) Urine Ketones Urine Occult Blood Urine Nitrite Urine Bilirubin Urine Urobilinogen Ur Leukocyte Esterase Urine RBC Urine WBC Ur Squamous Epith Cells Urine Bacteria Urine Mucus POC Glucose 11/14/18 11/14/18 11/14/18 15:21 14:07 06:23 POC Glucose 137 H 165 H 102 Assessment/Plan All Active Problems Hypotension (Acute) Hyperkalemia (Acute) Lactic acidosis (Acute) Renal insufficiency (Acute) Hyperkalemia (Acute) Acute exacerbation of CHF (congestive heart failure) (Acute) JULISSA (acute kidney injury) (Acute) GI bleed (Resolved) History of DVT (deep vein thrombosis) (Resolved) History of venous thromboembolism (Resolved) 1-acute kidney injury on chronic kidney disease stage 2. Baseline creatinine s eems around 0.9 to 1 mg/dL. Acute kidney injury is most probably due to ischemic ATN from hypotensive. Blood pressure is better with the Levophed. Patient is oliguric. I will give the patient 1 dose of Lasix 80 mg IV. I will monitor urine output. Keep the arterial pressure more than 65. avoid IV contrast. Patient is poor candidate for renal replacement therapy given her comorbidity of low ejection fraction, right ventricle failure. Check kidney function in the morning. 2-hyperkalemia. Related to acute kidney injury, acidosis, Aldactone use. Improved with medical treatment. I will give the patient Kayexalate 15 g and 1 dose of Lasix. Hopefully the patient will make more urine and excrete some potassium in the urine Check potassium in the morning. 3-High anion gap metabolic acidosis from acute kidney injury and lactic acidosis due to liver failure and ischemia. I will change sodium bicarb drip to isotonic sodium bicarb drip. I will run the drip at 100 cc/h. Her ABGs, PCO2 and bicarb level, 3-hyponatremia. Initial presenting level is 118. Most probably from renal loss from diuretics. Patient also had sodium loss and GI due to history of diarrhea for 2 days before presenting to the hospital. Sodium level improved to 127 from 118 with 2 L of normal saline. Sodium level dropped again to 123 and this is most part related to fluid retention from JULISSA and being in hypotonic IV fluid. I will stop the current hypotonic sodium bicarb drip. I will change the drip to isotonic sodium bicarb drip. No need for 3% sodium chloride. Check sodium level in the morning. 4-cardiogenic shock. Patient in Levophed. Blood pressure is well controlled. I will defer management to the ICU team. Thank you for the consult. Renal team will continue to follow. Please call if any question at [phone] Sofía Iniguez
[2018-11-14] MEDS: Cefepime 1 GM in 0.9% NS 50 ML Minibag Q12 IV (16:19)
[2018-11-14 17:21] LABS: Bedside Glucose 141 mg/dL (70-110)
[2018-11-14] MEDS: Sodium Polystyrene Sulfonate 15 GM/60 ML UDC PO (17:43)
[2018-11-14] MEDS: Furosemide 100 MG/10 ML Vial IV (17:43)
[2018-11-14 17:48] LABS: Anion Gap 8 (5-15); BUN 85 mg/dL (7-18); BUN/Creat Ratio 28.5 RATIO (10-20); Chloride 95 mmol/L (98-107); Creatinine, Serum 2.98 mg/dL (0.55-1.02); EST Glomerular Filtration Rate 16 mL/min (>60); Est Glom Filt Rate - Afr Amer 19 mL/min (>60); Estimated Creatinine Clearance 11.62 ml/min; Glucose 145 mg/dL (74-106); Potassium 6.1 mmol/L (3.5-5.1); Sodium Level 123 mmol/L (136-145)
[2018-11-14] MEDS: Menthol/Lanolin/Calamine/Znox 113 GM Tube 1 APPLIC TOPICAL ×2 (19:03→20:59)
--- NOTE | 2018-11-14 21:57 | NURSING ---
Pt cleaned of small liquid stool,colmo oint applied to buttocks. 3inch Jose wrap placed to ann feet/ankles. 2 ABD pads placed to L lateral calf, secured w/mesh sleeve. 6inch Jose wrap applied to BLE from ankles to just below knees. Pt emerson all well while maintaining HOB at 20 degrees during all care.
[2018-11-15] VITALS (28 sets, daily range): BP systolic 72–103; BP diastolic 50–78; PULSE 92–127; RESP 18–29; TEMP 35.8–36.6; O2SAT 89–100
--- NOTE | 2018-11-15 | FLU_PTH ---
PATIENT: RAND WIN V LOC: [facility] U#:[id number] AGE/SX: 83/F ROOM: ICU05 RE11/13/[address]: Dr. Vito Brandon DO : 1935 BED: 1 DIS: 11/20/2018 SPEC #: [id number] RECD: 11/15/18 13:47 STATUS: JUAN REQ #: [id number] SILVIA: 11/15/18 00:[address]: Vito Brandon DEPT: CYTOLOGY RECD BY: Ranjeet Nguyen ENTERED: 11/16/18 14:05 SP TYPE: Fluid OTHR DR: DO Dr. Thomas Domingo MD Dr. Jeffrey Burkey, MD Dr. Jayaprakas Dasari, MD Dr. Paul Moodispaw, MD Tissues: PARACENTESIS FLUID Procedures: Special Stain Group II Surgery Specimen Level IV Cytospin Fluid HEADER OPERATION: Ultrasound-guided right paracentesis PRE-OP DIAGNOSIS: Ascites TISSUE SUBMITTED: Paracentesis fluid for cytology DIAGNOSIS CYTOLOGY Paracentesis fluid for cytology (cytospin and cell block): Negative for malignant cells. AM:edilma 11/17/18 CYTOLOGY STUDY Slides are reviewed. CYTOLOGY GROSS Received is 107 ml of clear yellow fluid labeled with the patient's name and and designated per the requisition as paracentesis. Submitted for cytology preparation including cell block. / 11/16/18 TC:5 CPT: 00900, 17328
[2018-11-15 04:23] LABS: Absolute Lymphocyte Count 0.25 X10^3/ul (0.83-4.51); Absolute Neutrophil Count 3.6 X10^3/uL (2.0-7.7); Basophil# 0.01 X10^3/uL; Basophil% 0.2 % (0-1); Eosinophil# 0.06 X10^3/uL; Eosinophils% 1.4 % (0-5); Hematocrit 34.8 % (37-47); Hemoglobin 11.6 g/dl (12.0-15.0); Lymphocyte # 0.25 X10^3/ul (4.0); Lymphocyte % 5.7 % (19-41); Mean Corp Hgb Conc 33.3 g/gl (32-36); Mean Corpuscular Volume 95.9 fL (81-99); Mean Platelet Vol. 8.9 fl (6.2-12.0); Monocyte# 0.46 X10^3/uL; Monocyte% 10.5 % (0-10); Neutrophil # 3.56 X10^3/uL (2.7-7.7); Neutrophil % 81.1 % (47-70); Platelet Count 117 K/mm3 (150-450); RBC Distribution Width SD 62.5 fl (35.1-43.9); Red Blood Count 3.63 M/mm3 (4.2-5.4); White Blood Count 4.4 K/mm3 (4.4-11.0)
[2018-11-15 04:27] LABS: POSITIVE COUNT NO; POSITIVE DIFFERENTIAL YES; POSITIVE MORPHOLOGY NO
[2018-11-15 04:28] LABS: Absolute Nucleated RBC Count 0.67 10^3/uL (0-5); Differential Indicated SCAN CRITERIA MET; NRBC Flagged by Analyzer 15.2 % (0-5)
[2018-11-15 04:35] LABS: Anion Gap 11 (5-15); BUN 86 mg/dL (7-18); BUN/Creat Ratio 29.7 RATIO (10-20); Calcium,Total 7.6 mg/dL (8.5-10.1); Chloride 93 mmol/L (98-107); EST Glomerular Filtration Rate 16 mL/min (>60); Est Glom Filt Rate - Afr Amer 20 mL/min (>60); Estimated Creatinine Clearance 11.95 ml/min; Glucose 126 mg/dL (74-106); Magnesium 2.4 mg/dL (1.6-2.6); Potassium 5.7 mmol/L (3.5-5.1); Sodium Level 127 mmol/L (136-145)
[2018-11-15] MEDS: 0.9% NaCl Peripheral Flush Adult/Peds IV (04:50)
[2018-11-15] MEDS: Levothyroxine 125 MCG Tablet PO (04:51)
[2018-11-15] MEDS: Midodrine HCl 5 MG Tablet PO ×3 (04:51→21:53)
[2018-11-15 05:06] LABS: Differential Comment SCANNED; Macrocytosis 2+; Polychromasia 1+
--- NOTE | 2018-11-15 06:54 | PCM.PN.INT ---
Subjective: Patient did well overnight. No acute issues were reported. Patient has been able to be weaned from 15 of Levophed to 5 of Levophed. Dobutamine has been discontinued. Patient remains on midodrine and bicarbonate drip. Patient remains alert and oriented only x2. Patient's respiratory status has been stable on 2 L nasal cannula. General: Alert, Cooperative, No apparent distress, - - Appears stated age. Mild conversational dyspnea. HEENT: Atraumatic, PERRLA, EOMI, Normocephalic, - - Left ptosis noted Oral: Moist Mucosa, No Gingival or Mucosal Lesions/ Ulcerations Neck: Supple, No Nodes, Trachea Midline, JVD, Right Lungs: No rhonchi, No wheeze, No rales, Diminished Cardiovascular: Normal S1, Normal S2, Irregular Rate, Murmur, No rub noted, No Gallop Abdomen: Bowel Sounds Present, Soft, Non Tender, Distended, - - Fluid wave noted. No rebound tenderness or guarding noted. 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 Some rubor noted bilateral legs without warmth. Musculoskeletal: No Tenderness to Palpation of Joints or Extremities Lymphatic: No Cervical, Supraclavicular, or Inguinal Adenopathy Neurological: Cranial nerves II-XII grossly intact, Neuro grossly intact, Motor Exam 5/5 strength throughout Psych/Mental Status: Appropriate, Flat Affect Vital Signs Temp Pulse Resp BP Pulse Ox 36.3 C L 103 H 19 H 81/53 L 96 11/15/18 06:00 11/15/18 06:00 11/15/18 06:00 11/15/18 06:00 11/15/18 06:00 Oxygen Flow Rate (L/min) 2 Oxygen Delivery Method Nasal Cannula Weight: 83.9 kg Body Mass Index (BMI) 31.6 Intake and Output for Last 24 Hours 11/13/18 11/14/18 11/15/18 23:59 23:59 23:59 Intake Total 2346.1 / 2346.1 828 / 828 Output Total 475 / 475 300 / 300 Balance 1871.1 / 1871.1 528 / 528 Labs (Last 48 Hours) 11/13/18 11/13/18 11/13/18 09:15 18:32 18:32 WBC 6.6 RBC 4.05 L Hgb 12.9 Hct 38.7 MCV 95.6 MCH 31.9 MCHC 33.3 RDW 17.8 H RDW Differential 61.6 H Plt Count 144 L MPV 9.7 Immature Gran % (Auto) 1.100 H Neut % (Auto) 83.7 H Lymph % (Auto) 6.8 L Dare % (Auto) 7.9 Eos % (Auto) 0.3 Baso % (Auto) 0.2 Absolute Neuts (auto) 5.6 Absolute Lymphs (auto) 0.45 L Total Counted Not Reportable Nucleated RBC % 7.2 H Differential Comment SCANNED Diff Path Review May foll Polychromasia Macrocytosis Absolute Retic 0.48 PT INR Sodium 118 L* Potassium 7.1 H* Chloride 90 L Carbon Dioxide 18.0 L Anion Gap 10 BUN 85 H Creatinine 2.99 H Estim Creat Clear Calc 10.57 Est GFR (MDRD) Af Amer 19 L Est GFR (MDRD) Non-Af 16 L BUN/Creatinine Ratio 28.4 H Glucose 117 H Lactic Acid Calcium 8.7 Magnesium Total Bilirubin 1.30 H AST 24 ALT 15 Alkaline Phosphatase 145 H Ammonia Troponin I B-Natriuretic Peptide Total Protein 8.0 Albumin 2.9 L Globulin 5.1 H Albumin/Globulin Ratio 0.6 L Lipase 272 Urine Color Yellow Urine Clarity Clear Urine pH 5.0 Ur Specific Magazine 1.015 Urine Protein 30 H Urine Glucose (UA) Normal Urine Ketones Negative Urine Occult Blood 250 H Urine Nitrite Negative Urine Bilirubin Negative Urine Urobilinogen Normal Ur Leukocyte Esterase 100 H Urine RBC 50-100 SEEN Urine WBC 5-10 SEEN Ur Squamous Epith Cells 0-5 SEEN Urine Bacteria 1+ Urine Mucus 0 SEEN POC Glucose 11/13/18 11/13/18 11/14/18 18:32 18:32 00:35 WBC RBC Hgb Hct MCV MCH MCHC RDW RDW Differential Plt Count MPV Immature Gran % (Auto) Neut % (Auto) Lymph % (Auto) Dare % (Auto) Eos % (Auto) Baso % (Auto) Absolute Neuts (auto) Absolute Lymphs (auto) Total Counted Nucleated RBC % Differential Comment Diff Path Review Polychromasia Macrocytosis Absolute Retic PT INR Sodium Potassium Chloride Carbon Dioxide Anion Gap BUN Creatinine Estim Creat Clear Calc Est GFR (MDRD) Af Amer Est GFR (MDRD) Non-Af BUN/Creatinine Ratio Glucose Lactic Acid 3.0 H 1.7 Calcium Magnesium Total Bilirubin AST ALT Alkaline Phosphatase Ammonia 37.0 H Troponin I B-Natriuretic Peptide Total Protein Albumin Globulin Albumin/Globulin Ratio Lipase Urine Color Urine Clarity Urine pH Ur Specific Magazine Urine Protein Urine Glucose (UA) Urine Ketones Urine Occult Blood Urine Nitrite Urine Bilirubin Urine Urobilinogen Ur Leukocyte Esterase Urine RBC Urine WBC Ur Squamous Epith Cells Urine Bacteria Urine Mucus POC Glucose 11/14/18 11/14/18 11/14/18 00:35 00:35 00:35 WBC 7.0 RBC 3.81 L Hgb 12.2 Hct 36.4 L MCV 95.5 MCH 32.0 MCHC 33.5 RDW 17.9 H RDW Differential 59.4 H Plt Count 142 L MPV 10.0 Immature Gran % (Auto) Neut % (Auto) Lymph % (Auto) Dare % (Auto) Eos % (Auto) Baso % (Auto) Absolute Neuts (auto) Absolute Lymphs (auto) Total Counted Nucleated RBC % Differential Comment Diff Path Review Polychromasia Macrocytosis Absolute Retic PT INR Sodium 123 L Cancelled Potassium 6.3 H* Cancelled Chloride 95 L Cancelled Carbon Dioxide 19.0 L Cancelled Anion Gap 9 Cancelled BUN 83 H Cancelled Creatinine 2.68 H Cancelled Estim Creat Clear Calc 12.93 Cancelled Est GFR (MDRD) Af Amer 22 L Cancelled Est GFR (MDRD) Non-Af 18 L Cancelled BUN/Creatinine Ratio 31.0 H Cancelled Glucose 68 L Cancelled Lactic Acid Calcium 8.3 L Cancelled Magnesium Total Bilirubin AST ALT Alkaline Phosphatase Ammonia Troponin I B-Natriuretic Peptide Total Protein Albumin Globulin Albumin/Globulin Ratio Lipase Urine Color Urine Clarity Urine pH Ur Specific Magazine Urine Protein Urine Glucose (UA) Urine Ketones Urine Occult Blood Urine Nitrite Urine Bilirubin Urine Urobilinogen Ur Leukocyte Esterase Urine RBC Urine WBC Ur Squamous Epith Cells Urine Bacteria Urine Mucus POC Glucose 11/14/18 11/14/18 11/14/18 00:35 03:07 03:07 WBC RBC Hgb Hct MCV MCH MCHC RDW RDW Differential Plt Count MPV Immature Gran % (Auto) Neut % (Auto) Lymph % (Auto) Dare % (Auto) Eos % (Auto) Baso % (Auto) Absolute Neuts (auto) Absolute Lymphs (auto) Total Counted Nucleated RBC % Differential Comment Diff Path Review Polychromasia Macrocytosis Absolute Retic PT 17.7 H INR 1.5 Sodium Potassium Chloride Carbon Dioxide Anion Gap BUN Creatinine Estim Creat Clear Calc Est GFR (MDRD) Af Amer Est GFR (MDRD) Non-Af BUN/Creatinine Ratio Glucose Lactic Acid Calcium Magnesium Total Bilirubin AST ALT Alkaline Phosphatase Ammonia Troponin I 0.015 < 0.015 B-Natriuretic Peptide Total Protein Albumin Globulin Albumin/Globulin Ratio Lipase Urine Color Urine Clarity Urine pH Ur Specific Magazine Urine Protein Urine Glucose (UA) Urine Ketones Urine Occult Blood Urine Nitrite Urine Bilirubin Urine Urobilinogen Ur Leukocyte Esterase Urine RBC Urine WBC Ur Squamous Epith Cells Urine Bacteria Urine Mucus POC Glucose 11/14/18 11/14/18 11/14/18 06:02 06:23 09:15 WBC RBC Hgb Hct MCV MCH MCHC RDW RDW Differential Plt Count MPV Immature Gran % (Auto) Neut % (Auto) Lymph % (Auto) Dare % (Auto) Eos % (Auto) Baso % (Auto) Absolute Neuts (auto) Absolute Lymphs (auto) Total Counted Nucleated RBC % Differential Comment Diff Path Review Polychromasia Macrocytosis Absolute Retic PT INR Sodium Potassium Chloride Carbon Dioxide Anion Gap BUN Creatinine Estim Creat Clear Calc Est GFR (MDRD) Af Amer Est GFR (MDRD) Non-Af BUN/Creatinine Ratio Glucose Lactic Acid Calcium Magnesium Total Bilirubin AST ALT Alkaline Phosphatase Ammonia Troponin I 0.020 B-Natriuretic Peptide 1408.8 H Total Protein Albumin Globulin Albumin/Globulin Ratio Lipase Urine Color Urine Clarity Urine pH Ur Specific Magazine Urine Protein Urine Glucose (UA) Urine Ketones Urine Occult Blood Urine Nitrite Urine Bilirubin Urine Urobilinogen Ur Leukocyte Esterase Urine RBC Urine WBC Ur Squamous Epith Cells Urine Bacteria Urine Mucus POC Glucose 102 11/14/18 11/14/18 11/14/18 09:15 13:05 14:07 WBC RBC Hgb Hct MCV MCH MCHC RDW RDW Differential Plt Count MPV Immature Gran % (Auto) Neut % (Auto) Lymph % (Auto) Dare % (Auto) Eos % (Auto) Baso % (Auto) Absolute Neuts (auto) Absolute Lymphs (auto) Total Counted Nucleated RBC % Differential Comment Diff Path Review Polychromasia Macrocytosis Absolute Retic PT INR Sodium 127 L 123 L Potassium 6.2 H* 6.3 H* Chloride 95 L 95 L Carbon Dioxide 20.0 L 19.0 L Anion Gap 12 9 BUN 90 H 85 H Creatinine 2.85 H 2.84 H Estim Creat Clear Calc 12.16 12.20 Est GFR (MDRD) Af Amer 20 L 20 L Est GFR (MDRD) Non-Af 17 L 17 L BUN/Creatinine Ratio 31.6 H 29.9 H Glucose 111 H 134 H Lactic Acid Calcium 8.1 L 8.4 L Magnesium 2.4 Total Bilirubin AST ALT Alkaline Phosphatase Ammonia Troponin I B-Natriuretic Peptide Total Protein Albumin Globulin Albumin/Globulin Ratio Lipase Urine Color Urine Clarity Urine pH Ur Specific Magazine Urine Protein Urine Glucose (UA) Urine Ketones Urine Occult Blood Urine Nitrite Urine Bilirubin Urine Urobilinogen Ur Leukocyte Esterase Urine RBC Urine WBC Ur Squamous Epith Cells Urine Bacteria Urine Mucus POC Glucose 165 H 11/14/18 11/14/18 11/14/18 15:21 17:14 17:15 WBC RBC Hgb Hct MCV MCH MCHC RDW RDW Differential Plt Count MPV Immature Gran % (Auto) Neut % (Auto) Lymph % (Auto) Dare % (Auto) Eos % (Auto) Baso % (Auto) Absolute Neuts (auto) Absolute Lymphs (auto) Total Counted Nucleated RBC % Differential Comment Diff Path Review Polychromasia Macrocytosis Absolute Retic PT INR Sodium 123 L Potassium 6.1 H* Chloride 95 L Carbon Dioxide 20.0 L Anion Gap 8 BUN 85 H Creatinine 2.98 H Estim Creat Clear Calc 11.62 Est GFR (MDRD) Af Amer 19 L Est GFR (MDRD) Non-Af 16 L BUN/Creatinine Ratio 28.5 H Glucose 145 H Lactic Acid Calcium 8.0 L Magnesium Total Bilirubin AST ALT Alkaline Phosphatase Ammonia Troponin I B-Natriuretic Peptide Total Protein Albumin Globulin Albumin/Globulin Ratio Lipase Urine Color Urine Clarity Urine pH Ur Specific Magazine Urine Protein Urine Glucose (UA) Urine Ketones Urine Occult Blood Urine Nitrite Urine Bilirubin Urine Urobilinogen Ur Leukocyte Esterase Urine RBC Urine WBC Ur Squamous Epith Cells Urine Bacteria Urine Mucus POC Glucose 137 H 141 H 11/15/18 11/15/18 04:00 04:00 WBC 4.4 RBC 3.63 L Hgb 11.6 L Hct 34.8 L MCV 95.9 MCH 32.0 MCHC 33.3 RDW 18.0 H RDW Differential 62.5 H Plt Count 117 L MPV 8.9 Immature Gran % (Auto) 1.100 H Neut % (Auto) 81.1 H Lymph % (Auto) 5.7 L Dare % (Auto) 10.5 H Eos % (Auto) 1.4 Baso % (Auto) 0.2 Absolute Neuts (auto) 3.6 Absolute Lymphs (auto) 0.25 L Total Counted Not Reportable Nucleated RBC % 15.2 H Differential Comment SCANNED Diff Path Review May foll Polychromasia 1+ Macrocytosis 2+ Absolute Retic 0.67 PT INR Sodium 127 L Potassium 5.7 H Chloride 93 L Carbon Dioxide 23.0 Anion Gap 11 BUN 86 H Creatinine 2.90 H Estim Creat Clear Calc 11.95 Est GFR (MDRD) Af Amer 20 L Est GFR (MDRD) Non-Af 16 L BUN/Creatinine Ratio 29.7 H Glucose 126 H Lactic Acid Calcium 7.6 L Magnesium 2.4 Total Bilirubin AST ALT Alkaline Phosphatase Ammonia Troponin I B-Natriuretic Peptide Total Protein Albumin Globulin Albumin/Globulin Ratio Lipase Urine Color Urine Clarity Urine pH Ur Specific Magazine Urine Protein Urine Glucose (UA) Urine Ketones Urine Occult Blood Urine Nitrite Urine Bilirubin Urine Urobilinogen Ur Leukocyte Esterase Urine RBC Urine WBC Ur Squamous Epith Cells Urine Bacteria Urine Mucus POC Glucose Medical Necessity - Tobacco Use Smoking Status: Never smoker Assessment/Plan All Active Problems Hypotension (Acute) Hyperkalemia (Acute) Lactic acidosis (Acute) Renal insufficiency (Acute) Hyperkalemia (Acute) Acute exacerbation of CHF (congestive heart failure) (Acute) JULISSA (acute kidney injury) (Acute) GI bleed (Resolved) History of DVT (deep vein thrombosis) (Resolved) History of venous thromboembolism (Resolved) RECOMMENDATIONS: 1. Continue broad-spectrum antimicrobials, pending infectious work-up. 2. Diagnostic ultrasound-guided paracentesis ordered 3. Wean Levophed to maintain mean arterial pressure at or above 65 mmHg. 4. Await nephrology and cardiology consultations. 5. Await echocardiogram. 6. Consider discontinuation of bicarbonate drip IMPRESSIONS: 1. Septic shock Unclear etiology at this time. Patient does have rubor of bilateral lower extremities, but this appears to be more vascular in nature. Patient does not have any tenderness on the abdomen on physical exam. However, patient appears to have improved on cefepime therapy. Will obtain a diagnostic paracentesis later today. Continue pressor therapy and wean as tolerated. 2. Biventricular heart failure/pulmonary hypertension/coronary artery disease status post CABG/paroxysmal atrial fibrillation Continue current supportive measures. Cardiology has been consulted to assist in the management of this patient. Repeat echocardiogram is currently pending. Patient is in atrial fibrillation at this time, but rate is relatively controlled, especially in the setting of pressor requirements. 3. Recurrent ascites There is some documentation that the patient's recurrent ascites is related to her heart failure. 4. Hyponatremia/hyperkalemia/metabolic acidosis/acute kidney injury Patient appears to be improving from a renal perspective. Clinical suspicion for cardiorenal syndrome. Patient is currently on a bicarbonate drip, but it is unclear if this is needed. Will defer to nephrology given they have been consulted. Patient remains hyperkalemic, but improving. Sodium is improving. 5. Advanced age and deconditioning/GERD/hypothyroidism Complicates care, management, recovery and prognosis. Continue home medications as indicated. Patient will require physical therapy evaluation. TIME: 35 minutes of critical care time, independent of procedures, was spent addressing the patient's septic shock, biventricular heart failure, pulmonary hypertension, atrial fibrillation, recurrent ascites, hyponatremia, hyperkalemia, acute kidney injury, review of all data and collaboration with the care team. (5:45 AM to 6:45 AM) Code Visit 9xxxx: [id number] Critical care first hour
--- NOTE | 2018-11-15 06:56 | US_ITS ---
PROCEDURE: Ultrasound guided paracentesis. DATE OF EXAMINATION: November 15, 2018. INDICATION: Female, 83 years old. Ascites. PHYSICIAN: Ted Shetty M.D. TECHNIQUE: The risks, benefits, and alternatives to the procedure were explained to the patient. The specific risks of bleeding, infection, and damage to bowel were detailed and accepted. Witnessed informed consent was obtained. The abdomen was ultrasonographically surveyed. An appropriate pocket of fluid was identified at the right lower quadrant. The skin were cleaned and prepped in the usual sterile fashion. Using ultrasound guidance, the peritoneal cavity was accessed with a 5-Citizen Of [place] paracentesis needle/catheter system. The trocar was removed. A total of 2120 ml of gris-colored fluid were removed from the peritoneal cavity. A sample was sent to the laboratory for testing. The catheter was removed and a sterile dressing was applied. The procedure was well tolerated. US/Paracentesis with US IMPRESSION: Ultrasound guided paracentesis. Electronically Signed: Ted Shetty, at 15:22 EDT , Service support ,
--- NOTE | 2018-11-15 10:10 | CASEMGMT ---
RN CM Assessment Presentation: CHF exacerbation. Ascites (chronic, paracentesis weekly), Hyperkalemia. K 7.1, Hyponatremia Na 118 on admission. Intro role of CM and purpose of RN CM assessment to patient and her daughter. Demographics, PCP and Pharmacy verified. Per daughter, pt lives in mobile home next door to daughter and daughter Gloria is able to assist pt. Pt and daughter prefer dc to home if able. PCP: Dr. Sea Obando Specialists: Dr. Farnsworth, cardiology. First appt dec [facility] Insurance: [facility] Prescription Benefit: yes LNOK: Daughters Gloria Marion and Daniela Bennett Living Arrangements: Lives in own mobile home, 4 steps into home. Per daughter, they help with meals, cleaning, bathing. Pt is otherwise independent, uses walker around home. Transportation: daughter gloria does most driving DME: walker, cane, raised toilet seat, shower chair. HHC: [facility] in past. If HHS is recommended on dc, agreeable to [facility] Patient DC goals: Home DC PLAN: Home. Pt passed early mobility per ICU rounds, evaluation pending. Twan OCONNELL RN ACM
[2018-11-15] MEDS: Menthol/Lanolin/Calamine/Znox 113 GM Tube 1 APPLIC TOPICAL ×4 (10:53→21:52)
[2018-11-15] MEDS: Allopurinol 100 MG Tablet PO (10:54)
[2018-11-15] MEDS: Pantoprazole Sodium 20 MG Tablet PO (10:55)
--- NOTE | 2018-11-15 11:26 | PCM.PN.REN ---
Patient Problems: Active and Suspected Problems Hypotension (Acute) Hyperkalemia (Acute) Lactic acidosis (Acute) Renal insufficiency (Acute) Hyperkalemia (Acute) JULISSA (acute kidney injury) (Acute) Subjective: No new events. Remains on Levophed. Creatinine is about the same. Potassium better. - Physical Exam General: Alert, Oriented x3, Cooperative HEENT: Atraumatic, PERRLA, EOMI, Normocephalic Neck: Supple, No JVD, Negative Carotid Bruits Lungs: Clear to auscultation, Normal air movement Cardiovascular: Regular rate, No murmurs Abdomen: Bowel Sounds Present Extremities: No edema, Capillary Refill Less than 3 Seconds Skin: No rashes, No breakdown Musculoskeletal: No Tenderness to Palpation of Joints or Extremities Neurological: Cranial nerves II-XII grossly intact Psych/Mental Status: Normal Affect, Appropriate Vital Signs Temp Pulse Resp BP Pulse Ox 96.8 F L 100 23 H 89/66 L 93 11/15/18 10:00 11/15/18 10:00 11/15/18 10:00 11/15/18 10:00 11/15/18 10:00 Oxygen Flow Rate (L/min) 2 Oxygen Delivery Method Nasal Cannula Weight: 83.9 kg Body Mass Index (BMI) 31.6 Intake and Output for Last 24 Hours 11/13/18 11/14/18 11/15/18 23:59 23:59 23:59 Intake Total 2346.1 / 2346.1 828 / 828 Output Total 475 / 475 300 / 300 Balance 1871.1 / 1871.1 528 / 528 Microbiology Past 72 Hours 11/14/18 09:15 Urine Culture - Preliminary Urine Catheter - Gentile Culture exhibits no growth. Laboratory Tests Past 24 Hrs 11/14/18 11/14/18 11/14/18 00:35 13:05 17:15 WBC RBC Hgb Hct MCV MCH MCHC RDW RDW Differential Plt Count MPV Immature Gran % (Auto) Neut % (Auto) Lymph % (Auto) Forrest % (Auto) Eos % (Auto) Baso % (Auto) Absolute Neuts (auto) Absolute Lymphs (auto) Total Counted Nucleated RBC % Differential Comment Diff Path Review Polychromasia Macrocytosis Absolute Retic Sodium Cancelled 123 L 123 L Potassium Cancelled 6.3 H* 6.1 H* Chloride Cancelled 95 L 95 L Carbon Dioxide Cancelled 19.0 L 20.0 L Anion Gap Cancelled 9 8 BUN Cancelled 85 H 85 H Creatinine Cancelled 2.84 H 2.98 H Estim Creat Clear Calc Cancelled 12.20 11.62 Est GFR (MDRD) Af Amer Cancelled 20 L 19 L Est GFR (MDRD) Non-Af Cancelled 17 L 16 L BUN/Creatinine Ratio Cancelled 29.9 H 28.5 H Glucose Cancelled 134 H 145 H Calcium Cancelled 8.4 L 8.0 L Magnesium 11/15/18 11/15/18 04:00 04:00 WBC 4.4 RBC 3.63 L Hgb 11.6 L Hct 34.8 L MCV 95.9 MCH 32.0 MCHC 33.3 RDW 18.0 H RDW Differential 62.5 H Plt Count 117 L MPV 8.9 Immature Gran % (Auto) 1.100 H Neut % (Auto) 81.1 H Lymph % (Auto) 5.7 L Forrest % (Auto) 10.5 H Eos % (Auto) 1.4 Baso % (Auto) 0.2 Absolute Neuts (auto) 3.6 Absolute Lymphs (auto) 0.25 L Total Counted Not Reportable Nucleated RBC % 15.2 H Differential Comment SCANNED Diff Path Review May foll Polychromasia 1+ Macrocytosis 2+ Absolute Retic 0.67 Sodium 127 L Potassium 5.7 H Chloride 93 L Carbon Dioxide 23.0 Anion Gap 11 BUN 86 H Creatinine 2.90 H Estim Creat Clear Calc 11.95 Est GFR (MDRD) Af Amer 20 L Est GFR (MDRD) Non-Af 16 L BUN/Creatinine Ratio 29.7 H Glucose 126 H Calcium 7.6 L Magnesium 2.4 POC Glucose 11/14/18 11/14/18 11/14/18 17:14 15:21 14:07 POC Glucose 141 H 137 H 165 H Medical Necessity - Tobacco Use Smoking Status: Never smoker Assessment/Plan All Active Problems Hypotension (Acute) Hyperkalemia (Acute) Lactic acidosis (Acute) Renal insufficiency (Acute) Hyperkalemia (Acute) Acute exacerbation of CHF (congestive heart failure) (Acute) JULISSA (acute kidney injury) (Acute) GI bleed (Resolved) History of DVT (deep vein thrombosis) (Resolved) History of venous thromboembolism (Resolved) 1-acute kidney injury on chronic kidney disease stage 2. Baseline creatinine seems around 0.9 to 1 mg/dL. Acute kidney injury is most probably due to ischemic ATN from hypotension. Blood pressure is better with the Levophed. Urine output is not great. Not a candidate for dialysis right now due to significant hypotension and Levophed requirements. 2-hyperkalemia. Related to acute kidney injury, acidosis, Aldactone use. Improved with medical treatment. 3-High anion gap metabolic acidosis from acute kidney injury and lactic acidosis due to liver failure and ischemia. 3-hyponatremia. Initial presenting level is 118. Most probably from renal loss from diuretics. Patient also had sodium loss and GI due to history of diarrhea for 2 days before presenting to the hospital. Sodium level improved to 127 from 118 4-cardiogenic shock. Patient in Levophed. Blood pressure is well controlled. I will defer management to the ICU team.
--- NOTE | 2018-11-15 12:50 | NURSING ---
Pt to Radiology for paracentesis per Mary GUIDRY
--- NOTE | 2018-11-15 14:18 | PCM.PN.CARD ---
Subjectve: The patient was evaluated earlier this day. She appeared with no new acute cardiovascular issues or concerns. She continued to require support by IV vasopressor agents. Objective: Vital Signs Temp Pulse Resp BP Pulse Ox 96.5 F L 122 H 22 H 94/74 98 11/15/18 12:00 11/15/18 13:05 11/15/18 13:05 11/15/18 13:05 11/15/18 12:00 Oxygen Flow Rate (L/min) 2 Oxygen Delivery Method [4] Room Air Oxygen Delivery Method [3] Room Air Oxygen Delivery Method [2] Room Air Oxygen Delivery Method [1 ( Room Air Initial Baseline)] Oxygen Delivery Method Nasal Cannula Weight: 184 lb 15.485 oz Body Mass Index (BMI) 31.6 Intake and Output for Last 24 Hours 11/13/18 11/14/18 11/15/18 23:59 23:59 23:59 Intake Total 2346.1 / 2346.1 1160 / 1160 Output Total 475 / 475 460 / 460 Balance 1871.1 / 1871.1 700 / 700 General: Awake, Cooperative, Ill Appearing Lungs: Diminished [place] Bases Cardiovascular: Irregular Rhythm, Normal S1, Normal S2 Abdomen: Bowel Sounds Present, Distended, Ascites Extremities: - - Bilateral lower extremity edema/erythema 11/14/18 17:15: Sodium 123 L, Potassium 6.1 H*, Chloride 95 L, Carbon Dioxide 20.0 L, Anion Gap 8, BUN 85 H, Creatinine 2.98 H, Est GFR (MDRD) Af Amer 19 L, Est GFR (MDRD) Non-Af 16 L, BUN/Creatinine Ratio 28.5 H, Glucose 145 H, Calcium 8.0 L 11/15/18 04:00: WBC 4.4, RBC 3.63 L, Hgb 11.6 L, Hct 34.8 L, MCV 95.9, MCH 32.0, MCHC 33.3, RDW 18.0 H, RDW Differential 62.5 H, Plt Count 117 L, MPV 8.9, Immature Gran % (Auto) 1.100 H, Neut % (Auto) 81.1 H, Lymph % (Auto) 5.7 L, [place] % (Auto) 10.5 H, Eos % (Auto) 1.4, Baso % (Auto) 0.2, Absolute Neuts (auto) 3.6, Total Counted Not Reportable, Nucleated RBC % 15.2 H 11/15/18 04:00: Sodium 127 L, Potassium 5.7 H, Chloride 93 L, Carbon Dioxide 23.0, Anion Gap 11, BUN 86 H, Creatinine 2.90 H, Est GFR (MDRD) Af Amer 20 L, Est GFR (MDRD) Non-Af 16 L, BUN/Creatinine Ratio 29.7 H, Glucose 126 H, Calcium 7.6 L, Magnesium 2.4 Rhythm: Atrial fibrillation Medical Necessity - Tobacco Use Smoking Status: Never smoker Assessment/Plan 1. Hypotension The patient continues to require IV vasopressor support with Levophed. The dobutamine has been weaned off. An echocardiogram is pending to reassess her biventricular function. 2. Chronic systolic CHF She appears to have biventricular systolic dysfunction based upon her previous echocardiographic images. This can contribute to concerns of hepatic congestion and renal insufficiency, etc. From a cardiac standpoint she will have fluid adjustment as deemed appropriate. She is receiving additional IV vasopressor agents. 3. CAD status post PCI status post CABG The details of her previous revascularization history are unknown at this time. Her troponin I levels have remained negative thus far. Thus there is no indication of acute coronary syndrome. She has had no acute ECG changes. She would continue medical management for her underlying coronary artery disease process. However her medications may need to be adjusted this time based on concerns of her hypotension, etc. 4. Atrial fibrillation She does have atrial fibrillation. She has been without anticoagulant therapy. Secondary to her previous [facility] medical consultation available for review at stated that she was without anticoagulation secondary to history of GI bleeding. 5. Pulmonary hypertension Her most recent estimated RV systolic pressures are as described above. Certainly this can be a contributing factor to her hepatic congestion, etc. This can be reassessed with an echocardiogram. In the meantime she will continue his medical support as deemed appropriate. 6. Ascites She has had ascites. She has been receiving frequent paracentesis procedures. 7. Lactic acidosis She does have lactic acidosis. This may be secondary to poor perfusion. At the same time she has to be evaluated for any obvious infectious etiology such as a sepsis syndrome that would contribute to this. 8. Hyperkalemia Her potassium level was markedly elevated. She received therapy. Her potassium level has decreased compared to her admission level. 9. Renal insufficiency Her creatinine level remains elevated. She is being evaluated by nephrology. Overall at the present time she has complex cardiovascular/medical history. She has been delegated to conservative medical management and frequent paracentesis procedures. She has requested being a DNR patient. She will continue to receive medical support as deemed appropriate and noninvasive evaluation. However, depending upon her clinical course and findings, consideration may have to be given as to whether it is time for the patient to consider being a palliative care or hospice care patient. This note was generated using a voice recognition system and there may be incorrect words, spelling or punctuation that were not noted when reviewing the office note prior to saving.
[2018-11-15 14:33] LABS: Body Fluid Mononuclear WBC # 0.134 10^3/uL; Body Fluid Mononuclear WBC % 69.4 %; Body Fluid Polynuclear WBC # 0.059 10^3/uL; Body Fluid Polynuclear WBC % 30.6 %; Body Fluid Total Cells Counted 0.226 10^3/ul (0.000-0.000); White Blood Count/Body Fluid 0.193 10^3/uL
[2018-11-15 14:57] LABS: Appearance/Body Fluid SL CLDY; Auto B Fluid Analyzer BKGD Ct COUNTS W/IN LIMITS (W/IN LIMITS); Color/Body Fluid YELLOW; Source- Body Fluid OTHER
[2018-11-15 15:15] LABS: Lymphocytes 36 %; Monocytes 28 %; Neutrophil (Segs) 30 %; Other Cell Type/BF 6 %; Red Cell Count/Body Fluid 77 /mm3
[2018-11-15 15:16] LABS: Body Fluid QC Type(s) BF1Q
--- NOTE | 2018-11-15 15:26 | CASEMGMT ---
LW on chart, POA not on chart. SW spoke w/pt's daughter in room, let her know POA not on chart. Daughter thinks pt has POA that put one or two of the children down, but that the pt would want all of the children to make decisions together. SW let daughter know that without the POA papers, it would be all the children making decisions together if pt is not able. Daughter states understanding. ADRIÁN Bee
[2018-11-15] MEDS: Cefepime 1 GM in 0.9% NS 50 ML Minibag Q12 IV (16:02)
--- NOTE | 2018-11-15 20:18 | PCM.PROGNOTE ---
Patient Problems: Active and Suspected Problems Hypotension (Acute) Hyperkalemia (Acute) Lactic acidosis (Acute) Renal insufficiency (Acute) Hyperkalemia (Acute) JULISSA (acute kidney injury) (Acute) Subjective: Patient was seen and examined in the ICU today, she is currently on 2 L oxygen via nasal cannula. Patient underwent a paracentesis today. Patient is still on low-dose vasopressors. Creatinine today was 2.9, potassium is still elevated at 5.7. Echocardiogram was performed today and it showed an ejection fraction of 35% with moderate pulmonary hypertension. - Physical Exam General: Alert, Cooperative, No apparent distress, Well developed HEENT: Atraumatic, PERRLA, EOMI, Normocephalic Oral: Moist Mucosa Neck: Supple, Trachea Midline, Thyroid Normal Size and Texture Lungs: Clear to auscultation, Normal air movement, No rhonchi, No wheeze, No rales Cardiovascular: PMI Normal, Irregular Rate, Murmur - 2/6 systolic murmur is noted at the apex, No rub noted Abdomen: Bowel Sounds Present, Soft, Non Tender, Non-Distended, No hernias noted Extremities: No clubbing, No edema, Capillary Refill Less than 3 Seconds, - - Chronic stasis changes are noted over both lower legs Skin: No breakdown Neurological: Cranial nerves II-XII grossly intact, Neuro grossly intact, Sensory exam intact to light touch and pain, Coordination normal Psych/Mental Status: Flat Affect, - - Patient is confused Vital Signs Temp Pulse Resp BP Pulse Ox 96.9 F L 105 H 22 H 96/62 92 11/15/18 15:00 11/15/18 18:00 11/15/18 18:00 11/15/18 18:00 11/15/18 18:00 Oxygen Flow Rate (L/min) 2 Oxygen Delivery Method [4] Room Air Oxygen Delivery Method [3] Room Air Oxygen Delivery Method [2] Room Air Oxygen Delivery Method [1 ( Room Air Initial Baseline)] Oxygen Delivery Method Room Air Weight: 83.9 kg Body Mass Index (BMI) 31.6 Intake and Output for Last 24 Hours 11/13/18 11/14/18 11/15/18 23:59 23:59 23:59 Intake Total 2346.1 / 2346.1 2127 / 2127 Output Total 475 / 475 610 / 610 Balance 1871.1 / 1871.1 1517 / 1517 Microbiology Past 72 Hours 11/15/18 13:20 Gram Stain - Final Fluid - Ascites 11/14/18 09:15 Urine Culture - Preliminary Urine Catheter - Gentile Culture exhibits no growth. Laboratory Tests Past 24 Hrs 11/15/18 11/15/18 11/15/18 04:00 04:00 13:20 WBC 4.4 RBC 3.63 L Hgb 11.6 L Hct 34.8 L MCV 95.9 MCH 32.0 MCHC 33.3 RDW 18.0 H RDW Differential 62.5 H Plt Count 117 L MPV 8.9 Immature Gran % (Auto) 1.100 H Neut % (Auto) 81.1 H Lymph % (Auto) 5.7 L [place] % (Auto) 10.5 H Eos % (Auto) 1.4 Baso % (Auto) 0.2 Absolute Neuts (auto) 3.6 Absolute Lymphs (auto) 0.25 L Total Counted Not Reportable Nucleated RBC % 15.2 H Differential Comment SCANNED Diff Path Review May foll Polychromasia 1+ Macrocytosis 2+ Absolute Retic 0.67 Sodium 127 L Potassium 5.7 H Chloride 93 L Carbon Dioxide 23.0 Anion Gap 11 BUN 86 H Creatinine 2.90 H Estim Creat Clear Calc 11.95 Est GFR (MDRD) Af Amer 20 L Est GFR (MDRD) Non-Af 16 L BUN/Creatinine Ratio 29.7 H Glucose 126 H Calcium 7.6 L Magnesium 2.4 Fluid Source OTHER Fluid Color YELLOW Fluid Appearance SL CLDY Fluid WBC 0.193 Fluid RBC 77 Fluid Tot Cell Count 0.226 H Fld Polynuclear WBCs # 0.059 Fld Polynuclear WBCs % 30.6 Fluid Mononuclear WBCs 0.134 Fld Mononuclear WBCs % 69.4 Fluid Neutrophils 30 Fluid Lymphocytes 36 Fluid Monocytes 28 Fluid Other Cells 6 Fl Pathologist Comment May follow Fluid Comment 2 SEE COMMENT Medical Necessity - Tobacco Use Smoking Status: Never smoker Assessment/Plan All Active Problems Hypotension (Acute) Hyperkalemia (Acute) Lactic acidosis (Acute) Renal insufficiency (Acute) Hyperkalemia (Acute) Acute exacerbation of CHF (congestive heart failure) (Acute) JULISSA (acute kidney injury) (Acute) GI bleed (Resolved) History of DVT (deep vein thrombosis) (Resolved) History of venous thromboembolism (Resolved) #1 septic shock-etiology unclear at this point, patient underwent a paracentesis today, continue present antibiotic coverage, patient remains on Levophed #2 acute kidney injury-continue to monitor creatinine #3 paroxysmal atrial fibrillation-patient remains in atrial fib at this time, rate is controlled #4 chronic systolic heart failure #5 ischemic cardiomyopathy-EF 35% #6 hyponatremia #7 dementia Code Visit Inpatient E&M: 87256 Subs Hosp L2
--- NOTE | 2018-11-15 20:45 | NURSING ---
Pt's BLE re-wrapped w/KAREN wrap elastic bandage after skin inspection. Pt emerson all wel.
[2018-11-16] VITALS (34 sets, daily range): BP systolic 82–112; BP diastolic 48–69; PULSE 88–123; RESP 18–33; TEMP 36.4–36.9; O2SAT 94–100
[2018-11-16 03:41] LABS: Absolute Lymphocyte Count 0.31 X10^3/ul (0.83-4.51); Eosinophil# 0.13 X10^3/uL; Eosinophils% 2.7 % (0-5); Hemoglobin 11.4 g/dl (12.0-15.0); Lymphocyte # 0.31 X10^3/ul (4.0); Lymphocyte % 6.3 % (19-41); Mean Corp Hgb Conc 33.5 g/gl (32-36); Mean Corpuscular Hgb 32.5 pg (27.0-32.0); Mean Corpuscular Volume 96.9 fL (81-99); Mean Platelet Vol. 9.4 fl (6.2-12.0); Monocyte# 0.43 X10^3/uL; Monocyte% 8.8 % (0-10); Neutrophil # 3.98 X10^3/uL (2.7-7.7); Neutrophil % 81.4 % (47-70); Platelet Count 108 K/mm3 (150-450); RBC Distribution Width CV 18.2 % (11.6-14.6); RBC Distribution Width SD 63.2 fl (35.1-43.9); Red Blood Count 3.51 M/mm3 (4.2-5.4); White Blood Count 4.9 K/mm3 (4.4-11.0)
[2018-11-16 03:43] LABS: Anion Gap 8 (5-15); BUN 82 mg/dL (7-18); BUN/Creat Ratio 31.5 RATIO (10-20); Calcium,Total 7.4 mg/dL (8.5-10.1); Chloride 91 mmol/L (98-107); EST Glomerular Filtration Rate 19 mL/min (>60); Est Glom Filt Rate - Afr Amer 23 mL/min (>60); Estimated Creatinine Clearance 13.32 ml/min; Glucose 116 mg/dL (74-106); Potassium 4.9 mmol/L (3.5-5.1); Sodium Level 129 mmol/L (136-145)
[2018-11-16 03:44] LABS: Absolute Nucleated RBC Count 0.41 10^3/uL (0-5); Differential Indicated SCAN CRITERIA MET; NRBC Flagged by Analyzer 8.5 % (0-5); POSITIVE COUNT NO; POSITIVE DIFFERENTIAL YES; POSITIVE MORPHOLOGY NO
[2018-11-16 04:38] LABS: Differential Comment SCANNED; Macrocytosis 2+; Ovalocyte 1+; Tear Drop Cell RARE
[2018-11-16] MEDS: 0.9% NaCl Peripheral Flush Adult/Peds IV (06:04)
[2018-11-16] MEDS: Levothyroxine 125 MCG Tablet PO (06:05)
[2018-11-16] MEDS: Midodrine HCl 5 MG Tablet PO ×3 (06:05→22:15)
--- NOTE | 2018-11-16 07:02 | PN_ITS ---
Subjective: Patient did okay overnight. Patient continues to be hypotensive and requiring Levophed. Patient did tolerate a paracentesis yesterday with 2.1 L removed. Patient's respiratory status has remained relatively stable on 2 L nasal cannula. Patient with no complaints at this time, but states she feels subjectively improved after paracentesis. General: Alert, Cooperative, No apparent distress, - - Appears stated age. Obese. HEENT: Atraumatic, PERRLA, EOMI, Normocephalic, - - No scleral icterus or injection noted. Oral: Moist Mucosa, No Gingival or Mucosal Lesions/ Ulcerations Neck: Supple, No Nodes, Trachea Midline, JVD, Right, - - Multiple varicosities noted Lungs: No rhonchi, No wheeze, No rales, Diminished, - - Symmetric expansion. No dullness to percussion. Cardiovascular: Normal S1, Normal S2, Murmur, No rub noted, No Gallop, Tachycardic Abdomen: Bowel Sounds Present, Soft, Non Tender, Distended - Slightly, but improved from previous Extremities: No cyanosis, Clubbing, Edema, - - Improved swelling of lower extremities, but varicosity in the left leg appears to be slightly larger Skin: - - Continued erythema and warmth of the left lower extremity. Right appears to be improved Musculoskeletal: No Tenderness to Palpation of Joints or Extremities Lymphatic: No Cervical, Supraclavicular, or Inguinal Adenopathy Neurological: Cranial nerves II-XII grossly intact, Neuro grossly intact Psych/Mental Status: Appropriate, Flat Affect Vital Signs Temp Pulse Resp BP Pulse Ox 36.6 C 116 H 21 H 86/48 L 96 11/16/18 06:00 11/16/18 06:00 11/16/18 06:00 11/16/18 06:00 11/16/18 06:00 Oxygen Flow Rate (L/min) 2 Oxygen Delivery Method [4] Room Air Oxygen Delivery Method [3] Room Air Oxygen Delivery Method [2] Room Air Oxygen Delivery Method [1 ( Room Air Initial Baseline)] Oxygen Delivery Method Nasal Cannula Weight: 82.5 kg Body Mass Index (BMI) 31.6 Intake and Output for Last 24 Hours 11/14/18 11/15/18 11/16/18 23:59 23:59 23:59 Intake Total 2346.1 / 2346.1 2127 / 3371 1986 Output Total 475 / 475 610 / 860 500 / 500 Balance 1871.1 / 1871.1 1517 / 2511 1487 / 1487 Labs (Last 48 Hours) 11/13/18 11/14/18 11/14/18 09:15 00:35 09:15 WBC RBC Hgb Hct MCV MCH MCHC RDW RDW Differential Plt Count MPV Immature Gran % (Auto) Neut % (Auto) Lymph % (Auto) [place] % (Auto) Eos % (Auto) Baso % (Auto) Absolute Neuts (auto) Absolute Lymphs (auto) Total Counted Nucleated RBC % Differential Comment Diff Path Review Polychromasia Macrocytosis Tear Drop Cells Ovalocytes Absolute Retic Sodium Cancelled Potassium Cancelled Chloride Cancelled Carbon Dioxide Cancelled Anion Gap Cancelled BUN Cancelled Creatinine Cancelled Estim Creat Clear Calc Cancelled Est GFR (MDRD) Af Amer Cancelled Est GFR (MDRD) Non-Af Cancelled BUN/Creatinine Ratio Cancelled Glucose Cancelled Calcium Cancelled Magnesium B-Natriuretic Peptide 1408.8 H Urine Color Yellow Urine Clarity Clear Urine pH 5.0 Ur Specific [place] 1.015 Urine Protein 30 H Urine Glucose (UA) Normal Urine Ketones Negative Urine Occult Blood 250 H Urine Nitrite Negative Urine Bilirubin Negative Urine Urobilinogen Normal Ur Leukocyte Esterase 100 H Urine RBC 50-100 SEEN Urine WBC 5-10 SEEN Ur Squamous Epith Cells 0-5 SEEN Urine Bacteria 1+ Urine Mucus 0 SEEN Fluid Source Fluid Color Fluid Appearance Fluid WBC Fluid RBC Fluid Tot Cell Count Fld Polynuclear WBCs # Fld Polynuclear WBCs % Fluid Mononuclear WBCs Fld Mononuclear WBCs % Fluid Neutrophils Fluid Lymphocytes Fluid Monocytes Fluid Other Cells Fl Pathologist Comment Fluid Comment 2 POC Glucose 11/14/18 11/14/18 11/14/18 09:15 13:05 14:07 WBC RBC Hgb Hct MCV MCH MCHC RDW RDW Differential Plt Count MPV Immature Gran % (Auto) Neut % (Auto) Lymph % (Auto) [place] % (Auto) Eos % (Auto) Baso % (Auto) Absolute Neuts (auto) Absolute Lymphs (auto) Total Counted Nucleated RBC % Differential Comment Diff Path Review Polychromasia Macrocytosis Tear Drop Cells Ovalocytes Absolute Retic Sodium 127 L 123 L Potassium 6.2 H* 6.3 H* Chloride 95 L 95 L Carbon Dioxide 20.0 L 19.0 L Anion Gap 12 9 BUN 90 H 85 H Creatinine 2.85 H 2.84 H Estim Creat Clear Calc 12.16 12.20 Est GFR (MDRD) Af Amer 20 L 20 L Est GFR (MDRD) Non-Af 17 L 17 L BUN/Creatinine Ratio 31.6 H 29.9 H Glucose 111 H 134 H Calcium 8.1 L 8.4 L Magnesium 2.4 B-Natriuretic Peptide Urine Color Urine Clarity Urine pH Ur Specific [place] Urine Protein Urine Glucose (UA) Urine Ketones Urine Occult Blood Urine Nitrite Urine Bilirubin Urine Urobilinogen Ur Leukocyte Esterase Urine RBC Urine WBC Ur Squamous Epith Cells Urine Bacteria Urine Mucus Fluid Source Fluid Color Fluid Appearance Fluid WBC Fluid RBC Fluid Tot Cell Count Fld Polynuclear WBCs # Fld Polynuclear WBCs % Fluid Mononuclear WBCs Fld Mononuclear WBCs % Fluid Neutrophils Fluid Lymphocytes Fluid Monocytes Fluid Other Cells Fl Pathologist Comment Fluid Comment 2 POC Glucose 165 H 11/14/18 11/14/18 11/14/18 15:21 17:14 17:15 WBC RBC Hgb Hct MCV MCH MCHC RDW RDW Differential Plt Count MPV Immature Gran % (Auto) Neut % (Auto) Lymph % (Auto) [place] % (Auto) Eos % (Auto) Baso % (Auto) Absolute Neuts (auto) Absolute Lymphs (auto) Total Counted Nucleated RBC % Differential Comment Diff Path Review Polychromasia Macrocytosis Tear Drop Cells Ovalocytes Absolute Retic Sodium 123 L Potassium 6.1 H* Chloride 95 L Carbon Dioxide 20.0 L Anion Gap 8 BUN 85 H Creatinine 2.98 H Estim Creat Clear Calc 11.62 Est GFR (MDRD) Af Amer 19 L Est GFR (MDRD) Non-Af 16 L BUN/Creatinine Ratio 28.5 H Glucose 145 H Calcium 8.0 L Magnesium B-Natriuretic Peptide Urine Color Urine Clarity Urine pH Ur Specific [place] Urine Protein Urine Glucose (UA) Urine Ketones Urine Occult Blood Urine Nitrite Urine Bilirubin Urine Urobilinogen Ur Leukocyte Esterase Urine RBC Urine WBC Ur Squamous Epith Cells Urine Bacteria Urine Mucus Fluid Source Fluid Color Fluid Appearance Fluid WBC Fluid RBC Fluid Tot Cell Count Fld Polynuclear WBCs # Fld Polynuclear WBCs % Fluid Mononuclear WBCs Fld Mononuclear WBCs % Fluid Neutrophils Fluid Lymphocytes Fluid Monocytes Fluid Other Cells Fl Pathologist Comment Fluid Comment 2 POC Glucose 137 H 141 H 11/15/18 11/15/18 11/15/18 04:00 04:00 13:20 WBC 4.4 RBC 3.63 L Hgb 11.6 L Hct 34.8 L MCV 95.9 MCH 32.0 MCHC 33.3 RDW 18.0 H RDW Differential 62.5 H Plt Count 117 L MPV 8.9 Immature Gran % (Auto) 1.100 H Neut % (Auto) 81.1 H Lymph % (Auto) 5.7 L [place] % (Auto) 10.5 H Eos % (Auto) 1.4 Baso % (Auto) 0.2 Absolute Neuts (auto) 3.6 Absolute Lymphs (auto) 0.25 L Total Counted Not Reportable Nucleated RBC % 15.2 H Differential Comment SCANNED Diff Path Review May foll Polychromasia 1+ Macrocytosis 2+ Tear Drop Cells Ovalocytes Absolute Retic 0.67 Sodium 127 L Potassium 5.7 H Chloride 93 L Carbon Dioxide 23.0 Anion Gap 11 BUN 86 H Creatinine 2.90 H Estim Creat Clear Calc 11.95 Est GFR (MDRD) Af Amer 20 L Est GFR (MDRD) Non-Af 16 L BUN/Creatinine Ratio 29.7 H Glucose 126 H Calcium 7.6 L Magnesium 2.4 B-Natriuretic Peptide Urine Color Urine Clarity Urine pH Ur Specific [place] Urine Protein Urine Glucose (UA) Urine Ketones Urine Occult Blood Urine Nitrite Urine Bilirubin Urine Urobilinogen Ur Leukocyte Esterase Urine RBC Urine WBC Ur Squamous Epith Cells Urine Bacteria Urine Mucus Fluid Source OTHER Fluid Color YELLOW Fluid Appearance SL CLDY Fluid WBC 0.193 Fluid RBC 77 Fluid Tot Cell Count 0.226 H Fld Polynuclear WBCs # 0.059 Fld Polynuclear WBCs % 30.6 Fluid Mononuclear WBCs 0.134 Fld Mononuclear WBCs % 69.4 Fluid Neutrophils 30 Fluid Lymphocytes 36 Fluid Monocytes 28 Fluid Other Cells 6 Fl Pathologist Comment May follow Fluid Comment 2 SEE COMMENT POC Glucose 11/16/18 11/16/18 03:20 03:20 WBC 4.9 RBC 3.51 L Hgb 11.4 L Hct 34.0 L MCV 96.9 MCH 32.5 H MCHC 33.5 RDW 18.2 H RDW Differential 63.2 H Plt Count 108 L MPV 9.4 Immature Gran % (Auto) 0.800 Neut % (Auto) 81.4 H Lymph % (Auto) 6.3 L [place] % (Auto) 8.8 Eos % (Auto) 2.7 Baso % (Auto) 0.0 Absolute Neuts (auto) 4.0 Absolute Lymphs (auto) 0.31 L Total Counted Not Reportable Nucleated RBC % 8.5 H Differential Comment SCANNED Diff Path Review May foll Polychromasia Macrocytosis 2+ Tear Drop Cells RARE Ovalocytes 1+ Absolute Retic 0.41 Sodium 129 L Potassium 4.9 Chloride 91 L Carbon Dioxide 30.0 Anion Gap 8 BUN 82 H Creatinine 2.60 H Estim Creat Clear Calc 13.32 Est GFR (MDRD) Af Amer 23 L Est GFR (MDRD) Non-Af 19 L BUN/Creatinine Ratio 31.5 H Glucose 116 H Calcium 7.4 L Magnesium B-Natriuretic Peptide Urine Color Urine Clarity Urine pH Ur Specific [place] Urine Protein Urine Glucose (UA) Urine Ketones Urine Occult Blood Urine Nitrite Urine Bilirubin Urine Urobilinogen Ur Leukocyte Esterase Urine RBC Urine WBC Ur Squamous Epith Cells Urine Bacteria Urine Mucus Fluid Source Fluid Color Fluid Appearance Fluid WBC Fluid RBC Fluid Tot Cell Count Fld Polynuclear WBCs # Fld Polynuclear WBCs % Fluid Mononuclear WBCs Fld Mononuclear WBCs % Fluid Neutrophils Fluid Lymphocytes Fluid Monocytes Fluid Other Cells Fl Pathologist Comment Fluid Comment 2 POC Glucose Microbiology 11/15/18 13:20 Fluid - Ascites Gram Stain - Final 11/14/18 09:15 Urine Catheter - Gentile Urine Culture - Preliminary Culture exhibits no growth. Clinical Impression(s) from Imaging Studies Paracentesis Ultrasound 11/15/18 06:56 IMPRESSION: Ultrasound guided paracentesis. Electronically Signed: Ted Shetty, at 15:22 EDT , Service support , Medical Necessity - Tobacco Use Smoking Status: Never smoker Assessment/Plan All Active Problems Hypotension (Acute) Hyperkalemia (Acute) Lactic acidosis (Acute) Renal insufficiency (Acute) Hyperkalemia (Acute) Acute exacerbation of CHF (congestive heart failure) (Acute) JULISSA (acute kidney injury) (Acute) GI bleed (Resolved) History of DVT (deep vein thrombosis) (Resolved) History of venous thromboembolism (Resolved) RECOMMENDATIONS: 1. Continue broad-spectrum antimicrobials, pending infectious work-up. 2. Discontinue bicarbonate drip 3. Wean Levophed to maintain mean arterial pressure at or above 65 mmHg. 4. Appreciate nephrology and cardiology recommendations 5. Possible hospice evaluation after discussion with family IMPRESSIONS: 1. Septic shock Unclear etiology at this time. Right lower extremity is much improved, but left lower extremity continues to be warm. We will have wound team come to evaluate. Patient's leukocytosis and pressor requirements appears to be improving with antibiotics. Clinical suspicion for left lower extremity cellulitis leading to septic shock. 2. Biventricular heart failure/pulmonary hypertension/coronary artery disease status post CABG/paroxysmal atrial fibrillation Continue current supportive measures. Cardiology has been consulted to assist in the management of this patient. Repeat echocardiogram is showing no significant change. Patient is in atrial fibrillation at this time, but rate is relatively controlled, especially in the setting of pressor requirements. Cardiology is concerned that hospice measures may be more appropriate. 3. Recurrent ascites There is some documentation that the patient's recurrent ascites is related to her heart failure. Patient tolerated paracentesis of 2.1 L yesterd ay. This did not appear to be consistent with SBP. 4. Hyponatremia/hyperkalemia/metabolic acidosis/acute kidney injury Patient appears to be improving from a renal perspective. Clinical suspicion for cardiorenal syndrome. Bicarbonate drip will be discontinued. Sodium continues to improve. 5. Advanced age and deconditioning/GERD/hypothyroidism Complicates care, management, recovery and prognosis. Continue home medications as indicated. Patient will require physical therapy evaluation. TIME: 38 minutes of critical care time, independent of procedures, was spent addressing the patient's septic shock, biventricular heart failure, pulmonary hypertension, atrial fibrillation, recurrent ascites, hyponatremia, hyperkalemia, acute kidney injury, review of all data and collaboration with the care team. (6 AM to 7:10 AM) Code Visit 9xxxx: [id number] Critical care first hour
[2018-11-16] MEDS: Menthol/Lanolin/Calamine/Znox 113 GM Tube 1 APPLIC TOPICAL ×4 (09:47→22:15)
[2018-11-16] MEDS: Allopurinol 100 MG Tablet PO (09:47)
[2018-11-16] MEDS: Enoxaparin 30 MG/0.3 ML Syringe SC (09:47)
[2018-11-16] MEDS: Pantoprazole Sodium 20 MG Tablet PO (09:53)
[2018-11-16 10:08] LABS: Pathologist Review Reviewed
[2018-11-16 10:22] LABS: Pathologist Review Reviewed
--- NOTE | 2018-11-16 11:13 | PCM.PN.REN ---
Patient Problems: Active and Suspected Problems Hypotension (Acute) Hyperkalemia (Acute) Lactic acidosis (Acute) Renal insufficiency (Acute) Hyperkalemia (Acute) JULISSA (acute kidney injury) (Acute) Subjective: no new events levophed dose lower today - Physical Exam General: Alert, Oriented x3, Cooperative HEENT: Atraumatic, PERRLA, EOMI, Normocephalic Neck: Supple, No JVD, Negative Carotid Bruits Lungs: Clear to auscultation, Normal air movement Cardiovascular: Regular rate, No murmurs Abdomen: Bowel Sounds Present, Soft, Non Tender Extremities: No edema, Capillary Refill Less than 3 Seconds Skin: No rashes, No breakdown Musculoskeletal: No Tenderness to Palpation of Joints or Extremities Neurological: Cranial nerves II-XII grossly intact Psych/Mental Status: Normal Affect, Appropriate Vital Signs Temp Pulse Resp BP Pulse Ox 97.5 F L 122 H 20 H 87/55 L 97 11/16/18 10:00 11/16/18 11:06 11/16/18 11:00 11/16/18 11:00 11/16/18 11:00 Oxygen Flow Rate (L/min) 2 Oxygen Delivery Method [4] Room Air Oxygen Delivery Method [3] Room Air Oxygen Delivery Method [2] Room Air Oxygen Delivery Method [1 ( Room Air Initial Baseline)] Oxygen Delivery Method Nasal Cannula Weight: 82.5 kg Body Mass Index (BMI) 31.6 Intake and Output for Last 24 Hours 11/14/18 11/15/18 11/16/18 23:59 23:59 23:59 Intake Total 2346.1 / 2346.1 2127 / 3371 1986 / 1986 Output Total 475 / 475 610 / 860 500 / 500 Balance 1871.1 / 1871.1 1517 / 2511 1487 / 1487 Microbiology Past 72 Hours 11/15/18 13:20 Gram Stain - Final Fluid - Ascites Body Fluid Culture - Preliminary Gram negative eliseo 11/14/18 09:15 Urine Culture - Final Urine Catheter - Gentile Culture exhibits no growth. 11/13/18 18:45 Blood Culture - Preliminary Blood Culture (Wb) - Left Forearm No growth in 48 hours. 11/13/18 18:32 Blood Culture - Preliminary Blood Culture (Wb) - Anticubital Left No growth in 48 hours. Laboratory Tests Past 24 Hrs 11/13/18 11/15/1819 18:32 04:00 13:20 WBC RBC Hgb Hct MCV MCH MCHC RDW RDW Differential Plt Count MPV Immature Gran % (Auto) Neut % (Auto) Lymph % (Auto) [place] % (Auto) Eos % (Auto) Baso % (Auto) Absolute Neuts (auto) Absolute Lymphs (auto) Total Counted Nucleated RBC % Differential Comment Diff Path Review Reviewed Reviewed Macrocytosis Tear Drop Cells Ovalocytes Absolute Retic Sodium Potassium Chloride Carbon Dioxide Anion Gap BUN Creatinine Estim Creat Clear Calc Est GFR (MDRD) Af Amer Est GFR (MDRD) Non-Af BUN/Creatinine Ratio Glucose Calcium Fluid Source OTHER Fluid Color YELLOW Fluid Appearance SL CLDY Fluid WBC 0.193 Fluid RBC 77 Fluid Tot Cell Count 0.226 H Fld Polynuclear WBCs # 0.059 Fld Polynuclear WBCs % 30.6 Fluid Mononuclear WBCs 0.134 Fld Mononuclear WBCs % 69.4 Fluid Neutrophils 30 Fluid Lymphocytes 36 Fluid Monocytes 28 Fluid Other Cells 6 Fl Pathologist Comment May follow Fluid Comment 2 SEE COMMENT 11/16/18 11/16/18 03:20 03:20 WBC 4.9 RBC 3.51 L Hgb 11.4 L Hct 34.0 L MCV 96.9 MCH 32.5 H MCHC 33.5 RDW 18.2 H RDW Differential 63.2 H Plt Count 108 L MPV 9.4 Immature Gran % (Auto) 0.800 Neut % (Auto) 81.4 H Lymph % (Auto) 6.3 L [place] % (Auto) 8.8 Eos % (Auto) 2.7 Baso % (Auto) 0.0 Absolute Neuts (auto) 4.0 Absolute Lymphs (auto) 0.31 L Total Counted Not Reportable Nucleated RBC % 8.5 H Differential Comment SCANNED Diff Path Review May foll Macrocytosis 2+ Tear Drop Cells RARE Ovalocytes 1+ Absolute Retic 0.41 Sodium 129 L Potassium 4.9 Chloride 91 L Carbon Dioxide 30.0 Anion Gap 8 BUN 82 H Creatinine 2.60 H Estim Creat Clear Calc 13.32 Est GFR (MDRD) Af Amer 23 L Est GFR (MDRD) Non-Af 19 L BUN/Creatinine Ratio 31.5 H Glucose 116 H Calcium 7.4 L Fluid Source Fluid Color Fluid Appearance Fluid WBC Fluid RBC Fluid Tot Cell Count Fld Polynuclear WBCs # Fld Polynuclear WBCs % Fluid Mononuclear WBCs Fld Mononuclear WBCs % Fluid Neutrophils Fluid Lymphocytes Fluid Monocytes Fluid Other Cells Fl Pathologist Comment Fluid Comment 2 Medical Necessity - Tobacco Use Smoking Status: Never smoker Assessment/Plan All Active Problems Hypotension (Acute) Hyperkalemia (Acute) Lactic acidosis (Acute) Renal insufficiency (Acute) Hyperkalemia (Acute) Acute exacerbation of CHF (congestive heart failure) (Acute) JULISSA (acute kidney injury) (Acute) GI bleed (Resolved) History of DVT (deep vein thrombosis) (Resolved) History of venous thromboembolism (Resolved) 1-acute kidney injury on chronic kidney disease stage 2. Baseline creatinine seems around 0.9 to 1 mg/dL. Acute kidney injury is most probably due to ischemic ATN from hypotension. Blood pressure is better with the Levophed. Urine output is not great. Not a candidate for dialysis right now due to significant hypotension and Levophed requirements. 2-hyperkalemia. Related to acute kidney injury, acidosis, Aldactone use. Improved with medical treatment. 3-High anion gap metabolic acidosis from acute kidney injury and lactic acidosis due to liver failure and ischemia. better. fluids stopped 3-hyponatremia. Initial presenting level is 118. better 4-cardiogenic shock. Patient in Levophed.
--- NOTE | 2018-11-16 11:39 | NURSING ---
Was asked to see patient for lymphedema. removed KAREN wraps from bilateral lower legs. there is some mild edema noted. daughter present in room and states that legs are much smaller than they normally are. the left lower leg with some mild redness noted. no open areas noted. no drainage. there may be some mild cellulitis to the left lower leg, but does not appear to be a great concern at this time. Dr Alvarenga also in to assess legs at this time.
[2018-11-16] MEDS: Cefepime 1 GM in 0.9% NS 50 ML Minibag Q12 IV (14:12)
--- NOTE | 2018-11-16 19:19 | PN.CARD_ITS ---
Subjectve: The patient appears to be resting comfortably at the moment with no new acute complaints. She does states she feels better following her paracentesis procedure. Objective: Vital Signs Temp Pulse Resp BP Pulse Ox 98.4 F 100 27 H 88/54 L 98 11/16/18 16:00 11/16/18 18:00 11/16/18 18:00 11/16/18 18:00 11/16/18 18:00 Oxygen Flow Rate (L/min) 2 Oxygen Delivery Method [4] Room Air Oxygen Delivery Method [3] Room Air Oxygen Delivery Method [2] Room Air Oxygen Delivery Method [1 ( Room Air Initial Baseline)] Oxygen Delivery Method Nasal Cannula Weight: 181 lb 14.102 oz Body Mass Index (BMI) 31.6 Intake and Output for Last 24 Hours 11/14/18 11/15/18 11/16/18 23:59 23:59 23:59 Intake Total 2346.1 / 2346.1 2127 / 3371 2772 / 2772 Output Total 475 / 475 610 / 860 975 / 975 Balance 1871.1 / 1871.1 1517 / 2511 1797 / 1797 General: Awake, Cooperative Lungs: Diminished [place] Bases Cardiovascular: Irregular Rhythm, Normal S1, Normal S2 Abdomen: Bowel Sounds Present, Soft Extremities: - - Lateral lower extremity erythema/edema 11/16/18 03:20: WBC 4.9, RBC 3.51 L, Hgb 11.4 L, Hct 34.0 L, MCV 96.9, MCH 32.5 H, MCHC 33.5, RDW 18.2 H, RDW Differential 63.2 H, Plt Count 108 L, MPV 9.4, Immature Gran % (Auto) 0.800, Neut % (Auto) 81.4 H, Lymph % (Auto) 6.3 L, [place] % (Auto) 8.8, Eos % (Auto) 2.7, Baso % (Auto) 0.0, Absolute Neuts (auto) 4.0, Total Counted Not Reportable, Nucleated RBC % 8.5 H 11/16/18 03:20: Sodium 129 L, Potassium 4.9, Chloride 91 L, Carbon Dioxide 30.0, Anion Gap 8, BUN 82 H, Creatinine 2.60 H, Est GFR (MDRD) Af Amer 23 L, Est GFR (MDRD) Non-Af 19 L, BUN/Creatinine Ratio 31.5 H, Glucose 116 H, Calcium 7.4 L Rhythm: Atrial fibrillation Echocardiogram: Interpretation Summary Normal LV size. D shaped septum in systole and diastole. The estimated ejection fraction is 35 %. Severely dilated right ventricle. Moderate (2+) eccentric mitral valve insufficiency. Pulmonary artery systolic pressure is 42 mmHg. Moderate pulmonary hypertension. Compared to prior study, there is no significant change. Medical Necessity - Tobacco Use Smoking Status: Never smoker Assessment/Plan 1. Hypotension The patient continues to require IV vasopressor support with Levophed. An echocardiogram has been performed. The results are as noted above. 2. Chronic systolic CHF She appears to have biventricular systolic dysfunction based upon her echocardi ographic findings. This can contribute to concerns of hepatic congestion and renal insufficiency, etc. She continues to require IV vasopressor support. 3. CAD status post PCI status post CABG The details of her previous revascularization history are unknown at this time. Her troponin I levels have remained negative thus far. Thus there is no indication of acute coronary syndrome. She has had no acute ECG changes. She would continue medical management for her underlying coronary artery disease process. However her medications may need to be adjusted this time based on concerns of her hypotension, etc. 4. Atrial fibrillation She does have atrial fibrillation. She has been without anticoagulant therapy. Secondary to her previous [facility] medical consultation available for review at stated that she was without anticoagulation secondary to history of GI bleeding. 5. Pulmonary hypertension Her most recent estimated RV systolic pressures are as described above. Certainly this can be a contributing factor to her hepatic congestion, etc. This can be reassessed with an echocardiogram. In the meantime she will continue his medical support as deemed appropriate. 6. Ascites She has had ascites. He underwent paracentesis with approximately 2 L of fluid removal. She states she does feel better. 7. Lactic acidosis She does have lactic acidosis. This may be secondary to poor perfusion. At the same time she has to be evaluated for any obvious infectious etiology such as a sepsis syndrome that would contribute to this. 8. Hyperkalemia Her potassium level was markedly elevated. She received therapy. Her potassium level has decreased compared to her admission level. 9. Renal insufficiency Her creatinine level remains elevated. She is being evaluated by nephrology. At the present time she is continuing supportive care. The patient and her family will need to decide as to how aggressive they want to be going forward with continued diagnostic studies/intervention versus being considered for palliative/hospice care. Comment: The above was discussed and reviewed with Dr. Dowell. This note was generated using a voice recognition system and there may be incorrect words, spelling or punctuation that were not noted when reviewing the office note prior to saving.
--- NOTE | 2018-11-16 19:33 | PCM.PROGNOTE ---
Patient Problems: Active and Suspected Problems Hypotension (Acute) Hyperkalemia (Acute) Lactic acidosis (Acute) Renal insufficiency (Acute) Hyperkalemia (Acute) JULISSA (acute kidney injury) (Acute) Subjective: Patient was seen and examined today, her ascitic fluid resulted as positive for gram-negative eliseo. This is probably the etiology of her septic shock. Patient remains in atrial fib, rate is controlled at this time, she remains mildly confused. Patient voices no complaints this examiner - Physical Exam General: Alert, No apparent distress, Well developed, Confused HEENT: Atraumatic, PERRLA, EOMI, Normocephalic Oral: Moist Mucosa Neck: Supple, No Nuchal Rigidity, Trachea Midline, Thyroid Normal Size and Texture Lungs: Clear to auscultation, Normal air movement, No rhonchi, No wheeze, No rales Cardiovascular: PMI Normal, Irregular Rate, Murmur - 2/6 systolic murmur is noted at the apex and right sternal border, No rub noted Abdomen: Bowel Sounds Present, Soft, Non Tender, Non-Distended, No hernias noted Extremities: No clubbing, No cyanosis, Capillary Refill Less than 3 Seconds Skin: - - Stasis dermatitis changes are noted bilaterally in the lower legs Musculoskeletal: No Tenderness to Palpation of Joints or Extremities Neurological: Cranial nerves II-XII grossly intact, Neuro grossly intact, Sensory exam intact to light touch and pain Psych/Mental Status: Flat Affect, - - Exhibits mild confusion Vital Signs Temp Pulse Resp BP Pulse Ox 98.4 F 100 27 H 88/54 L 98 11/16/18 16:00 11/16/18 18:00 11/16/18 18:00 11/16/18 18:00 11/16/18 18:00 Oxygen Flow Rate (L/min) 2 Oxygen Delivery Method [4] Room Air Oxygen Delivery Method [3] Room Air Oxygen Delivery Method [2] Room Air Oxygen Delivery Method [1 ( Room Air Initial Baseline)] Oxygen Delivery Method Nasal Cannula Weight: 82.5 kg Body Mass Index (BMI) 31.6 Intake and Output for Last 24 Hours 11/14/18 11/15/18 11/16/18 23:59 23:59 23:59 Intake Total 2346.1 / 2346.1 2127 / 3371 2772 / 2772 Output Total 475 / 475 610 / 860 975 / 975 Balance 1871.1 / 1871.1 1517 / 2511 1797 / 1797 Microbiology Past 72 Hours 11/15/18 13:20 Gram Stain - Final Fluid - Ascites Body Fluid Culture - Preliminary Gram negative eliseo 11/14/18 09:15 Urine Culture - Final Urine Catheter - Gentile Culture exhibits no growth. 11/13/18 18:45 Blood Culture - Preliminary Blood Culture (Wb) - Left Forearm No growth in 48 hours. 11/13/18 18:32 Blood Culture - Preliminary Blood Culture (Wb) - Anticubital Left No growth in 48 hours. Laboratory Tests Past 24 Hrs 11/13/18 11/15/18 11/16/18 18:32 04:00 03:20 WBC 4.9 RBC 3.51 L Hgb 11.4 L Hct 34.0 L MCV 96.9 MCH 32.5 H MCHC 33.5 RDW 18.2 H RDW Differential 63.2 H Plt Count 108 L MPV 9.4 Immature Gran % (Auto) 0.800 Neut % (Auto) 81.4 H Lymph % (Auto) 6.3 L [place] % (Auto) 8.8 Eos % (Auto) 2.7 Baso % (Auto) 0.0 Absolute Neuts (auto) 4.0 Absolute Lymphs (auto) 0.31 L Total Counted Not Reportable Nucleated RBC % 8.5 H Differential Comment SCANNED Diff Path Review Reviewed Reviewed September Macrocytosis 2+ Tear Drop Cells RARE Ovalocytes 1+ Absolute Retic 0.41 Sodium Potassium Chloride Carbon Dioxide Anion Gap BUN Creatinine Estim Creat Clear Calc Est GFR (MDRD) Af Amer Est GFR (MDRD) Non-Af BUN/Creatinine Ratio Glucose Calcium 11/16/18 03:20 WBC RBC Hgb Hct MCV MCH MCHC RDW RDW Differential Plt Count MPV Immature Gran % (Auto) Neut % (Auto) Lymph % (Auto) [place] % (Auto) Eos % (Auto) Baso % (Auto) Absolute Neuts (auto) Absolute Lymphs (auto) Total Counted Nucleated RBC % Differential Comment Diff Path Review Macrocytosis Tear Drop Cells Ovalocytes Absolute Retic Sodium 129 L Potassium 4.9 Chloride 91 L Carbon Dioxide 30.0 Anion Gap 8 BUN 82 H Creatinine 2.60 H Estim Creat Clear Calc 13.32 Est GFR (MDRD) Af Amer 23 L Est GFR (MDRD) Non-Af 19 L BUN/Creatinine Ratio 31.5 H Glucose 116 H Calcium 7.4 L Medical Necessity - Tobacco Use Smoking Status: Never smoker Assessment/Plan All Active Problems Hypotension (Acute) Hyperkalemia (Acute) Lactic acidosis (Acute) Renal insufficiency (Acute) Hyperkalemia (Acute) Acute exacerbation of CHF (congestive heart failure) (Acute) JULISSA (acute kidney injury) (Acute) GI bleed (Resolved) History of DVT (deep vein thrombosis) (Resolved) History of venous thromboembolism (Resolved) #1 septic shock-[place] to gram-negative peritonitis, patient will remain on current antibiotic coverage #2 acute kidney injury-continue to monitor creatinine #3 paroxysmal atrial fibrillation-patient remains in atrial fib at this time, rate is controlled #4 chronic systolic heart failure #5 ischemic cardiomyopathy-EF 35% #6 hyponatremia #7 dementia Code Visit Inpatient E&M: 04747 Subs Hosp L2
[2018-11-17] VITALS (30 sets, daily range): BP systolic 75–102; BP diastolic 44–74; PULSE 72–131; RESP 16–35; TEMP 36.6–36.9; O2SAT 94–100
[2018-11-17 04:27] LABS: Absolute Lymphocyte Count 0.35 X10^3/ul (0.83-4.51); Absolute Neutrophil Count 4.6 X10^3/uL (2.0-7.7); Basophil# 0.01 X10^3/uL; Basophil% 0.2 % (0-1); Eosinophils% 3.5 % (0-5); Hematocrit 36.8 % (37-47); Lymphocyte # 0.35 X10^3/ul (4.0); Lymphocyte % 6.2 % (19-41); Mean Corp Hgb Conc 32.6 g/gl (32-36); Mean Corpuscular Hgb 32.3 pg (27.0-32.0); Mean Corpuscular Volume 98.9 fL (81-99); Mean Platelet Vol. 9.6 fl (6.2-12.0); Monocyte# 0.46 X10^3/uL; Monocyte% 8.1 % (0-10); Neutrophil # 4.62 X10^3/uL (2.7-7.7); Neutrophil % 81.1 % (47-70); Platelet Count 128 K/mm3 (150-450); RBC Distribution Width CV 18.3 % (11.6-14.6); Red Blood Count 3.72 M/mm3 (4.2-5.4); White Blood Count 5.7 K/mm3 (4.4-11.0)
[2018-11-17 04:28] LABS: Absolute Nucleated RBC Count 0.76 10^3/uL (0-5); Anion Gap 5 (5-15); BUN 78 mg/dL (7-18); BUN/Creat Ratio 33.3 RATIO (10-20); Calcium,Total 7.6 mg/dL (8.5-10.1); Chloride 92 mmol/L (98-107); Creatinine, Serum 2.34 mg/dL (0.55-1.02); Differential Indicated SCAN CRITERIA MET; EST Glomerular Filtration Rate 21 mL/min (>60); Est Glom Filt Rate - Afr Amer 26 mL/min (>60); Glucose 122 mg/dL (74-106); NRBC Flagged by Analyzer 13.3 % (0-5); POSITIVE COUNT NO; POSITIVE DIFFERENTIAL YES; POSITIVE MORPHOLOGY NO; Potassium 5.3 mmol/L (3.5-5.1); Sodium Level 128 mmol/L (136-145)
[2018-11-17 04:52] LABS: Differential Comment SCANNED; Macrocytosis 1+
--- NOTE | 2018-11-17 05:12 | PCM.PN.BLA ---
Progress Note Patient's HR elevated on telemetry ~138, rhythmn is A. fib with RVR. Confirmed with EKG. Noted SBP<90. On levophed drip. Cardiology ff. Will start on Amiodarone drip, continue to monitor on telemetry
[2018-11-17] MEDS: Levothyroxine 125 MCG Tablet PO (05:46)
[2018-11-17] MEDS: Midodrine HCl 5 MG Tablet PO ×3 (05:46→21:26)
--- NOTE | 2018-11-17 07:58 | PN_ITS ---
Subjective: Patient's overnight course complicated by A. fib with RVR. Patient was initiated on amiodarone without a bolus with improvement in rate. Patient r emains in A. fib. Patient has had watery diarrhea and marginal urine output. Patient remains on minimal pressor therapy at this time. General: Alert, Cooperative, No apparent distress, Confused, - - No conversational dyspnea. Very flat affect. Anasarca. HEENT: Atraumatic, PERRLA, EOMI, Normocephalic, - - No scleral icterus or injection noted. Oral: Moist Mucosa, No Gingival or Mucosal Lesions/ Ulcerations Neck: Supple, No Nodes, Trachea Midline, JVD, Right, - - Several varicosities noted. Lungs: No rhonchi, No wheeze, Diminished, Rales Cardiovascular: Normal S1, Normal S2, Irregular Rate, Murmur, No rub noted, No Gallop Abdomen: Bowel Sounds Present, Soft, Non Tender, Non-Distended Extremities: No cyanosis, Clubbing, Diminished Peripheral Pulses, Edema Skin: - - Some oozing noted from IV sites, serosanguineous. No surrounding erythema Musculoskeletal: No Tenderness to Palpation of Joints or Extremities Lymphatic: No Cervical, Supraclavicular, or Inguinal Adenopathy Neurological: Cranial nerves II-XII grossly intact, Neuro grossly intact Psych/Mental Status: Flat Affect Vital Signs Temp Pulse Resp BP Pulse Ox 36.8 C 97 26 H 90/74 96 11/17/18 06:30 11/17/18 07:20 11/17/18 07:00 11/17/18 07:00 11/17/18 07:00 Oxygen Flow Rate (L/min) 2 Oxygen Delivery Method [4] Room Air Oxygen Delivery Method [3] Room Air Oxygen Delivery Method [2] Room Air Oxygen Delivery Method [1 ( Room Air Initial Baseline)] Oxygen Delivery Method Room Air Weight: 83.1 kg Body Mass Index (BMI) 31.6 Intake and Output for Last 24 Hours 11/15/18 11/16/18 11/17/18 23:59 23:59 23:59 Intake Total 2127 / 3371 2772 / 2999.4 490.3 / 490.3 Output Total 610 / 860 975 / 1235 360 / 360 Balance 1517 / 2511 1797 / 1764.4 130.3 / 130.3 Labs (Last 48 Hours) 11/13/18 11/15/18 11/15/18 18:32 04:00 13:20 WBC RBC Hgb Hct MCV MCH MCHC RDW RDW Differential Plt Count MPV Immature Gran % (Auto) Neut % (Auto) Lymph % (Auto) [place] % (Auto) Eos % (Auto) Baso % (Auto) Absolute Neuts (auto) Absolute Lymphs (auto) Total Counted Nucleated RBC % Differential Comment Diff Path Review Reviewed Reviewed Macrocytosis Tear Drop Cells Ovalocytes Absolute Retic Sodium Potassium Chloride Carbon Dioxide Anion Gap BUN Creatinine Estim Creat Clear Calc Est GFR (MDRD) Af Amer Est GFR (MDRD) Non-Af BUN/Creatinine Ratio Glucose Calcium Fluid Source OTHER Fluid Color YELLOW Fluid Appearance SL CLDY Fluid WBC 0.193 Fluid RBC 77 Fluid Tot Cell Count 0.226 H Fld Polynuclear WBCs # 0.059 Fld Polynuclear WBCs % 30.6 Fluid Mononuclear WBCs 0.134 Fld Mononuclear WBCs % 69.4 Fluid Neutrophils 30 Fluid Lymphocytes 36 Fluid Monocytes 28 Fluid Other Cells 6 Fl Pathologist Comment May follow Fluid Comment 2 SEE COMMENT 11/16/18 11/16/18 11/17/18 03:20 03:20 04:00 WBC 4.9 5.7 RBC 3.51 L 3.72 L Hgb 11.4 L 12.0 Hct 34.0 L 36.8 L MCV 96.9 98.9 MCH 32.5 H 32.3 H MCHC 33.5 32.6 RDW 18.2 H 18.3 H RDW Differential 63.2 H 64.0 H Plt Count 108 L 128 L MPV 9.4 9.6 Immature Gran % (Auto) 0.800 0.900 Neut % (Auto) 81.4 H 81.1 H Lymph % (Auto) 6.3 L 6.2 L [place] % (Auto) 8.8 8.1 Eos % (Auto) 2.7 3.5 Baso % (Auto) 0.0 0.2 Absolute Neuts (auto) 4.0 4.6 Absolute Lymphs (auto) 0.31 L 0.35 L Total Counted Not Reportable Not Reportable Nucleated RBC % 8.5 H 13.3 H Differential Comment SCANNED SCANNED Diff Path Review May foll May foll Macrocytosis 2+ 1+ Tear Drop Cells RARE Ovalocytes 1+ Absolute Retic 0.41 0.76 Sodium 129 L Potassium 4.9 Chloride 91 L Carbon Dioxide 30.0 Anion Gap 8 BUN 82 H Creatinine 2.60 H Estim Creat Clear Calc 13.32 Est GFR (MDRD) Af Amer 23 L Est GFR (MDRD) Non-Af 19 L BUN/Creatinine Ratio 31.5 H Glucose 116 H Calcium 7.4 L Fluid Source Fluid Color Fluid Appearance Fluid WBC Fluid RBC Fluid Tot Cell Count Fld Polynuclear WBCs # Fld Polynuclear WBCs % Fluid Mononuclear WBCs Fld Mononuclear WBCs % Fluid Neutrophils Fluid Lymphocytes Fluid Monocytes Fluid Other Cells Fl Pathologist Comment Fluid Comment 2 11/17/18 04:00 WBC RBC Hgb Hct MCV MCH MCHC RDW RDW Differential Plt Count MPV Immature Gran % (Auto) Neut % (Auto) Lymph % (Auto) [place] % (Auto) Eos % (Auto) Baso % (Auto) Absolute Neuts (auto) Absolute Lymphs (auto) Total Counted Nucleated RBC % Differential Comment Diff Path Review Macrocytosis Tear Drop Cells Ovalocytes Absolute Retic Sodium 128 L Potassium 5.3 H Chloride 92 L Carbon Dioxide 31.0 Anion Gap 5 BUN 78 H Creatinine 2.34 H Estim Creat Clear Calc 14.80 Est GFR (MDRD) Af Amer 26 L Est GFR (MDRD) Non-Af 21 L BUN/Creatinine Ratio 33.3 H Glucose 122 H Calcium 7.6 L Fluid Source Fluid Color Fluid Appearance Fluid WBC Fluid RBC Fluid Tot Cell Count Fld Polynuclear WBCs # Fld Polynuclear WBCs % Fluid Mononuclear WBCs Fld Mononuclear WBCs % Fluid Neutrophils Fluid Lymphocytes Fluid Monocytes Fluid Other Cells Fl Pathologist Comment Fluid Comment 2 Microbiology 11/15/18 13:20 Fluid - Ascites Gram Stain - Final 11/15/18 13:20 Fluid - Ascites Body Fluid Culture - Preliminary Gram negative eliseo 11/14/18 09:15 Urine Catheter - Gentile Urine Culture - Final Culture exhibits no growth. 11/13/18 18:45 Blood Culture (Wb) - Left Forearm Blood Culture - Preliminary No growth in 48 hours. 11/13/18 18:32 Blood Culture (Wb) - Anticubital Left Blood Culture - Preliminary No growth in 48 hours. Medical Necessity - Tobacco Use Smoking Status: Never smoker Assessment/Plan All Active Problems Hypotension (Acute) Hyperkalemia (Acute) Lactic acidosis (Acute) Renal insufficiency (Acute) Hyperkalemia (Acute) Acute exacerbation of CHF (congestive heart failure) (Acute) JULISSA (acute kidney injury) (Acute) GI bleed (Resolved) History of DVT (deep vein thrombosis) (Resolved) History of venous thromboembolism (Resolved) RECOMMENDATIONS: 1. Continue broad-spectrum antimicrobials, pending infectious work-up. 2. Transition to PICC line, discontinue femoral central line 3. Wean Levophed to maintain mean arterial pressure at or above 65 mmHg. 4. Appreciate nephrology and cardiology recommendations 5. Possible hospice evaluation after discussion with family IMPRESSIONS: 1. Septic shock secondary to spontaneous bacterial peritonitis Patient's paracentesis has come back with gram-negative bacilli. Patient is on appropriate antibiotics at this time. Patient does have very poor oncotic pressure leading to significant vascular leakage. Patient is still on minimal pressor therapy. 2. Biventricular heart failure/pulmonary hypertension/coronary artery disease status post CABG/paroxysmal atrial fibrillation Continue current supportive measures. Cardiology has been consulted to assist in the management of this patient. Repeat echocardiogram is showing no significant change. Patient is in atrial fibrillation at this time, but rate is relatively controlled, but now is requiring amiodarone. Cardiology is concerned that hospice measures may be more appropriate. 3. Recurrent ascites There is some documentation that the patient's recurrent ascites is related to her heart failure. Patient tolerated paracentesis of 2.1 L previous in the hospitalization. This has come back positive with gram-negative bacilli 4. Hyponatremia/hyperkalemia/metabolic acidosis/acute kidney injury Patient appears to be relatively stable from a renal perspective. Clinical suspicion for cardiorenal syndrome. Bicarbonate drip has been discontinued. 5. Advanced age and deconditioning/GERD/hypothyroidism Complicates care, management, recovery and prognosis. Continue home medications as indicated. Patient will require physical therapy evaluation. TIME: 40 minutes of critical care time, independent of procedures, was spent ad dressing the patient's septic shock, biventricular heart failure, pulmonary hypertension, atrial fibrillation, recurrent ascites, hyponatremia, hyperkalemia, acute kidney injury, review of all data and collaboration with the care team. (6 AM to 8 AM) Code Visit 9xxxx: [id number] Critical care first hour
[2018-11-17 09:35] LABS: Pathologist Comment/Body Fluid Reviewed
[2018-11-17 09:46] LABS: Pathologist Review Reviewed
[2018-11-17] MEDS: Menthol/Lanolin/Calamine/Znox 113 GM Tube 1 APPLIC TOPICAL ×4 (10:05→21:26)
--- NOTE | 2018-11-17 10:56 | RAD_ITS ---
STUDY: X-RAY CHEST REASON FOR EXAM: Female, 83 years old. Line placement. TECHNIQUE: Single AP portable view of the chest. COMPARISON: Comparison is made with prior examination dated November 13, 2018. FINDINGS: A right-sided PICC line catheter has been placed. The tip is at the junction of the superior vena cava and right atrium. Increased markings in the left lower lobe suggesting left basilar atelectasis and/or infiltrate with blunting of left costophrenic angle. Sternal cerclage wires and vascular clips are present from a prior sternotomy and coronary artery bypass graft procedure (CABG). Normal mediastinum and laisha. Normal visualized pulmonary arteries. Normal visualized aortic arch and descending thoracic aorta. There are diffuse degenerative changes of the visualized thoracic spine. Normal visualized ribs, clavicles, and shoulders. There is no demonstrated abnormality of the visualized soft tissue structures of the upper abdomen. RAD/Chest 1 View (Portable) IMPRESSION: The tip of the right PICC line catheter is at the junction of the superior vena cava and right atrium. Increased markings at the left lung base with blunting of the left costophrenic angle. Electronically Signed: Tde Shetty, at 11:28 EDT , Service support ,
[2018-11-17] MEDS: Enoxaparin 30 MG/0.3 ML Syringe SC (11:00)
[2018-11-17] MEDS: Pantoprazole Sodium 20 MG Tablet PO (11:00)
[2018-11-17] MEDS: Allopurinol 100 MG Tablet PO (11:00)
--- NOTE | 2018-11-17 13:46 | PCM.PN.REN ---
Patient Problems: Active and Suspected Problems Hypotension (Acute) Hyperkalemia (Acute) Lactic acidosis (Acute) Renal insufficiency (Acute) Hyperkalemia (Acute) JULISSA (acute kidney injury) (Acute) Subjective: Pt remains in ICU. Pt remains in low dose of levophed Pt developed acute Afib with RVR. HR is better with amiodarone drip Denied nausea/vomiting. No SOB UOP has decreased. Pt received one dose of IV lasix 40 mg - Physical Exam General: Cooperative, No apparent distress HEENT: Atraumatic Oral: Moist Mucosa Neck: Supple, No JVD Lungs: Clear to auscultation, Normal air movement, No rhonchi, No wheeze Cardiovascular: Normal S1, Normal S2, Irregular Rate Abdomen: Bowel Sounds Present, Soft, Non Tender Extremities: No clubbing, No cyanosis, No edema, Edema - +2 edema of UE and LE Skin: No rashes Musculoskeletal: No Tenderness to Palpation of Joints or Extremities Neurological: Neuro grossly intact Psych/Mental Status: Appropriate Vital Signs Temp Pulse Resp BP Pulse Ox 98.5 F 92 29 H 81/63 L 97 11/17/18 12:00 11/17/18 13:00 11/17/18 13:00 11/17/18 13:00 11/17/18 13:00 Oxygen Flow Rate (L/min) 2 Oxygen Delivery Method [4] Room Air Oxygen Delivery Method [3] Room Air Oxygen Delivery Method [2] Room Air Oxygen Delivery Method [1 ( Room Air Initial Baseline)] Oxygen Delivery Method Nasal Cannula Weight: 83.1 kg Body Mass Index (BMI) 31.6 Intake and Output for Last 24 Hours 11/15/18 11/16/18 11/17/18 23:59 23:59 23:59 Intake Total 2127 / 3371 2772 / 2999.4 825.3 / 825.3 Output Total 610 / 860 975 / 1235 380 / 380 Balance 1517 / 2511 1797 / 1764.4 445.3 / 445.3 Microbiology Past 72 Hours 11/15/18 13:20 Gram Stain - Final Fluid - Ascites Body Fluid Culture - Preliminary Pantoea spp 11/14/18 09:15 Urine Culture - Final Urine Catheter - Gentile Culture exhibits no growth. 11/13/18 18:45 Blood Culture - Preliminary Blood Culture (Wb) - Left Forearm No growth in 48 hours. 11/13/18 18:32 Blood Culture - Preliminary Blood Culture (Wb) - Anticubital Left No growth in 48 hours. Laboratory Tests Past 24 Hrs 11/15/18 11/16/18 11/17/18 13:20 03:20 04:00 WBC 5.7 RBC 3.72 L Hgb 12.0 Hct 36.8 L MCV 98.9 MCH 32.3 H MCHC 32.6 RDW 18.3 H RDW Differential 64.0 H Plt Count 128 L MPV 9.6 Immature Gran % (Auto) 0.900 Neut % (Auto) 81.1 H Lymph % (Auto) 6.2 L [place] % (Auto) 8.1 Eos % (Auto) 3.5 Baso % (Auto) 0.2 Absolute Neuts (auto) 4.6 Absolute Lymphs (auto) 0.35 L Total Counted Not Reportable Nucleated RBC % 13.3 H Differential Comment SCANNED Diff Path Review Reviewed September foll Macrocytosis 1+ Absolute Retic 0.76 Sodium Potassium Chloride Carbon Dioxide Anion Gap BUN Creatinine Estim Creat Clear Calc Est GFR (MDRD) Af Amer Est GFR (MDRD) Non-Af BUN/Creatinine Ratio Glucose Calcium Fl Pathologist Comment Reviewed 11/17/18 04:00 WBC RBC Hgb Hct MCV MCH MCHC RDW RDW Differential Plt Count MPV Immature Gran % (Auto) Neut % (Auto) Lymph % (Auto) [place] % (Auto) Eos % (Auto) Baso % (Auto) Absolute Neuts (auto) Absolute Lymphs (auto) Total Counted Nucleated RBC % Differential Comment Diff Path Review Macrocytosis Absolute Retic Sodium 128 L Potassium 5.3 H Chloride 92 L Carbon Dioxide 31.0 Anion Gap 5 BUN 78 H Creatinine 2.34 H Estim Creat Clear Calc 14.80 Est GFR (MDRD) Af Amer 26 L Est GFR (MDRD) Non-Af 21 L BUN/Creatinine Ratio 33.3 H Glucose 122 H Calcium 7.6 L Fl Pathologist Comment Medical Necessity - Tobacco Use Smoking Status: Never smoker Assessment/Plan All Active Problems Hypotension (Acute) Hyperkalemia (Acute) Lactic acidosis (Acute) Renal insufficiency (Acute) Hyperkalemia (Acute) Acute exacerbation of CHF (congestive heart failure) (Acute) JULISSA (acute kidney injury) (Acute) GI bleed (Resolved) History of DVT (deep vein thrombosis) (Resolved) History of venous thromboembolism (Resolved) 1-Acute kidney injury on chronic kidney disease stage 2. Baseline creatinine seems around 0.9 to 1.0 mg/dL. Acute kidney injury is most probably due to ischemic ATN from hypotensive. Kidney function is improving. Last 24 hour UOP ~ 1L. 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 Check kidney function in the morning. 2-hyperkalemia. K is slightly high at 5.3. continue to monitor. 3-High anion gap metabolic acidosis . resolved 3-hyponatremia. Improved with better UOP. Na today is 128. continue to monitor 4-septic shock from peritonitis. Improving Please dose Abx for the current CrCl. Renal team will continue to follow. Please call if any question at [phone] Sofía Iniguez
[2018-11-17] MEDS: Furosemide 40 MG/4 ML Vial IV (13:53)
[2018-11-17] MEDS: Cefepime 1 GM in 0.9% NS 50 ML Minibag Q12 IV (14:19)
--- NOTE | 2018-11-17 14:57 | PN.CARD_ITS ---
Subjectve: The patient was evaluated earlier this morning. The patient remains in the ICU. She remains hypotensive. She remains on IV vasopressor support. Objective: Vital Signs Temp Pulse Resp BP Pulse Ox 98.4 F 82 26 H 84/56 L 95 11/17/18 14:00 11/17/18 14:00 11/17/18 14:00 11/17/18 14:00 11/17/18 14:00 Oxygen Flow Rate (L/min) 2 Oxygen Delivery Method [4] Room Air Oxygen Delivery Method [3] Room Air Oxygen Delivery Method [2] Room Air Oxygen Delivery Method [1 ( Room Air Initial Baseline)] Oxygen Delivery Method Nasal Cannula Weight: 183 lb 3.266 oz Body Mass Index (BMI) 31.6 Intake and Output for Last 24 Hours 11/15/18 11/16/18 11/17/18 23:59 23:59 23:59 Intake Total 2127 / 3371 2772 / 2999.4 825.3 / 825.3 Output Total 610 / 860 975 / 1235 380 / 380 Balance 1517 / 2511 1797 / 1764.4 445.3 / 445.3 General: Awake, Cooperative, Ill Appearing HEENT: Atraumatic Lungs: Diminished [place] Bases Cardiovascular: Irregular Rhythm, Normal S1, Normal S2 Abdomen: Bowel Sounds Present, Distended Extremities: - - Lower extremities: Bilateral Jose wraps 11/17/18 04:00: WBC 5.7, RBC 3.72 L, Hgb 12.0, Hct 36.8 L, MCV 98.9, MCH 32.3 H, MCHC 32.6, RDW 18.3 H, RDW Differential 64.0 H, Plt Count 128 L, MPV 9.6, Immature Gran % (Auto) 0.900, Neut % (Auto) 81.1 H, Lymph % (Auto) 6.2 L, [place] % (Auto) 8.1, Eos % (Auto) 3.5, Baso % (Auto) 0.2, Absolute Neuts (auto) 4.6, Total Counted Not Reportable, Nucleated RBC % 13.3 H 11/17/18 04:00: Sodium 128 L, Potassium 5.3 H, Chloride 92 L, Carbon Dioxide 31.0, Anion Gap 5, BUN 78 H, Creatinine 2.34 H, Est GFR (MDRD) Af Amer 26 L, Est GFR (MDRD) Non-Af 21 L, BUN/Creatinine Ratio 33.3 H, Glucose 122 H, Calcium 7.6 L Rhythm: Atrial fibrillation Medical Necessity - Tobacco Use Smoking Status: Never smoker Assessment/Plan 1. Hypotension The patient continues to require IV vasopressor support with Levophed. 2. Chronic systolic CHF She appears to have biventricular systolic dysfunction based upon her echocardiographic findings. This can contribute to concerns of hepatic congestion and renal insufficiency, etc. She continues to require IV vasopressor support. 3. CAD status post PCI status post CABG The details of her previous revascularization history are unknown at this time. There is no indication of acute coronary syndrome. She has had no acute ECG changes. She would continue medical management for her underlying coronary artery disease process. However her medications may need to be adjusted this time based on concerns of her hypotension, etc. 4. Atrial fibrillation She does have atrial fibrillation. She has been without anticoagulant therapy. Secondary to her previous [facility] medical consultation available for review at stated that she was without anticoagulation secondary to history of GI bleeding. Her rate has varied. She did require an IV bolus of IV amiodarone since yesterday. An attempt is being made to avoid agents that interact with her underlying hepatic system. Hopefully if her blood pressure improves she will be able to reinitiate a rate limiting medication. 5. Pulmonary hypertension Her most recent estimated RV systolic pressures are as described above. Certainly this can be a contributing factor to her hepatic congestion, etc. She will continue his medical support as deemed appropriate. 6. Ascites She has had ascites. He underwent paracentesis with approximately 2 L of fluid removal. She states she does feel better. 7. Lactic acidosis She does have lactic acidosis. This may be secondary to poor perfusion. However she has been found to have positive body fluid cultures. Thus she is continuing with medical management with antibiotic therapy. 8. Hyperkalemia Her potassium level was markedly elevated. She received therapy. Her potassium level has decreased compared to her admission level. 9. Renal insufficiency Her creatinine level remains elevated. She is being evaluated by nephrology. At the present time she is continuing supportive care. The patient and her family will need to decide as to how aggressive they want to be going forward with continued diagnostic studies/intervention versus being considered for palliative/hospice care. This note was generated using a voice recognition system and there may be incorrect words, spelling or punctuation that were not noted when reviewing the office note prior to saving.
--- NOTE | 2018-11-17 15:11 | PN_ITS ---
Patient Problems: Active and Suspected Problems Hypotension (Acute) Hyperkalemia (Acute) Lactic acidosis (Acute) Renal insufficiency (Acute) Hyperkalemia (Acute) JULISSA (acute kidney injury) (Acute) Subjective: Patient was seen and examined today, she is still on pressors at this time, patient had an episode of atrial fib with RVR earlier this morning-she is now on an amiodarone infusion. Ascites culture grew out Pantoea. Patient still has confusion, systolic blood pressure remains low. - Physical Exam General: Alert, No apparent distress, Well developed, Confused HEENT: Atraumatic, PERRLA, EOMI, Normocephalic Oral: Moist Mucosa Neck: Supple, Trachea Midline, Thyroid Normal Size and Texture Lungs: Clear to auscultation, Normal air movement, No rhonchi, No wheeze, No rales Cardiovascular: PMI Normal, Irregular Rate, Murmur - 2/6 systolic murmur is noted at the apex and right sternal border, No rub noted Abdomen: Bowel Sounds Present, Soft, Non Tender Extremities: No clubbing, No cyanosis, Capillary Refill Less than 3 Seconds Skin: No rashes, No breakdown Neurological: Cranial nerves II-XII grossly intact, Neuro grossly intact, Sensory exam intact to light touch and pain Psych/Mental Status: Flat Affect, - - Patient is confused Vital Signs Temp Pulse Resp BP Pulse Ox 98.4 F 87 27 H 88/54 L 97 11/17/18 14:00 11/17/18 15:00 11/17/18 15:00 11/17/18 15:00 11/17/18 15:00 Oxygen Flow Rate (L/min) 2 Oxygen Delivery Method [4] Room Air Oxygen Delivery Method [3] Room Air Oxygen Delivery Method [2] Room Air Oxygen Delivery Method [1 ( Room Air Initial Baseline)] Oxygen Delivery Method Nasal Cannula Weight: 83.1 kg Body Mass Index (BMI) 31.6 Intake and Output for Last 24 Hours 11/15/18 11/16/18 11/17/18 23:59 23:59 23:59 Intake Total 2127 / 3371 2772 / 2999.4 825.3 / 825.3 Output Total 610 / 860 975 / 1235 380 / 380 Balance 1517 / 2511 1797 / 1764.4 445.3 / 445.3 Microbiology Past 72 Hours 11/15/18 13:20 Gram Stain - Final Fluid - Ascites Body Fluid Culture - Preliminary Pantoea spp 11/14/18 09:15 Urine Culture - Final Urine Catheter - Gentile Culture exhibits no growth. 11/13/18 18:45 Blood Culture - Preliminary Blood Culture (Wb) - Left Forearm No growth in 48 hours. 11/13/18 18:32 Blood Culture - Preliminary Blood Culture (Wb) - Anticubital Left No growth in 48 hours. Laboratory Tests Past 24 Hrs 11/15/18 11/16/18 11/17/18 13:20 03:20 04:00 WBC 5.7 RBC 3.72 L Hgb 12.0 Hct 36.8 L MCV 98.9 MCH 32.3 H MCHC 32.6 RDW 18.3 H RDW Differential 64.0 H Plt Count 128 L MPV 9.6 Immature Gran % (Auto) 0.900 Neut % (Auto) 81.1 H Lymph % (Auto) 6.2 L [place] % (Auto) 8.1 Eos % (Auto) 3.5 Baso % (Auto) 0.2 Absolute Neuts (auto) 4.6 Absolute Lymphs (auto) 0.35 L Total Counted Not Reportable Nucleated RBC % 13.3 H Differential Comment SCANNED Diff Path Review Reviewed September Macrocytosis 1+ Absolute Retic 0.76 Sodium Potassium Chloride Carbon Dioxide Anion Gap BUN Creatinine Estim Creat Clear Calc Est GFR (MDRD) Af Amer Est GFR (MDRD) Non-Af BUN/Creatinine Ratio Glucose Calcium Fl Pathologist Comment Reviewed 11/17/18 04:00 WBC RBC Hgb Hct MCV MCH MCHC RDW RDW Differential Plt Count MPV Immature Gran % (Auto) Neut % (Auto) Lymph % (Auto) [place] % (Auto) Eos % (Auto) Baso % (Auto) Absolute Neuts (auto) Absolute Lymphs (auto) Total Counted Nucleated RBC % Differential Comment Diff Path Review Macrocytosis Absolute Retic Sodium 128 L Potassium 5.3 H Chloride 92 L Carbon Dioxide 31.0 Anion Gap 5 BUN 78 H Creatinine 2.34 H Estim Creat Clear Calc 14.80 Est GFR (MDRD) Af Amer 26 L Est GFR (MDRD) Non-Af 21 L BUN/Creatinine Ratio 33.3 H Glucose 122 H Calcium 7.6 L Fl Pathologist Comment Medical Necessity - Tobacco Use Smoking Status: Never smoker Assessment/Plan All Active Problems Hypotension (Acute) Hyperkalemia (Acute) Lactic acidosis (Acute) Renal insufficiency (Acute) Hyperkalemia (Acute) Acute exacerbation of CHF (congestive heart failure) (Acute) JULISSA (acute kidney injury) (Acute) GI bleed (Resolved) History of DVT (deep vein thrombosis) (Resolved) History of venous thromboembolism (Resolved) #1 septic shock-secondary to gram-negative peritonitis with Pantoea, continue present antibiotic coverage #2 acute kidney injury-continue to monitor creatinine #3 paroxysmal atrial fibrillation-patient remains in atrial fib at this time, p kristel is on an amiodarone drip #4 chronic systolic heart failure #5 ischemic cardiomyopathy-EF 35% #6 hyponatremia #7 dementia Code Visit Inpatient E&M: 81753 Subs Hosp L2
[2018-11-17] MEDS: Furosemide 100 MG/10 ML Vial 80 MG IV (18:26)
--- NOTE | 2018-11-17 19:47 | NURSING ---
Had a long discussion with Daniela (daughter) about pt condition and current POC. Discussed possible hospice options in the future. Daniela is to get in touch with siblings to discuss how far they want to go with current plan of care. Daniela will be in tomorrow around 3pm to visit patient. Dr. Dowell updated on conversation and will follow up with family.
[2018-11-17] MEDS: Acetaminophen 325 MG Tablet 650 MG PO (21:26)
[2018-11-18] VITALS (44 sets, daily range): BP systolic 76–105; BP diastolic 49–81; PULSE 74–118; RESP 17–32; TEMP 36.3–36.8; O2SAT 96–98
[2018-11-18 05:11] LABS: Absolute Neutrophil Count 4.7 X10^3/uL (2.0-7.7); Basophil# 0.01 X10^3/uL; Basophil% 0.2 % (0-1); Eosinophil# 0.17 X10^3/uL; Eosinophils% 2.9 % (0-5); Hemoglobin 11.9 g/dl (12.0-15.0); Lymphocyte % 5.2 % (19-41); Mean Corp Hgb Conc 32.2 g/gl (32-36); Mean Corpuscular Hgb 31.8 pg (27.0-32.0); Mean Corpuscular Volume 98.9 fL (81-99); Mean Platelet Vol. 9.4 fl (6.2-12.0); Monocyte# 0.54 X10^3/uL; Monocyte% 9.3 % (0-10); Neutrophil % 81.2 % (47-70); Platelet Count 111 K/mm3 (150-450); RBC Distribution Width CV 18.4 % (11.6-14.6); RBC Distribution Width SD 64.3 fl (35.1-43.9); Red Blood Count 3.74 M/mm3 (4.2-5.4); White Blood Count 5.8 K/mm3 (4.4-11.0)
[2018-11-18 05:13] LABS: Absolute Nucleated RBC Count 0.97 10^3/uL (0-5); Differential Indicated SCAN CRITERIA MET; NRBC Flagged by Analyzer 16.8 % (0-5); POSITIVE COUNT NO; POSITIVE DIFFERENTIAL YES; POSITIVE MORPHOLOGY NO
[2018-11-18 05:26] LABS: Anion Gap 7 (5-15); BUN 79 mg/dL (7-18); BUN/Creat Ratio 34.5 RATIO (10-20); Calcium,Total 7.7 mg/dL (8.5-10.1); Chloride 90 mmol/L (98-107); Creatinine, Serum 2.29 mg/dL (0.55-1.02); EST Glomerular Filtration Rate 22 mL/min (>60); Est Glom Filt Rate - Afr Amer 26 mL/min (>60); Estimated Creatinine Clearance 15.13 ml/min; Glucose 96 mg/dL (74-106); Potassium 5.4 mmol/L (3.5-5.1); Sodium Level 127 mmol/L (136-145)
[2018-11-18 05:34] LABS: Differential Comment SCANNED
[2018-11-18] MEDS: Midodrine HCl 5 MG Tablet PO ×3 (06:18→21:22)
[2018-11-18] MEDS: Levothyroxine 125 MCG Tablet PO (06:18)
[2018-11-18] MEDS: Bumetanide 1 MG/4 ML Vial IV ×2 (06:48→14:34)
[2018-11-18] MEDS: CHLORHEXIDINE GLUC 2% CLOTH 1 EACH TOWELETTE TOPICAL (06:52)
--- NOTE | 2018-11-18 07:07 | PN_ITS ---
Subjective: Patient did okay overnight. Patient continues to have significant weeping from IV sites per nursing. Patient was given multiple diuretic challenges yesterday, but still was unable to be fluid negative for today. Patient denies pain, but nursing reports grimacing with change in body position. No bleeding has been reported. Patient with significant diarrhea overnight, so stool is been sent for C. difficile. General: Alert, Cooperative, No apparent distress, - - Anasarca HEENT: Atraumatic, PERRLA, EOMI, Normocephalic Oral: Moist Mucosa, No Gingival or Mucosal Lesions/ Ulcerations Neck: Supple, No Nodes, Trachea Midline, - Lungs: Rales - Bilateral bases Cardiovascular: Normal S1, Normal S2, Irregular Rate, Murmur, No rub noted, No Gallop Abdomen: Soft, Non Tender, Hyperactive Bowel Sounds, Distended Extremities: No cyanosis, Capillary Refill Less than 3 Seconds, Edema Skin: - - No significant change compared to previous. However, patient is having significant edema with transcutaneous leakage. Musculoskeletal: No Tenderness to Palpation of Joints or Extremities Lymphatic: No Cervical, Supraclavicular, or Inguinal Adenopathy Neurological: Cranial nerves II-XII grossly intact, Neuro grossly intact Psych/Mental Status: Flat Affect Vital Signs Temp Pulse Resp BP Pulse Ox 36.4 C L 83 22 H 93/58 L 97 11/18/18 06:00 11/18/18 06:30 11/18/18 06:00 11/18/18 06:30 11/18/18 06:00 Oxygen Flow Rate (L/min) 2 Oxygen Delivery Method [4] Room Air Oxygen Delivery Method [3] Room Air Oxygen Delivery Method [2] Room Air Oxygen Delivery Method [1 ( Room Air Initial Baseline)] Oxygen Delivery Method Nasal Cannula Weight: 85.4 kg Body Mass Index (BMI) 31.6 Intake and Output for Last 24 Hours 11/16/18 11/17/18 11/18/18 23:59 23:59 23:59 Intake Total 2772 / 2999.4 1183.3 / 1558.4 537.5 / 537.5 Output Total 975 / 1235 455 / 705 400 / 400 Balance 1797 / 1764.4 728.3 / 853.4 137.5 / 137.5 Labs (Last 48 Hours) 11/13/18 11/15/1811/15/19 18:32 04:00 13:20 WBC RBC Hgb Hct MCV MCH MCHC RDW RDW Differential Plt Count MPV Immature Gran % (Auto) Neut % (Auto) Lymph % (Auto) [place] % (Auto) Eos % (Auto) Baso % (Auto) Absolute Neuts (auto) Absolute Lymphs (auto) Total Counted Nucleated RBC % Differential Comment Diff Path Review Reviewed Reviewed Macrocytosis Absolute Retic Sodium Potassium Chloride Carbon Dioxide Anion Gap BUN Creatinine Estim Creat Clear Calc Est GFR (MDRD) Af Amer Est GFR (MDRD) Non-Af BUN/Creatinine Ratio Glucose Calcium Fl Pathologist Comment Reviewed 11/16/18 11/17/18 11/17/18 03:20 04:00 04:00 WBC 5.7 RBC 3.72 L Hgb 12.0 Hct 36.8 L MCV 98.9 MCH 32.3 H MCHC 32.6 RDW 18.3 H RDW Differential 64.0 H Plt Count 128 L MPV 9.6 Immature Gran % (Auto) 0.900 Neut % (Auto) 81.1 H Lymph % (Auto) 6.[address] [place] % (Auto) 8.1 Eos % (Auto) 3.5 Baso % (Auto) 0.2 Absolute Neuts (auto) 4.6 Absolute Lymphs (auto) 0.35 L Total Counted Not Reportable Nucleated RBC % 13.3 H Differential Comment SCANNED Diff Path Review Reviewed May foll Macrocytosis 1+ Absolute Retic 0.76 Sodium 128 L Potassium 5.3 H Chloride 92 L Carbon Dioxide 31.0 Anion Gap 5 BUN 78 H Creatinine 2.34 H Estim Creat Clear Calc 14.80 Est GFR (MDRD) Af Amer 26 L Est GFR (MDRD) Non-Af 21 L BUN/Creatinine Ratio 33.3 H Glucose 122 H Calcium 7.6 L Fl Pathologist Comment 11/18/18 11/18/18 05:00 05:00 WBC 5.8 RBC 3.74 L Hgb 11.9 L Hct 37.0 MCV 98.9 MCH 31.8 MCHC 32.2 RDW 18.4 H RDW Differential 64.3 H Plt Count 111 L MPV 9.4 Immature Gran % (Auto) 1.200 H Neut % (Auto) 81.2 H Lymph % (Auto) 5.[address] [place] % (Auto) 9.3 Eos % (Auto) 2.9 Baso % (Auto) 0.2 Absolute Neuts (auto) 4.7 Absolute Lymphs (auto) 0.30 L Total Counted Not Reportable Nucleated RBC % 16.8 H Differential Comment SCANNED Diff Path Review May foll Macrocytosis Absolute Retic 0.97 Sodium 127 L Potassium 5.4 H Chloride 90 L Carbon Dioxide 30.0 Anion Gap 7 BUN 79 H Creatinine 2.29 H Estim Creat Clear Calc 15.13 Est GFR (MDRD) Af Amer 26 L Est GFR (MDRD) Non-Af 22 L BUN/Creatinine Ratio 34.5 H Glucose 96 Calcium 7.7 L Fl Pathologist Comment Microbiology 11/18/18 03:53 Stool C. difficile DNA Amplification - Final 11/15/18 13:20 Fluid - Ascites Gram Stain - Final 11/15/18 13:20 Fluid - Ascites Body Fluid Culture - Preliminary Pantoea spp 11/14/18 09:15 Urine Catheter - Gentile Urine Culture - Final Culture exhibits no growth. 11/13/18 18:45 Blood Culture (Wb) - Left Forearm Blood Culture - Preliminary No growth in 48 hours. 11/13/18 18:32 Blood Culture (Wb) - Anticubital Left Blood Culture - Preliminary No growth in 48 hours. Clinical Impression(s) from Imaging Studies Chest X-Ray 11/17/18 10:56 IMPRESSION: The tip of the right PICC line catheter is at the junction of the superior vena cava and right atrium. Increased markings at the left lung base with blunting of the left costophrenic angle. Electronically Signed: Ted Shetty, at 11:28 EDT , Service support , Medical Necessity - Tobacco Use Smoking Status: Never smoker Assessment/Plan All Active Problems Hypotension (Acute) Hyperkalemia (Acute) Lactic acidosis (Acute) Renal insufficiency (Acute) Hyperkalemia (Acute) Acute exacerbation of CHF (congestive heart failure) (Acute) JULISSA (acute kidney injury) (Acute) GI bleed (Resolved) History of DVT (deep vein thrombosis) (Resolved) History of venous thromboembolism (Resolved) RECOMMENDATIONS: 1. Continue broad-spectrum antimicrobials 2. Possible need for repeat paracentesis if family seeks to remain aggressive 3. Wean Levophed to maintain mean arterial pressure at or above 65 mmHg. 4. Appreciate nephrology and cardiology recommendations 5. Continue to discuss goals of therapy with family. Poor prognosis IMPRESSIONS: 1. Septic shock secondary to spontaneous bacterial peritonitis Patient's paracentesis has come back with gram-negative bacilli. Patient is on appropriate antibiotics at this time. Patient does have very poor oncotic pressure leading to significant vascular leakage. Patient is still on minimal pressor therapy. Patient has had rapid reaccumulation of abdominal fluid. If family continues to want to be aggressive, repeat paracentesis will likely be needed early next week. 2. Biventricular heart failure/pulmonary hypertension/coronary artery disease status post CABG/paroxysmal atrial fibrillation Continue current supportive measures. Cardiology has been consulted to assist in the management of this patient. Repeat echocardiogram is showing no significant change. Patient is in atrial fibrillation at this time, but rate is relatively controlled, but now is requiring amiodarone. Cardiology is concerned that hospice measures may be more appropriate. Family does not appear to be noting patient's true prognosis. 3. Recurrent ascites There is some documentation that the patient's recurrent ascites is related to her heart failure. Patient tolerated paracentesis of 2.1 L previously in the week, but this may need to be completed again in the near future. This has come back positive with gram-negative bacilli 4. Hyponatremia/hyperkalemia/metabolic acidosis/acute kidney injury Patient appears to be relatively stable from a renal perspective. Clinical suspicion for cardiorenal syndrome. Bicarbonate drip has been discontinued. Attempting improved nutritional status to a regular diet. 5. Advanced age and deconditioning/GERD/hypothyroidism Complicates care, management, recovery and prognosis. Continue home medications as indicated. Patient will require physical therapy evaluation. TIME: 32 minutes of critical care time, independent of procedures, was spent addressing the patient's septic shock, biventricular heart failure, pulmonary hypertension, atrial fibrillation, recurrent ascites, hyponatremia, hyperkalemia, acute kidney injury, review of all data and collaboration with the care team. (6:15 AM to 7:15 AM) Code Visit 9xxxx: [id number] Critical care first hour
--- NOTE | 2018-11-18 08:46 | PCM.PN.CARD ---
Subjectve: The patient is awake. She notes that her abdomen still her main focus of attention. Objective: Vital Signs Temp Pulse Resp BP Pulse Ox 97.6 F L 83 22 H 93/58 L 97 11/18/18 06:00 11/18/18 06:30 11/18/18 06:00 11/18/18 06:30 11/18/18 06:00 Oxygen Flow Rate (L/min) 2 Oxygen Delivery Method [4] Room Air Oxygen Delivery Method [3] Room Air Oxygen Delivery Method [2] Room Air Oxygen Delivery Method [1 ( Room Air Initial Baseline)] Oxygen Delivery Method Nasal Cannula Weight: 188 lb 4.396 oz Body Mass Index (BMI) 31.6 Intake and Output for Last 24 Hours 11/16/18 11/17/18 11/18/18 23:59 23:59 23:59 Intake Total 2772 / 2999.4 1183.3 / 1558.4 537.5 / 537.5 Output Total 975 / 1235 455 / 705 400 / 400 Balance 1797 / 1764.4 728.3 / 853.4 137.5 / 137.5 General: Awake, Cooperative, Ill Appearing Lungs: - - Diminished inspiratory effort with diminished breath sounds Cardiovascular: Irregular Rhythm, Normal S1, Normal S2 Abdomen: Bowel Sounds Present, Hypoactive Bowel Sounds, Distended Extremities: - - Bilateral Jose wraps 11/18/18 05:00: WBC 5.8, RBC 3.74 L, Hgb 11.9 L, Hct 37.0, MCV 98.9, MCH 31.8, MCHC 32.2, RDW 18.4 H, RDW Differential 64.3 H, Plt Count 111 L, MPV 9.4, Immature Gran % (Auto) 1.200 H, Neut % (Auto) 81.2 H, Lymph % (Auto) 5.2 L, [place] % (Auto) 9.3, Eos % (Auto) 2.9, Baso % (Auto) 0.2, Absolute Neuts (auto) 4.7, Total Counted Not Reportable, Nucleated RBC % 16.8 H 11/18/18 05:00: Sodium 127 L, Potassium 5.4 H, Chloride 90 L, Carbon Dioxide 30.0, Anion Gap 7, BUN 79 H, Creatinine 2.29 H, Est GFR (MDRD) Af Amer 26 L, Est GFR (MDRD) Non-Af 22 L, BUN/Creatinine Ratio 34.5 H, Glucose 96, Calcium 7.7 L Rhythm: Atrial fibrillation Medical Necessity - Tobacco Use Smoking Status: Never smoker Assessment/Plan 1. Hypotension The patient continues to require IV vasopressor support with Levophed. This does make it challenging to introduce agents that would assist with her atrial fibrillation rate control such as beta-blockers or calcium channel antagonist. 2. Chronic systolic CHF She appears to have biventricular systolic dysfunction based upon her echocardiographic findings. This can contribute to concerns of hepatic congestion and renal insufficiency, etc. She continues to require IV vasopressor support. This appears to be allowing her to receive diuretic therapy. 3. CAD status post PCI status post CABG There is no indication of acute coronary syndrome. She has had no acute ECG changes. She would continue medical management for her underlying coronary artery disease process as tolerated. 4. Atrial fibrillation She does have atrial fibrillation. She has been without anticoagulant therapy. Secondary to her previous [facility] medical consultation available for review at stated that she was without anticoagulation secondary to history of GI bleeding. Her rate has varied. She did require an IV bolus of IV amiodarone since yesterday. At the present time she will be transitioned to oral amiodarone therapy. Hopefully this will assist with her rate control. Hopefully if her blood pressure improves she will be able to reinitiate a rate limiting medication and be able to be removed from amiodarone therapy. 5. Pulmonary hypertension Her most recent estimated RV systolic pressures are as described above. Certainly this can be a contributing factor to her hepatic congestion, etc. She will continue his medical support as deemed appropriate. 6. Ascites She has had ascites. He underwent paracentesis with approximately 2 L of fluid removal. She states her abdomen is beginning to bother her again. She has been receiving frequent paracentesis procedures. 7. Lactic acidosis She does have lactic acidosis. This may be secondary to poor perfusion. However she has been found to have positive body fluid cultures. Thus she is continuing with medical management with antibiotic therapy. 8. Hyperkalemia Her potassium level was markedly elevated. She received therapy. Her potassium level has decreased compared to her admission level. 9. Renal insufficiency Her creatinine level remains elevated. This also makes it challenging to use other agents to assist with her atrial fibrillation such as digitalis. She is being evaluated by nephrology. Again, at the present time, this is an elderly frail and fragile appearing white female with multiple complex medical issues requiring ongoing medical therapy. There are no plans for any additional cardiovascular diagnostic studies or therapeutic intervention at this time. The ICU staff has stated they have discussed her poor prognosis with family members and offered them the option of palliative/hospice care. However, at the present time, the family members involved have declined. This note was generated using a voice recognition system and there may be incorrect words, spelling or punctuation that were not noted when reviewing the office note prior to saving.
[2018-11-18 09:51] LABS: Pathologist Review Reviewed
[2018-11-18] MEDS: Allopurinol 100 MG Tablet PO (10:43)
[2018-11-18] MEDS: Menthol/Lanolin/Calamine/Znox 113 GM Tube 1 APPLIC TOPICAL ×4 (10:43→21:22)
[2018-11-18] MEDS: Enoxaparin 30 MG/0.3 ML Syringe SC (10:43)
[2018-11-18] MEDS: Pantoprazole Sodium 20 MG Tablet PO (10:44)
--- NOTE | 2018-11-18 10:56 | PN.RENAL_ITS ---
Patient Problems: Active and Suspected Problems Hypotension (Acute) Hyperkalemia (Acute) Lactic acidosis (Acute) Renal insufficiency (Acute) Hyperkalemia (Acute) JULISSA (acute kidney injury) (Acute) Subjective: Remains on low dose levophed at 2 mcg/min Pt is on 2 l/m 02 support through NC Pt made 160 cc during night. responded well to bumex 1 mg IV with UOP 250 cc. Pt is complaining of generalized weakness and productive cough - Physical Exam General: Alert, Cooperative HEENT: Atraumatic, PERRLA Oral: Moist Mucosa Neck: Supple, No JVD Lungs: Clear to auscultation, Normal air movement, No rhonchi, No wheeze Cardiovascular: Normal S1, Normal S2, Irregular Rate, Tachycardic Abdomen: Bowel Sounds Present, Soft, Non Tender Extremities: No clubbing, No cyanosis, Edema - +2 edema of UE and LE Musculoskeletal: No Muscle Wasting Lymphatic: No Cervical, Supraclavicular, or Inguinal Adenopathy Neurological: Cranial nerves II-XII grossly intact, Neuro grossly intact Psych/Mental Status: Appropriate Vital Signs Temp Pulse Resp BP Pulse Ox 97.6 F L 83 22 H 93/58 L 97 11/18/18 06:00 11/18/18 06:30 11/18/18 06:00 11/18/18 06:30 11/18/18 07:02 Oxygen Flow Rate (L/min) 2 Oxygen Delivery Method [4] Room Air Oxygen Delivery Method [3] Room Air Oxygen Delivery Method [2] Room Air Oxygen Delivery Method [1 ( Room Air Initial Baseline)] Oxygen Delivery Method Nasal Cannula Weight: 85.4 kg Body Mass Index (BMI) 31.6 Intake and Output for Last 24 Hours 11/16/18 11/17/18 11/18/18 23:59 23:59 23:59 Intake Total 2772 / 2999.4 1183.3 / 1558.4 537.5 / 537.5 Output Total 975 / 1235 455 / 705 400 / 400 Balance 1797 / 1764.4 728.3 / 853.4 137.5 / 137.5 Microbiology Past 72 Hours 11/15/18 13:20 Gram Stain - Final Fluid - Ascites Body Fluid Culture - Final Pantoea spp 11/18/18 03:53 C. difficile DNA Amplification - Final Stool 11/14/18 09:15 Urine Culture - Final Urine Catheter - Gentile Culture exhibits no growth. 11/13/18 18:45 Blood Culture - Preliminary Blood Culture (Wb) - Left Forearm No growth in 48 hours. 11/13/18 18:32 Blood Culture - Preliminary Blood Culture (Wb) - Anticubital Left No growth in 48 hours. Laboratory Tests Past 24 Hrs 11/17/18 11/18/18 11/18/18 04:00 05:00 05:00 WBC 5.8 RBC 3.74 L Hgb 11.9 L Hct 37.0 MCV 98.9 MCH 31.8 MCHC 32.2 RDW 18.4 H RDW Differential 64.3 H Plt Count 111 L MPV 9.4 Immature Gran % (Auto) 1.200 H Neut % (Auto) 81.2 H Lymph % (Auto) 5.2 L [place] % (Auto) 9.3 Eos % (Auto) 2.9 Baso % (Auto) 0.2 Absolute Neuts (auto) 4.7 Absolute Lymphs (auto) 0.30 L Total Counted Not Reportable Nucleated RBC % 16.8 H Differential Comment SCANNED Diff Path Review Reviewed May foll Absolute Retic 0.97 Sodium 127 L Potassium 5.4 H Chloride 90 L Carbon Dioxide 30.0 Anion Gap 7 BUN 79 H Creatinine 2.29 H Estim Creat Clear Calc 15.13 Est GFR (MDRD) Af Amer 26 L Est GFR (MDRD) Non-Af 22 L BUN/Creatinine Ratio 34.5 H Glucose 96 Calcium 7.7 L Medical Necessity - Tobacco Use Smoking Status: Never smoker Assessment/Plan All Active Problems Hypotension (Acute) Hyperkalemia (Acute) Lactic acidosis (Acute) Renal insufficiency (Acute) Hyperkalemia (Acute) Acute exacerbation of CHF (congestive heart failure) (Acute) JULISSA (acute kidney injury) (Acute) GI bleed (Resolved) History of DVT (deep vein thrombosis) (Resolved) History of venous thromboembolism (Resolved) 1-Acute kidney injury on chronic kidney disease stage 2. Baseline creatinine seems around 0.9 to 1.0 mg/dL. Acute kidney injury is most probably due to ischemic ATN from hypotensive. Kidney function is stable. UOP is responding to IV diuretic I agree with bumex 1 mg BID IV No need for [employer] Keep MAP > 65 avoid IV contrast.. Check kidney function in the morning. 2-hyperkalemia. K is slightly high at 5.4. Should improved with better UOP continue to monitor. 3-High anion gap metabolic acidosis . resolved 3-hyponatremia. from JULISSA and fluid retention keep O>I. no need for 3% NaCl Check Na level in am 4-septic shock from peritonitis. Improving Please dose Abx for the current CrCl. Renal team will continue to follow. Please call if any question at [phone] Sofía Iniguez
[2018-11-18 11:57] LABS: Pathologist Review Reviewed
[2018-11-18] MEDS: Amiodarone 200 MG Tablet PO ×2 (13:55→21:22)
[2018-11-18] MEDS: Metolazone 2.5 MG Tablet PO (13:56)
[2018-11-18] MEDS: Cefepime 1 GM in 0.9% NS 50 ML Minibag Q12 IV (14:01)
[2018-11-18] MEDS: 0.9% NaCl Peripheral Flush Adult/Peds IV (14:34)
--- NOTE | 2018-11-18 15:22 | CASEMGMT ---
RN CM Note: Per Dr. Dowell, he has spoke with family members and they will plan family meeting on Thursday am. Hospice meeting to be set up with family on Thursday after physician meeting. JHON Sims. Twan PEÑAN RN ACM
--- NOTE | 2018-11-18 15:56 | CASEMGMT ---
Physician spoke with family about Hospice. All of patient's children will be at [facility] Thursday. Physician asked that an appt be arranged with Hospice for Thursday mid morning. SW called Hospice and spoke with Yohana regarding referral. An appt was set up for Thursday at 10am. SW spoke with patient's daughter Isabel and let her know this information. She wanted to be the contact center director for Hospice. JHON notified [facility] and RN BHAVANI Alvarado. Linnette NANCE MSW
--- NOTE | 2018-11-18 16:48 | PCM.PROGNOTE ---
Patient Problems: Active and Suspected Problems Hypotension (Acute) Hyperkalemia (Acute) Lactic acidosis (Acute) Renal insufficiency (Acute) Hyperkalemia (Acute) JULISSA (acute kidney injury) (Acute) Subjective: Patient was seen and examined today in ICU, I talked briefly with her daughter-her daughter thought that if she underwent another paracentesis it would help her I told her that this would not. I told her the patient has peritoneal infection and is weak and her blood pressure is low. I am not sure that the patient's daughter comprehends exactly how ill the patient is. - Physical Exam General: Alert, Cooperative, No apparent distress, Well developed HEENT: Atraumatic, PERRLA, EOMI, Normocephalic Oral: Moist Mucosa Neck: Supple, Trachea Midline, Thyroid Normal Size and Texture Lungs: Clear to auscultation, Normal air movement, No rhonchi, No wheeze, No rales Cardiovascular: PMI Normal, Irregular Rate, Murmur - 2/6 systolic murmur is noted at the apex and right sternal border, No rub noted Abdomen: Bowel Sounds Present, Soft, Non Tender Extremities: No clubbing, No cyanosis, Capillary Refill Less than 3 Seconds Skin: - - Stasis dermatitis changes are noted in both lower legs Neurological: Cranial nerves II-XII grossly intact, Neuro grossly intact, Sensory exam intact to light touch and pain Psych/Mental Status: Flat Affect, - - She is alert but confused, she follows simple commands Vital Signs Temp Pulse Resp BP Pulse Ox 97.6 F L 100 28 H 89/62 L 97 11/18/18 16:00 11/18/18 16:00 11/18/18 16:00 11/18/18 16:00 11/18/18 16:00 Oxygen Flow Rate (L/min) 2 Oxygen Delivery Method [4] Room Air Oxygen Delivery Method [3] Room Air Oxygen Delivery Method [2] Room Air Oxygen Delivery Method [1 ( Room Air Initial Baseline)] Oxygen Delivery Method Nasal Cannula Weight: 85.4 kg Body Mass Index (BMI) 31.6 Intake and Output for Last 24 Hours 11/16/18 11/17/18 11/18/18 23:59 23:59 23:59 Intake Total 2772 / 2999.4 1183.3 / 1558.4 694.9 / 694.9 Output Total 975 / 1235 455 / 705 600 / 600 Balance 1797 / 1764.4 728.3 / 853.4 94.9 / 94.9 Microbiology Past 72 Hours 11/15/18 13:20 Gram Stain - Final Fluid - Ascites Body Fluid Culture - Final Pantoea spp 11/18/18 03:53 C. difficile DNA Amplification - Final Stool 11/14/18 09:15 Urine Culture - Final Urine Catheter - Gentile Culture exhibits no growth. 11/13/18 18:45 Blood Culture - Preliminary Blood Culture (Wb) - Left Forearm No growth in 48 hours. 11/13/18 18:32 Blood Culture - Preliminary Blood Culture (Wb) - Anticubital Left No growth in 48 hours. Laboratory Tests Past 24 Hrs 11/17/18 11/18/18 11/18/18 04:00 05:00 05:00 WBC 5.8 RBC 3.74 L Hgb 11.9 L Hct 37.0 MCV 98.9 MCH 31.8 MCHC 32.2 RDW 18.4 H RDW Differential 64.3 H Plt Count 111 L MPV 9.4 Immature Gran % (Auto) 1.200 H Neut % (Auto) 81.2 H Lymph % (Auto) 5.2 L [place] % (Auto) 9.3 Eos % (Auto) 2.9 Baso % (Auto) 0.2 Absolute Neuts (auto) 4.7 Absolute Lymphs (auto) 0.30 L Total Counted Not Reportable Nucleated RBC % 16.8 H Differential Comment SCANNED Diff Path Review Reviewed Reviewed Absolute Retic 0.97 Sodium 127 L Potassium 5.4 H Chloride 90 L Carbon Dioxide 30.0 Anion Gap 7 BUN 79 H Creatinine 2.29 H Estim Creat Clear Calc 15.13 Est GFR (MDRD) Af Amer 26 L Est GFR (MDRD) Non-Af 22 L BUN/Creatinine Ratio 34.5 H Glucose 96 Calcium 7.7 L Medical Necessity - Tobacco Use Smoking Status: Never smoker Assessment/Plan All Active Problems Hypotension (Acute) Hyperkalemia (Acute) Lactic acidosis (Acute) Renal insufficiency (Acute) Hyperkalemia (Acute) Acute exacerbation of CHF (congestive heart failure) (Acute) JULISSA (acute kidney injury) (Acute) GI bleed (Resolved) History of DVT (deep vein thrombosis) (Resolved) History of venous thromboembolism (Resolved) #1 septic shock-secondary to gram-negative peritonitis with Pantoea, continue present antibiotic coverage #2 acute kidney injury secondary to ischemic ATN from hypotension-continue to monitor creatinine #3 paroxysmal atrial fibrillation-patient remains in atrial fib at this time, patient is on oral amiodarone #4 chronic systolic heart failure #5 ischemic cardiomyopathy-EF 35% #6 hyponatremia #7 dementia Code Visit Inpatient E&M: 57930 Subs Hosp L2
[2018-11-18] MEDS: fentaNYL 100 MCG/2 ML Ampul 25 MCG IV (20:04)
[2018-11-19] VITALS (43 sets, daily range): BP systolic 78–101; BP diastolic 46–70; PULSE 84–117; RESP 14–31; TEMP 36.6–36.8; O2SAT 94–98
--- NOTE | 2018-11-19 | FLU_PTH ---
PATIENT: RAND WIN V LOC: [facility] U#:[id number] AGE/SX: 83/F ROOM: ICU05 RE11/13/[address]: Dr. Vito Brandon DO : 1935 BED: 1 DIS: 11/20/2018 SPEC #: [id number] RECD: 11/19/18 13:56 STATUS: JUAN REQ #: [id number] SILVIA: 11/19/18 00:[address]: Vito Brandon DEPT: CYTOLOGY RECD BY: Caesar Bolton ENTERED: 11/19/18 13:56 SP TYPE: Fluid OTHR DR: DO Dr. Thomas Domingo MD Dr. Jeffrey Burkey, MD Dr. Jayaprakas Dasari, MD Dr. Paul Moodispaw, MD Tissues: THORACIC FLUID Procedures: Special Stain Group II Surgery Specimen Level IV Cytospin Fluid HEADER OPERATION: Ultrasound-guided paracentesis PRE-OP DIAGNOSIS: Ascites TISSUE SUBMITTED: Paracentesis fluid for cytology DIAGNOSIS CYTOLOGY Paracentesis fluid for cytology (cytospin and cell block): Negative for malignant cells. SJ:edilma 11/22/18 COMMENT Please make reference to previous specimens ([id number], [id number] and [id number]) paracentesis fluid for cytology with diagnosis of negative for malignant cells. CYTOLOGY STUDY Slides are reviewed. CYTOLOGY GROSS Received is 100 ml of yellow cloudy fluid labeled with the patient's name and and designated per the requisition as paracentesis. Submitted for cytology preparation including cell block. / 11/19/18 TC:5 CPT: 19892, 92347
[2018-11-19] MEDS: fentaNYL 100 MCG/2 ML Ampul 25 MCG IV ×5 (01:13→20:38)
[2018-11-19] MEDS: Levothyroxine 125 MCG Tablet PO (05:41)
[2018-11-19] MEDS: Amiodarone 200 MG Tablet PO ×3 (05:41→20:43)
[2018-11-19] MEDS: Midodrine HCl 5 MG Tablet PO ×3 (05:41→20:43)
--- NOTE | 2018-11-19 06:17 | US_ITS ---
PROCEDURE: Ultrasound guided paracentesis. DATE OF EXAMINATION: November 19, 2018. INDICATION: Female, 83 years old. Ascites. PHYSICIAN: Ted Shetty M.D. TECHNIQUE: The risks, benefits, and alternatives to the procedure were explained to the patient. The specific risks of bleeding, infection, and damage to bowel were detailed and accepted. Witnessed informed consent was obtained. The abdomen was ultrasonographically surveyed. An appropriate pocket of fluid was identified at the right lower quadrant. The skin were cleaned and prepped in the usual sterile fashion. Using ultrasound guidance, the peritoneal cavity was accessed with a 5-Divehi paracentesis needle/catheter system. The trocar was removed. A total of 450 ml of gris-colored fluid were removed from the peritoneal cavity. A 120 mL sample was sent to laboratory. The catheter was removed and a sterile dressing was applied. The procedure was well tolerated. US/Paracentesis with US IMPRESSION: Ultrasound guided paracentesis. Electronically Signed: Ted Shetty, at 13:13 EDT , Service support ,
--- NOTE | 2018-11-19 06:24 | NURSING ---
at bedside, ordered Levo gtt to be on hold to record and report 0630 vital signs. Pt ordered to be NPO for brkfst and to hold Lovenox for paracentesis for pt comfort.
--- NOTE | 2018-11-19 06:33 | NURSING ---
made aware of 0630 vitals, orders Levo to be returned on at 2mcg as previously running.
[2018-11-19 06:53] LABS: Absolute Lymphocyte Count 0.38 X10^3/ul (0.83-4.51); Absolute Neutrophil Count 5.4 X10^3/uL (2.0-7.7); Anion Gap 5 (5-15); BUN 77 mg/dL (7-18); BUN/Creat Ratio 36.5 RATIO (10-20); Basophil# 0.01 X10^3/uL; Basophil% 0.2 % (0-1); Calcium,Total 7.9 mg/dL (8.5-10.1); Chloride 90 mmol/L (98-107); Creatinine, Serum 2.11 mg/dL (0.55-1.02); EST Glomerular Filtration Rate 24 mL/min (>60); Eosinophil# 0.17 X10^3/uL; Eosinophils% 2.6 % (0-5); Est Glom Filt Rate - Afr Amer 29 mL/min (>60); Estimated Creatinine Clearance 16.42 ml/min; Glucose 118 mg/dL (74-106); Hematocrit 36.4 % (37-47); Hemoglobin 11.5 g/dl (12.0-15.0); Lymphocyte # 0.38 X10^3/ul (4.0); Lymphocyte % 5.8 % (19-41); Mean Corp Hgb Conc 31.6 g/gl (32-36); Mean Corpuscular Hgb 31.5 pg (27.0-32.0); Mean Corpuscular Volume 99.7 fL (81-99); Mean Platelet Vol. 9.9 fl (6.2-12.0); Monocyte# 0.51 X10^3/uL; Monocyte% 7.8 % (0-10); Neutrophil # 5.42 X10^3/uL (2.7-7.7); Neutrophil % 82.2 % (47-70); Phosphorus 3.3 mg/dL (2.5-4.9); Platelet Count 106 K/mm3 (150-450); Potassium 5.5 mmol/L (3.5-5.1); RBC Distribution Width CV 18.4 % (11.6-14.6); RBC Distribution Width SD 65.4 fl (35.1-43.9); Red Blood Count 3.65 M/mm3 (4.2-5.4); Sodium Level 126 mmol/L (136-145); White Blood Count 6.6 K/mm3 (4.4-11.0)
[2018-11-19 06:57] LABS: International Normalized Ratio 1.3
[2018-11-19 06:58] LABS: Differential Indicated SCAN CRITERIA MET; POSITIVE COUNT NO; POSITIVE DIFFERENTIAL YES; POSITIVE MORPHOLOGY YES; Partial Thromboplast Time 35.9 Seconds (24.1-36.2)
[2018-11-19 07:12] LABS: Anisocytosis 1+; Differential Comment SCAN; Polychromasia 1+
[2018-11-19 07:13] LABS: Absolute Nucleated RBC Count 0.27 10^3/uL (0-5); Macrocytosis 1+; NRBC Flagged by Analyzer 4.2 % (0-5)
--- NOTE | 2018-11-19 07:54 | PCM.PN.INT ---
Subjective: Patient continues to have significant discomfort from the abdomen. Patient was placed on fentanyl overnight with some improvement. Patient's oxygenation continues to require supplemental oxygen. Patient did have marginal blood pressures requiring Levophed at 2. No fevers have been noted overnight. Patient was still positive despite aggressive diuretics yesterday. Long discussion with patient's daughter yesterday. Patient's daughter was unable to say the word hospice during the discussion. She did report that they have tried to send her father to the hospice center and were denied. Patient has 4 daughters and 1 son. There is supposedly going to be here on Thursday morning to get an update. Patient's daughter was open to having hospice meet with them after that discussion. General: Alert, Cooperative, - - Moderate distress. Anasarca. Grimaces with movement. HEENT: Atraumatic, PERRLA, EOMI, Normocephalic, - - Slight scleral injection Oral: Moist Mucosa, No Gingival or Mucosal Lesions/ Ulcerations Neck: Supple, No Nodes, Trachea Midline, JVD, Right Lungs: No rhonchi, No wheeze, Diminished, Rales, - - Symmetric expansion. Dullness to percussion at the bases. Cardiovascular: Normal S1, Normal S2, Murmur, No rub noted, No Gallop, Tachycardic Abdomen: Bowel Sounds Present, Distended, Tender, - - No rebound, but guarding present Extremities: No cyanosis, Clubbing, Edema Skin: - - No significant change compared to previous Musculoskeletal: No Tenderness to Palpation of Joints or Extremities Lymphatic: No Cervical, Supraclavicular, or Inguinal Adenopathy Neurological: Cranial nerves II-XII grossly intact, Neuro grossly intact Psych/Mental Status: Appropriate, Flat Affect Vital Signs Temp Pulse Resp BP Pulse Ox 36.6 C 99 23 H 84/51 L 96 11/19/18 07:00 11/19/18 07:00 11/19/18 07:00 11/19/18 07:00 11/19/18 07:00 Oxygen Flow Rate (L/min) 2 Oxygen Delivery Method [4] Room Air Oxygen Delivery Method [3] Room Air Oxygen Delivery Method [2] Room Air Oxygen Delivery Method [1 ( Room Air Initial Baseline)] Oxygen Delivery Method Nasal Cannula Weight: 84.6 kg Body Mass Index (BMI) 31.6 Intake and Output for Last 24 Hours 11/17/18 11/18/18 11/19/18 23:59 23:59 23:59 Intake Total 1183.3 / 1558.4 1534.9 / 1534.9 228 / 228 Output Total 455 / 705 1225 / 1225 250 / 250 Balance 728.3 / 853.4 309.9 / 309.9 -22 / -22 Labs (Last 48 Hours) 11/15/18 11/16/18 11/17/18 13:20 03:20 04:00 WBC RBC Hgb Hct MCV MCH MCHC RDW RDW Differential Plt Count MPV Immature Gran % (Auto) Neut % (Auto) Lymph % (Auto) [place] % (Auto) Eos % (Auto) Baso % (Auto) Absolute Neuts (auto) Absolute Lymphs (auto) Total Counted Nucleated RBC % Differential Comment Diff Path Review Reviewed Reviewed Polychromasia Anisocytosis Macrocytosis Absolute Retic PT INR APTT Sodium Potassium Chloride Carbon Dioxide Anion Gap BUN Creatinine Estim Creat Clear Calc Est GFR (MDRD) Af Amer Est GFR (MDRD) Non-Af BUN/Creatinine Ratio Glucose Calcium Phosphorus Magnesium Fl Pathologist Comment Reviewed 11/18/18 11/18/18 11/19/18 05:00 05:00 06:20 WBC 5.8 6.6 RBC 3.74 L 3.65 L Hgb 11.9 L 11.5 L Hct 37.0 36.4 L MCV 98.9 99.7 H MCH 31.8 31.5 MCHC 32.2 31.6 L RDW 18.4 H 18.4 H RDW Differential 64.3 H 65.4 H Plt Count 111 L 106 L MPV 9.4 9.9 Immature Gran % (Auto) 1.200 H 1.400 H Neut % (Auto) 81.2 H 82.2 H Lymph % (Auto) 5.2 L 5.8 L [place] % (Auto) 9.3 7.8 Eos % (Auto) 2.9 2.6 Baso % (Auto) 0.2 0.2 Absolute Neuts (auto) 4.7 5.4 Absolute Lymphs (auto) 0.30 L 0.38 L Total Counted Not Reportable Not Reportable Nucleated RBC % 16.8 H 4.2 Differential Comment SCANNED SCAN Diff Path Review Reviewed May foll Polychromasia 1+ Anisocytosis 1+ Macrocytosis 1+ Absolute Retic 0.97 0.27 PT INR APTT Sodium 127 L Potassium 5.4 H Chloride 90 L Carbon Dioxide 30.0 Anion Gap 7 BUN 79 H Creatinine 2.29 H Estim Creat Clear Calc 15.13 Est GFR (MDRD) Af Amer 26 L Est GFR (MDRD) Non-Af 22 L BUN/Creatinine Ratio 34.5 H Glucose 96 Calcium 7.7 L Phosphorus Magnesium Fl Pathologist Comment 11/19/18 11/19/18 06:20 06:20 WBC RBC Hgb Hct MCV MCH MCHC RDW RDW Differential Plt Count MPV Immature Gran % (Auto) Neut % (Auto) Lymph % (Auto) [place] % (Auto) Eos % (Auto) Baso % (Auto) Absolute Neuts (auto) Absolute Lymphs (auto) Total Counted Nucleated RBC % Differential Comment Diff Path Review Polychromasia Anisocytosis Macrocytosis Absolute Retic PT 16.0 H INR 1.3 APTT 35.9 Sodium 126 L Potassium 5.5 H Chloride 90 L Carbon Dioxide 31.0 Anion Gap 5 BUN 77 H Creatinine 2.11 H Estim Creat Clear Calc 16.42 Est GFR (MDRD) Af Amer 29 L Est GFR (MDRD) Non-Af 24 L BUN/Creatinine Ratio 36.5 H Glucose 118 H Calcium 7.9 L Phosphorus 3.3 Magnesium 2.0 Fl Pathologist Comment Microbiology 11/15/18 13:20 Fluid - Ascites Gram Stain - Final 11/15/18 13:20 Fluid - Ascites Body Fluid Culture - Final Pantoea spp 11/18/18 03:53 Stool C. difficile DNA Amplification - Final Medical Necessity - Tobacco Use Smoking Status: Never smoker Assessment/Plan All Active Problems Hypotension (Acute) Hyperkalemia (Acute) Lactic acidosis (Acute) Renal insufficiency (Acute) Hyperkalemia (Acute) Acute exacerbation of CHF (congestive heart failure) (Acute) JULISSA (acute kidney injury) (Acute) GI bleed (Resolved) History of DVT (deep vein thrombosis) (Resolved) History of venous thromboembolism (Resolved) RECOMMENDATIONS: 1. Continue broad-spectrum antimicrobials 2. Repeat paracentesis for comfort, repeat culture 3. Wean Levophed to maintain mean arterial pressure at or above 65 mmHg. 4. Attempt aggressive diuresis 5. Continue to discuss goals of therapy with family. Poor prognosis IMPRESSIONS: 1. Septic shock secondary to spontaneous bacterial peritonitis Patient's paracentesis has come back with gram-negative bacilli. Patient is on appropriate antibiotics at this time. Patient does have very poor oncotic pressure leading to significant vascular leakage. Patient is still on minimal pressor therapy. Patient has had rapid reaccumulation of abdominal fluid. Patient is now having significant discomfort associated with the progression of ascites. Will perform bedside paracentesis to relieve the pressure and to send for repeat culture to ensure clearance with current antibiotics. 2. Biventricular heart failure/pulmonary hypertension/coronary artery disease status post CABG/paroxysmal atrial fibrillation Continue current supportive measures. Cardiology has been consulted to assist in the management of this patient. Repeat echocardiogram is showing no significant change. Patient is in atrial fibrillation at this time, but rate is relatively controlled, but now is requiring amiodarone. Cardiology is concerned that hospice measures may be more appropriate. Family does not appear to be noting patient's true prognosis. Attempting to diurese patient back on to the [place] curve, but this is likely only a temporizing measure. 3. Recurrent ascites There is some documentation that the patient's recurrent ascites is related to her heart failure. Patient tolerated paracentesis of 2.1 L previously in the week, but this may need to be completed again in the near future. This has come back positive with gram-negative bacilli 4. Hyponatremia/hyperkalemia/metabolic acidosis/acute kidney injury Patient appears to be relatively stable from a renal perspective. Clinical suspicion for cardiorenal syndrome. Bicarbonate drip has been discontinued. Attempting improved nutritional status to a regular diet. 5. Advanced age and deconditioning/GERD/hypothyroidism Complicates care, management, recovery and prognosis. Continue home medications as indicated. Patient will require physical therapy evaluation. TIME: 45 minutes of critical care time, independent of procedures, was spent addressing the patient's septic shock, biventricular heart failure, pulmonary hypertension, atrial fibrillation, recurrent ascites, hyponatremia, hyperkalemia, acute kidney injury, review of all data and collaboration with the care team. (6:15 AM to 8 AM) Code Visit 9xxxx: [id number] Critical care first hour
--- NOTE | 2018-11-19 09:01 | PN.CARD_ITS ---
Subjectve: The patient remains in the ICU. She appears to be calm on general inspection, uncomfortable. She complains about ongoing abdominal discomfort. Objective: Vital Signs Temp Pulse Resp BP Pulse Ox 98.1 F 112 H 29 H 101/65 96 11/19/18 08:00 11/19/18 08:00 11/19/18 08:00 11/19/18 08:00 11/19/18 08:00 Oxygen Flow Rate (L/min) 2 Oxygen Delivery Method [4] Room Air Oxygen Delivery Method [3] Room Air Oxygen Delivery Method [2] Room Air Oxygen Delivery Method [1 ( Room Air Initial Baseline)] Oxygen Delivery Method Nasal Cannula Weight: 186 lb 8.177 oz Body Mass Index (BMI) 31.6 Intake and Output for Last 24 Hours 11/17/18 11/18/18 11/19/18 23:59 23:59 23:59 Intake Total 1183.3 / 1558.4 1534.9 / 1534.9 228 / 228 Output Total 455 / 705 1225 / 1225 250 / 250 Balance 728.3 / 853.4 309.9 / 309.9 -22 / -22 General: Awake, Cooperative, Ill Appearing HEENT: Atraumatic, Normocephalic, PERRL, EOMI, Sclera Non Icteric Oral: Moist Mucosa Neck: Supple, Good ROM Lungs: - - Minute inspiratory effort and diminished breath sounds Cardiovascular: Irregular Rhythm, Normal S1, Normal S2 Abdomen: Hypoactive Bowel Sounds, Distended Extremities: - - Lower extremities: Bilateral Jose wrap 11/19/18 06:20: WBC 6.6, RBC 3.65 L, Hgb 11.5 L, Hct 36.4 L, MCV 99.7 H, MCH 31.5, MCHC 31.6 L, RDW 18.4 H, RDW Differential 65.4 H, Plt Count 106 L, MPV 9.9, Immature Gran % (Auto) 1.400 H, Neut % (Auto) 82.2 H, Lymph % (Auto) 5.8 L, [place] % (Auto) 7.8, Eos % (Auto) 2.6, Baso % (Auto) 0.2, Absolute Neuts (auto) 5.4, Total Counted Not Reportable, Nucleated RBC % 4.2 11/19/18 06:20: PT 16.0 H, INR 1.3, APTT 35.9 11/19/18 06:20: Sodium 126 L, Potassium 5.5 H, Chloride 90 L, Carbon Dioxide 31.0, Anion Gap 5, BUN 77 H, Creatinine 2.11 H, Est GFR (MDRD) Af Amer 29 L, Est GFR (MDRD) Non-Af 24 L, BUN/Creatinine Ratio 36.5 H, Glucose 118 H, Calcium 7.9 L, Phosphorus 3.3, Magnesium 2.0 Rhythm: Atrial fibrillation Medical Necessity - Tobacco Use Smoking Status: Never smoker Assessment/Plan 1. Hypotension The patient continues to require IV vasopressor support with Levophed. This does make it challenging to introduce agents that would assist with her atrial fibrillation rate control such as beta-blockers or calcium channel antag onist. However, as her atrial dysrhythmia persists and with elevated heart rates and limits on other rate limiting agents to use such as digitalis secondary to her underlying renal insufficiency she may need to attempt a low dose rate limiting medication that may benefit her atrial dysrhythmia and her underlying cardiovascular status. Thus it may be reasonable to attempt a low-dose of beta-jaime at this time. 2. Chronic systolic CHF She appears to have biventricular systolic dysfunction based upon her echocardiographic findings. This can contribute to concerns of hepatic congestion and renal insufficiency, etc. She continues to require IV vasopressor support. This appears to be allowing her to receive diuretic therapy. 3. CAD status post PCI status post CABG There is no indication of acute coronary syndrome. She has had no acute ECG changes. She would continue medical management for her underlying coronary artery disease process as tolerated. 4. Atrial fibrillation She does have atrial fibrillation. She has been without anticoagulant therapy. Secondary to her previous [facility] medical consultation available for review at stated that she was without anticoagulation secondary to history of GI bleeding. Her rate has varied. She did require an IV bolus of IV amiodarone since yesterday. At the present time she will be transitioned to oral amiodarone therapy. As she continues with elevated rates, as noted above, it may be reasonable to consider an attempt at a low-dose beta-jaime and monitor her heart rate and blood pressure response. Hopefully if her blood pressure improves she will be able to reinitiate a rate limiting medication and be able to be removed from amiodarone therapy. 5. Pulmonary hypertension Her most recent estimated RV systolic pressures are as described above. Certainly this can be a contributing factor to her hepatic congestion, etc. She will continue his medical support as deemed appropriate. 6. Ascites She has had ascites. He underwent paracentesis with approximately 2 L of fluid removal. She states her abdomen is beginning to bother her again. She has been considered for repeat paracentesis today. 7. Lactic acidosis She does have lactic acidosis. This may be secondary to poor perfusion. However she has been found to have positive body fluid cultures. Thus she is continuing with medical management with antibiotic therapy. 8. Hyperkalemia Her potassium level was markedly elevated. She received therapy. Her potassium level has decreased compared to her admission level. 9. Renal insufficiency Her creatinine level is improved although it still remains elevated. He will continue to be followed with respect to this and its interaction with her clinical condition, her medications, etc. Dr. Dowell stated he has discussed with the family the option of palliative/hospice care. He notes there are other family members that are going to attend ICU rounds tomorrow to discuss this issue. He is hopeful they will allow at least a palliative/hospice care consultation to assist with her decision-making process. This note was generated using a voice recognition system and there may be incorrect words, spelling or punctuation that were not noted when reviewing the office note prior to saving.
[2018-11-19] MEDS: CHLORHEXIDINE GLUC 2% CLOTH 1 EACH TOWELETTE TOPICAL (09:23)
[2018-11-19] MEDS: Allopurinol 100 MG Tablet PO (09:23)
[2018-11-19] MEDS: Metoprolol Tartrate 25 MG Tablet 12.5 MG PO ×2 (09:24→20:43)
[2018-11-19] MEDS: Metolazone 2.5 MG Tablet PO (09:24)
[2018-11-19] MEDS: Pantoprazole Sodium 20 MG Tablet PO (09:25)
[2018-11-19] MEDS: Menthol/Lanolin/Calamine/Znox 113 GM Tube 1 APPLIC TOPICAL ×4 (09:25→21:25)
[2018-11-19] MEDS: Bumetanide 1 MG/4 ML Vial 2 MG IV ×2 (09:55→17:03)
[2018-11-19] MEDS: 0.9% NaCl Peripheral Flush Adult/Peds IV ×2 (09:55→20:38)
--- NOTE | 2018-11-19 11:47 | NURSING ---
Dr. Shetty at bedside with US at 1145 see US/Radiology documentation for procedure
--- NOTE | 2018-11-19 13:28 | CASEMGMT ---
[facility]ON called Hospice and spoke with Dom letting her know the daughter Isabel would like to be the household personal assistant. JHON gave her Isabel's phone number. Linnette NANCE MSW
[2018-11-19] MEDS: Enoxaparin 30 MG/0.3 ML Syringe SC (14:53)
[2018-11-19] MEDS: Cefepime 1 GM in 0.9% NS 50 ML Minibag Q12 IV (14:56)
--- NOTE | 2018-11-19 14:56 | PN.RENAL_ITS ---
Patient Problems: Active and Suspected Problems Hypotension (Acute) Hyperkalemia (Acute) Lactic acidosis (Acute) Renal insufficiency (Acute) Hyperkalemia (Acute) JULISSA (acute kidney injury) (Acute) Subjective: Pt remains in ICU on 2 mcg/min levophed. Pt is complaining of abdominal pain. No nausea No vomiting. Breathing is stable Pt had paracentesis earlier today with 470 cc fluid removal Pt responded well to IV bumex with UOP 1.2 L - Physical Exam General: Alert, Cooperative, - - uncomfortable HEENT: Atraumatic Oral: Moist Mucosa Neck: Supple, No JVD Lungs: Clear to auscultation, Normal air movement, No rhonchi, No wheeze Cardiovascular: Irregular Rate, Tachycardic Abdomen: Bowel Sounds Present, Distended, Tender Skin: No rashes Musculoskeletal: No Muscle Wasting Lymphatic: No Cervical, Supraclavicular, or Inguinal Adenopathy Neurological: Neuro grossly intact Psych/Mental Status: Appropriate Vital Signs Temp Pulse Resp BP Pulse Ox 98.3 F 108 H 20 H 88/58 L 98 11/19/18 12:00 11/19/18 13:00 11/19/18 13:00 11/19/18 13:00 11/19/18 13:00 Oxygen Flow Rate (L/min) 2 Oxygen Delivery Method [4] Room Air Oxygen Delivery Method [3] Room Air Oxygen Delivery Method [2] Room Air Oxygen Delivery Method [1 ( Room Air Initial Baseline)] Oxygen Delivery Method Nasal Cannula Weight: 84.6 kg Body Mass Index (BMI) 31.6 Intake and Output for Last 24 Hours 11/17/18 11/18/18 11/19/18 23:59 23:59 23:59 Intake Total 1183.3 / 1558.4 1534.9 / 1534.9 228 / 228 Output Total 455 / 705 1225 / 1225 250 / 250 Balance 728.3 / 853.4 309.9 / 309.9 -22 / -22 Microbiology Past 72 Hours 11/19/18 06:12 Gram Stain - Final Fluid - Ascites 11/13/18 18:45 Blood Culture - Final Blood Culture (Wb) - Left Forearm No growth in 5 days. 11/13/18 18:32 Blood Culture - Final Blood Culture (Wb) - Anticubital Left No growth in 5 days. 11/15/18 13:20 Gram Stain - Final Fluid - Ascites Body Fluid Culture - Final Pantoea spp 11/18/18 03:53 C. difficile DNA Amplification - Final Stool Laboratory Tests Past 24 Hrs 11/19/18 11/19/18 11/19/18 06:20 06:20 06:20 WBC 6.6 RBC 3.65 L Hgb 11.5 L Hct 36.4 L MCV 99.7 H MCH 31.5 MCHC 31.6 L RDW 18.4 H RDW Differential 65.4 H Plt Count 106 L MPV 9.9 Immature Gran % (Auto) 1.400 H Neut % (Auto) 82.2 H Lymph % (Auto) 5.8 L [place] % (Auto) 7.8 Eos % (Auto) 2.6 Baso % (Auto) 0.2 Absolute Neuts (auto) 5.4 Absolute Lymphs (auto) 0.38 L Total Counted Not Reportable Nucleated RBC % 4.2 Differential Comment SCAN Diff Path Review May foll Polychromasia 1+ Anisocytosis 1+ Macrocytosis 1+ Absolute Retic 0.27 PT 16.0 H INR 1.3 APTT 35.9 Sodium 126 L Potassium 5.5 H Chloride 90 L Carbon Dioxide 31.0 Anion Gap 5 BUN 77 H Creatinine 2.11 H Estim Creat Clear Calc 16.42 Est GFR (MDRD) Af Amer 29 L Est GFR (MDRD) Non-Af 24 L BUN/Creatinine Ratio 36.5 H Glucose 118 H Calcium 7.9 L Phosphorus 3.3 Magnesium 2.0 Medical Necessity - Tobacco Use Smoking Status: Never smoker Assessment/Plan All Active Problems Hypotension (Acute) Hyperkalemia (Acute) Lactic acidosis (Acute) Renal insufficiency (Acute) Hyperkalemia (Acute) Acute exacerbation of CHF (congestive heart failure) (Acute) JULISSA (acute kidney injury) (Acute) GI bleed (Resolved) History of DVT (deep vein thrombosis) (Resolved) History of venous thromboembolism (Resolved) 1-Acute kidney injury on chronic kidney disease stage 2. Baseline creatinine seems around 0.9 to 1.0 mg/dL. Acute kidney injury is most probably due to ischemic ATN from hypotensive. BUN and Cr are trending down slowly. 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 Check kidney function in the morning. 2-hyperkalemia. from JULISSA. Remains slightly hyperkalemia at 5.5 this morning Should improved with better UOP . continue Bumex continue to monitor K level. 3-High anion gap metabolic acidosis . resolved 3-hyponatremia. from JULISSA and fluid retention.seems stable keep O>I. no need for 3% NaCl Check Na level in am 4-septic shock from peritonitis. Improved. remains on low levophed dose at 2 mcg/min Please dose Abx for the current CrCl. Renal team will continue to follow. Please call if any question at [phone] Sofía Iniguez
--- NOTE | 2018-11-19 19:12 | PN_ITS ---
Patient Problems: Active and Suspected Problems Hypotension (Acute) Hyperkalemia (Acute) Lactic acidosis (Acute) Renal insufficiency (Acute) Hyperkalemia (Acute) JULISSA (acute kidney injury) (Acute) Subjective: Patient was seen and examined today, she still remains confused, she appears unwell and weak. Patient had a paracentesis today and 450 cc of fluid was removed. According to nursing, pulmonary medicine had a conference with the patient's family and patient's family will talk to hospice tomorrow in the hospital. - Physical Exam General: Alert, No apparent distress, Well developed HEENT: Atraumatic, PERRLA, EOMI, Normocephalic Oral: Moist Mucosa Neck: Supple, Trachea Midline, Thyroid Normal Size and Texture Lungs: Clear to auscultation, Normal air movement, No rhonchi, No wheeze, No rales Cardiovascular: PMI Normal, Irregular Rate, Murmur - 2/6 systolic murmur is noted at the apex and right sternal border, No rub noted Abdomen: Bowel Sounds Present, Soft, Non Tender, Non-Distended Extremities: No clubbing, No cyanosis, Capillary Refill Less than 3 Seconds Skin: No rashes, No breakdown Musculoskeletal: No Tenderness to Palpation of Joints or Extremities Neurological: Cranial nerves II-XII grossly intact, Neuro grossly intact, Sensory exam intact to light touch and pain Psych/Mental Status: Flat Affect, - - Patient is alert but confused Vital Signs Temp Pulse Resp BP Pulse Ox 98.1 F 103 H 25 H 91/57 L 63 11/19/18 16:00 11/19/18 18:00 11/19/18 18:00 11/19/18 18:00 11/19/18 18:00 Oxygen Flow Rate (L/min) 2 Oxygen Delivery Method [4] Room Air Oxygen Delivery Method [3] Room Air Oxygen Delivery Method [2] Room Air Oxygen Delivery Method [1 ( Room Air Initial Baseline)] Oxygen Delivery Method Nasal Cannula Weight: 84.6 kg Body Mass Index (BMI) 31.6 Intake and Output for Last 24 Hours 11/17/18 11/18/18 11/19/18 23:59 23:59 23:59 Intake Total 1183.3 / 1558.4 1534.9 / 1534.9 783 / 783 Output Total 455 / 705 1225 / 1225 750 / 750 Balance 728.3 / 853.4 309.9 / 309.9 33 / 33 Microbiology Past 72 Hours 11/19/18 06:12 Gram Stain - Final Fluid - Ascites 11/13/18 18:45 Blood Culture - Final Blood Culture (Wb) - Left Forearm No growth in 5 days. 11/13/18 18:32 Blood Culture - Final Blood Culture (Wb) - Anticubital Left No growth in 5 days. 11/15/18 13:20 Gram Stain - Final Fluid - Ascites Body Fluid Culture - Final [place]a spp 11/18/18 03:53 C. difficile DNA Amplification - Final Stool Laboratory Tests Past 24 Hrs 11/19/18 11/19/18 11/19/18 06:20 06:20 06:20 WBC 6.6 RBC 3.65 L Hgb 11.5 L Hct 36.4 L MCV 99.7 H MCH 31.5 MCHC 31.6 L RDW 18.4 H RDW Differential 65.4 H Plt Count 106 L MPV 9.9 Immature Gran % (Auto) 1.400 H Neut % (Auto) 82.2 H Lymph % (Auto) 5.8 L [place] % (Auto) 7.8 Eos % (Auto) 2.6 Baso % (Auto) 0.2 Absolute Neuts (auto) 5.4 Absolute Lymphs (auto) 0.38 L Total Counted Not Reportable Nucleated RBC % 4.2 Differential Comment SCAN Diff Path Review May foll Polychromasia 1+ Anisocytosis 1+ Macrocytosis 1+ Absolute Retic 0.27 PT 16.0 H INR 1.3 APTT 35.9 Sodium 126 L Potassium 5.5 H Chloride 90 L Carbon Dioxide 31.0 Anion Gap 5 BUN 77 H Creatinine 2.11 H Estim Creat Clear Calc 16.42 Est GFR (MDRD) Af Amer 29 L Est GFR (MDRD) Non-Af 24 L BUN/Creatinine Ratio 36.5 H Glucose 118 H Calcium 7.9 L Phosphorus 3.3 Magnesium 2.0 Medical Necessity - Tobacco Use Smoking Status: Never smoker Assessment/Plan All Active Problems Hypotension (Acute) Hyperkalemia (Acute) Lactic acidosis (Acute) Renal insufficiency (Acute) Hyperkalemia (Acute) Acute exacerbation of CHF (congestive heart failure) (Acute) JULISSA (acute kidney injury) (Acute) GI bleed (Resolved) History of DVT (deep vein thrombosis) (Resolved) History of venous thromboembolism (Resolved) #1 septic shock-secondary to gram-negative peritonitis with [place]oe[place], continue present antibiotic coverage #2 acute kidney injury secondary to ischemic ATN from hypotension-continue to monitor creatinine #3 paroxysmal atrial fibrillation-patient remains in atrial fib at this time, patient is on oral amiodarone #4 chronic systolic heart failure #5 ischemic cardiomyopathy-EF 35% #6 hyponatremia #7 dementia Code Visit Inpatient E&M: 10428 Subs Hosp L2
[2018-11-20] VITALS (22 sets, daily range): BP systolic 82–97; BP diastolic 50–68; PULSE 81–105; RESP 18–33; TEMP 36.5–36.9; O2SAT 93–97
[2018-11-20] MEDS: fentaNYL 100 MCG/2 ML Ampul 25 MCG IV ×4 (00:38→14:17)
[2018-11-20] MEDS: 0.9% NaCl Peripheral Flush Adult/Peds IV ×4 (00:41→14:17)
[2018-11-20 05:15] LABS: Anion Gap 5 (5-15); BUN 85 mg/dL (7-18); BUN/Creat Ratio 40.1 RATIO (10-20); Calcium,Total 8.1 mg/dL (8.5-10.1); Chloride 89 mmol/L (98-107); Creatinine, Serum 2.12 mg/dL (0.55-1.02); EST Glomerular Filtration Rate 24 mL/min (>60); Est Glom Filt Rate - Afr Amer 29 mL/min (>60); Estimated Creatinine Clearance 16.34 ml/min; Glucose 95 mg/dL (74-106); Potassium 5.6 mmol/L (3.5-5.1); Sodium Level 126 mmol/L (136-145)
[2018-11-20] MEDS: Midodrine HCl 5 MG Tablet PO (06:08)
[2018-11-20] MEDS: Amiodarone 200 MG Tablet PO (06:08)
[2018-11-20] MEDS: Levothyroxine 125 MCG Tablet PO (06:08)
[2018-11-20] MEDS: CHLORHEXIDINE GLUC 2% CLOTH 1 EACH TOWELETTE TOPICAL (06:14)
--- NOTE | 2018-11-20 07:37 | PN_ITS ---
Subjective: Patient did okay yesterday. Patient did have a paracentesis without significant improvement in abdominal discomfort. Patient continues to report some dyspnea, but is denying any pain medication at this time. No fevers have been reported overnight. Levophed did have to be increased slightly. General: Alert, Cooperative, - - Appears uncomfortable. Shakes head appropriately. HEENT: Atraumatic, PERRLA, EOMI, Normocephalic, - - Slight scleral injection Oral: Moist Mucosa, No Gingival or Mucosal Lesions/ Ulcerations Neck: Supple, No Nodes, Trachea Midline, JVD, Right Lungs: No rhonchi, No wheeze, No rales, Diminished Cardiovascular: Normal S1, Normal S2, No murmurs, Irregular Rate, No rub noted, No Gallop Abdomen: Soft, Hypoactive Bowel Sounds, Distended, Tender Extremities: No clubbing, No cyanosis, Edema Skin: - - No significant change compared to previous Musculoskeletal: No Tenderness to Palpation of Joints or Extremities Lymphatic: No Cervical, Supraclavicular, or Inguinal Adenopathy Neurological: Cranial nerves II-XII grossly intact, Neuro grossly intact, Motor Exam 5/5 strength throughout Psych/Mental Status: Flat Affect, Restless Vital Signs Temp Pulse Resp BP Pulse Ox 36.5 C L 96 19 H 93/54 L 97 11/20/18 07:00 11/20/18 07:00 11/20/18 07:00 11/20/18 07:00 11/20/18 07:00 Oxygen Flow Rate (L/min) 2 Oxygen Delivery Method [4] Room Air Oxygen Delivery Method [3] Room Air Oxygen Delivery Method [2] Room Air Oxygen Delivery Method [1 ( Room Air Initial Baseline)] Oxygen Delivery Method Nasal Cannula Weight: 84.5 kg Body Mass Index (BMI) 31.6 Intake and Output for Last 24 Hours 11/18/18 11/19/18 11/20/18 23:59 23:59 23:59 Intake Total 1534.9 / 1534.9 1079.9 / 1079.9 187.3 / 187.3 Output Total 1225 / 1225 1350 / 1350 250 / 250 Balance 309.9 / 309.9 -270.1 / -270.1 -62.7 / -62.7 Labs (Last 48 Hours) 11/17/18 11/18/18 11/19/18 04:00 05:00 06:20 WBC 6.6 RBC 3.65 L Hgb 11.5 L Hct 36.4 L MCV 99.7 H MCH 31.5 MCHC 31.6 L RDW 18.4 H RDW Differential 65.4 H Plt Count 106 L MPV 9.9 Immature Gran % (Auto) 1.400 H Neut % (Auto) 82.2 H Lymph % (Auto) 5.8 L [place] % (Auto) 7.8 Eos % (Auto) 2.6 Baso % (Auto) 0.2 Absolute Neuts (auto) 5.4 Absolute Lymphs (auto) 0.38 L Total Counted Not Reportable Nucleated RBC % 4.2 Differential Comment SCAN Diff Path Review Reviewed Reviewed September foll Polychromasia 1+ Anisocytosis 1+ Macrocytosis 1+ Absolute Retic 0.27 PT INR APTT Sodium Potassium Chloride Carbon Dioxide Anion Gap BUN Creatinine Estim Creat Clear Calc Est GFR (MDRD) Af Amer Est GFR (MDRD) Non-Af BUN/Creatinine Ratio Glucose Calcium Phosphorus Magnesium 11/19/18 11/19/18 11/20/18 06:20 06:20 04:45 WBC RBC Hgb Hct MCV MCH MCHC RDW RDW Differential Plt Count MPV Immature Gran % (Auto) Neut % (Auto) Lymph % (Auto) [place] % (Auto) Eos % (Auto) Baso % (Auto) Absolute Neuts (auto) Absolute Lymphs (auto) Total Counted Nucleated RBC % Differential Comment Diff Path Review Polychromasia Anisocytosis Macrocytosis Absolute Retic PT 16.0 H INR 1.3 APTT 35.9 Sodium 126 L 126 L Potassium 5.5 H 5.6 H Chloride 90 L 89 L Carbon Dioxide 31.0 32.0 Anion Gap 5 5 BUN 77 H 85 H Creatinine 2.11 H 2.12 H Estim Creat Clear Calc 16.42 16.34 Est GFR (MDRD) Af Amer 29 L 29 L Est GFR (MDRD) Non-Af 24 L 24 L BUN/Creatinine Ratio 36.5 H 40.1 H Glucose 118 H 95 Calcium 7.9 L 8.1 L Phosphorus 3.3 Magnesium 2.0 Microbiology 11/19/18 06:12 Fluid - Ascites Gram Stain - Final 11/13/18 18:45 Blood Culture (Wb) - Left Forearm Blood Culture - Final No growth in 5 days. 11/13/18 18:32 Blood Culture (Wb) - Anticubital Left Blood Culture - Final No growth in 5 days. 11/15/18 13:20 Fluid - Ascites Gram Stain - Final 11/15/18 13:20 Fluid - Ascites Body Fluid Culture - Final Pantoea spp 11/18/18 03:53 Stool C. difficile DNA Amplification - Final Clinical Impression(s) from Imaging Studies Paracentesis Ultrasound 11/19/18 06:17 IMPRESSION: Ultrasound guided paracentesis. Electronically Signed: Ted Sena, at 13:13 EDT , Service support , Medical Necessity - Tobacco Use Smoking Status: Never smoker Assessment/Plan All Active Problems Hypotension (Acute) Hyperkalemia (Acute) Lactic acidosis (Acute) Renal insufficiency (Acute) Hyperkalemia (Acute) Acute exacerbation of CHF (congestive heart failure) (Acute) JULISSA (acute kidney injury) (Acute) GI bleed (Resolved) History of DVT (deep vein thrombosis) (Resolved) History of venous thromboembolism (Resolved) RECOMMENDATIONS: 1. Continue broad-spectrum antimicrobials 2. Family update with hospice discussion later today 3. Wean Levophed to maintain mean arterial pressure at or above 65 mmHg. 4. Continue aggressive diuresis if family requests aggressive measures 5. Fentanyl as needed for pain IMPRESSIONS: 1. Septic shock secondary to spontaneous bacterial peritonitis Patient's initial paracentesis with gram-negative bacilli. Patient is on appropriate antibiotics at this time. Repeat tap shows some white blood cells, but no organism. Patient does have very poor oncotic pressure leading to significant vascular leakage. Patient is still on minimal pressor therapy. Patient did not have significant improvement following paracentesis. Patient has been diuresed in the hopes of offloading the heart with slight increase in pressor therapy. 2. Biventricular heart failure/pulmonary hypertension/coronary artery disease status post CABG/paroxysmal atrial fibrillation Continue current supportive measures. Cardiology has been consulted to assist in the management of this patient. Repeat echocardiogram is showing no significant change. Patient is in atrial fibrillation at this time, but rate is relatively controlled, but now is requiring amiodarone. Cardiology is concerned that hospice measures may be more appropriate. Family does not appear to be noting patient's true prognosis. Family meeting planned for today at appr oximately 9:00 3. Recurrent ascites There is some documentation that the patient's recurrent ascites is related to her heart failure. Patient tolerated paracentesis of 2.1 L previously in the week, but this may need to be completed again in the near future. Repeat tap with culture pending 4. Hyponatremia/hyperkalemia/metabolic acidosis/acute kidney injury Patient appears to be relatively stable from a renal perspective. Clinical suspicion for cardiorenal syndrome. Bicarbonate drip has been discontinued. Attempting improved nutritional status to a regular diet. 5. Advanced age and deconditioning/GERD/hypothyroidism Complicates care, management, recovery and prognosis. Continue home medications as indicated. Patient will require physical therapy evaluation. Addendum 9:30 AM: Family meeting with 3 sisters in person and one by phone for approximately 25 minutes. Family is very intimidated by hospice despite stating that she would want to be comfortable at this time. Patient does have an appointment with hospice to discuss those options at 10 AM. Family understands that patient's heart is very weak and unable to deal with the stress of sepsis. They also understand the difficulty in treating abdominal cavity infections and appeared to understand the discomfort that the patient is experiencing. Await results of family discussion with hospice. TIME: 37 minutes of critical care time, independent of procedures, was spent addressing the patient's septic shock, biventricular heart failure, pulmonary hypertension, atrial fibrillation, recurrent ascites, hyponatremia, hyperkalemia, acute kidney injury, review of all data and collaboration with the care team. (6 AM to 7:40 AM) Code Visit 9xxxx: [id number] Critical care first hour
--- NOTE | 2018-11-20 09:11 | PCM.PN.CARD ---
Subjectve: Patient seen and evaluated. Appears to be rather lethargic. Objective: Vital Signs Temp Pulse Resp BP Pulse Ox 97.9 F 105 H 22 H 97/50 L 96 11/20/18 08:00 11/20/18 09:00 11/20/18 09:00 11/20/18 09:00 11/20/18 09:00 Oxygen Flow Rate (L/min) 2 Oxygen Delivery Method [4] Room Air Oxygen Delivery Method [3] Room Air Oxygen Delivery Method [2] Room Air Oxygen Delivery Method [1 ( Room Air Initial Baseline)] Oxygen Delivery Method Nasal Cannula Weight: 186 lb 4.65 oz Body Mass Index (BMI) 31.6 Intake and Output for Last 24 Hours 11/18/18 11/19/18 11/20/18 23:59 23:59 23:59 Intake Total 1534.9 / 1534.9 1079.9 / 1079.9 187.3 / 187.3 Output Total 1225 / 1225 1350 / 1350 250 / 250 Balance 309.9 / 309.9 -270.1 / -270.1 -62.7 / -62.7 General: Lethargic HEENT: PERRL, EOMI, Sclera Non Icteric Neck: Supple, Good ROM, No Lymph Node Enlargement Lungs: Clear to auscultation Cardiovascular: Irregular Rhythm, Normal S1, Normal S2, No Murmurs, No Rubs, No Gallops Vascular: No Carotid Bruits, Normal Femoral Pulses, Normal Radial Pulses, Normal Dorsalis Pedal Pulse, Normal Posterior Tibial Pulses Abdomen: Bowel Sounds Present, Soft, Non Tender, No HSM, No Organomegaly Extremities: No Cyanosis, No Clubbing, No edema Musculoskeletal: No Erythema Skin: No Rashes Neurological: No Focal Motor or Sensory Deficit Psych/Mental Status: Flat Affect 11/20/18 04:45: Sodium 126 L, Potassium 5.6 H, Chloride 89 L, Carbon Dioxide 32.0, Anion Gap 5, BUN 85 H, Creatinine 2.12 H, Est GFR (MDRD) Af Amer 29 L, Est GFR (MDRD) Non-Af 24 L, BUN/Creatinine Ratio 40.1 H, Glucose 95, Calcium 8.1 L Rhythm: EKG: ECHO: Stress Test: Cardiac Cath: PCI: CT Surgery: Holter monitor: EPS: PPM: CXR: Chest CT Scan: Medical Necessity - Tobacco Use Smoking Status: Never smoker Assessment/Plan 1. Hypotension The patient continues to require IV vasopressor support with Levophed. The dose there was low and had atrial fibrillation appears to be under control ventricular response rate. No other changes were made at this time. 2. Chronic systolic CHF She appears to have biventricular systolic dysfunction based upon her echocardiographic findings. This can contribute to concerns of hepatic congestion and renal insufficiency, etc. will continue with IV diuresis as necessary. 3. CAD status post PCI status post CABG There is no indication of acute coronary syndrome. She has had no acute ECG changes. She would continue medical management for her underlying coronary artery disease process as tolerated. 4. Atrial fibrillation She does have atrial fibrillation. She has been without anticoagulant therapy. Secondary to her previous [facility] medical consultation available for review at stated that she was without anticoagulation secondary to history of GI bleeding. We will continue with oral amiodarone to help with rate control. 5. Pulmonary hypertension Her most recent estimated RV systolic pressures are as described above. Certainly this can be a contributing factor to her hepatic congestion, etc. She will continue his medical support as deemed appropriate. 6. Ascites She has had ascites. He underwent paracentesis with approximately 2 L of fluid removal. She states her abdomen is beginning to bother her again. She has been considered for repeat paracentesis today. 7. Lactic acidosis She does have lactic acidosis. This may be secondary to poor perfusion. However she has been found to have positive body fluid cultures. Thus she is continuing with medical management with antibiotic therapy. 8. Hyperkalemia Her potassium level was markedly elevated. She received therapy. Her potassium level has decreased compared to her admission level. 9. Renal insufficiency Her creatinine level is improved although it still remains elevated. He will continue to be followed with respect to this and its interaction with her clinical condition, her medications, etc. Thank you for allowing me to participate in the care of your patient. Please don't hesitate to call if any issues arise
--- NOTE | 2018-11-20 09:45 | CM.UR ---
Participated in interdisciplinary rounds this am. 3 of the 4 daughters were present. The 4th had eye surgery yesterday and could not make it. The patient's son arrived just after rounds completed. Hospice is to meet with family today at 10am. Dr. Dowell gathered with family after to discuss condition further. Anthony Ulloa RN, [facility].
[2018-11-20] MEDS: Menthol/Lanolin/Calamine/Znox 113 GM Tube 1 APPLIC TOPICAL ×2 (10:34→13:44)
[2018-11-20] MEDS: Allopurinol 100 MG Tablet PO (10:35)
[2018-11-20] MEDS: Metoprolol Tartrate 25 MG Tablet 12.5 MG PO (10:35)
[2018-11-20] MEDS: Pantoprazole Sodium 20 MG Tablet PO (10:37)
[2018-11-20] MEDS: Enoxaparin 30 MG/0.3 ML Syringe SC (10:37)
--- NOTE | 2018-11-20 12:05 | NURSING ---
hospice administrator to see patient at this time
--- NOTE | 2018-11-21 15:45 | PCM.DC.SUM ---
Discharge Date and Diagnosis Date of Admission: 11/13/18 Date of Discharge: 11/20/18 - Primary Discharge Diagnosis 1 septic shock-secondary to gram-negative peritonitis with Pantoea-present on admission #2 acute kidney injury secondary to ischemic ATN from hypotension #3 paroxysmal atrial fibrillation #4 chronic systolic heart failure #5 ischemic cardiomyopathy-EF 35% #6 hyponatremia #7 dementia #8 pulmonary hypertension #9 ascites-secondary to chronic systolic heart failure - Secondary Discharge Diagnosis Chronic Problems S/P PTCA (percutaneous transluminal coronary angioplasty) (Chronic) S/P CABG (coronary artery bypass graft) (Chronic) Atrial fibrillation (Chronic) Ascites (Chronic) Chronic systolic CHF (congestive heart failure) (Chronic) Paroxysmal a-fib (Chronic) Pulmonary HTN (Chronic) Hyponatremia (Chronic) Gastroesophageal reflux disease (Chronic) Iron (Fe) deficiency anemia (Chronic) Chronic congestive heart failure (Chronic) systolic. 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 Dumont Hypothyroidism (Chronic) Hospital Course and Treatment Consultations 11/16/18 06:59 Consult: Onc/Wound/lna Routine Comment: Reason for Consult:: Lymphedema Operations: None Procedures: 2-D Echocardiogram Summary of Care Provided: The patient is a 83 year old F who was seen in the emergency room at [facility] with a chief complaint of generalized weakness. Patient gets chronic paracentesis performed as an outpatient. Evaluation in the emergency room included a CBC that was normal except for a slightly low platelet count 144,000. Chemistry profile showed a sodium of 118 and potassium of 7.1, BUN was 85 and creatinine was 2.99. Ammonia level was 37 lactic acid was elevated at 3, EKG showed atrial fibrillation with a rate of 64. Patient was given IV fluids in the emergency room, she was given calcium gluconate and IV insulin. Patient was unable to lay flat for CT scan of the abdomen, patient's blood pressure was noted to be 64/40. After administration of fluids, patient's blood pressure remained low at 80/60, ICU was contacted and recommended starting IV antibiotics empirically, a central line was placed in the emergency room and the patient was admitted to ICU for acute kidney injury with lactic acidosis felt to be secondary to probable sepsis and hyperkalemia. Patient was seen in consultation by critical care, nephrology, and cardiology. Patient underwent a paracentesis and was maintained on IV antibiotics. Patient had to be administered vasopressors to elevate her blood pressure. Ascitic fluid culture resulted in positive for Pantoea. Conversations were carried out with the patient's family, patient was not able to make decisions due to confusion and was felt to possibly have dementia. Patient's medical status did not improve during her hospitalization, family consented to have a hospice see the patient and hospice was able to accept the patient and recommended transfer to the hospice care facility as an inpatient. On 11/20/2018, patient was seen and examined: On examination she appeared weak and unwell. Vital signs as documented. Skin warm and dry and without overt rashes. Neck without JVD. Lungs clear. Heart exam notable for irregular rhythm. Abdomen unremarkable and without evidence of organomegaly, masses, or abdominal aortic enlargement. Extremities-stasis dermatitis changes were noted over both lower extremities along with generalized edema. Neuro: Cranial nerves II through XII are grossly intact, no focal motor deficits were noted, sensation to light touch and pinprick is intact. Psych: Patient is alert, her affect was flat and she appeared confused. On 11/20/2018, patient was seen and examined and felt to be in stable condition for transfer to the inpatient hospice facility-overall prognosis was poor. - Physical Exam Vital Signs Temp Pulse Resp BP Pulse Ox 98.5 F 88 27 H 87/62 L 96 11/20/18 16:31 11/20/18 16:31 11/20/18 16:31 11/20/18 16:31 11/20/18 16:31 Oxygen Flow Rate (L/min) 2 Oxygen Delivery Method [4] Room Air Oxygen Delivery Method [3] Room Air Oxygen Delivery Method [2] Room Air Oxygen Delivery Method [1 ( Room Air Initial Baseline)] Oxygen Delivery Method Nasal Cannula Weight: 84.5 kg Body Mass Index (BMI) 31.6 Intake and Output for Last 24 Hours 11/19/18 11/20/18 11/21/18 23:59 23:59 23:59 Intake Total 1079.9 / 1079.9 342.3 / 342.3 Output Total 1350 / 1350 500 / 500 Balance -270.1 / -270.1 -157.7 / -157.7 Microbiology Past 72 Hours 11/19/18 06:12 Gram Stain - Final Fluid - Ascites Body Fluid Culture - Preliminary No growth-Final to follow 11/15/18 13:20 Gram Stain - Final Fluid - Ascites Body Fluid Culture - Final Pantoea spp Anaerobic Culture - Final No anaerobic bacteria isolated. 11/13/18 18:45 Blood Culture - Final Blood Culture (Wb) - Left Forearm No growth in 5 days. 11/13/18 18:32 Blood Culture - Final Blood Culture (Wb) - Anticubital Left No growth in 5 days. Home Medications: Medications to take at Discharge Omeprazole [Prilosec] 20 mg PO DAILY 08/17/16 Docusate Sodium [Colace] 100 mg PO BID 11/10/16 Ondansetron HCl [Zofran] 4 mg PO PRN PRN 11/25/17 Acetaminophen [Tylenol] 1,000 mg PO Q4H PRN PRN 12/04/17 Nitroglycerin [Nitrostat] 0.4 mg SL PRN PRN 12/04/17 Carvedilol [Coreg (Beta Cherelle)] 6.25 mg PO BID tablet 12/06/17 Furosemide 40 mg PO BREAKFAST #1 tablet 12/06/17 Levothyroxine [Synthroid] 125 mcg PO DAILY 12/09/17 Metolazone [Zaroxolyn] 2.5 mg PO Q48H 12/09/17 Allopurinol 100 mg PO DAILY 11/13/18 Midodrine HCl 5 mg PO TID 11/13/18 Spironolactone 75 mg PO BID 11/13/18 Primary Care Physician: Sea Obando MD [Primary Care Provider] - Disposition: Hospice Medical Facility Minutes spent on discharge:: 35 Patient Condition:: Stable Medical Necessity - Tobacco Use Smoking Status: Never smoker Meaningful Use Info Meaningful Use Diagnoses (Choose all that apply): None applicable Code Visit Inpatient E&M: 73427 Disch Hosp
[2018-11-22 14:28] LABS: Pathologist Review Reviewed
== END 2018-11-20 16:30 | disposition hospice, inpatient (51) | DRG 871 ==
LOC: ED 18:36 → ICU 21:47
PROVIDERS: Internal Medicine; Internal Medicine Critical Care Medicine; Admitting Provider Hospitalist; Emergency Provider Emergency Medicine; Family Provider Family Medicine; PCP Family Medicine; Visit Provider Internal Medicine
DX: A41.59 Other Gram-negative sepsis (principal); K65.2 Spontaneous bacterial peritonitis; N17.0 Acute kidney failure with tubular necrosis; R65.21 Severe sepsis with septic shock; I50.22 Chronic systolic (congestive) heart failure; R18.8 Other ascites; E87.2 Acidosis; E87.1 Hypo-osmolality and hyponatremia; E87.5 Hyperkalemia; I27.20 Pulmonary hypertension, unspecified; F03.90 Unspecified dementia, unspecified severity, without behavioral disturbance, psychotic disturbance, mood disturbance, and anxiety; I25.5 Ischemic cardiomyopathy; I48.0 Paroxysmal atrial fibrillation; K21.9 Gastro-esophageal reflux disease without esophagitis; I25.10 Atherosclerotic heart disease of native coronary artery without angina pectoris; E03.9 Hypothyroidism, unspecified; I87.2 Venous insufficiency (chronic) (peripheral); Z66 Do not resuscitate; D50.9 Iron deficiency anemia, unspecified; Z51.5 Encounter for palliative care; Z95.5 Presence of coronary angioplasty implant and graft; Z95.1 Presence of aortocoronary bypass graft; Z95.828 Presence of other vascular implants and grafts; Z86.718 Personal history of other venous thrombosis and embolism
CPT/HCPCS: 36415; 36556; 36569; 49083; 71045; 80048; 80053; 81001; 82140; 82962; 83605; 83690; 83735; 83880; 84100; 84484; 85025; 85027; 85610; 85730; 87040; 87070; 87075; 87077; 87086; 87186; 87205; 87493; 88108; 88305; 88313; 89050; 93005; 93306; 94640; 97110; 97163; 97166; 97530; 97802; 99251; 99285; J7030; J7040; J7050; A4216; C1751; G0463; J0610; J1940; J2405